=== PATIENT | female | born 1985 | race Caucasian/White ===

== ENCOUNTER 2016-10-31 16:18 | Observation (INO) | payer OTHER, SELFPAY ==
[~2016-10-31] VITALS: Ht 160 cm; Wt 74.8 kg
[~2016-10-31 16:18] MED LIST: /ESCI10TA OR; /OXCA30TA OR; ATIV0.5T OR; ATIV1TAB2 OR; BACT800T OR; CELE20TA OR; CIPR500T89 PO; IBUP200C PO; KLON0.5T OR; LEVA500T PO; MACROBID PO; MELA5TAB14 PO; No Historical Meds; PERC5TAB6 PO; PERC5TAB8 OR; VICO5TAB OR
[2016-10-31 17:07] LABS: CONTROL LINE UCG INT CTR LINE PRESENT
[2016-10-31] MEDS ORDERED: cefTRIAXone SOD 1 GM VIAL (J0696) As Ordered ONE (18:13)
[2016-10-31] MEDS ORDERED: KETOROLAC 30 MG/ML VIAL (J1885) As Ordered ONE (18:13)
[2016-10-31 18:47] LABS: BASO # 0.1 K/mm3 (0.0-0.2); BASO % 0.9 % (0.0-1.0); EOS # 0.2 K/mm3 (0.0-0.50); EOS % 1.3 % (0.0-3.0); LARGE UNSTAINED CELL # 0.2 K/mm3 (0.0-0.4); LARGE UNSTAINED CELL % 1.5 % (0.0-4.0); LYMPH # 1.6 K/mm3 (1.5-4.5); LYMPH % 12.3 % (24.0-44.0); MEAN CORPUSCULAR HEMOGLOBIN 29.2 pg (27.0-33.0); MEAN CORPUSCULAR HGB CONC 35.2 g/dl (32.0-36.5); MEAN CORPUSCULAR VOLUME 83.1 fl (80.0-96.0); MONO # 0.6 K/mm3 (0.0-0.8); MONO % 5.3 % (0.0-5.0); NEUTROPHILS % 78.7 % (36.0-66.0); PLATELET COUNT, AUTOMATED 410 k/mm3 (150-450); RED CELL DISTRIBUTION WIDTH 13.3 % (11.5-14.5); WHITE BLOOD COUNT 11.5 K/mm3 (4.0-10.0)
--- NOTE | 2016-10-31 19:02 | REP ---
CT study of the abdomen and pelvis without IV or oral contrast: History: Bilateral flank pain. Status post left ureteral stent. Question pyelonephritis. Comparison CT study is from April 10 2016. 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 Bowel gas pattern is unremarkable. The lung bases are clear. There is no evidence of pleural effusion or upper abdominal ascites. The liver and the spleen, the adrenals and the pancreas are unremarkable. No gallbladder abnormality is seen. There is marked bilateral hydronephrosis. On the left, there is hydronephrosis and hydroureter despite the presence of the double pigtail left ureteral stent. No ureteral stone is seen. The degree of hydronephrosis is essentially unchanged from the April 10, 2016 study on the left side. On the right, there is new hydronephrosis due to the presence of a 5 mm obstructing right mid ureteral calculus. On the left, there is some thickening of the renal pelvic wall, which may reflect pyelonephritis. There is no evidence of soft tissue gas, free air or ileus. A normal appendix is seen. No abdominal wall defect is seen. No uterine or adnexal abnormality is seen. Impression: Marked bilateral hydronephrosis. On the right, this is due to a right mid ureteral 5 mm calculus. On the left, the hydronephrosis is noted in spite of a well-positioned left double pigtail ureteral stent. There is mural thickening in the dilated renal pelvis consistent with pyelonephritis. Signed by Maurice Morris MD 10/31/2016 07:12 P
[2016-10-31 19:03] LABS: CALCIUM LEVEL 9.7 MG/DL (8.5-10.1); CREATININE FOR GFR 1.62 MG/DL (0.55-1.02); POTASSIUM SERUM 2.7 MEQ/L (3.5-5.1)
[2016-10-31] MEDS ORDERED: ONDANSETRON 4MG/2ML VIAL (J2405) As Ordered ONE ×2 (19:36→20:33)
[2016-10-31] MEDS ORDERED: IBUP60TA PO (19:39)
[2016-10-31] MEDS ORDERED: CONRAY-60 60% 50ML VIAL (Q9961) As Ordered ONE (19:49)
--- NOTE | 2016-10-31 20:00 | EDDOCDS ---
Nurse's Notes [facility] Name: Rosita Corado Age: 31 yrs Sex: Female : 1985 Arrival Date: 10/31/2016 Time: 16:18 Bed I3 / M3 Private MD: [facility] Diagnosis: Other hydronephrosis;Other mechanical complication of urinary stent;Chronic obstructive pyelonephritis;Fever presenting with conditions classified elsewhere;Acute kidney failure Presentation: 10/31 16:23 Presenting complaint: Patient states: "I have a stent in my left kidney that was jc4 supposed to come out a few months ago, but my insurance became effective. I'm having pain in my left side and my right side is killing me. I can't control my bladder". States intermittent symptoms for "a while, but it just got worse a couple of days ago". Acute neurological deficits are not present. Mechanism of Injury: No Mechanism of Injury. Adult Sepsis Screening: The patient does not have new or worsening altered mentation. Patient's respiratory rate is less than 22. Systolic blood pressure is greater than 100. Patient has a qSOFA score of 0- Negative Sepsis Screen. Suicide/Homicide risk assessment- the patient denies having any suicidal and/or homicidal ideations and does not present with any other emotional, behavioral or mental health complaints. Status: Patient is not a auto service mechanic or dependent. Transition of care: patient was not received from another setting of care. 16:23 Acuity: RAVI Level 3 [facility] 16:23 Method Of Arrival: Walkin/Carried/Asstd jc4 Triage Assessment: 16:25 General: Appears uncomfortable. Pain: Pain currently is 8 out of 10 on a pain scale. jc4 HIV screening NA for this visit Offered previously. Musculoskeletal: Circulation, motion, and sensation intact. 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 Motrin 600 mg Oral tab 1 tab 4 times per day as needed (Last dose: 10/31/2016 12:00) - PMHx: Anxiety; Kidney stones; - PSHx: renal stent; cone biopsy; - Social history: Smoking status: Patient states former smoker of tobacco. No barriers to communication noted, The patient speaks fluent Mongolian. - Family history: Not pertinent. - : The pt / caregiver states he / she is not on anticoagulants. Home medication list is obtained from the patient. - Exposure Risk Screening:: None identified. Screenin:21 Screening information is obtained from the patient. Fall risk: No risks identified. kpj Assistance ADL's: requires no assistance with activities of daily living. Abuse/DV Screen: The patient / caregiver reports he/she is: not in a situation that causes fear, pain or injury. Nutritional screening: No deficits noted. Advance Directives: Currently, there is no health care proxy. There is no active DNR order. There is no living will. There is no Power of Tire Inspector. Advance directive information has not previously been placed in an [facility] medical record. Further advance directive information is declined. home support is adequate. Assessment: 18:21 General: Appears uncomfortable, Behavior is appropriate for age, pleasant. Pain: [facility] Location: left flank and right flank Pain currently is 9 out of 10 on a pain scale. Quality of pain is described as aching, sharp. Neurological: Level of Consciousness is awake, alert, Oriented to person, place, time. Respiratory: Airway is patent Respiratory effort is even, unlabored, Respiratory pattern is regular, symmetrical. GI: Abdomen is non- distended Bowel sounds present X 4 quads. Abd is soft and non tender. : Reports pain in bilateral flank(s) Pain is 9 out of 10 on a pain scale. Derm: Skin is pink, warm & dry. 18:24 Adult Sepsis Screening: The patient does not have new or worsening altered mentation. [facility] Patient's respiratory rate is less than 22. Systolic blood pressure is greater than 100. Patient has a qSOFA score of 0- Negative Sepsis Screen. 19:45 Reassessment: Patient appears in no apparent distress at this time. Patient states rs3 symptoms have improved. bilateral flank pain 7/10. breathes easy. OR screen complete. family at bedside. Vital Signs: 16:20 BP 122 / 98; Pulse 125; Resp 18 S; Temp 100.5(O); Pulse Ox 96% on R/A; Weight 74.84 kg gr2 (R); Height 5 ft. 3 in. (160.02 cm) (R); Pain 8/10; 18:24 BP 137 / 86; Pulse 112; Resp 18; Temp 101.2(O); Pulse Ox 96% on R/A; Pain 8/10; kpj 19:39 BP 118 / 72; Pulse 96; Resp 18; Temp 99.2; Pulse Ox 98% ; Pain 8/10; ajs 16:20 Body Mass Index 29.23 (74.84 kg, 160.02 cm) gr2 18:24 Agustin NATARAJAN aware of vital signs. [facility] Vitals: 16:20 Log In Time: October 31, 2016 at 16:20. gr2 ED Course: 16:20 Patient visited by Wendie Bello. gr2 16:20 [facility] is Private Physician. gr2 16:20 Patient moved to Waiting gr2 16:21 Patient visited by Wendie Bello. gr2 16:21 Patient moved to Pre RCE gr2 16:25 Triage Initiated jc4 16:55 Patient moved to Triage 2 kr3 17:00 UCG- In Lab Sent. kr3 17:00 Urine Culture Sent. kr3 17:00 UA Sent. kr3 17:38 Agustin Serrano PA is PHCP. btw 17:38 Sarah Mendoza MD is Attending Physician. btw 17:43 Patient visited by Agustin Serrano PA. btw 18:04 Patient moved to I3 / M3 jc4 18:20 BMP Sent. kpj 18:20 CBC with Diff Sent. kpj 18:21 Resting quietly. kpj 18:21 The patient / caregiver is instructed regarding the plan of care and ED course. Patient kpj has correct armband on for positive identification. Placed in gown. Diet: Patient is NPO. 18:21 Inserted saline lock: 20 gauge in left antecubital area The patient tolerated the kpj procedure well. 18:24 Patient visited by Dayanara Bar. nb2 18:50 Patient name changed from Tia\\S\\\\S\\Mickie\\S\\ to Tia\\S\\ \\S\\Mickie. EDMS 18:51 [facility] [place] Payment Agreement was scanned into [employer] and attached to record. zo 19:19 Alexi Arriaga is Hospitalizing Provider. btw 19:36 -Blood Culture Sent. ajs 19:36 BLOOD CULTURES Sent. ajs 19:38 Admission Orders was scanned into [employer] and attached to record. ml3 19:39 Patient visited by Arelis Davis. ajs 19:45 CT ABD & PELVIS: No Contrast Returned. EDMS 19:48 No procedures done that require assistance. rs3 Administered Medications: 18:22 Drug: NS 0.9% 1000 ml [sodium chloride 0.9 % intravenous solution] Route: IV; Rate: mcp bolus; Site: left antecubital; 19:44 Follow up: IV Status: Completed infusion rs3 18:22 Drug: ketorolac 15 mg [ketorolac 30 mg/mL (1 mL) injection solution (0.5 mL)] Route: mcp IVP; Site: left antecubital; 18:22 Drug: cefTRIAXone 2 grams [ceftriaxone 1 gram solution for injection] Route: IVPB; mcp Infused Over: 30 mins; Site: left antecubital; 19:45 Follow up: IV Status: Completed infusion rs3 19:44 Drug: Ondansetron 4 mg [ondansetron HCl 2 mg/mL intravenous solution (2 mL)] Route: rs3 IVP; Site: left antecubital; Order Results: Lab Order: UA; SPEC'M 10/31/16 16:58 Test: APPEARANCE, URINE; Value: TURBID; Range: CLEAR; Abnormal: Above high normal; Status: F Test: COLOR, URINE; Value: YELLOW; Range: YELLOW; Status: F Test: PH,URINE; Value: 7.0; Range: 5.0-9.0; Units: UNITS; Status: F Test: SPECIFIC GRAVITY URINE AUTO; Value: 1.009; Range: 1.002-1.035; Status: F Test: PROTEIN, URINE AUTO; Value: 2+; Range: NEGATIVE; Abnormal: Above high normal; Units: mg/dL; Status: F Test: GLUCOSE, URINE (UA) AUTO; Value: NEGATIVE; Range: NEGATIVE; Units: mg/dL; Status: F Test: KETONE, URINE AUTO; Value: 2+; Range: NEGATIVE; Abnormal: Above high normal; Units: mg/dL; Status: F Test: UROBILINOGEN, URINE AUTO; Value: 0.2; Range: 0.0-2.0; Units: mg/dL; Status: F Test: BILIRUBIN, URINE AUTO; Value: NEGATIVE; Range: NEGATIVE; Status: F Test: NITRITE, URINE AUTO; Value: NEGATIVE; Range: NEGATIVE; Status: F Test: LEUKOCYTE ESTERASE, URINE AUTO; Value: 2+; Range: NEGATIVE; Abnormal: Above high normal; Status: F Test: BLOOD, URINE BLOOD; Value: 3+; Range: NEGATIVE; Abnormal: Above high normal; Status: F Test: SPERM, URINE AUTO; Range: NONE; Status: I Test: WBC, URINE AUTO; Value: TNTC; Range: 0-3; Abnormal: Above high normal; Units: /HPF; Status: F Test: RBC, URINE AUTO; Value: 156; Range: 0-3; Abnormal: Above high normal; Units: /HPF; Status: F Test: BACTERIA, URINE AUTO; Value: 2+; Range: NEGATIVE; Abnormal: Above high normal; Status: F Test: SQUAMOUS EPITHELIAL CELL UR AU; Value: 9; Range: 0-6; Units: /HPF; Status: F Test: MUCUS, URINE; Value: MODERATE; Range: NEGATIVE; Status: F Test: HYALINE CAST, URINE AUTO; Value: 0; Range: 0-1; Units: /LPF; Status: F Lab Order: UCG- In Lab; SPEC'M 10/31/16 16:58 Test: URINE PREG TEST; Value: NEGATIVE; Range: NEGATIVE; Status: F Lab Order: CBC with Diff; SPEC'M 10/31/16 18:18 Test: WHITE BLOOD COUNT; Value: 11.5; Range: 4.0-10.0; Abnormal: Above high normal; Units: K/mm3; Status: F Test: RED BLOOD COUNT; Value: 4.33; Range: 4.00-5.40; Units: M/mm3; Status: F Test: HEMOGLOBIN; Value: 12.6; Range: 12.0-16.0; Units: g/dl; Status: F Test: HEMATOCRIT; Value: 36.0; Range: 36.0-47.0; Units: %; Status: F Test: MEAN CORPUSCULAR VOLUME; Value: 83.1; Range: 80.0-96.0; Units: fl; Status: F Test: MEAN CORPUSCULAR HEMOGLOBIN; Value: 29.2; Range: 27.0-33.0; Units: pg; Status: F Test: MEAN CORPUSCULAR HGB CONC; Value: 35.2; Range: 32.0-36.5; Units: g/dl; Status: F Test: RED CELL DISTRIBUTION WIDTH; Value: 13.3; Range: 11.5-14.5; Units: %; Status: F Test: PLATELET COUNT, AUTOMATED; Value: 410; Range: 150-450; Units: k/mm3; Status: F Test: NEUTROPHILS %; Value: 78.7; Range: 36.0-66.0; Abnormal: Above high normal; Units: %; Status: F Test: LYMPH %; Value: 12.3; Range: 24.0-44.0; Abnormal: Below low normal; Units: %; Status: F Test: MONO %; Value: 5.3; Range: 0.0-5.0; Abnormal: Above high normal; Units: %; Status: F Test: EOS %; Value: 1.3; Range: 0.0-3.0; Units: %; Status: F Test: BASO %; Value: 0.9; Range: 0.0-1.0; Units: %; Status: F Test: LARGE UNSTAINED CELL %; Value: 1.5; Range: 0.0-4.0; Units: %; Status: F Test: NEUTROPHILS #; Value: 9.0; Range: 1.8-7.7; Abnormal: Above high normal; Units: K/mm3; Status: F Test: LYMPH #; Value: 1.6; Range: 1.5-4.5; Units: K/mm3; Status: F Test: MONO #; Value: 0.6; Range: 0.0-0.8; Units: K/mm3; Status: F Test: EOS #; Value: 0.2; Range: 0.0-0.50; Units: K/mm3; Status: F Test: BASO #; Value: 0.1; Range: 0.0-0.2; Units: K/mm3; Status: F Test: LARGE UNSTAINED CELL #; Value: 0.2; Range: 0.0-0.4; Units: K/mm3; Status: F Lab Order: [facility]; SPEC'M 10/31/16 18:18 Test: GLUCOSE, FASTING; Value: 85; Range: 70-105; Units: MG/DL; Status: F Test: BLOOD UREA NITROGEN; Value: 19; Range: 7-18; Abnormal: Above high normal; Units: MG/DL; Status: F Test: CREATININE FOR GFR; Value: 1.62; Range: 0.55-1.02; Abnormal: Above high normal; Units: MG/DL; Status: F Test: GLOMERULAR FILTRATION RATE; Value: 39.0; Range: >60; Abnormal: Below low normal; Status: F Test: SODIUM LEVEL; Value: 140; Range: 136-145; Units: MEQ/L; Status: F Test: POTASSIUM SERUM; Value: 2.7; Range: 3.5-5.1; Abnormal: Critical Low; Units: MEQ/L; Status: F Test: CHLORIDE LEVEL; Value: 97; Range: 98-107; Abnormal: Below low normal; Units: MEQ/L; Status: F Test: CARBON DIOXIDE LEVEL; Value: 27; Range: 21-32; Units: MEQ/L; Status: F Test: ANION GAP; Value: 16; Range: 8-16; Units: MEQ/L; Status: F Test: CALCIUM LEVEL; Value: 9.7; Range: 8.5-10.1; Units: MG/DL; Status: F Test Note: ; Units are mL/min/1.73 m2 Chronic Kidney Disease Staging per NKF: Stage I & II GFR >=60 Normal to Mildly Decreased Stage III GFR 30-59 Moderately Decreased Stage IV GFR 15-29 Severely Decreased Stage V GFR <15 Very Little GFR Left ESRD GFR <15 on YEAST TENDER Radiology Order: CT ABD & PELVIS: No Contrast Test: CT ABD & PELVIS: No Contrast REASON FOR EXAMINATION: stent x several months; ? pyelo; CT study of the abdomen and pelvis without IV or oral contrast:; ; History: Bilateral flank pain. Status post left ureteral stent. 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 Bowel gas pattern is unremarkable. The lung bases; are clear. There is no evidence of pleural effusion or upper abdominal ascites.; The liver and the spleen, the adrenals and the pancreas are unremarkable. No; gallbladder abnormality is seen.; ; There is marked bilateral hydronephrosis. On the left, there is hydronephrosis; and hydroureter despite the presence of the double pigtail left ureteral stent.; No ureteral stone is seen. The degree of hydronephrosis is essentially unchanged; from the April 10, 2016 study on the left side.; ; On the right, there is new hydronephrosis due to the presence of a 5 mm; obstructing right mid ureteral calculus.; ; On the left, there is some thickening of the renal pelvic wall, which may reflect; pyelonephritis. There is no evidence of soft tissue gas, free air or ileus. A; normal appendix is seen. No abdominal wall defect is seen. No uterine or; adnexal abnormality is seen.; ; Impression:; ; Marked bilateral hydronephrosis. On the right, this is due to a right mid; ureteral 5 mm calculus. On the left, the hydronephrosis is noted in spite of a; well-positioned left double pigtail ureteral stent. There is mural thickening in; the dilated renal pelvis consistent with pyelonephritis.; ; ; Signed by; Maurice Morris MD 10/31/2016 07:12 P; Outcome: 19:20 Decision to Hospitalize by Provider. btw 19:48 Discharge Assessment: patient administered narcotics - no. The following High Risk rs3 Discharge criteria are identified: None. Admitted to OR accompanied by nurse, accompanied by tech, family with patient, via stretcher, with chart. Condition: stable. CT Study completed. Admission hand-off: Report called to OR staff. Property :Personal belongings accompany Pt. 19:59 Patient left the ED. rs3 Signatures: Dispatcher [employer] EDMS Katia Angel RN RN kpj Peters, Mary RN RUSSEL [facility] Shanique Suh, Antenna Specialist Unit ml3 Ileana Hanna RN RN kr3 Steve An Rosemary, RN RN rs3 Agustin Serrano PA PA btw Gay Angeles RN RN jc4 Arelis Davis Gainslee gr2 Dayanara Bar2 Corrections: (The following items were deleted from the chart) 18:25 18:24 BP 137 / 86; Pulse 112bpm; Resp 18bpm; Pulse Ox 96% RA; Temp 101.2F Oral; Pain kpj 8/; nb2 MTDD
--- NOTE | 2016-10-31 20:00 | EDDOCDS ---
Physician Documentation [facility] Name: Rosita Corado Age: 31 yrs Sex: Female : 1985 Arrival Date: 10/31/2016 Time: 16:18 Bed I3 / M3 Private MD: [facility] Disposition: 10/31/16 19:20 Hospitalization ordered by Alexi Arriaga for Inpatient Admission. Preliminary diagnosis are Other hydronephrosis, Other mechanical complication of urinary stent, Chronic obstructive pyelonephritis, Fever presenting with conditions classified elsewhere, Acute kidney failure. - Bed requested for Admit. - Status is Inpatient Admission. rs3 - Condition is Stable. - Problem is new. - Symptoms are unchanged. Historical: - Allergies: Reglan; - Home Meds: 1. Motrin 600 mg Oral tab 1 tab 4 times per day as needed (Last dose: 10/31/2016 12:00) - PMHx: Anxiety; Kidney stones; - PSHx: renal stent; cone biopsy; - Social history: Smoking status: Patient states former smoker of tobacco. No barriers to communication noted, The patient speaks fluent Tristanian. - Family history: Not pertinent. - : The pt / caregiver states he / she is not on anticoagulants. Home medication list is obtained from the patient. - Exposure Risk Screening:: None identified. 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 3 in. (160.02 cm) (R); Pain 8/10; 18:24 BP 137 / 86; Pulse 112; Resp 18; Temp 101.2(O); Pulse Ox 96% on R/A; Pain 8/10; kpj 19:39 BP 118 / 72; Pulse 96; Resp 18; Temp 99.2; Pulse Ox 98% ; Pain 8/10; ajs 16:20 Body Mass Index 29.23 (74.84 kg, 160.02 cm) gr2 18:24 Agustin NATARAJAN aware of vital signs. [facility] MDM: 16:43 UA Ordered. EDMS 16:43 Urine Culture Ordered. EDMS 16:43 UCG- In Lab Ordered. EDMS 17:44 UA Reviewed. btw 17:44 UCG- In Lab Reviewed. btw 17:55 CBC with Diff Ordered. EDMS 17:55 BMP Ordered. EDMS 17:56 CT ABD & PELVIS: No Contrast Ordered. EDMS 17:56 IV Saline Lock ordered. btw 17:56 NS 0.9% 1000 ml IV at bolus once ordered. btw 17:56 ketorolac 15 mg IVP once ordered. btw 17:56 cefTRIAXone 2 grams IVPB once over 30 mins; dilute in 50mL of NS or D5W ordered. btw 18:41 Financial registration complete. zo 18:50 CBC with Diff Reviewed. btw 18:51 [facility] Payment Agreement was scanned into [employer] and attached to record. zo 19:08 BMP Reviewed. btw 19:08 BED REQUEST+ADM ordered. EDMS 19:18 -Blood Culture (Adults Only), peripheral from different site, or from device/port/PICC btw etc. if present ordered. 19:18 Ondansetron 4 mg IVP once ordered. btw 19:19 -Blood Culture Ordered. EDMS 19:20 NOTHING BY MOUTH+DIET ordered. EDMS 19:21 -Blood Culture (Adults Only), peripheral from different site, or from device/port/PICC ajs etc. if present complete. 19:22 BLOOD CULTURES Ordered. EDMS 19:33 Retrograde Pyelogram Ordered. EDMS 19:38 Admission Orders was scanned into [employer] and attached to record. ml3 Administered Medications: 18:22 Drug: NS 0.9% 1000 ml [sodium chloride 0.9 % intravenous solution] Route: IV; Rate: mcp bolus; Site: left antecubital; 19:44 Follow up: IV Status: Completed infusion rs3 18:22 Drug: ketorolac 15 mg [ketorolac 30 mg/mL (1 mL) injection solution (0.5 mL)] Route: mcp IVP; Site: left antecubital; 18:22 Drug: cefTRIAXone 2 grams [ceftriaxone 1 gram solution for injection] Route: IVPB; mcp Infused Over: 30 mins; Site: left antecubital; 19:45 Follow up: IV Status: Completed infusion rs3 19:44 Drug: Ondansetron 4 mg [ondansetron HCl 2 mg/mL intravenous solution (2 mL)] Route: rs3 IVP; Site: left antecubital; Signatures: Dispatcher [employer] EDKatia Lopez RN RN [facility] Shanique Suh, [employer] [facility] ml3 Steve An Rosemary, RN RN rs3 Agustin Serrano PA PA btw Castle, Jennifer, RN RN jc4 Arelis Davis Mary RN mcp The chart was reviewed and I authenticate all verbal orders and agree with the evaluation and treatment provided.Attachments: 18:51 [facility] Payment Agreement zo 19:38 Admission Orders ml3 MTDD
[2016-10-31] MEDS ORDERED: ACETAMINOPHEN TAB 650MG DOSE (2X325MG) PO PRN (20:15)
[2016-10-31] MEDS ORDERED: ONDANSETRON 4MG/2ML VIAL (J2405) IV PRN ×2 (20:15→21:30)
[2016-10-31] MEDS ORDERED: fentaNYL 250 MCG/5 ML INJECTION (J3010) As Ordered ONE (20:33)
[2016-10-31] MEDS ORDERED: dexameTHASONE 4 MG/ML 1ML VIAL (J1100) As Ordered ONE (20:33)
[2016-10-31] MEDS ORDERED: MIDAZOLAM INJ 2 MG/2 ML VIAL (J2250) As Ordered ONE (20:33)
[2016-10-31] MEDS ORDERED: PROPOFOL 200 MG/20 ML VIAL As Ordered ONE (20:33)
[2016-10-31] MEDS ORDERED: LIDOCAINE 2% INJ 100 MG/5 ML SDV (FOR ANES.) As Ordered ONE (20:33)
[2016-10-31] MEDS ORDERED: PERCOCET 5MG/325MG TAB PO PRN (21:30)
[2016-10-31] MEDS ORDERED: fentaNYL 100 MCG/2 ML INJECTION (J3010) IV PRN (21:30)
[2016-10-31] MEDS ORDERED: LR 1,000 ML IV SCH (21:30)
[2016-10-31] MEDS ORDERED: MEPERIDINE INJ 25 MG/ML VIAL (J2175) IV PRN (21:30)
[2016-10-31 22:05] VITALS: BP 124/88
[2016-10-31] MEDS: KCL 40MEQ IN D5/0.45NS 1000ML 1,000 ML IV SCH (22:15)
[2016-10-31] MEDS: PIPERACILLIN/TAZOBACTAM SOD 3.375 GM in D5W MINI-BAG PLUS 50 ML IV SCH (22:34)
[2016-10-31] MEDS: DOCUSATE SODIUM 100 MG CAP PO SCH (22:34)
[2016-10-31 22:35] VITALS: BP 132/93
[2016-10-31 23:05] VITALS: BP 129/89
[2016-10-31] MEDS: MORPHINE 2 MG/ML 1ML SYRINGE IV PRN (23:47)
[2016-11-01] VITALS (13 sets, daily range): BP systolic 102–141; BP diastolic 67–95
[2016-11-01] MEDS: PERCOCET 5MG/325MG TAB PO PRN ×4 (03:36→21:08)
[2016-11-01] MEDS: PIPERACILLIN/TAZOBACTAM SOD 3.375 GM in D5W MINI-BAG PLUS 50 ML IV SCH ×3 (03:41→15:07)
[2016-11-01] MEDS: KCL 40MEQ IN D5/0.45NS 1000ML 1,000 ML IV SCH ×2 (06:01→22:28)
[2016-11-01] MEDS: MORPHINE 2 MG/ML 1ML SYRINGE IV PRN ×3 (06:01→15:54)
[2016-11-01 07:29] LABS: MEAN CORPUSCULAR HEMOGLOBIN 29.1 pg (27.0-33.0); MEAN CORPUSCULAR VOLUME 85.6 fl (80.0-96.0); RED CELL DISTRIBUTION WIDTH 12.4 % (11.5-14.5); WHITE BLOOD COUNT 5.6 K/mm3 (4.0-10.0)
[2016-11-01 07:32] LABS: INR 0.98
[2016-11-01 07:47] LABS: CALCIUM LEVEL 8.9 MG/DL (8.5-10.1); CREATININE FOR GFR 1.53 MG/DL (0.55-1.02); GLOMERULAR FILTRATION RATE 41.6 (>60); POTASSIUM SERUM 3.3 MEQ/L (3.5-5.1)
--- NOTE | 2016-11-01 08:40 | REP ---
Retrograde pyelogram: Three views obtained intraprocedurally. History: Right ureteral stone. 30 seconds of fluoroscopy time is reported. Findings: A sequence of three fluoroscopically obtained intraprocedural spot radiographs document bilateral ureteral contrast injection, bilateral marked hydronephrosis, and bilateral double pigtail ureteral stent placement. Signed by Maurice Morris MD 11/01/2016 09:16 A
[2016-11-01] MEDS: DOCUSATE SODIUM 100 MG CAP PO SCH ×2 (08:44→21:06)
--- NOTE | 2016-11-01 08:50 | IPNPDOC ---
Date of Service The patient was seen on 11/01/16. Patient Summary This is a 31 y/o F admitted yesterday w/ an obstructing right ureteral stone, a retained and calcified left ureteral stent since 04/2016, and fevers, POD1 s/p cystoscopy w/ right ureteral stent placement, cystolitholapaxy and attempted removal of left ureteral stent. She feels better and is no longer febrile, currently on zosyn q6. She is still very tender in both flanks (L > R). Given the inability to change the stent at this time, I recommended a left percutaneous nephrostomy tube placement to drain the left kidney. She is agreeable. Plan/VTE VTE Prophylaxis Ordered?: Yes VTE Exclusion Mechanical Proph: N/A:VTE Prophy Ordered Plan/Urinary Catheter Reason for insertion/continuin: Other-document below (to maximize urinary drainage and for strict urine output given her declined renal function) Plan - percocet, morphine prn pain - continue IVF w/ K replacement - continue zosyn - f/u blood and urine cultures - plan for left perc nephrostomy tube placement today - NPO until after her procedure Review oF Systems CC/HPI Right Ureteral Stone, Retained Left Ureteral Stent Events since Last Encounter No acute events o/n. Her right flank pain has gone down to a 5/10 from 810 prior to stent placement yesterday. Her left flank pain is unchanged at 8-9/ 10. She feels a little better. She denies n/v. She denies f/c/ns. Physical Examination General Exam: : Alert: Cooperative ABDOMEN EXAM: : Tenderness (right and left abdominal tenderness) Skin Exam: : Nl turgor and temperature Neuro Exam: : Normal Speech Psych Exam: : Mental status NL: Mood NL Other physical findings b/l CVA tenderness (L > R); lares catheter draining clear urine Vital Signs/I&O Vital Signs Date Time Temp Pulse Resp B/P Pulse Ox O2 Delivery O2 Flow Rate FiO2 11/01/16 06:11 18 11/01/16 04:00 97.3 75 102/67 94 Room Air I&O- Last 24 Hours up to 6 AM 11/01/16 06:00 Intake Total 1785 ml Output Total 750 ml Balance 1035 ml Laboratory Data Labs 24H Laboratory Tests 2 10/31/16 16:58: Urine Amorphous Sediment , Urine Appearance TURBIDH, Urine Color YELLOW, Urine pH 7.0, Urine Specific [place] 1.009, Urine Protein 2+H, Urine Glucose (UA) NEGATIVE, Urine Ketones 2+H, Urine Urobilinogen 0.2, Urine Bilirubin NEGATIVE, Urine Leukocyte Esterase 2+H, Urine Bacteria (Auto) 2+H, Urine Blood 3+H, Urine Calcium Carbonate Cryst(Auto) , Urine Calcium Oxalate Cryst (Auto) , Urine Calcium Phosphate [place] (Auto) , Urine Cellular Casts , Urine Cystine Crystals , Urine Granular Casts (Auto) , Urine Hyaline Casts (Auto) 0, Urine Leucine Crystals , Urine Mucus (Auto) MODERATE, Urine Nitrite NEGATIVE, Urine Oval Fat Bodies (Auto) , Urine Test NEGATIVE, Urine RBC (Auto) 156H, Urine Renal Epithelial Cells , Urine Sperm (Auto) , Urine Squamous Epithelial Cells 9 , Urine Transitional Epithelial Cells , Urine Trichomonas (Auto) , Urine Triple Phosphate Cryst (Auto) , Urine Tyrosine Crystals , Urine Uric Acid Crystals ( Auto) , Urine WBC (Auto) TNTCH, Urine Waxy Casts (Auto) , Urine Yeast-Like Cells (Auto) 10/31/16 18:18: Anion Gap 16, White Blood Count 11.5H, Red Blood Count 4.33, Hemoglobin 12.6, Hematocrit 36.0, Mean Corpuscular Volume 83.1, Mean Corpuscular Hemoglobin 29.2 , Mean Corpuscular Hemoglobin Concent 35.2, Red Cell Distribution Width 13.3, Platelet Count 410, Neutrophils (%) (Auto) 78.7H, Lymphocytes (%) (Auto) 12.3L, Monocytes (%) (Auto) 5.3H, Eosinophils (%) (Auto) 1.3, Basophils (%) (Auto) 0.9 , Neutrophils # (Auto) 9.0H, Lymphocytes # (Auto) 1.6, Monocytes # (Auto) 0.6, Eosinophils # (Auto) 0.2, Basophils # (Auto) 0.1, Blood Urea Nitrogen 19H, Creatinine 1.62H, Sodium Level 140, Potassium Level 2.7*L, Chloride Level 97L, Carbon Dioxide Level 27, Calcium Level 9.7, Glomerular Filtration Rate 39.0L, Large Unclassified Cells # 0.2, Large Unclassified Cells % 1.5 11/01/16 07:05: Anion Gap 10, Blood Urea Nitrogen 21H, Creatinine 1.53H, Sodium Level 142, Potassium Level 3.3#L, Chloride Level 104, Carbon Dioxide Level 28, Calcium Level 8.9, Glomerular Filtration Rate 41.6L, Activated Partial Thromboplast Time 37.0, Prothromb Time International Ratio 0.98, Prothrombin Time 13.1 CBC/BMP Laboratory Tests 10/31/16 18:18 Calcium Level 9.7, Red Blood Count 4.33, Mean Corpuscular Volume 83.1, Mean Corpuscular Hemoglobin 29.2, Mean Corpuscular Hemoglobin Concent 35.2, Red Cell Distribution Width 13.3, Neutrophils (%) (Auto) 78.7 H, Lymphocytes (%) (Auto) 12.3 L, Monocytes (%) (Auto) 5.3 H, Eosinophils (%) (Auto) 1.3, Basophils (%) ( Auto) 0.9, Neutrophils # (Auto) 9.0 H, Lymphocytes # (Auto) 1.6, Monocytes # ( Auto) 0.6, Eosinophils # (Auto) 0.2, Basophils # (Auto) 0.1 11/01/16 07:05 Calcium Level 8.9, Red Blood Count 4.05, Mean Corpuscular Volume 85.6, Mean Corpuscular Hemoglobin 29.1, Mean Corpuscular Hemoglobin Concent 34.0, Red Cell Distribution Width 12.4 Microbiology Microbiology 10/31/16 Blood Culture, Received Pending 10/31/16 Blood Culture, Received Pending 10/31/16 Urine Culture, Received Pending ROSELYN GUTIÉRREZ MD Nov 01, 2016 08:50
[2016-11-01] MEDS ORDERED: ISOVUE-300 61% 50ML VIAL (Q9967) As Ordered ONE (11:59)
[2016-11-01] MEDS ORDERED: fentaNYL 100 MCG/2 ML INJECTION (J3010) As Ordered ONE ×2 (12:10→13:39)
[2016-11-01] MEDS ORDERED: MIDAZOLAM INJ 2 MG/2 ML VIAL (J2250) As Ordered ONE (12:10)
[2016-11-01] MEDS ORDERED: ONDANSETRON 4MG/2ML VIAL (J2405) As Ordered ONE (13:39)
[2016-11-01] MEDS: fentaNYL 100 MCG/2 ML INJECTION (J3010) IV PRN ×4 (13:43→14:08)
[2016-11-01] MEDS ORDERED: LR 1,000 ML IV SCH (14:30)
[2016-11-01] MEDS ORDERED: ONDANSETRON 4MG/2ML VIAL (J2405) IV PRN (14:30)
[2016-11-01 17:09] LABS: CALCIUM LEVEL 8.3 MG/DL (8.5-10.1); CREATININE FOR GFR 1.44 MG/DL (0.55-1.02); GLOMERULAR FILTRATION RATE 44.6 (>60); POTASSIUM SERUM 3.6 MEQ/L (3.5-5.1)
--- NOTE | 2016-11-01 18:28 | REP ---
Percutaneous left nephrostomy catheter placement under sonographic and fluoroscopic guidance: History: Obstructive uropathy bilaterally. Ureteral obstruction on the right from a stone. A obstructed previously placed left ureteral stent is noted associated with severe hydronephrosis on the left. Percutaneous nephrostomy requested on the left side. Procedure: The patient and her were interviewed and informed consent was obtained. The patient was placed in the prone oblique position on the angiography table. We are grateful for anesthesia services regarding deep conscious sedation. Preliminarily, left renal sonography is performed and the skin was marked at the proposed skin entry site. After patient safety time-out was articulated and agreed to, the area over the left posterior flank was prepped and draped in the usual fashion. Utilizing 1% lidocaine for local anesthetic and real-time sonographic guidance, a 21-gauge Chiba needle was passed into the right renal collecting system under direct real time ultrasound visualization without technical difficulty. Clear return of urine was achieved. Guidewire was passed through the Chiba needle. A 6-Guinean dilator was passed over the guidewire and an eight-Guinean multi side-hole string fixed pigtail catheter was passed into the dilated left renal pelvis under fluoroscopic visualization. Opaque brownish-red mucoid material and some urine were retrieved from the renal pelvis. Contrast was injected into the renal pelvis showing good catheter position and no extravasation. There is a large filling defect surrounding the coiled portion previously placed ureteral stent. The patient tolerated the procedure well. The catheter was connected to gravity drainage bag. A Prolene suture was utilized to anchor the catheter at the skin entry site. The catheter entry site was covered with an OpSite dressing. Impression: Percutaneous nephrostomy tube on the left side placed with deep conscious sedation provided by the anesthesia department. The fluoroscopy time utilized was 0.9 minutes. Signed by Maurice Morris MD 11/02/2016 11:24 A
[2016-11-01] MEDS: CIPROFLOXACIN 500 MG TAB PO SCH (18:35)
[2016-11-01] MEDS ORDERED: MORPHINE 2 MG/ML 1ML SYRINGE IV PRN (19:00)
[2016-11-02] VITALS: BP 113/73
[2016-11-02 04:00] VITALS: BP 93/53
[2016-11-02] MEDS: CIPROFLOXACIN 500 MG TAB PO SCH ×2 (06:00→18:13)
[2016-11-02] MEDS: PERCOCET 5MG/325MG TAB PO PRN ×4 (06:01→21:01)
[2016-11-02 07:01] LABS: MEAN CORPUSCULAR HGB CONC 33.9 g/dl (32.0-36.5); MEAN CORPUSCULAR VOLUME 85.4 fl (80.0-96.0); RED CELL DISTRIBUTION WIDTH 13.4 % (11.5-14.5); WHITE BLOOD COUNT 12.6 K/mm3 (4.0-10.0)
[2016-11-02 07:22] LABS: CREATININE FOR GFR 1.46 MG/DL (0.55-1.02); GLOMERULAR FILTRATION RATE 43.9 (>60)
[2016-11-02 08:00] VITALS: BP 113/67
[2016-11-02] MEDS: DOCUSATE SODIUM 100 MG CAP PO SCH ×2 (08:19→21:00)
[2016-11-02] MEDS: KCL 10MEQ IN 100ML SWI (KRUN) 10 MEQ in APPROPRIATE DILUENT 1 EA IV SCH ×8 (09:57→16:13)
--- NOTE | 2016-11-02 11:06 | IPNPDOC ---
Date of Service The patient was seen on 11/02/16. Patient Summary This is a 31 y/o F admitted 10/31/16 w/ an obstructing right ureteral stone, a retained and calcified left ureteral stent since 04/2016, and fevers, now POD2 s/ p cystoscopy w/ right ureteral stent placement, cystolitholapaxy and attempted removal of left ureteral stent, and POD1 s/p left perc neph tube placement. Zosyn was stopped yesterday and she was switched to PO cipro. She has remained afebrile on this. Her WBC jumped to 12.6 from 5.6 yesterday, but this is likely related to the left neph tube placement. Her Cr is hanging around 1.45, but her UOP is slowly increasing. K remains low and this is being replaced. Her abdominal and flank pain is getting better, but she is still occasionally requiring IV morphine for breakthrough pain. Plan/VTE VTE Prophylaxis Ordered?: Yes VTE Exclusion Mechanical Proph: N/A:VTE Prophy Ordered Plan - replete K in IVF - continue maintenance fluid at 50cc/hr - encourage PO hydration - percocet for pain w/ morphine for breakthrough pain - continue cipro given concern for UTI - strict I/Os - ambulate - regular diet Review oF Systems CC/HPI Bilateral Hydronephrosis from an Obstructing Right Ureteral Stone and a Calcified Retained Left Ureteral Stent Events since Last Encounter No acute events o/n. The patient had a left nephrostomy tube placed yesterday afternoon and this went w/o any problems. Per report, thick yellow fluid drained out when the neph tube was first placed. This was sent for culture. The patient notes her b/l flank and abdominal pain is a little improved this morning. Her catheter was removed yesterday and she is voiding, but notes a lot of pain when she voids. She denies n/v. No f/c/ns. Physical Examination General Exam: : Alert: Cooperative ABDOMEN EXAM: : Tenderness (right and left abdominal tenderness) Skin Exam: : Nl turgor and temperature Neuro Exam: : Normal Speech Psych Exam: : Mental status NL: Mood NL Other physical findings b/l CVA tenderness; left nephrostomy tube draining clear yellow urine w/ some sediment in it Vital Signs/I&O Vital Signs Date Time Temp Pulse Resp B/P Pulse Ox O2 Delivery O2 Flow Rate FiO2 11/02/16 10:06 16 11/02/16 08:00 98.9 83 113/67 96 Room Air 11/02/16 04:00 1.0 I&O- Last 24 Hours up to 6 AM 11/02/16 06:00 Intake Total 2370 ml Output Total 1025 ml Balance 1345 ml Laboratory Data Labs 24H Laboratory Tests 2 11/01/16 13:10: Urine Amorphous Sediment , Urine Appearance TURBIDH, Urine Color REDH, Urine pH 8.0, Urine Specific [place] 1.028, Urine Protein 2+H, Urine Glucose (UA) 1+H, Urine Ketones TRACEH, Urine Urobilinogen 0.2, Urine Bilirubin NEGATIVE, Urine Leukocyte Esterase 2+H, Urine Bacteria (Auto) 1+H, Urine Blood 3+H, Urine Calcium Carbonate Cryst(Auto) , Urine Calcium Oxalate Cryst (Auto) , Urine Calcium Phosphate [place] (Auto) , Urine Cellular Casts , Urine Cystine Crystals , Urine Granular Casts (Auto) , Urine Hyaline Casts (Auto) 0, Urine Leucine Crystals , Urine Mucus (Auto) SMALL, Urine Nitrite NEGATIVE, Urine Oval Fat Bodies (Auto) , Urine RBC (Auto) TNTCH, Urine Renal Epithelial Cells , Urine Sperm (Auto) , Urine Squamous Epithelial Cells 0, Urine Transitional Epithelial Cells , Urine Trichomonas (Auto) , Urine Triple Phosphate Cryst (Auto) , Urine Tyrosine Crystals , Urine Uric Acid Crystals (Auto) , Urine WBC (Auto) TNTCH, Urine Waxy Casts (Auto) , Urine Yeast-Like Cells (Auto) 11/01/16 16:35: Anion Gap 9, Blood Urea Nitrogen 18, Creatinine 1.44H, Sodium Level 144, Potassium Level 3.6, Chloride Level 106, Carbon Dioxide Level 29, Calcium Level 8.3L, Glomerular Filtration Rate 44.6L 11/02/16 06:26: Anion Gap 10, Blood Urea Nitrogen 16, Creatinine 1.46H, Sodium Level 144, Potassium Level 3.0L, Chloride Level 106, Carbon Dioxide Level 28, Calcium Level 8.0L, Glomerular Filtration Rate 43.9L CBC/BMP Laboratory Tests 11/01/16 16:35 Calcium Level 8.3 L 11/02/16 06:26 Calcium Level 8.0 L, Red Blood Count 3.63 L, Mean Corpuscular Volume 85.4, Mean Corpuscular Hemoglobin 29.0, Mean Corpuscular Hemoglobin Concent 33.9, Red Cell Distribution Width 13.4 Microbiology Microbiology 10/31/16 Blood Culture - Preliminary, Resulted No growth after 24 hours . All specim... 10/31/16 Blood Culture - Preliminary, Resulted No growth after 24 hours . All specim... 11/01/16 Urine Culture, Received Pending 10/31/16 Urine Culture - Final, Complete ROSELYN GUTIÉRREZ MD Nov 02, 2016 11:06
--- NOTE | 2016-11-02 11:12 | RO ---
DATE OF PROCEDURE: 10/31/2016 PREPROCEDURE DIAGNOSIS: Obstructing right ureteral stone, retained left ureteral stent. POSTPROCEDURE DIAGNOSIS: Obstructing right ureteral stone, retained left ureteral stent. PROCEDURE: Cystoscopy, right retrograde pyelogram with intraoperative interpretation of images, right JJ ureteral stent placement, cystolitholapaxy. SURGEON: Dr. Alexi Arriaga SOLAR ELECTRIC/PHOTOVOLTAIC INSTALLER: None. ANESTHESIA: General. OPERATIVE INDICATIONS: This is a 31-year-old female who presented to the emergency room today with fevers, bilateral flank pain, nausea, and feeling very unwell, as well as dysuria. She spiked fevers in the emergency room, and she had an elevated white blood cell count. A CT scan of the abdomen and pelvis was obtained, and it was notable moderate to severe bilateral hydronephrosis due to a calcified left ureteral stent and an obstructing 5 mm mid right ureteral stone. Given the concern that she has an active urinary tract infection in addition to bilateral renal obstruction, the decision was made to bring her to the operating room emergently for a right ureteral stent placement and attempt at left ureteral stent exchange. Of note, this patient was brought to the operating room approximately 6 months ago for a left ureteral stent placement as she had a 7 mm obstructing proximal left ureteral stone at that time as well as a urinary tract infection. She never followed up with treatment for that stone or removal of that stent. DESCRIPTION OF PROCEDURE: The patient was brought to the operating room and general anesthesia was induced. Prophylactic antibiotics had already been infused in the emergency room. She was then placed in the dorsal lithotomy position and prepped and draped in the usual sterile fashion. A rigid cystoscope was then inserted into the urethral meatus and advanced into the bladder. Once within the bladder, the previously placed left ureteral stent was seen and the distal end of the stent appeared to be completely calcified. It appeared like it was a large stone inside the bladder. At this point, an open- end ureteral catheter was advanced up the right collecting system. I was not able to advance it past the stone. I then advanced the wire up the right collecting system past the stone. Once the wire was advanced above the level of the stone, I was then able to advance the ureteral catheter up past the stone. A retrograde pyelogram was then performed, and it was notable for severe right hydronephrosis. At this point, the wire was then advanced back up the open -end ureteral catheter and then the open-end ureteral catheter was then removed leaving the wire in place. I then utilized the wire to advance a 6-Swedish x 22- 32 cm JJ ureteral stent up into the right collecting system. The wire was then removed and there were adequate curls of the stent in the right renal pelvis and in the bladder. At this point, I turned my attention to the left collecting system. I then utilized a stone blind lacer to try to fragment the calcified distal left ureteral stent. I was able to break several stone fragments off the stent. After breaking several fragments off the stent, I tried to remove the stent, and it would not move at all as the proximal end of the stent was also completely calcified and this could be seen easily on fluoroscopy. After trying to remove the stent several times, and realizing that the stent was not going to move, I decided to end the procedure. The cystoscope was then removed and a 20-Swedish López catheter was inserted into the bladder and the balloon was filled with 10 mL of sterile water. The catheter was then connected to gravity drainage and this marked the conclusion of the procedure. The patient was then taken out of the dorsal lithotomy position, awakened from anesthesia and transported to the recovery room in stable condition. ESTIMATED BLOOD LOSS: 0 mL. COMPLICATIONS: None. SPECIMENS: None. PLAN: The patient will be admitted to the hospital and kept on broad-spectrum antibiotics. We will followup her urine and blood culture results and plan to get her set up for a left percutaneous nephrostomy tube placement to decompress her left kidney. In order to remove her left ureteral stent she will need to be set up for an extracorporeal shock wave lithotripsy to fragment the calcifications along the stent. SUSSY
[2016-11-02 12:00] VITALS: BP 125/85
[2016-11-02 16:00] VITALS: BP 98/60
[2016-11-02 20:00] VITALS: BP 135/96
--- NOTE | 2016-11-02 21:00 | EDDOCDS ---
Nurse's Notes [facility] Name: Rosita Corado Age: 31 yrs Sex: Female : 1985 Arrival Date: 10/31/2016 Time: 16:18 Bed I3 / M3 Private MD: [facility] Diagnosis: Other hydronephrosis;Other mechanical complication of urinary stent;Chronic obstructive pyelonephritis;Fever presenting with conditions classified elsewhere;Acute kidney failure Presentation: 10/31 16:23 Presenting complaint: Patient states: "I have a stent in my left kidney that was jc4 supposed to come out a few months ago, but my insurance became effective. I'm having pain in my left side and my right side is killing me. I can't control my bladder". States intermittent symptoms for "a while, but it just got worse a couple of days ago". Acute neurological deficits are not present. Mechanism of Injury: No Mechanism of Injury. Adult Sepsis Screening: The patient does not have new or worsening altered mentation. Patient's respiratory rate is less than 22. Systolic blood pressure is greater than 100. Patient has a qSOFA score of 0- Negative Sepsis Screen. Suicide/Homicide risk assessment- the patient denies having any suicidal and/or homicidal ideations and does not present with any other emotional, behavioral or mental health complaints. Status: Patient is not a senior administrative services officer or dependent. Transition of care: patient was not received from another setting of care. 16:23 Acuity: RAVI Level [address] [facility] 16:23 Method Of Arrival: Walkin/Carried/Asstd jc4 Triage Assessment: 16:25 General: Appears uncomfortable. Pain: Pain currently is 8 out of 10 on a pain scale. jc4 HIV screening NA for this visit Offered previously. Musculoskeletal: Circulation, motion, and sensation intact. 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 Motrin 600 mg Oral tab 1 tab 4 times per day as needed (Last dose: 10/31/2016 12:00) - PMHx: Anxiety; Kidney stones; - PSHx: renal stent; cone biopsy; - Social history: Smoking status: Patient states former smoker of tobacco. No barriers to communication noted, The patient speaks fluent Italian. - Family history: Not pertinent. - : The pt / caregiver states he / she is not on anticoagulants. Home medication list is obtained from the patient. - Exposure Risk Screening:: None identified. Screenin:21 Screening information is obtained from the patient. Fall risk: No risks identified. kpj Assistance ADL's: requires no assistance with activities of daily living. Abuse/DV Screen: The patient / caregiver reports he/she is: not in a situation that causes fear, pain or injury. Nutritional screening: No deficits noted. Advance Directives: Currently, there is no health care proxy. There is no active DNR order. There is no living will. There is no Power of Curing Press Maintainer. Advance directive information has not previously been placed in an [facility] medical record. Further advance directive information is declined. home support is adequate. Assessment: 18:21 General: Appears uncomfortable, Behavior is appropriate for age, pleasant. Pain: [facility] Location: left flank and right flank Pain currently is 9 out of 10 on a pain scale. Quality of pain is described as aching, sharp. Neurological: Level of Consciousness is awake, alert, Oriented to person, place, time. Respiratory: Airway is patent Respiratory effort is even, unlabored, Respiratory pattern is regular, symmetrical. GI: Abdomen is non- distended Bowel sounds present X 4 quads. Abd is soft and non tender. : Reports pain in bilateral flank(s) Pain is 9 out of 10 on a pain scale. Derm: Skin is pink, warm & dry. 18:24 Adult Sepsis Screening: The patient does not have new or worsening altered mentation. [facility] Patient's respiratory rate is less than 22. Systolic blood pressure is greater than 100. Patient has a qSOFA score of 0- Negative Sepsis Screen. 19:45 Reassessment: Patient appears in no apparent distress at this time. Patient states rs3 symptoms have improved. bilateral flank pain 7/10. breathes easy. OR screen complete. family at bedside. Vital Signs: 16:20 BP 122 / 98; Pulse 125; Resp 18 S; Temp 100.5(O); Pulse Ox 96% on R/A; Weight 74.84 kg gr2 (R); Height 5 ft. 3 in. (160.02 cm) (R); Pain 8/10; 18:24 BP 137 / 86; Pulse 112; Resp 18; Temp 101.2(O); Pulse Ox 96% on R/A; Pain 8/10; kpj 19:39 BP 118 / 72; Pulse 96; Resp 18; Temp 99.2; Pulse Ox 98% ; Pain 8/10; ajs 16:20 Body Mass Index 29.23 (74.84 kg, 160.02 cm) gr2 18:24 Agustin NATARAJAN aware of vital signs. [facility] Vitals: 16:20 Log In Time: October 31, 2016 at 16:20. gr2 ED Course: 16:20 Patient visited by Wendie Bello. gr2 16:20 [facility] is Private Physician. gr2 16:20 Patient moved to Waiting gr2 16:21 Patient visited by Wendie Bello. gr2 16:21 Patient moved to Pre RCE gr2 16:25 Triage Initiated jc4 16:55 Patient moved to Triage 2 kr3 17:00 UCG- In Lab Sent. kr3 17:00 Urine Culture Sent. kr3 17:00 UA Sent. kr3 17:38 Agustin Serrano PA is PHCP. btw 17:38 Sarah Mendoza MD is Attending Physician. btw 17:43 Patient visited by Agustin Serrano PA. btw 18:04 Patient moved to I3 / M3 jc4 18:20 BMP Sent. kpj 18:20 CBC with Diff Sent. kpj 18:21 Resting quietly. kpj 18:21 The patient / caregiver is instructed regarding the plan of care and ED course. Patient kpj has correct armband on for positive identification. Placed in gown. Diet: Patient is NPO. 18:21 Inserted saline lock: 20 gauge in left antecubital area The patient tolerated the kpj procedure well. 18:24 Patient visited by Dayanara aBr. nb2 18:50 Patient name changed from Tia\\S\\\\S\\Mickie\\S\\ to Tia\\S\\ \\S\\Mickie. EDMS 18:51 [facility] Payment Agreement was scanned into [employer] and attached to record. zo 19:19 Alexi Arriaga is Hospitalizing Provider. btw 19:36 -Blood Culture Sent. ajs 19:36 BLOOD CULTURES Sent. ajs 19:38 Admission Orders was scanned into [employer] and attached to record. ml3 19:39 Patient visited by Arelis Davis. ajs 19:45 CT ABD & PELVIS: No Contrast Returned. EDMS 19:48 No procedures done that require assistance. rs3 11/01 06:49 T-Sheet-- Draft Copy was scanned into [employer] and attached to record. lja Administered Medications: 10/31 18:22 Drug: NS 0.9% 1000 ml [sodium chloride 0.9 % intravenous solution] Route: IV; Rate: mcp bolus; Site: left antecubital; 19:44 Follow up: IV Status: Completed infusion rs3 18:22 Drug: ketorolac 15 mg [ketorolac 30 mg/mL (1 mL) injection solution (0.5 mL)] Route: mcp IVP; Site: left antecubital; 18:22 Drug: cefTRIAXone 2 grams [ceftriaxone 1 gram solution for injection] Route: IVPB; mcp Infused Over: 30 mins; Site: left antecubital; 19:45 Follow up: IV Status: Completed infusion rs3 19:44 Drug: Ondansetron 4 mg [ondansetron HCl 2 mg/mL intravenous solution (2 mL)] Route: rs3 IVP; Site: left antecubital; Order Results: Lab Order: UA; SPEC'M 10/31/16 16:58 Test: APPEARANCE, URINE; Value: TURBID; Range: CLEAR; Abnormal: Above high normal; Status: F Test: COLOR, URINE; Value: YELLOW; Range: YELLOW; Status: F Test: PH,URINE; Value: 7.0; Range: 5.0-9.0; Units: UNITS; Status: F Test: SPECIFIC GRAVITY URINE AUTO; Value: 1.009; Range: 1.002-1.035; Status: F Test: PROTEIN, URINE AUTO; Value: 2+; Range: NEGATIVE; Abnormal: Above high normal; Units: mg/dL; Status: F Test: GLUCOSE, URINE (UA) AUTO; Value: NEGATIVE; Range: NEGATIVE; Units: mg/dL; Status: F Test: KETONE, URINE AUTO; Value: 2+; Range: NEGATIVE; Abnormal: Above high normal; Units: mg/dL; Status: F Test: UROBILINOGEN, URINE AUTO; Value: 0.2; Range: 0.0-2.0; Units: mg/dL; Status: F Test: BILIRUBIN, URINE AUTO; Value: NEGATIVE; Range: NEGATIVE; Status: F Test: NITRITE, URINE AUTO; Value: NEGATIVE; Range: NEGATIVE; Status: F Test: LEUKOCYTE ESTERASE, URINE AUTO; Value: 2+; Range: NEGATIVE; Abnormal: Above high normal; Status: F Test: BLOOD, URINE BLOOD; Value: 3+; Range: NEGATIVE; Abnormal: Above high normal; Status: F Test: SPERM, URINE AUTO; Range: NONE; Status: I Test: WBC, URINE AUTO; Value: TNTC; Range: 0-3; Abnormal: Above high normal; Units: /HPF; Status: F Test: RBC, URINE AUTO; Value: 156; Range: 0-3; Abnormal: Above high normal; Units: /HPF; Status: F Test: BACTERIA, URINE AUTO; Value: 2+; Range: NEGATIVE; Abnormal: Above high normal; Status: F Test: SQUAMOUS EPITHELIAL CELL UR AU; Value: 9; Range: 0-6; Units: /HPF; Status: F Test: MUCUS, URINE; Value: MODERATE; Range: NEGATIVE; Status: F Test: HYALINE CAST, URINE AUTO; Value: 0; Range: 0-1; Units: /LPF; Status: F Lab Order: UCG- In Lab; SPEC'M 10/31/16 16:58 Test: URINE PREG TEST; Value: NEGATIVE; Range: NEGATIVE; Status: F Lab Order: CBC with Diff; SPEC'M 10/31/16 18:18 Test: WHITE BLOOD COUNT; Value: 11.5; Range: 4.0-10.0; Abnormal: Above high normal; Units: K/mm3; Status: F Test: RED BLOOD COUNT; Value: 4.33; Range: 4.00-5.40; Units: M/mm3; Status: F Test: HEMOGLOBIN; Value: 12.6; Range: 12.0-16.0; Units: g/dl; Status: F Test: HEMATOCRIT; Value: 36.0; Range: 36.0-47.0; Units: %; Status: F Test: MEAN CORPUSCULAR VOLUME; Value: 83.1; Range: 80.0-96.0; Units: fl; Status: F Test: MEAN CORPUSCULAR HEMOGLOBIN; Value: 29.2; Range: 27.0-33.0; Units: pg; Status: F Test: MEAN CORPUSCULAR HGB CONC; Value: 35.2; Range: 32.0-36.5; Units: g/dl; Status: F Test: RED CELL DISTRIBUTION WIDTH; Value: 13.3; Range: 11.5-14.5; Units: %; Status: F Test: PLATELET COUNT, AUTOMATED; Value: 410; Range: 150-450; Units: k/mm3; Status: F Test: NEUTROPHILS %; Value: 78.7; Range: 36.0-66.0; Abnormal: Above high normal; Units: %; Status: F Test: LYMPH %; Value: 12.3; Range: 24.0-44.0; Abnormal: Below low normal; Units: %; Status: F Test: MONO %; Value: 5.3; Range: 0.0-5.0; Abnormal: Above high normal; Units: %; Status: F Test: EOS %; Value: 1.3; Range: 0.0-3.0; Units: %; Status: F Test: BASO %; Value: 0.9; Range: 0.0-1.0; Units: %; Status: F Test: LARGE UNSTAINED CELL %; Value: 1.5; Range: 0.0-4.0; Units: %; Status: F Test: NEUTROPHILS #; Value: 9.0; Range: 1.8-7.7; Abnormal: Above high normal; Units: K/mm3; Status: F Test: LYMPH #; Value: 1.6; Range: 1.5-4.5; Units: K/mm3; Status: F Test: MONO #; Value: 0.6; Range: 0.0-0.8; Units: K/mm3; Status: F Test: EOS #; Value: 0.2; Range: 0.0-0.50; Units: K/mm3; Status: F Test: BASO #; Value: 0.1; Range: 0.0-0.2; Units: K/mm3; Status: F Test: LARGE UNSTAINED CELL #; Value: 0.2; Range: 0.0-0.4; Units: K/mm3; Status: F Lab Order: [facility]; SPEC'M 10/31/16 18:18 Test: GLUCOSE, FASTING; Value: 85; Range: 70-105; Units: MG/DL; Status: F Test: BLOOD UREA NITROGEN; Value: 19; Range: 7-18; Abnormal: Above high normal; Units: MG/DL; Status: F Test: CREATININE FOR GFR; Value: 1.62; Range: 0.55-1.02; Abnormal: Above high normal; Units: MG/DL; Status: F Test: GLOMERULAR FILTRATION RATE; Value: 39.0; Range: >60; Abnormal: Below low normal; Status: F Test: SODIUM LEVEL; Value: 140; Range: 136-145; Units: MEQ/L; Status: F Test: POTASSIUM SERUM; Value: 2.7; Range: 3.5-5.1; Abnormal: Critical Low; Units: MEQ/L; Status: F Test: CHLORIDE LEVEL; Value: 97; Range: 98-107; Abnormal: Below low normal; Units: MEQ/L; Status: F Test: CARBON DIOXIDE LEVEL; Value: 27; Range: 21-32; Units: MEQ/L; Status: F Test: ANION GAP; Value: 16; Range: 8-16; Units: MEQ/L; Status: F Test: CALCIUM LEVEL; Value: 9.7; Range: 8.5-10.1; Units: MG/DL; Status: F Test Note: ; Units are mL/min/1.73 m2 Chronic Kidney Disease Staging per NKF: Stage I & II GFR >=60 Normal to Mildly Decreased Stage III GFR 30-59 Moderately Decreased Stage IV GFR 15-29 Severely Decreased Stage V GFR <15 Very Little GFR Left ESRD GFR <15 on UPHOLSTERY TECH Radiology Order: CT ABD & PELVIS: No Contrast Test: CT ABD & PELVIS: No Contrast REASON FOR EXAMINATION: stent x several months; ? pyelo; CT study of the abdomen and pelvis without IV or oral contrast:; ; History: Bilateral flank pain. Status post left ureteral stent. Question; pyelonephritis.; ; Comparison CT study is from April 10 2016.; ; Findings: Preliminary bag printer radiograph demonstrates a double pigtail ureteral; stent in place on the left. Bowel gas pattern is unremarkable. The lung bases; are clear. There is no evidence of pleural effusion or upper abdominal ascites.; The liver and the spleen, the adrenals and the pancreas are unremarkable. No; gallbladder abnormality is seen.; ; There is marked bilateral hydronephrosis. On the left, there is hydronephrosis; and hydroureter despite the presence of the double pigtail left ureteral stent.; No ureteral stone is seen. The degree of hydronephrosis is essentially unchanged; from the April 10, 2016 study on the left side.; ; On the right, there is new hydronephrosis due to the presence of a 5 mm; obstructing right mid ureteral calculus.; ; On the left, there is some thickening of the renal pelvic wall, which may reflect; pyelonephritis. There is no evidence of soft tissue gas, free air or ileus. A; normal appendix is seen. No abdominal wall defect is seen. No uterine or; adnexal abnormality is seen.; ; Impression:; ; Marked bilateral hydronephrosis. On the right, this is due to a right mid; ureteral 5 mm calculus. On the left, the hydronephrosis is noted in spite of a; well-positioned left double pigtail ureteral stent. There is mural thickening in; the dilated renal pelvis consistent with pyelonephritis.; ; ; Signed by; Maurice Morris MD 10/31/2016 07:12 P; Outcome: 19:20 Decision to Hospitalize by Provider. btw 19:48 Discharge Assessment: patient administered narcotics - no. The following High Risk rs3 Discharge criteria are identified: None. Admitted to OR accompanied by nurse, accompanied by tech, family with patient, via stretcher, with chart. Condition: stable. CT Study completed. Admission hand-off: Report called to OR staff. Property :Personal belongings accompany Pt. 19:59 Patient left the ED. rs3 Signatures: Dispatcher [employer] EDMS Katia Angel RN RN kpj Peters, Mary, RN RN mcp Lopresti, Mary-Elizabeth, Geographical Historian Unit ml3 Ileana Hanna RN RN juan3 Steve An Rosemary, RN RN rs3 Agustin Serrano PA PA btw Gay Angeles RN RN jc4 Arelis Davis Gainslee gr2 Arel, Dayanara Maya2 Corrections: (The following items were deleted from the chart) 18:25 18:24 BP 137 / 86; Pulse 112bpm; Resp 18bpm; Pulse Ox 96% RA; Temp 101.2F Oral; Pain kpj 8; nb2 Chart Complete MTDD
--- NOTE | 2016-11-02 21:00 | EDDOCDS ---
Physician Documentation [facility] Name: Rosita Corado Age: 31 yrs Sex: Female : 1985 Arrival Date: 10/31/2016 Time: 16:18 Bed I3 / M3 Private MD: [facility] Disposition: 10/31/16 19:20 Hospitalization ordered by Alexi Arriaga for Inpatient Admission. Preliminary diagnosis are Other hydronephrosis, Other mechanical complication of urinary stent, Chronic obstructive pyelonephritis, Fever presenting with conditions classified elsewhere, Acute kidney failure. - Bed requested for Admit. - Status is Inpatient Admission. rs3 - Condition is Stable. - Problem is new. - Symptoms are unchanged. Historical: - Allergies: Reglan; - Home Meds: 1. Motrin 600 mg Oral tab 1 tab 4 times per day as needed (Last dose: 10/31/2016 12:00) - PMHx: Anxiety; Kidney stones; - PSHx: renal stent; cone biopsy; - Social history: Smoking status: Patient states former smoker of tobacco. No barriers to communication noted, The patient speaks fluent Welsh. - Family history: Not pertinent. - : The pt / caregiver states he / she is not on anticoagulants. Home medication list is obtained from the patient. - Exposure Risk Screening:: None identified. 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 3 in. (160.02 cm) (R); Pain 8/10; 18:24 BP 137 / 86; Pulse 112; Resp 18; Temp 101.2(O); Pulse Ox 96% on R/A; Pain 8/10; kpj 19:39 BP 118 / 72; Pulse 96; Resp 18; Temp 99.2; Pulse Ox 98% ; Pain 8/10; ajs 16:20 Body Mass Index 29.23 (74.84 kg, 160.02 cm) gr2 18:24 Agustin NATARAJAN aware of vital signs. [facility] MDM: 16:43 UA Ordered. EDMS 16:43 Urine Culture Ordered. EDMS 16:43 UCG- In Lab Ordered. EDMS 17:44 UA Reviewed. btw 17:44 UCG- In Lab Reviewed. btw 17:55 CBC with Diff Ordered. EDMS 17:55 BMP Ordered. EDMS 17:56 CT ABD & PELVIS: No Contrast Ordered. EDMS 17:56 IV Saline Lock ordered. btw 17:56 NS 0.9% 1000 ml IV at bolus once ordered. btw 17:56 ketorolac 15 mg IVP once ordered. btw 17:56 cefTRIAXone 2 grams IVPB once over 30 mins; dilute in 50mL of NS or D5W ordered. btw 18:41 Financial registration complete. zo 18:50 CBC with Diff Reviewed. btw 18:51 [facility] Payment Agreement was scanned into [employer] and attached to record. zo 19:08 BMP Reviewed. btw 19:08 BED REQUEST+ADM ordered. EDMS 19:18 -Blood Culture (Adults Only), peripheral from different site, or from device/port/PICC btw etc. if present ordered. 19:18 Ondansetron 4 mg IVP once ordered. btw 19:19 -Blood Culture Ordered. EDMS 19:20 NOTHING BY MOUTH+DIET ordered. EDMS 19:21 -Blood Culture (Adults Only), peripheral from different site, or from device/port/PICC ajs etc. if present complete. 19:22 BLOOD CULTURES Ordered. EDMS 19:33 Retrograde Pyelogram Ordered. EDMS 19:38 Admission Orders was scanned into [employer] and attached to record. ml3 11/01 06:49 T-Sheet-- Draft Copy was scanned into [employer] and attached to record. lja Administered Medications: 10/31 18:22 Drug: NS 0.9% 1000 ml [sodium chloride 0.9 % intravenous solution] Route: IV; Rate: mcp bolus; Site: left antecubital; 19:44 Follow up: IV Status: Completed infusion rs3 18:22 Drug: ketorolac 15 mg [ketorolac 30 mg/mL (1 mL) injection solution (0.5 mL)] Route: mcp IVP; Site: left antecubital; 18:22 Drug: cefTRIAXone 2 grams [ceftriaxone 1 gram solution for injection] Route: IVPB; mcp Infused Over: 30 mins; Site: left antecubital; 19:45 Follow up: IV Status: Completed infusion rs3 19:44 Drug: Ondansetron 4 mg [ondansetron HCl 2 mg/mL intravenous solution (2 mL)] Route: rs3 IVP; Site: left antecubital; Signatures: Dispatcher [employer] EDKatia Lopez RN RN Shanique Kraus, Wind Farm Operations Manager Unit ml3 Steve An Rosemary, RN RN rs3 Agustin Serrano PA PA btw Castle, Jennifer, RN RN jc4 Arelis Davis, Silva Valdez RN, mcp The chart was reviewed and I authenticate all verbal orders and agree with the evaluation and treatment provided.Attachments: 18:51 [facility] Payment Agreement zo 19:38 Admission Orders ml3 11/01 06:49 T-Sheet-- Draft Copy andres Chart Complete MTDD
--- NOTE | 2016-11-02 21:00 | EDDOCDS ---
Physician Documentation [facility] Name: Rosita Corado Age: 31 yrs Sex: Female : 1985 Arrival Date: 10/31/2016 Time: 16:18 Bed I3 / M3 Private MD: [facility] Disposition: 10/31/16 19:20 Hospitalization ordered by Alexi Arriaga for Inpatient Admission. Preliminary diagnosis are Other hydronephrosis, Other mechanical complication of urinary stent, Chronic obstructive pyelonephritis, Fever presenting with conditions classified elsewhere, Acute kidney failure. - Bed requested for Admit. - Status is Inpatient Admission. rs3 - Condition is Stable. - Problem is new. - Symptoms are unchanged. Historical: - Allergies: Reglan; - Home Meds: 1. Motrin 600 mg Oral tab 1 tab 4 times per day as needed (Last dose: 10/31/2016 12:00) - PMHx: Anxiety; Kidney stones; - PSHx: renal stent; cone biopsy; - Social history: Smoking status: Patient states former smoker of tobacco. No barriers to communication noted, The patient speaks fluent Wolof. - Family history: Not pertinent. - : The pt / caregiver states he / she is not on anticoagulants. Home medication list is obtained from the patient. - Exposure Risk Screening:: None identified. 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 3 in. (160.02 cm) (R); Pain 8/10; 18:24 BP 137 / 86; Pulse 112; Resp 18; Temp 101.2(O); Pulse Ox 96% on R/A; Pain 8/10; kpj 19:39 BP 118 / 72; Pulse 96; Resp 18; Temp 99.2; Pulse Ox 98% ; Pain 8/10; ajs 16:20 Body Mass Index 29.23 (74.84 kg, 160.02 cm) gr2 18:24 Agustin NATARAJAN aware of vital signs. [facility] MDM: 16:43 UA Ordered. EDMS 16:43 Urine Culture Ordered. EDMS 16:43 UCG- In Lab Ordered. EDMS 17:44 UA Reviewed. btw 17:44 UCG- In Lab Reviewed. btw 17:55 CBC with Diff Ordered. EDMS 17:55 BMP Ordered. EDMS 17:56 CT ABD & PELVIS: No Contrast Ordered. EDMS 17:56 IV Saline Lock ordered. btw 17:56 NS 0.9% 1000 ml IV at bolus once ordered. btw 17:56 ketorolac 15 mg IVP once ordered. btw 17:56 cefTRIAXone 2 grams IVPB once over 30 mins; dilute in 50mL of NS or D5W ordered. btw 18:41 Financial registration complete. zo 18:50 CBC with Diff Reviewed. btw 18:51 [facility] Payment Agreement was scanned into [employer] ([employer]) and attached to record. zo 19:08 BMP Reviewed. btw 19:08 BED REQUEST+ADM ordered. EDMS 19:18 -Blood Culture (Adults Only), peripheral from different site, or from device/port/PICC btw etc. if present ordered. 19:18 Ondansetron 4 mg IVP once ordered. btw 19:19 -Blood Culture Ordered. EDMS 19:20 NOTHING BY MOUTH+DIET ordered. EDMS 19:21 -Blood Culture (Adults Only), peripheral from different site, or from device/port/PICC ajs etc. if present complete. 19:22 BLOOD CULTURES Ordered. EDMS 19:33 Retrograde Pyelogram Ordered. EDMS 19:38 Admission Orders was scanned into [employer] ([employer]) and attached to record. ml3 11/01 06:49 T-Sheet-- Draft Copy was scanned into [employer] ([employer]) and attached to record. lja Administered Medications: 10/31 18:22 Drug: NS 0.9% 1000 ml [sodium chloride 0.9 % intravenous solution] Route: IV; Rate: mcp bolus; Site: left antecubital; 19:44 Follow up: IV Status: Completed infusion rs3 18:22 Drug: ketorolac 15 mg [ketorolac 30 mg/mL (1 mL) injection solution (0.5 mL)] Route: mcp IVP; Site: left antecubital; 18:22 Drug: cefTRIAXone 2 grams [ceftriaxone 1 gram solution for injection] Route: IVPB; mcp Infused Over: 30 mins; Site: left antecubital; 19:45 Follow up: IV Status: Completed infusion rs3 19:44 Drug: Ondansetron 4 mg [ondansetron HCl 2 mg/mL intravenous solution (2 mL)] Route: rs3 IVP; Site: left antecubital; Signatures: Dispatcher [employer] EDKatia Lopez RN RN Shanique Kraus, Branch Office Administrator Unit ml3 Steve An Rosemary, RN RN rs3 Agustin Serrano PA PA btw Castle, Jennifer, RN RN jc4 Arelis Davis, Silva Valdez RN, mcp The chart was reviewed and I authenticate all verbal orders and agree with the evaluation and treatment provided.Attachments: 18:51 [facility] Payment Agreement zo 19:38 Admission Orders ml3 11/01 06:49 T-Sheet-- Draft Copy andres Chart Complete MTDD
[2016-11-02] MEDS: KCL 40MEQ IN D5/0.45NS 1000ML 1,000 ML IV SCH (22:00)
[2016-11-03] VITALS: BP 118/76
[2016-11-03] MEDS: PERCOCET 5MG/325MG TAB PO PRN ×2 (01:13→08:11)
[2016-11-03] MEDS: CIPROFLOXACIN 500 MG TAB PO SCH (06:42)
[2016-11-03 07:08] LABS: MEAN CORPUSCULAR HEMOGLOBIN 29.2 pg (27.0-33.0); MEAN CORPUSCULAR HGB CONC 33.8 g/dl (32.0-36.5); MEAN CORPUSCULAR VOLUME 86.2 fl (80.0-96.0); RED CELL DISTRIBUTION WIDTH 12.5 % (11.5-14.5); WHITE BLOOD COUNT 8.2 K/mm3 (4.0-10.0)
[2016-11-03 07:32] LABS: ANION GAP 7 MEQ/L (8-16); BLOOD UREA NITROGEN 9 MG/DL (7-18); CALCIUM LEVEL 7.9 MG/DL (8.5-10.1); CARBON DIOXIDE LEVEL 32 MEQ/L (21-32); CHLORIDE LEVEL 104 MEQ/L (98-107); CREATININE FOR GFR 1.07 MG/DL (0.55-1.02); GLOMERULAR FILTRATION RATE > 60.0 (>60); GLUCOSE, FASTING 98 MG/DL (70-105); POTASSIUM SERUM 3.5 MEQ/L (3.5-5.1); SODIUM LEVEL 143 MEQ/L (136-145)
[2016-11-03 08:00] VITALS: BP 124/80
[2016-11-03] MEDS: DOCUSATE SODIUM 100 MG CAP PO SCH (09:10)
--- NOTE | 2016-11-03 10:48 | IPNPDOC ---
Date of Service The patient was seen on 11/03/16. Patient Summary This is a 31 y/o F admitted 10/31/16 w/ an obstructing right ureteral stone, a retained and calcified left ureteral stent since 04/2016, and fevers, now POD3 s/ p cystoscopy w/ right ureteral stent placement, cystolitholapaxy and attempted removal of left ureteral stent, and POD2 s/p left perc neph tube placement. Cr has normalized today. UOP much improved over the past 24 hrs. WBC has normalized and the patient remains afebrile. All cultures have come back negative (keeping in mind all but the first urine culture were obtained after initiation of IV antibiotics). Plan/VTE VTE Prophylaxis Ordered?: Yes VTE Exclusion Mechanical Proph: N/A:VTE Prophy Ordered Plan - continue percocet for pain - strict I/Os - regular diet - plan discharge home today - will have her f/u in my office on Friday Review oF Systems CC/HPI Bilateral Hydronephrosis from an Obstructing Right Ureteral Stone and a Calcified Retained Left Ureteral Stent Events since Last Encounter No acute events o/n. Pain better controlled today w/ percocet. Patient notes that she has been voiding more. No n/v. No f/c/ns. Physical Examination General Exam: : Alert: Cooperative ABDOMEN EXAM: : Tenderness (right and left abdominal tenderness - improved compared to yesterday) Skin Exam: : Nl turgor and temperature Neuro Exam: : Normal Speech Psych Exam: : Mental status NL: Mood NL Other physical findings left perc neph tube draining clear urine; b/l CVA tenderness less today Vital Signs/I&O Vital Signs Date Time Temp Pulse Resp B/P Pulse Ox O2 Delivery O2 Flow Rate FiO2 11/03/16 08:11 18 11/03/16 08:00 96.6 84 124/80 96 Room Air 11/02/16 04:00 1.0 I&O- Last 24 Hours up to 6 AM 11/03/16 06:00 Intake Total 2920 ml Output Total 1700 ml Balance 1220 ml Laboratory Data Labs 24H Laboratory Tests 2 11/02/16 11:38: 11/03/16 06:41: Anion Gap 7L, Blood Urea Nitrogen 9, Creatinine 1.07H, Sodium Level 143, Potassium Level 3.5, Chloride Level 104, Carbon Dioxide Level 32, Calcium Level 7.9L, Glomerular Filtration Rate > 60.0 CBC/BMP Laboratory Tests 11/03/16 06:41 Calcium Level 7.9 L, Red Blood Count 3.77 L, Mean Corpuscular Volume 86.2, Mean Corpuscular Hemoglobin 29.2, Mean Corpuscular Hemoglobin Concent 33.8, Red Cell Distribution Width 12.5 Microbiology Microbiology 10/31/16 Blood Culture - Preliminary, Resulted No Growth after 48 hours. All Specime... 10/31/16 Blood Culture - Preliminary, Resulted No Growth after 48 hours. All Specime... 11/01/16 Urine Culture - Final, Complete 10/31/16 Urine Culture - Final, Complete ROSELYN GUTIÉRREZ MD Nov 03, 2016 10:48
[2016-11-03] MEDS ORDERED: CIPR500T89 PO (11:18)
[2016-11-03] MEDS ORDERED: PERCOCET PO (11:18)
[2016-11-03 12:00] VITALS: BP 113/77
--- NOTE | 2016-11-05 07:19 | DSES ---
DATE OF ADMISSION: 10/31/2016 DATE OF DISCHARGE: 11/03/2016 ADMISSION DIAGNOSIS: Bilateral hydronephrosis. DISCHARGE DIAGNOSIS: Bilateral hydronephrosis. ADMITTING PHYSICIAN: Dr. Alexi Arriaga. DISCHARGE PHYSICIAN: Dr. Alexi Arriaga. PROCEDURES PERFORMED: She underwent a cystoscopy with right ureteral stent placement and cystolitholapaxy on 10/31/2016. She also underwent a left percutaneous nephrostomy tube placement on 11/01/2016. HISTORY OF PRESENT ILLNESS: This is a 31-year-old female who presented to the emergency room on 10/31/2016 with severe bilateral flank and abdominal pain and fevers. A CAT scan of the abdomen and pelvis was performed and was notable for moderate to severe bilateral hydronephrosis due to an obstructing right ureteral stone and a calcified and retained left ureteral stent. The stent was originally placed in April 2016 for an obstructing stone on the left side and the patient never followed up for continued treatment, and therefore the stent became calcified. The patient was admitted to the hospital the evening of October 31, 2016 for treatment. HOSPITALIZATION COURSE: The patient was taken to the operating room the evening of October 31, 2016 for cystoscopy and right ureteral stent placement and cystolitholapaxy with attempted exchanging the left ureteral stent. She was admitted to the hospital postoperatively. We were unable to change the stent on the left side as it was completely calcified including in the proximal aspect. On November 01, 2016, patient noted that her right flank pain had improved some and she is no longer spiking any fevers. She was placed on broad spectrum antibiotics. She continued to have very severe left flank and abdominal pain which was not very well controlled with pain medication. She was therefore set up to have a left percutaneous nephrostomy tube placed on November 01, 2016, and this was done without any difficulty. Over the following days after the nephrostomy tube was placed and the stent was placed, the patient's pain in bilateral flank gradually improved. Her renal function which started out at a serum creatinine of 1.6 when she was admitted improved to 1.1 on November 03, 2016. Her white blood cell count which was also elevated on admission had normalized and she remained afebrile by November 03. She was tolerating a regular diet and at that point all of her blood and urine cultures came back negative. She was kept on oral Ciprofloxacin, and she did well on this. Since it appeared her infection had improved and her renal function had improved going along with her improvement in pain, she was deemed ready for discharge on November 03, 2016. She was therefore discharged home with plan to followup in the clinic in a few days to get her set up for a bilateral extracorporeal shock wave lithotripsy later this week. The goal will be at that time to try to remove that left ureteral stent and treat her right ureteral stone with extracorporeal shockwave lithotripsy in the next few weeks. SUSSY
== END 2016-11-03 12:40 | disposition home or self-care (01) ==
LOC: M ED 16:18 → M SDC 19:35 → M PED 20:13 → M SDC 22:00 → M PED 11-01 09:06
PROVIDERS: ADMIT Urology; ATTEND Urology
DX: N20.1 Calculus of ureter (principal); N13.30 Unspecified hydronephrosis
CPT/HCPCS: 36415; 50395; 52317; 52332; 74176; 74420; 80048; 81001; 82360; 84703; 85025; 85027; 85610; 85730; 87040; 87086; 88300; 96365; 96375; 96376; 99285; C1729; C1769; C1894; J0696; J1100; J1885; J2250; J2405; J2543; J3010; Q9961; Q9967

== ENCOUNTER → 2016-11-06 | Outpatient (CLI) | payer OTHER ==
[~2016-11-06] MED LIST changes: +IBUP60TA PO; +PERCOCET PO
[2016-11-06 19:01] LABS: MEAN CORPUSCULAR HGB CONC 33.3 g/dl (32.0-36.5); MEAN CORPUSCULAR VOLUME 87.1 fl (80.0-96.0); RED CELL DISTRIBUTION WIDTH 12.5 % (11.5-14.5); WHITE BLOOD COUNT 10.3 K/mm3 (4.0-10.0)
[2016-11-06 19:12] LABS: CALCIUM LEVEL 9.6 MG/DL (8.5-10.1); CREATININE FOR GFR 1.18 MG/DL (0.55-1.02); GLOMERULAR FILTRATION RATE 56.2 (>60); POTASSIUM SERUM 3.8 MEQ/L (3.5-5.1)
== END ==
LOC: M SMT 10:59
PROVIDERS: ATTEND Nurse Practitioner Family
DX: Z01.818 Encounter for other preprocedural examination (principal); Z87.442 Personal history of urinary calculi

== ENCOUNTER 2016-11-07 23:27 | Emergency (ER) | payer OTHER ==
[~2016-11-07 23:27] MED LIST changes: -CONRAY-60 60% 50ML VIAL (Q9961) As Ordered ONE; -CONRAY-60 60% 50ML VIAL (Q9961) XX ONE; -GLYCOPYRROLATE INJ 0.2 MG/ML 2 ML VIAL As Ordered ONE; -KETAMINE HCL 200 MG/20 ML VIAL As Ordered ONE; -LIDOCAINE 2% INJ 100 MG/5 ML SDV (FOR ANES.) As Ordered ONE; -LR 1,000 ML IV SCH; -METOCLOPRAMIDE INJ 10MG/2ML VIAL (J2765) IV PRN; -MIDAZOLAM INJ 2 MG/2 ML VIAL (J2250) As Ordered ONE; -ONDANSETRON 4MG/2ML VIAL (J2405) As Ordered ONE; -ONDANSETRON 4MG/2ML VIAL (J2405) IV PRN; -PERCOCET 5MG/325MG TAB PO PRN; -PROPOFOL 200 MG/20 ML VIAL As Ordered ONE; -ceFAZolin 2 GM/D5W 50 ML IV BAG (J0690) As Ordered ONE; -fentaNYL 100 MCG/2 ML INJECTION (J3010) As Ordered ONE
[2016-11-08] MEDS ORDERED: ONDANSETRON 4 MG ORAL DISINTEGRATING TAB (S0181) As Ordered ONE (00:32)
[2016-11-08] MEDS ORDERED: HYDROmorphone HCL 1 MG/ML SYRINGE (J1170) As Ordered ONE (00:32)
--- NOTE | 2016-11-08 00:50 | REP ---
Clinical: Shortness of breath. Technique: PA and lateral. Findings: The cardiac silhouette is upper limits of normal. The lung bourgeois demonstrate coarsened markings without focal atelectasis, consolidation, pleural effusion or pneumothorax. Skeletal structures are intact. Impression: Coarsened markings may reflect bronchitis. No focal consolidation. Cardiac silhouette is upper limits of normal. Signed by Jesus García MD 11/08/2016 12:41 A
--- NOTE | 2016-11-08 01:06 | EDDOCDS ---
Physician Documentation [facility] Name: Rosita Corado Age: 31 yrs Sex: Female : 1985 Arrival Date: 11/07/2016 Time: 23:27 Bed 18 Private MD: [facility] Disposition: 11/08/16 00:31 Discharged to Home/Self Care. Impression: Encounter for other postprocedural aftercare. - Condition is Stable. - Medication Reconciliation, Local Pharmacy Hours form. - Follow up: Alexi Arriaga; When: As previously arranged. - Problem is new. - Symptoms have improved. Historical: - Allergies: Reglan; - Home Meds: 1. Cipro 500 mg Oral tab 1 tab every 12 hours 2. Percocet 5-325 mg Oral tab 1 tab every 4-6 hours (Last dose: 11/07/2016 22:00) - PMHx: Anxiety; Kidney stones; - PSHx: renal stent; cone biopsy; - Social history: Smoking status: Patient states was never smoker of tobacco. No barriers to communication noted, The patient speaks fluent Greenlandic, Speaks appropriately for age. - Family history: Not pertinent. - : The pt / caregiver states he / she is not on anticoagulants. Home medication list is obtained from the patient. - Exposure Risk Screening:: None identified. 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 3 in. (160.02 cm) (R); Pain 8/10; 11/08 00:56 BP 118 / 62; Pulse 90; Resp 18; Temp 97.6(O); Pulse Ox 99% on R/A; Pain 0/10; kas2 11/07 23:30 Body Mass Index 31.00 (79.38 kg, 160.02 cm) gr2 MDM: 11/07 23:49 Chest, 2 View (pa\E\lat) Ordered. EDMS 11/08 00:16 Financial registration complete. slh 00:29 Ondansetron ODT Oral Disintegrating Tablet 8 mg PO once ordered. cs11 00:29 Dilaudid - HYDROmorphone 0.5 mg IM once ordered. cs11 00:39 [facility] Payment Agreement was scanned into [employer] and attached to record. [facility] Administered Medications: 00:44 Drug: Ondansetron ODT 8 mg [ondansetron 4 mg disintegrating tablet (2 tabs)] Route: PO; kas2 00:44 Drug: Dilaudid - HYDROmorphone 0.5 mg [hydromorphone 1 mg/mL injection syringe (0.5 kas2 mL)] Route: IM; Site: left deltoid; Signatures: Dispatcher [employer] EDMS Armani Jeffers DO DO cs11 Reid Burroughs RN RN jmb Hook, Sandra [facility] Marie Peck RN RN [facility] The chart was reviewed and I authenticate all verbal orders and agree with the evaluation and treatment provided.Attachments: 00:39 [facility] Payment Agreement [facility] MTDD
--- NOTE | 2016-11-08 01:07 | EDDOCDS ---
Nurse's Notes [facility] Name: Rosita Corado Age: 31 yrs Sex: Female : 1985 Arrival Date: 11/07/2016 Time: 23:27 Bed 18 Private MD: [facility] Diagnosis: Encounter for other postprocedural aftercare Presentation: 11/07 23:34 Presenting complaint: states: Patient has had shortness of breath, had surgery b this afternoon. Removal of nephrostomy tube and placed stent. Adult Sepsis Screening: The patient does not have new or worsening altered mentation. Patient's respiratory rate is less than 22. Systolic blood pressure is greater than 100. Patient has a qSOFA score of 0- Negative Sepsis Screen. Suicide/Homicide risk assessment- the patient denies having any suicidal and/or homicidal ideations and does not present with any other emotional, behavioral or mental health complaints. 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 Transition of care: patient was not received from another setting of care. 23:34 Acuity: RAVI Level 3 b 23:34 Method Of Arrival: Wheelchair [facility] Triage Assessment: 23:36 General: Appears in no apparent distress, Behavior is appropriate for age, cooperative. b Pain: Location: left low back and left mid back Pain currently is 10 out of 10 on a pain scale. HIV screening NA for this visit Offered previously. Neurological: Level of Consciousness is awake, alert, obeys commands, Oriented to person, place, time, Speech is normal, Facial symmetry appears normal, Facial symmetry: tongue is midline. Respiratory: Airway is patent Respiratory effort is even, unlabored, Respiratory pattern is regular, symmetrical. Derm: Skin is pink, warm & dry. Musculoskeletal: Range of motion intact in all extremities. 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 Cipro 500 mg Oral tab 1 tab every 12 hours 2. Percocet 5-325 mg Oral tab 1 tab every 4-6 hours (Last dose: 11/07/2016 22:00) - PMHx: Anxiety; Kidney stones; - PSHx: renal stent; cone biopsy; - Social history: Smoking status: Patient states was never smoker of tobacco. No barriers to communication noted, The patient speaks fluent Thai, Speaks appropriately for age. - Family history: Not pertinent. - : The pt / caregiver states he / she is not on anticoagulants. Home medication list is obtained from the patient. - Exposure Risk Screening:: None identified. Screenin/06 00:00 Screening information is obtained from the patient. Fall risk: No risks identified. kas2 Assistance ADL's: requires no assistance with activities of daily living. Abuse/DV Screen: The patient / caregiver reports he/she is: not in a situation that causes fear, pain or injury. Nutritional screening: No deficits noted. Advance Directives: Currently, there is no health care proxy. There is no active DNR order. There is no living will. There is no Power of Transition Teacher. home support is adequate. Assessment: 11/07 23:58 General: Appears in no apparent distress, uncomfortable, well nourished, well groomed, kas2 Behavior is appropriate for age, cooperative. Pain: Location: back and left mid back and left low back Pain currently is 5 out of 10 on a pain scale. Neurological: Level of Consciousness is awake, alert, Oriented to person, place, time. Cardiovascular: Capillary refill < 3 seconds Heart tones present Rhythm is sinus tachycardia No ectopy. Respiratory: Airway is patent Respiratory effort is even, unlabored, Respiratory pattern is regular, symmetrical, Breath sounds are clear bilaterally. Derm: Skin is intact, is healthy with good turgor, Skin is dry, Skin is pink, warm & dry. Skin temperature is warm. Vital Signs: 23:30 BP 110 / 67; Pulse 113; Resp 18; Temp 98.1(O); Pulse Ox 98% on R/A; Weight 79.38 kg gr2 (R); Height 5 ft. 3 in. (160.02 cm) (R); Pain 8/10; 11/08 00:56 BP 118 / 62; Pulse 90; Resp 18; Temp 97.6(O); Pulse Ox 99% on R/A; Pain 0/10; kas2 11/07 23:30 Body Mass Index 31.00 (79.38 kg, 160.02 cm) gr2 Vitals: 11/07 23:30 Log In Time: November 07, 2016 at 23:30. gr2 ED Course: 23:29 Patient visited by Wendie Bello. gr2 23:29 Patient moved to Waiting gr2 23:30 [facility] is Private Physician. gr2 23:31 Patient visited by Wendie Bello. gr2 23:31 Patient moved to Pre RCE gr2 23:35 Triage Initiated jmb 23:39 Marie Peck RN is Primary Nurse. jmb 23:39 Patient moved to 18 jmb 23:47 Armani Jeffers DO is Attending Physician. cs11 23:47 Patient visited by Armani Jeffers DO. 11 11/08 00:00 Patient visited by Marie Peck RN. kas2 00:31 Alexi Arriaga is Referral Physician. cs11 00:39 [facility] Payment Agreement was scanned into [employer] and attached to record. [facility] 00:42 Patient name changed from Tia\S\\S\Mickie\S\ to Tia\S\Pastora\S\Mickie. EDMS 00:45 Patient visited by Marie Peck RN. kas2 00:59 The patient / caregiver is instructed regarding the plan of care and ED course. kas2 00:59 No IV's were initiated during this patient's visit. No procedures done that require kas2 assistance. 01:06 Patient visited by Marie Peck RN. kas2 Administered Medications: 00:44 Drug: Ondansetron ODT 8 mg [ondansetron 4 mg disintegrating tablet (2 tabs)] Route: PO; kas2 00:44 Drug: Dilaudid - HYDROmorphone 0.5 mg [hydromorphone 1 mg/mL injection syringe (0.5 kas2 mL)] Route: IM; Site: left deltoid; Order Results: There are currently no results for this order. Outcome: 00:31 Discharge ordered by Provider. cs11 01:04 Discharge Assessment:. kas2 01:05 Discharge Assessment: patient administered narcotics - yes. Pt provided with safe kas2 discharge. The following High Risk Discharge criteria are identified: None. Discharged to home ambulatory, with family. Condition: good Condition: stable Condition: improved. No special radiology studies were completed. Property :Personal belongings accompany Pt. 01:06 Patient left the ED. kas2 Signatures: [facility] Armani Jeffers DO DO cs11 Wendie Bello gr2 Reid Burroughs RN RN Bridgette Hancock Kim,RN RN kas2 MELISAD
--- NOTE | 2016-11-10 02:07 | EDDOCDS ---
Nurse's Notes [facility] Name: Rosita Corado Age: 31 yrs Sex: Female : 1985 Arrival Date: 11/07/2016 Time: 23:27 Bed 18 Private MD: [facility] Diagnosis: Encounter for other postprocedural aftercare Presentation: 11/07 23:34 Presenting complaint: states: Patient has had shortness of breath, had surgery b this afternoon. Removal of nephrostomy tube and placed stent. Adult Sepsis Screening: The patient does not have new or worsening altered mentation. Patient's respiratory rate is less than 22. Systolic blood pressure is greater than 100. Patient has a qSOFA score of 0- Negative Sepsis Screen. Suicide/Homicide risk assessment- the patient denies having any suicidal and/or homicidal ideations and does not present with any other emotional, behavioral or mental health complaints. Status: Patient is not a senior director creative services or dependent. Transition of care: patient was not received from another setting of care. 23:34 Acuity: RAVI Level 3 b 23:34 Method Of Arrival: Wheelchair [facility] Triage Assessment: 23:36 General: Appears in no apparent distress, Behavior is appropriate for age, cooperative. b Pain: Location: left low back and left mid back Pain currently is 10 out of 10 on a pain scale. HIV screening NA for this visit Offered previously. Neurological: Level of Consciousness is awake, alert, obeys commands, Oriented to person, place, time, Speech is normal, Facial symmetry appears normal, Facial symmetry: tongue is midline. Respiratory: Airway is patent Respiratory effort is even, unlabored, Respiratory pattern is regular, symmetrical. Derm: Skin is pink, warm & dry. Musculoskeletal: Range of motion intact in all extremities. 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 Cipro 500 mg Oral tab 1 tab every 12 hours 2. Percocet 5-325 mg Oral tab 1 tab every 4-6 hours (Last dose: 11/07/2016 22:00) - PMHx: Anxiety; Kidney stones; - PSHx: renal stent; cone biopsy; - Social history: Smoking status: Patient states was never smoker of tobacco. No barriers to communication noted, The patient speaks fluent Syriac, Speaks appropriately for age. - Family history: Not pertinent. - : The pt / caregiver states he / she is not on anticoagulants. Home medication list is obtained from the patient. - Exposure Risk Screening:: None identified. Screenin/06 00:00 Screening information is obtained from the patient. Fall risk: No risks identified. kas2 Assistance ADL's: requires no assistance with activities of daily living. Abuse/DV Screen: The patient / caregiver reports he/she is: not in a situation that causes fear, pain or injury. Nutritional screening: No deficits noted. Advance Directives: Currently, there is no health care proxy. There is no active DNR order. There is no living will. There is no Power of [employer]. home support is adequate. Assessment: 11/07 23:58 General: Appears in no apparent distress, uncomfortable, well nourished, well groomed, kas2 Behavior is appropriate for age, cooperative. Pain: Location: back and left mid back and left low back Pain currently is 5 out of 10 on a pain scale. Neurological: Level of Consciousness is awake, alert, Oriented to person, place, time. Cardiovascular: Capillary refill < 3 seconds Heart tones present Rhythm is sinus tachycardia No ectopy. Respiratory: Airway is patent Respiratory effort is even, unlabored, Respiratory pattern is regular, symmetrical, Breath sounds are clear bilaterally. Derm: Skin is intact, is healthy with good turgor, Skin is dry, Skin is pink, warm & dry. Skin temperature is warm. Vital Signs: 23:30 BP 110 / 67; Pulse 113; Resp 18; Temp 98.1(O); Pulse Ox 98% on R/A; Weight 79.38 kg gr2 (R); Height 5 ft. 3 in. (160.02 cm) (R); Pain 8/10; 11/08 00:56 BP 118 / 62; Pulse 90; Resp 18; Temp 97.6(O); Pulse Ox 99% on R/A; Pain 0/10; kas2 11/07 23:30 Body Mass Index 31.00 (79.38 kg, 160.02 cm) gr2 Vitals: 11/07 23:30 Log In Time: November 07, 2016 at 23:30. gr2 ED Course: 23:29 Patient visited by Wendie Bello. gr2 23:29 Patient moved to Waiting gr2 23:30 [facility] is Private Physician. gr2 23:31 Patient visited by Wendie Bello. gr2 23:31 Patient moved to Pre RCE gr2 23:35 Triage Initiated jmb 23:39 Marie Peck RN is Primary Nurse. jmb 23:39 Patient moved to 18 jmb 23:47 Armani Jeffers DO is Attending Physician. cs11 23:47 Patient visited by Armani Jeffers DO. cs11 01 00:00 Patient visited by Marie Peck RN. kas2 00:31 Alexi Arriaga is Referral Physician. cs11 00:39 [facility] Payment Agreement was scanned into [employer] and attached to record. [facility] 00:42 Patient name changed from Tia\S\\S\Mickie\S\ to Tia\S\Pastora\S\Mickie. EDMS 00:45 Patient visited by Marie Peck RN. kas2 00:59 The patient / caregiver is instructed regarding the plan of care and ED course. kas2 00:59 No IV's were initiated during this patient's visit. No procedures done that require [facility] assistance. 01:06 Patient visited by Marie Peck RN. kas2 01:07 Chest, 2 View (pa\E\lat) Returned. EDMS 07:49 T-Sheet-- Draft Copy was scanned into [employer] and attached to record. gb Administered Medications: 00:44 Drug: Ondansetron ODT 8 mg [ondansetron 4 mg disintegrating tablet (2 tabs)] Route: PO; kas2 00:44 Drug: Dilaudid - HYDROmorphone 0.5 mg [hydromorphone 1 mg/mL injection syringe (0.5 kas2 mL)] Route: IM; Site: left deltoid; Order Results: Radiology Order: Chest, 2 View (pa\E\lat) Test: Chest, 2 View (pa\E\lat) REASON FOR EXAMINATION: Shortness of Breath; Clinical: Shortness of breath.; ; Technique: PA and lateral.; ; Findings:; The cardiac silhouette is upper limits of normal. The lung bourgeois demonstrate; coarsened markings without focal atelectasis, consolidation, pleural effusion or; pneumothorax. Skeletal structures are intact.; ; Impression:; Coarsened markings may reflect bronchitis. No focal consolidation.; Cardiac silhouette is upper limits of normal.; ; ; Signed by; Jesus García MD 11/08/2016 12:41 A; Outcome: 00:31 Discharge ordered by Provider. cs11 01:04 Discharge Assessment:. kas2 01:05 Discharge Assessment: patient administered narcotics - yes. Pt provided with safe kas2 discharge. The following High Risk Discharge criteria are identified: None. Discharged to home ambulatory, with family. Condition: good Condition: stable Condition: improved. No special radiology studies were completed. Property :Personal belongings accompany Pt. 01:06 Patient left the ED. kas2 Signatures: Dispatcher [employer] EDMS Vibha Adams, Reg Reg Armani Garcia DO DO cs11 Wendie Bello gr2 Reid Burroughs,RN RN Bridgette Hancock KimRN RN [facility] Chart Complete [facility]ENTERShe[facility]
--- NOTE | 2016-11-10 02:07 | EDDOCDS ---
Physician Documentation [facility] Name: Rosita Corado Age: 31 yrs Sex: Female : 1985 Arrival Date: 11/07/2016 Time: 23:27 Bed 18 Private MD: [facility] Disposition: 11/08/16 00:31 Discharged to Home/Self Care. Impression: Encounter for other postprocedural aftercare. - Condition is Stable. - Medication Reconciliation, Local Pharmacy Hours form. - Follow up: Alexi Arriaga; When: As previously arranged. - Problem is new. - Symptoms have improved. Historical: - Allergies: Reglan; - Home Meds: 1. Cipro 500 mg Oral tab 1 tab every 12 hours 2. Percocet 5-325 mg Oral tab 1 tab every 4-6 hours (Last dose: 11/07/2016 22:00) - PMHx: Anxiety; Kidney stones; - PSHx: renal stent; cone biopsy; - Social history: Smoking status: Patient states was never smoker of tobacco. No barriers to communication noted, The patient speaks fluent Latvian, Speaks appropriately for age. - Family history: Not pertinent. - : The pt / caregiver states he / she is not on anticoagulants. Home medication list is obtained from the patient. - Exposure Risk Screening:: None identified. DISH UP PERSON: 11/07 23:36 LMP 08/22/2016 [place] Vital Signs: 23:30 BP 110 / 67; Pulse 113; Resp 18; Temp 98.1(O); Pulse Ox 98% on R/A; Weight 79.38 kg / gr2 175 lbs (R); Height 5 ft. 3 in. (160.02 cm) (R); Pain 8/10; 11/08 00:56 BP 118 / 62; Pulse 90; Resp 18; Temp 97.6(O); Pulse Ox 99% on R/A; Pain 0/10; kas2 11/07 23:30 Body Mass Index 31.00 (79.38 kg, 160.02 cm) gr2 MDM: 11/07 23:49 Chest, 2 View (pa\E\lat) Ordered. EDMS 11/08 00:16 Financial registration complete. slh 00:29 Ondansetron ODT Oral Disintegrating Tablet 8 mg PO once ordered. cs11 00:29 Dilaudid - HYDROmorphone 0.5 mg IM once ordered. cs11 00:39 [facility] Payment Agreement was scanned into [employer] and attached to record. [facility] 07:49 T-Sheet-- Draft Copy was scanned into [employer] and attached to record. gb Administered Medications: 00:44 Drug: Ondansetron ODT 8 mg [ondansetron 4 mg disintegrating tablet (2 tabs)] Route: PO; kas2 00:44 Drug: Dilaudid - HYDROmorphone 0.5 mg [hydromorphone 1 mg/mL injection syringe (0.5 kas2 mL)] Route: IM; Site: left deltoid; Signatures: Dispatcher [employer] EDMS Vibha Adams, Reg Reg Armani Garcia, DO cs11 Reid Burroughs,RN RN Bridgette Hancock KimRN RN kas2 The chart was reviewed and I authenticate all verbal orders and agree with the evaluation and treatment provided.Attachments: 00:39 [facility] Payment Agreement [facility] 07:49 T-Sheet-- Draft Copy gb Chart Complete MTDD
--- NOTE | 2016-11-10 02:07 | EDDOCDS ---
Physician Documentation [facility] Name: Rosita Corado Age: 31 yrs Sex: Female : 1985 Arrival Date: 11/07/2016 Time: 23:27 Bed 18 Private MD: [facility] Disposition: 11/08/16 00:31 Discharged to Home/Self Care. Impression: Encounter for other postprocedural aftercare. - Condition is Stable. - Medication Reconciliation, Local Pharmacy Hours form. - Follow up: Alexi Arriaga; When: As previously arranged. - Problem is new. - Symptoms have improved. Historical: - Allergies: Reglan; - Home Meds: 1. Cipro 500 mg Oral tab 1 tab every 12 hours 2. Percocet 5-325 mg Oral tab 1 tab every 4-6 hours (Last dose: 11/07/2016 22:00) - PMHx: Anxiety; Kidney stones; - PSHx: renal stent; cone biopsy; - Social history: Smoking status: Patient states was never smoker of tobacco. No barriers to communication noted, The patient speaks fluent Tajik, Speaks appropriately for age. - Family history: Not pertinent. - : The pt / caregiver states he / she is not on anticoagulants. Home medication list is obtained from the patient. - Exposure Risk Screening:: None identified. ANESTHESIA ATTENDING: 11/07 23:36 LMP 08/22/2016 [place] Vital Signs: 23:30 BP 110 / 67; Pulse 113; Resp 18; Temp 98.1(O); Pulse Ox 98% on R/A; Weight 79.38 kg / gr2 175 lbs (R); Height 5 ft. 3 in. (160.02 cm) (R); Pain 8/10; 11/08 00:56 BP 118 / 62; Pulse 90; Resp 18; Temp 97.6(O); Pulse Ox 99% on R/A; Pain 0/10; kas2 11/07 23:30 Body Mass Index 31.00 (79.38 kg, 160.02 cm) gr2 MDM: 11/07 23:49 Chest, 2 View (pa\E\lat) Ordered. EDMS 11/08 00:16 Financial registration complete. slh 00:29 Ondansetron ODT Oral Disintegrating Tablet 8 mg PO once ordered. cs11 00:29 Dilaudid - HYDROmorphone 0.5 mg IM once ordered. cs11 00:39 [facility] Payment Agreement was scanned into [employer] and attached to record. [facility] 07:49 T-Sheet-- Draft Copy was scanned into [employer] and attached to record. gb Administered Medications: 00:44 Drug: Ondansetron ODT 8 mg [ondansetron 4 mg disintegrating tablet (2 tabs)] Route: PO; kas2 00:44 Drug: Dilaudid - HYDROmorphone 0.5 mg [hydromorphone 1 mg/mL injection syringe (0.5 kas2 mL)] Route: IM; Site: left deltoid; Signatures: Dispatcher [employer] EDMS Vibha Adams, Reg Reg Armani Garcia, DO cs11 Reid Burroughs,RN RN Bridgette Hancock KimRN RN kas2 The chart was reviewed and I authenticate all verbal orders and agree with the evaluation and treatment provided.Attachments: 00:39 [facility] Payment Agreement [facility] 07:49 T-Sheet-- Draft Copy gb Chart Complete MTDD
== END 2016-11-08 01:06 | disposition home or self-care (01) ==
LOC: M ED 23:27
DX: Z48.03 Encounter for change or removal of drains (principal); F41.9 Anxiety disorder, unspecified; Z87.442 Personal history of urinary calculi; Z96.0 Presence of urogenital implants; Z79.899 Other long term (current) drug therapy; Z88.8 Allergy status to other drugs, medicaments and biological substances
CPT/HCPCS: 71020; 96372; 99284; J1170

== ENCOUNTER → 2016-11-07 | Day surgery (SDC) | payer OTHER ==
[~2016-11-07] MED LIST changes: +CONRAY-60 60% 50ML VIAL (Q9961) As Ordered ONE; +CONRAY-60 60% 50ML VIAL (Q9961) XX ONE; +GLYCOPYRROLATE INJ 0.2 MG/ML 2 ML VIAL As Ordered ONE; +KETAMINE HCL 200 MG/20 ML VIAL As Ordered ONE; +LIDOCAINE 2% INJ 100 MG/5 ML SDV (FOR ANES.) As Ordered ONE; +LR 1,000 ML IV SCH; +METOCLOPRAMIDE INJ 10MG/2ML VIAL (J2765) IV PRN; +MIDAZOLAM INJ 2 MG/2 ML VIAL (J2250) As Ordered ONE; +ONDANSETRON 4MG/2ML VIAL (J2405) As Ordered ONE; +ONDANSETRON 4MG/2ML VIAL (J2405) IV PRN; +PERCOCET 5MG/325MG TAB PO PRN; +PROPOFOL 200 MG/20 ML VIAL As Ordered ONE; +ceFAZolin 2 GM/D5W 50 ML IV BAG (J0690) As Ordered ONE; +fentaNYL 100 MCG/2 ML INJECTION (J3010) As Ordered ONE
[2016-11-07] MEDS: fentaNYL 100 MCG/2 ML INJECTION (J3010) IV PRN ×5 (13:25→13:56)
[2016-11-07 15:05] VITALS: BP 137/76
--- NOTE | 2016-11-08 07:33 | RO ---
DATE OF PROCEDURE: 11/07/2016 PREPROCEDURE DIAGNOSES: Retained left ureteral stent, left kidney stones, bladder stone, right ureteral stone. POSTPROCEDURE DIAGNOSES: Retained left ureteral stent, left kidney stones, bladder stone, right ureteral stone. PROCEDURE: Bilateral extracorporeal shock wave lithotripsy, cystoscopy with laser cystolitholapaxy, left ureteral stent exchange. SURGEON: Dr. Alexi Arriaga. FIREWALL ADMINISTRATOR: None. ANESTHESIA: MAC. OPERATIVE INDICATIONS: This is a 31-year-old female who originally presented to the hospital in April 2016 with an obstructing left ureteral stone and possible urinary tract infection. A left ureteral stent was placed at that time and she was discharged with a plan for her to followup. She never followed up until she was seen in the emergency room last week when she came in and was found to have a calcified retained left ureteral stent with severe left hydronephrosis as well as an approximately 7 mm obstructing mid right ureteral stone. The patient was taken to the operating room that night and had a right ureteral stent placement with cystolitholapaxy and attempted left ureteral stent removal. We were unable to remove the left ureteral stent at that time and therefore, a left percutaneous nephrostomy tube was placed. She was brought to the operating room today for extracorporeal shock wave lithotripsy on the calcifications along the left ureteral stent as well as cystolitholapaxy of the bladder stone attached to the stent as well as extracorporeal shock wave lithotripsy on the right ureteral stone. DESCRIPTION OF PROCEDURE: The patient was brought to the operating room and MAC anesthesia was administered. Prophylactic antibiotics were infused. She was placed in the supine position on the lithotripsy table in preparation for left sided extracorporeal shock wave lithotripsy first. Fluoroscopy was utilized to monitor stone position and fragmentation throughout the procedure. We then delivered approximately 3000 shocks along the proximal aspect of the left ureteral stent to fragment the stone attached to the stent into smaller pieces. While doing this, a 1000 micron laser fiber was utilized to fragment the bladder stone attached to the distal aspect of the stent into smaller pieces. This was done simultaneously. After fragmenting the stone attached to the distal aspect of the stent into smaller pieces, an Adeline escalator attendant was utilized to evaluate all of the stone fragments from the bladder. Once done with the shock wave lithotripsy on the proximal aspect of the stent, the stent was then able to be completely removed from the left ureter intact. At this point, a wire was advanced up the left collecting system and over the wire, an open ended ureteral catheter was advanced up into the left collecting system. The wire was then removed and a retrograde pyelogram was performed and was notable for severe left hydronephrosis. The wire was then advanced back up the open ended ureteral catheter and into the left collecting system. The ureteral catheter was then removed leaving the wire in place. The wire was then utilized to advance a #6-Tajik x 22-32 cm JJ ureteral stent up into the left collecting system. The wire was then removed and there were adequate curls of the stent in the left renal pelvis and in the bladder. The bladder was emptied of all fluid and at this point, the left nephrostomy tube was also removed. Another fluoroscopy shot was taken and confirmed that the stent was still in place. Dressings were then applied over the left nephrostomy tube site. The patient was then repositioned for right sided extracorporeal shock wave lithotripsy for the mid ureteral stone. Fluoroscopy was then utilized to monitor stone position and fragmentation and at this point, 3000 shocks were delivered to the stone ungated. The stone did appear to fragment well. There were no arrhythmias throughout the procedure. After a total of 3000 shocks were delivered and the stone appeared to have fragmented well, the procedure was concluded. Of note, the patient's right ureteral stent was left in place during the procedure. This marked the conclusion of the procedure and the patient was then awakened from anesthesia and transported to the recovery room in stable condition. ESTIMATED BLOOD LOSS: 5 mL. COMPLICATIONS: None. SPECIMENS: Kidney stone fragments. PLAN: The patient will followup in the clinic in approximately 3-4 weeks with imaging prior and will have both ureteral stents removed at that time, assuming all of her stone fragments are gone. SUSSY
== END | disposition home or self-care (01) ==
LOC: M SDC 09:13 → EDSTATUS 12:55
PROVIDERS: ATTEND Urology
DX: N20.2 Calculus of kidney with calculus of ureter (principal); N21.0 Calculus in bladder; G89.29 Other chronic pain; M54.2 Cervicalgia; M25.561 Pain in right knee; M25.562 Pain in left knee; F41.9 Anxiety disorder, unspecified; Z87.891 Personal history of nicotine dependence; Z87.59 Personal history of other complications of pregnancy, childbirth and the puerperium
CPT/HCPCS: 50590; 52356; 82360; 88300; J0690; J2250; J2405; J3010; Q9961

== ENCOUNTER → 2016-12-03 | Outpatient (CLI) | payer OTHER ==
--- NOTE | 2016-12-04 02:59 | REP ---
Clinical: Nephrolithiasis. Technique: Single supine view of the abdomen and pelvis. Correlation: CT dated 10/31/2016. Findings: Bilateral ureteral stents in seemingly satisfactory position. No obvious urinary tract calcifications are identified by radiographic evaluation. The bowel gas pattern is nonspecific. No organomegaly. Skeletal structures are intact. Impression: Bilateral ureteral stents in seemingly satisfactory position. Signed by Jesus García MD 12/04/2016 02:50 A
== END ==
LOC: M SMT 14:57
PROVIDERS: ATTEND Nurse Practitioner Family
DX: Z87.442 Personal history of urinary calculi (principal)

== ENCOUNTER 2017-01-17 15:03 | Emergency (ER) | payer OTHER ==
[~2017-01-17] VITALS: Ht 160 cm; Wt 74.8 kg
[2017-01-17 15:04] VITALS: BP 138/87
[2017-01-17] MEDS ORDERED: AMBI5TAB PO (15:13)
[2017-01-17] MEDS ORDERED: KETO10TAB PO (15:13)
[2017-01-17] MEDS ORDERED: FLUO20CA8 PO (15:13)
[2017-01-17] MEDS ORDERED: HYDR-4274 PO (15:13)
[2017-01-17] MEDS ORDERED: PERCOCET 5MG/325MG TAB PO ONE (16:30)
[2017-01-17] MEDS ORDERED: LR 1,000 ML IV ONE (16:30)
[2017-01-17] MEDS ORDERED: ONDANSETRON 4MG/2ML VIAL (J2405) IV ONE (16:30)
[2017-01-17 16:44] LABS: BASO % 0.3 % (0.0-1.0); EOS # 0.4 K/mm3 (0.0-0.50); EOS % 4.1 % (0.0-3.0); LARGE UNSTAINED CELL # 0.1 K/mm3 (0.0-0.4); LARGE UNSTAINED CELL % 1.2 % (0.0-4.0); LYMPH # 0.9 K/mm3 (1.5-4.5); LYMPH % 8.7 % (24.0-44.0); MEAN CORPUSCULAR HEMOGLOBIN 29.2 pg (27.0-33.0); MONO # 0.3 K/mm3 (0.0-0.8); MONO % 2.9 % (0.0-5.0); NEUTROPHILS # 7.8 K/mm3 (1.8-7.7); NEUTROPHILS % 82.8 % (36.0-66.0); PLATELET COUNT, AUTOMATED 360 k/mm3 (150-450); RED CELL DISTRIBUTION WIDTH 13.1 % (11.5-14.5); WHITE BLOOD COUNT 9.4 K/mm3 (4.0-10.0)
[2017-01-17 16:58] LABS: CONTROL LINE HCG INT CTR LINE PRESENT
[2017-01-17 17:06] LABS: ALBUMIN 3.6 GM/DL (3.2-5.2); ALKALINE PHOSPHATASE 80 U/L (45-117); ALT/SGPT 15 U/L (12-78); ANION GAP 9 MEQ/L (8-16); AST/SGOT 9 U/L (15-37); BILIRUBIN,TOTAL 0.5 MG/DL (0.2-1.0); BLOOD UREA NITROGEN 20 MG/DL (7-18); CALCIUM LEVEL 8.3 MG/DL (8.5-10.1); CARBON DIOXIDE LEVEL 29 MEQ/L (21-32); CHLORIDE LEVEL 106 MEQ/L (98-107); CREATININE FOR GFR 1.17 MG/DL (0.55-1.02); GLOMERULAR FILTRATION RATE 56.7 (>60); GLUCOSE, FASTING 124 MG/DL (70-105); POTASSIUM SERUM 3.5 MEQ/L (3.5-5.1); SODIUM LEVEL 144 MEQ/L (136-145); TOTAL PROTEIN 7.2 GM/DL (6.4-8.2)
--- NOTE | 2017-01-17 18:04 | REP ---
BILATERAL RENAL ULTRASOUND: 01/17/2017. Clinical history: Right flank pain. History of bilateral ureteral stents, removed in December. Renal stone disease. Comparison: KUB 12/03/2016, CT abdomen and pelvis 10/31/2013, renal ultrasound 01/07/2012. Findings: Right kidney is 11.4 x 5.5 x 5.1 cm and shows normal cortical thickness and echogenicity. The left kidney is 14 x 7.1 x 6.2 cm and also has normal cortical thickness and echogenicity. There is no hydronephrosis or hydroureter on the right. I see no echogenic focus to suggest a definite stone nor evidence for cyst or mass. However, the left kidney shows severe hydronephrosis and proximal hydroureter. We were unable to follow that left ureter because of gas shadowing. Bladder was not distended and could not be readily evaluated. Arcuate artery Doppler in the lower pole of the left kidney shows resistive index of 0.56. Impression: 1. No hydronephrosis or hydroureter visible on the right with no definite stone, cyst or solid mass. 2. Severe hydronephrosis on the left with proximal hydroureter and the end of the ureter not visible. 3. The bladder was not evaluated because it is poorly distended. No gross abnormality in limited views obtained. Signed by Mikey Carpenter MD 01/20/2017 12:53 P
[2017-01-17 18:36] LABS: HCG, SERUM QUANTITATIVE 22 MIU/ML
[2017-01-17] MEDS ORDERED: AMOX500C PO (19:57)
[2017-01-17] MEDS ORDERED: AMOXICILLIN 500 MG CAP PO ONE (20:15)
--- NOTE | 2017-01-17 20:20 | REP ---
Obstetric sonography: History: Right flank pain, left-sided hydronephrosis. Positive urine test, beta HCG 22. Findings: Transabdominal and transvaginal scanning are performed. Uterus is empty and normal in size with dimensions of 8.2 x 4.9 x 5.5 cm. No intrauterine gestation is seen. Endometrium is proximally 7 mm in thickness. No free fluid is noted. Normal ovaries are seen bilaterally. Right ovarian dimensions are 3.2 x 2.5 x 2.2 cm. The left ovary measures 2.3 x 2.1 x 3.0 cm. Doppler flow is normal in both ovaries. Resistive indices are 4.8 on both sides. Impression: Morphologically normal pelvic sonography. No intrauterine gestation seen. No free fluid or adnexal mass lesion noted. Nonspecific sonographic findings. Signed by Maurice Morris MD 01/18/2017 07:45 A
== END 2017-01-17 20:24 | disposition home or self-care (01) ==
LOC: M ED 16:51
DX: O23.41 Unspecified infection of urinary tract in pregnancy, first trimester (principal); Z3A.01 Less than 8 weeks gestation of pregnancy
CPT/HCPCS: 76775; 76801; 76817; 80053; 81001; 83690; 84702; 84703; 85025; 87086; 93976; 96361; 96374; 99283; J2405

== ENCOUNTER 2017-01-20 17:12 | Emergency (ER) | payer OTHER ==
[~2017-01-20] VITALS: Ht 160 cm; Wt 74.8 kg
[~2017-01-20 17:12] MED LIST changes: +AMBI5TAB PO; +AMOX500C PO; +FLUO20CA8 PO; +HYDR-4274 PO; +KETO10TAB PO
[2017-01-20] MEDS ORDERED: PREN200C2 PO (17:22)
[2017-01-20 18:33] LABS: YEAST LIKE CELL URINE AUTO SMALL
[2017-01-20] MEDS: ONDANSETRON 4MG/2ML VIAL (J2405) IV ONE (19:57)
[2017-01-20] MEDS: MORPHINE 2 MG/ML 1ML SYRINGE IV PRN (19:57)
[2017-01-20] MEDS: NS 1,000 ML IV ONE (19:57)
[2017-01-20 20:17] LABS: BASO % 0.7 % (0.0-1.0); EOS # 0.3 K/mm3 (0.0-0.50); EOS % 4.2 % (0.0-3.0); LARGE UNSTAINED CELL # 0.2 K/mm3 (0.0-0.4); LYMPH # 2.3 K/mm3 (1.5-4.5); LYMPH % 30.8 % (24.0-44.0); MEAN CORPUSCULAR HEMOGLOBIN 28.5 pg (27.0-33.0); MEAN CORPUSCULAR HGB CONC 33.7 g/dl (32.0-36.5); MEAN CORPUSCULAR VOLUME 84.7 fl (80.0-96.0); MONO # 0.3 K/mm3 (0.0-0.8); MONO % 4.5 % (0.0-5.0); NEUTROPHILS # 4.2 K/mm3 (1.8-7.7); NEUTROPHILS % 56.8 % (36.0-66.0); PLATELET COUNT, AUTOMATED 403 k/mm3 (150-450); RED CELL DISTRIBUTION WIDTH 12.9 % (11.5-14.5); WHITE BLOOD COUNT 7.3 K/mm3 (4.0-10.0)
[2017-01-20 20:29] LABS: ANION GAP 5 MEQ/L (8-16); BLOOD UREA NITROGEN 15 MG/DL (7-18); CALCIUM LEVEL 9.3 MG/DL (8.5-10.1); CARBON DIOXIDE LEVEL 30 MEQ/L (21-32); CHLORIDE LEVEL 106 MEQ/L (98-107); CREATININE FOR GFR 0.98 MG/DL (0.55-1.02); GLOMERULAR FILTRATION RATE > 60.0 (>60); GLUCOSE, FASTING 101 MG/DL (70-105); SODIUM LEVEL 141 MEQ/L (136-145)
[2017-01-20 20:40] LABS: POTASSIUM SERUM 2.8 MEQ/L (3.5-5.1)
[2017-01-20] MEDS: POTASSIUM CHLORIDE 10 MEQ SR TABLET PO ONE (21:42)
[2017-01-20] MEDS ORDERED: UNIS25TA2 PO (21:49)
[2017-01-20] MEDS ORDERED: VITA50TA43 PO (21:49)
[2017-01-20] MEDS ORDERED: PERC5TAB6 PO (21:49)
[2017-01-20] MEDS ORDERED: KLOR25PO2 PO (21:54)
[2017-01-20 22:03] VITALS: BP 136/91
[2017-01-29] MEDS ORDERED: FLOM5CAP PO (15:25)
[2017-01-29] MEDS ORDERED: ZOLO25TA PO (15:25)
== END 2017-01-20 22:16 | disposition home or self-care (01) ==
LOC: M ED 18:50
DX: O99.89 Other specified diseases and conditions complicating pregnancy, childbirth and the puerperium (principal); N23 Unspecified renal colic; Z3A.01 Less than 8 weeks gestation of pregnancy; O99.341 Other mental disorders complicating pregnancy, first trimester; F41.9 Anxiety disorder, unspecified
CPT/HCPCS: 36415; 80048; 81001; 83605; 84702; 85025; 87086; 96365; 96366; 96375; 99283; J2405

== ENCOUNTER → 2017-01-22 | Outpatient (CLI) | payer OTHER ==
[~2017-01-22] MED LIST changes: +KLOR25PO2 PO; +PREN200C2 PO; +UNIS25TA2 PO; +VITA50TA43 PO
[2017-01-22 10:30] LABS: MEAN CORPUSCULAR HEMOGLOBIN 29.2 pg (27.0-33.0); MEAN CORPUSCULAR HGB CONC 34.5 g/dl (32.0-36.5); MEAN CORPUSCULAR VOLUME 84.8 fl (80.0-96.0); RED CELL DISTRIBUTION WIDTH 12.9 % (11.5-14.5); WHITE BLOOD COUNT 6.2 K/mm3 (4.0-10.0)
[2017-01-22 10:42] LABS: ANION GAP 7 MEQ/L (8-16); BLOOD UREA NITROGEN 10 MG/DL (7-18); CARBON DIOXIDE LEVEL 30 MEQ/L (21-32); CHLORIDE LEVEL 104 MEQ/L (98-107); GLOMERULAR FILTRATION RATE > 60.0 (>60); GLUCOSE, FASTING 95 MG/DL (70-105); POTASSIUM SERUM 3.2 MEQ/L (3.5-5.1); SODIUM LEVEL 141 MEQ/L (136-145)
[2017-01-22 10:50] LABS: INR 0.99
== END ==
LOC: M LAB 09:53
PROVIDERS: ATTEND Nurse Practitioner Family
DX: Z87.442 Personal history of urinary calculi (principal)

== ENCOUNTER → 2017-01-22 | Outpatient (CLI) | payer OTHER | LOC: M LAB 09:49 | PROVIDERS: ATTEND Physician Assistant Surgical | DX: Z33.1 Pregnant state, incidental (principal) ==

== ENCOUNTER → 2017-01-24 | Outpatient (CLI) | payer OTHER | LOC: M LAB 09:44 | PROVIDERS: ATTEND Obstetrics & Gynecology | DX: O20.0 Threatened abortion (principal); Z3A.00 Weeks of gestation of pregnancy not specified ==

== ENCOUNTER → 2017-01-27 | Outpatient (CLI) | payer OTHER ==
[~2017-01-27] MED LIST changes: +FLOM5CAP PO; +ZOLO25TA PO
--- NOTE | 2017-01-27 12:46 | REP ---
Clinical: Left-sided hydronephrosis and flank pain. Findings: Grade 4 hydronephrosis and proximal hydroureter secondary to a 7 mm calculus obstructing the proximal left ureter (images 75 - 77) along with 2 mm nonobstructing left lower pole renal calculus. Remainder of the left ureter as well as the right kidney/ureter and bladder are normal. Liver, spleen, pancreas, gallbladder, and bilateral adrenal glands are normal. The enteric system is without obstruction or acute inflammatory process and a normal terminal ileum/appendix are identified in the right lower quadrant. Pelvis demonstrates normal bladder and age-appropriate uterus/adnexa. No pelvic fluid or ascites. No free air. No adenopathy. No aortic aneurysm. Musculoskeletal structures are intact. Lung bases clear. Impression: Moderate to marked proximal hydroureteronephrosis secondary to a 7 mm obstructing calculus in the proximal left ureter. 2 mm nonobstructing left renal calculus also identified. Signed by Jesus García MD 01/27/2017 12:38 P
== END ==
LOC: M RAD 12:18
PROVIDERS: ATTEND Urology
DX: N13.30 Unspecified hydronephrosis (principal); N20.0 Calculus of kidney

== ENCOUNTER → 2017-01-31 | Day surgery (SDC) | payer OTHER ==
[~2017-01-31] VITALS: Ht 160 cm; Wt 77.1 kg
[~2017-01-31] MED LIST changes: +CONRAY-60 60% 50ML VIAL (Q9961) As Ordered ONE; +LIDOCAINE 2% INJ 100 MG/5 ML SDV (FOR ANES.) As Ordered ONE; +LR 1,000 ML IV SCH; +METOCLOPRAMIDE INJ 10MG/2ML VIAL (J2765) As Ordered ONE; +METOCLOPRAMIDE INJ 10MG/2ML VIAL (J2765) IV PRN; +MIDAZOLAM INJ 2 MG/2 ML VIAL (J2250) As Ordered ONE; +MORPHINE 10 MG/ML 1ML VIAL As Ordered ONE; +ONDANSETRON 4MG/2ML VIAL (J2405) As Ordered ONE; +ONDANSETRON 4MG/2ML VIAL (J2405) IV PRN; +PERCOCET 5MG/325MG TAB As Ordered ONE; +PERCOCET 5MG/325MG TAB PO PRN; +PROPOFOL 200 MG/20 ML VIAL As Ordered ONE; +ePHEDrine SULFATE 25 MG/5 ML(5MG/ML) SYRINGE As Ordered ONE; +fentaNYL 100 MCG/2 ML INJECTION (J3010) As Ordered ONE
[2017-01-31] MEDS: fentaNYL 100 MCG/2 ML INJECTION (J3010) IV PRN ×4 (13:03→13:21)
--- NOTE | 2017-01-31 13:04 | REP ---
Clinical: Obstructive uropathy. Technique: Retrograde pyelogram. Findings: Intraoperative fluoroscopic images demonstrates grade 4 left hydronephrosis with ureteral stent in satisfactory position. Total fluoroscopic time 12 seconds Impression: Status post left ureteral stent placement. Signed by Jseus García MD 01/31/2017 12:56 P
[2017-01-31] MEDS: PERCOCET 5MG/325MG TAB PO PRN ×2 (13:11→14:19)
[2017-01-31] MEDS: MORPHINE 2 MG/ML 1ML SYRINGE IV PRN ×3 (13:36→13:50)
[2017-01-31 14:35] VITALS: BP 119/85
--- NOTE | 2017-01-31 22:50 | RO ---
DATE OF PROCEDURE: 01/31/2017 PREPROCEDURE DIAGNOSIS: Left ureteral stone. POSTPROCEDURE DIAGNOSIS: Left ureteral stone, left ureteral stricture. PROCEDURE: Cystoscopy, left ureteroscopy with laser lithotripsy and basket extraction of stone, left laser endopyelotomy, left retrograde pyelogram with intraoperative interpretation of images, left ureteral stent placement. SURGEON: Dr. Alexi Arriaga WINTERIZER: None. ANESTHESIA: General. OPERATIVE INDICATIONS: This is a 31-year-old female who was recently found to have severe left hydronephrosis due to an obstructing 6 mm proximal left ureteral stone. It was recommended she be brought to the operating room for treatment of her stone. DESCRIPTION OF PROCEDURE: The patient was brought to the operating room and general anesthesia was induced. Prophylactic antibiotics were infused. She was then placed in the dorsal lithotomy position and prepped and draped in the usual sterile fashion. A rigid cystoscope was then inserted into the urethral meatus and advanced to the bladder. Once within the bladder, the wire was advanced up the left collecting system. We then advanced the ureteral access sheath over the wire into the left collecting system. The wire was then secured to the drape to serve as a safety wire. We went up the access sheath with a flexible ureteroscope. Within the proximal left ureter, the patient notably had what appeared to be a blind ending ureter with a lot of scar tissue. Within the scar tissue, I could see the stone. At this point, the scar tissue and stone were lasered using a 200 micron laser fiber. I kept doing this until the stone was fragmented into several smaller pieces and the largest of these pieces were removed. I also performed an endopyelotomy by lasering the scar tissue until the stricture was open. I then went into the kidney with the flexible ureteroscope and examined the kidney thoroughly, and it was notable for severe hydronephrosis. Only very tiny stone fragments were seen within the kidney, and since they were small enough to pass, I did not try to remove them. At this point, a retrograde pyelogram was performed. It was notable for severe left hydronephrosis. I then removed the ureteroscope along with the ureteral access sheath and no additional stones were seen behind the access sheath. At this point, I utilized the previously placed wire to advance a 6-Croatian x 22-32 cm JJ ureteral stent up into the left collecting system. The wire was then removed, and there were adequate curls of the stent in the left renal pelvis and in the bladder. The bladder was then emptied of all fluids, and this marked the conclusion of the procedure. The patient was then taken out of the dorsal lithotomy position, awakened from anesthesia and transported to the recovery room in stable condition. ESTIMATED BLOOD LOSS: 0 mL. COMPLICATIONS: None. SPECIMENS: Kidney stone fragment. PLAN: The patient will be brought back to be seen in the clinic in approximately 1 month for stent removal. My plan is to leave the stent in for a month to try to give time for that scarred area of the ureter to heal properly. After the stent is removed, I will get a renal ultrasound in 1-2 months to assess for hydronephrosis, and if that is present, it will mean that the ureteral stricture has recurred. SUSSY
[2017-02-07 14:36] LABS: Size 4x3x1 mm (.)
== END | disposition home or self-care (01) ==
LOC: M SDC 09:07
PROVIDERS: ATTEND Urology
DX: N20.2 Calculus of kidney with calculus of ureter (principal); N13.1 Hydronephrosis with ureteral stricture, not elsewhere classified; F41.9 Anxiety disorder, unspecified; Z79.899 Other long term (current) drug therapy
CPT/HCPCS: 52341; 52352; 52356; 74420; 82360; 88300; C1726; C2617; J0690; J2250; J2405; J2765; J3010; Q9961

== ENCOUNTER 2017-05-16 10:37 | Day surgery (SDC) | payer OTHER ==
[~2017-05-16] VITALS: Ht 160 cm; Wt 68.0 kg
[~2017-05-16 10:37] MED LIST changes: +CIPR-249 PO; -CIPR500T89 PO; -CONRAY-60 60% 50ML VIAL (Q9961) As Ordered ONE; -HYDR-4274 PO; +HYDR50TA70 PO; +IBUP1TAB6 PO; -IBUP200C PO; +IBUP200C10 PO; -IBUP60TA PO; +LEVA1TAB2 PO; -LEVA500T PO; -LIDOCAINE 2% INJ 100 MG/5 ML SDV (FOR ANES.) As Ordered ONE; -LR 1,000 ML IV SCH; -MELA5TAB14 PO; +MELA5TAB17 PO; -METOCLOPRAMIDE INJ 10MG/2ML VIAL (J2765) As Ordered ONE; -METOCLOPRAMIDE INJ 10MG/2ML VIAL (J2765) IV PRN; -MIDAZOLAM INJ 2 MG/2 ML VIAL (J2250) As Ordered ONE; -MORPHINE 10 MG/ML 1ML VIAL As Ordered ONE; -ONDANSETRON 4MG/2ML VIAL (J2405) As Ordered ONE; -ONDANSETRON 4MG/2ML VIAL (J2405) IV PRN; +PERC5TAB12 PO; -PERC5TAB6 PO; -PERCOCET 5MG/325MG TAB As Ordered ONE; -PERCOCET 5MG/325MG TAB PO PRN; +PREN200C PO; -PREN200C2 PO; -PROPOFOL 200 MG/20 ML VIAL As Ordered ONE; -ePHEDrine SULFATE 25 MG/5 ML(5MG/ML) SYRINGE As Ordered ONE; -fentaNYL 100 MCG/2 ML INJECTION (J3010) As Ordered ONE
[2017-05-16] MEDS ORDERED: GABA-283 PO (10:46)
[2017-05-16] MEDS ORDERED: NS 1,000 ML IV ONE (11:00)
[2017-05-16] MEDS ORDERED: ONDANSETRON 4MG/2ML VIAL (J2405) IV ONE (11:00)
[2017-05-16] MEDS ORDERED: KETOROLAC 30 MG/ML VIAL (J1885) IV ONE (11:00)
[2017-05-16 11:24] LABS: BASO # 0.1 K/mm3 (0.0-0.2); BASO % 0.6 % (0.0-1.0); EOS # 0.4 K/mm3 (0.0-0.50); LARGE UNSTAINED CELL # 0.1 K/mm3 (0.0-0.4); LARGE UNSTAINED CELL % 0.7 % (0.0-4.0); LYMPH # 0.9 K/mm3 (1.5-4.5); LYMPH % 5.7 % (24.0-44.0); MEAN CORPUSCULAR HEMOGLOBIN 29.4 pg (27.0-33.0); MEAN CORPUSCULAR HGB CONC 34.1 g/dl (32.0-36.5); MEAN CORPUSCULAR VOLUME 86.2 fl (80.0-96.0); MONO # 0.5 K/mm3 (0.0-0.8); MONO % 3.6 % (0.0-5.0); NEUTROPHILS # 11.6 K/mm3 (1.8-7.7); NEUTROPHILS % 86.4 % (36.0-66.0); PLATELET COUNT, AUTOMATED 384 k/mm3 (150-450); RED CELL DISTRIBUTION WIDTH 13.1 % (11.5-14.5); WHITE BLOOD COUNT 13.4 K/mm3 (4.0-10.0)
[2017-05-16 11:42] LABS: CALCIUM OXALATE CRYSTALS SMALL
[2017-05-16 11:44] LABS: ALBUMIN 3.8 GM/DL (3.2-5.2); ALBUMIN/GLOBULIN RATIO 0.86 (1.00-1.93); BILIRUBIN,DIRECT 0.1 MG/DL (0.0-0.2); BILIRUBIN,TOTAL 0.6 MG/DL (0.2-1.0); CREATININE FOR GFR 1.45 MG/DL (0.55-1.02); POTASSIUM SERUM 3.1 MEQ/L (3.5-5.1); TOTAL PROTEIN 8.2 GM/DL (6.4-8.2)
[2017-05-16] MEDS ORDERED: MORPHINE 4 MG/ML 1ML SYRINGE IV ONE (12:30)
--- NOTE | 2017-05-16 12:49 | REP ---
CT study abdomen and pelvis without oral or IV contrast: Renal stone protocol. History: Renal colic. Left flank pain. Comparison CT study January 27, 2017 showed a 7 mm obstructing calculus in the proximal left ureter and two intrarenal left renal calculi. The patient underwent double pigtail left ureteral stent placement on January 31, 2017. Today's sonographic findings: Preliminary digital picture frames inspector radiograph shows an unremarkable bowel gas pattern. The lung bases are clear. On today's exam there is severe left-sided hydronephrosis with dilation of the intrarenal collecting system and renal pelvis. The left proximal ureter is dilated to the mid ureter level where there is a 6 mm mid ureteral calculus. The ureter is not dilated distal to this. No other ureteral calculus is observed. Sagittal reformatted images show a tiny secondary ureteral calculus just caudal to the first in the left mid ureter. There is moderate periureteral and perinephric acute edema visible today and the left kidney is swollen. No hydronephrosis is noted on the right. No other urinary tract calculus is seen. Urinary bladder, uterus and ovaries are unremarkable. No small or large bowel abnormality is seen. Exam is otherwise unremarkable. Impression: Severe left-sided hydronephrosis due to acute obstruction, 6 mm left mid ureteral calculus at the level of the L3-4 disc. A second smaller calculus is seen adjacent to this. Signed by Maurice Morris MD 05/16/2017 02:45 P
[2017-05-16] MEDS ORDERED: LORazepam 2 MG/ML VIAL (J2060) IV STA (13:23)
[2017-05-16] MEDS ORDERED: MORPHINE 2 MG/ML 1ML SYRINGE IV ONE (15:45)
[2017-05-16] MEDS ORDERED: MORPHINE 2 MG/ML 1ML SYRINGE As Ordered ONE (18:38)
[2017-05-16] MEDS ORDERED: HYDROmorphone HCL 1 MG/ML SYRINGE (J1170) IV PRN (19:00)
[2017-05-16] MEDS ORDERED: MORPHINE 2 MG/ML 1ML SYRINGE IV PRN ×2 (19:00→23:15)
[2017-05-16] MEDS ORDERED: LR 1,000 ML IV SCH ×2 (19:00→22:45)
[2017-05-16] MEDS ORDERED: CIPROFLOXACIN 400 MG in APPROPRIATE DILUENT 1 EA IV ONE (19:00)
[2017-05-16] MEDS ORDERED: ONDANSETRON 4MG/2ML VIAL (J2405) IV PRN ×2 (19:00→22:45)
[2017-05-16 19:05] VITALS: BP 115/69
--- NOTE | 2017-05-16 19:31 | HPEPDOC ---
General Date of Admission 05/16/[address] Alexi Arriaga, urologist Attending Physician: JALEN CHAUDHARI MD Chief Complaint Left flank pain Source: Patient Exam Limitations: No limitations Timing/Duration: Intermittent Severity: Severe History of Present Illness The patient is a 32-year-old female admitted with a reason for visit of Kidney Stone With Hydronephrosis. This patient has a known history of recurrent left urolithiasis. She has had numerous stone procedures in the past primarily on her left side. In addition she has been noted to have what appears to be a left ureteral stricture at approximately the level of the ureteropelvic junction. Dr. Alexi Arriaga has treated her stones in the past. Today she presented to the emergency department at [facility] with new onset left flank pain. A CAT scan was done which demonstrated at least 2 stones in the proximal left ureter just above the strictured segment. The patient's vital signs were stable and she was afebrile. She did have a mild leukocytosis and her creatinine was approximately 1.4. Urinalysis was negative for nitrites but did demonstrate leukocyte esterase, red cells, and white blood cells. In the emergency department she was treated with IV pain medications, however she continued to have significant pain. Home Medications Scheduled Gabapentin (Gabapentin) 400 Mg Cap, 100 MG PO TID, (Reported) Sertraline Hcl (Zoloft) 25 Mg Tab, 25 MG PO DAILY, (Reported) Allergies Coded Allergies: Quetiapine (Unverified Adverse Reaction, Intermediate, bad anxiety attack , 01/29/17) Metoclopramide (Verified Adverse Reaction, Mild, ANXIETY, 01/29/17) Past Medical History Medical History Polycystic ovarian syndrome Recurrent urolithiasis Left proximal ureteral stricture Bipolar disorder Cervical dysplasia Surgical History Numerous left-sided ureteral stone procedures LEEP Social History * Smoker: quit greater than 1 year Alcohol: rarely Drugs: denies Review of Symptoms Constitutional: Denies: Chills, Fever Eyes: Denies: Pain, Vision change ENT: Denies: Head Aches, Ear Pain, Dysphagia Skin: Denies: Rash, Lesions, Breakdown Pulmonary: Denies: Dyspnea, Cough Cardiovascular: Denies: Chest Pain, Palpitations, Orthopnea, Paroxysmal Noc. Dyspnea, Lt Headedness Gastrointestinal: Denies: Nausea, Vomiting, Abdominal Pain, Diarrhea Genitourinary: Reports: Hematuria, Denies: Incontinence Hematologic: Denies: Bruising, Bleeding Excessively Musculoskeletal: Denies: Neck Pain, Back Pain, Joint Pain, Muscle Pain, Spasms Neurological: Denies: Weakness, Numbness, Change in speech, Confusion Psych: Reports: Mood Normal, Denies: Depression, Memory Issues Physical Examination General Exam: Positive: Alert, No Acute Distress Eye Exam: Positive: PERRLA, Conjunctiva & lids normal, EOMI, Negative: Sclera icteric ENT Exam: Positive: Atraumatic, Mucous membr. moist/pink, Pharynx Normal Neck Exam: Positive: Supple, Negative: JVD, thyromegaly Chest Exam: Positive: Clear to auscultation, Normal air movement Heart Exam: Positive: Rate Normal, Regular Rhythm, Normal S1, Normal S2, Negative: Murmurs, Rubs Telemetry: Positive: No significant arrhythmia Abdomen Exam: Positive: Normal bowel sounds, Soft, Tenderness (Left CVAT), Negative: Hepatospenomegaly Extremity Exam: Positive: Normal pulses, Negative: Clubbing, Cyanosis, Edema Skin Exam: Positive: Nl turgor and temperature, Negative: Breakdown, Lesion Neuro Exam: Positive: Normal Gait, Normal Speech, Cranial Nerves 3-12 NL, Reflexes 2+ Psych Exam: Positive: Mental status NL, Mood NL, Oriented x 3 Vital Signs Vital Signs Date Time Temp Pulse Resp B/P (MAP) Pulse Ox O2 Delivery O2 Flow Rate FiO2 05/16/17 18:10 99.5 108 16 125/80 (95) 05/16/17 16:55 98 Room Air Laboratory Data Labs 24H Laboratory Tests 2 05/16/17 11:09: White Blood Count 13.4H, Red Blood Count 4.82, Hemoglobin 14.1, Hematocrit 41.5 , Mean Corpuscular Volume 86.2, Mean Corpuscular Hemoglobin 29.4, Mean Corpuscular Hemoglobin Concent 34.1, Red Cell Distribution Width 13.1, Platelet Count 384, Neutrophils (%) (Auto) 86.4H, Lymphocytes (%) (Auto) 5.7L, Monocytes (%) (Auto) 3.6, Eosinophils (%) (Auto) 3.0, Basophils (%) (Auto) 0.6, Neutrophils # (Auto) 11.6H, Lymphocytes # (Auto) 0.9L, Monocytes # (Auto) 0.5, Eosinophils # (Auto) 0.4, Basophils # (Auto) 0.1, Large Unclassified Cells % 0.7 , Large Unclassified Cells # 0.1, Urine Appearance CLOUDYH, Urine Color YELLOW, Urine pH 5.0, Urine Specific [place] 1.018, Urine Protein 2+H, Urine Glucose (UA ) NEGATIVE, Urine Ketones NEGATIVE, Urine Urobilinogen 0.2, Urine Bilirubin NEGATIVE, Urine Leukocyte Esterase 3+H, Urine Blood 1+H, Urine Nitrite NEGATIVE , Urine WBC (Auto) TNTCH, Urine RBC (Auto) 26H, Urine Hyaline Casts (Auto) 0, Urine Bacteria (Auto) NEGATIVE, Urine Squamous Epithelial Cells 40, Urine Calcium Oxalate Cryst (Auto) SMALL, Urine Amorphous Sediment MODERATEH, Urine Mucus (Auto) SMALL, Urine Sperm (Auto) , Anion Gap 5L, Glomerular Filtration Rate 44.0L, Calcium Level 9.0, Aspartate Amino Transf (AST/SGOT) 11L, Alanine Aminotransferase (ALT/SGPT) 16, Alkaline Phosphatase 92, Total Bilirubin 0.6, Direct Bilirubin 0.1, Total Protein 8.2, Albumin 3.8, Albumin/Globulin Ratio 0.86L, Amylase Level 47, Lipase 101 CBC/BMP Laboratory Tests 05/16/17 11:09 Red Blood Count 4.82, Mean Corpuscular Volume 86.2, Mean Corpuscular Hemoglobin 29.4, Mean Corpuscular Hemoglobin Concent 34.1, Red Cell Distribution Width 13.1 , Neutrophils (%) (Auto) 86.4 H, Lymphocytes (%) (Auto) 5.7 L, Monocytes (%) ( Auto) 3.6, Eosinophils (%) (Auto) 3.0, Basophils (%) (Auto) 0.6, Neutrophils # ( Auto) 11.6 H, Lymphocytes # (Auto) 0.9 L, Monocytes # (Auto) 0.5, Eosinophils # (Auto) 0.4, Basophils # (Auto) 0.1 Assessment/Plan Assessment: Left ureteral stone, left ureteral stricture, renal colic refractory to IV pain medications Plan / VTE VTE Prophylaxis Ordered?: Yes Plan Plan #1. Admit for same day procedure. #2 To operating room for cystoscopy, left retrograde pyelogram, and left ureteral stent placement. #3 patient should be nothing by mouth between now and the procedure. In addition to give her continuous IV fluids, and we will give her IV pain medications as needed while we wait to go to the operating room Disposition the patient will likely be discharged home after the procedure. JALEN CHAUDHARI MD May 16, 2017 19:19
[2017-05-16] MEDS ORDERED: fentaNYL 100 MCG/2 ML INJECTION (J3010) As Ordered ONE (21:18)
[2017-05-16] MEDS ORDERED: LIDOCAINE 2% INJ 100 MG/5 ML SDV (FOR ANES.) As Ordered ONE (21:18)
[2017-05-16] MEDS ORDERED: PROPOFOL 200 MG/20 ML VIAL As Ordered ONE (21:18)
[2017-05-16] MEDS ORDERED: MIDAZOLAM INJ 2 MG/2 ML VIAL (J2250) As Ordered ONE (21:18)
[2017-05-16] MEDS ORDERED: CONRAY-60 60% 50ML VIAL (Q9961) As Ordered ONE (21:45)
[2017-05-16] MEDS ORDERED: PHENYLephrine HCL 500 MCG/5 ML (100MCG/ML) SYRINGE (J2370) As Ordered ONE (22:01)
[2017-05-16] MEDS ORDERED: ePHEDrine SULFATE 25 MG/5 ML(5MG/ML) SYRINGE As Ordered ONE (22:04)
[2017-05-16] MEDS ORDERED: ONDANSETRON 4MG/2ML VIAL (J2405) As Ordered ONE (22:11)
[2017-05-16] MEDS ORDERED: NORCO, ANEXSIA 5/325MG TABLET (HYDROcodone/ACETAMINOPHEN) As Ordered ONE (22:43)
[2017-05-16] MEDS ORDERED: NORCO, ANEXSIA 5/325MG TABLET (HYDROcodone/ACETAMINOPHEN) PO PRN (22:45)
[2017-05-16] MEDS ORDERED: fentaNYL 100 MCG/2 ML INJECTION (J3010) IV PRN (22:45)
--- NOTE | 2017-05-16 22:57 | ROOPDOC ---
[facility] Report Of Operation Report of Operation DATE OF PROCEDURE: 05/16/17 PREPROCEDURE DIAGNOSES: Left ureteral stricture with multiple proximal ureteral stones. POSTPROCEDURE DIAGNOSES: Same. PROCEDURE: Cystoscopy, left retrograde pyelogram, and placement of left ureteral stent. SURGEON: Jalen Sebastian MD SALES WAREHOUSE DRIVER: None ANESTHESIA: Gen. endotracheal anesthesia. ESTIMATED BLOOD LOSS: Approximately 0 mL. COMPLICATIONS: None. REMARKS: None. PROCEDURE NOTE: This patient is a 32-year-old female with a past medical history significant for a known stricture at her left ureteropelvic junction. She has had multiple stones in her left kidney and ureter necessitating multiple procedures in the past. She presented to the emergency department and was found to have several stones in the proximal left ureter just above the stricture. She was having significant pain which was not responding to IV pain medications. She was counseled on the various treatment options going forward including the risks benefits and alternatives of each option. Based on this discussion and in concert with her own goals she decided to undergo the procedures described herein. DESCRIPTION OF PROCEDURE: Once fully written informed consent was confirmed the patient was evaluated by the anesthesia service identified and brought back to the operating room. Inside the operating room and general endotracheal anesthesia was initiated. The patient was then placed into the dorsal lithotomy position. She was prepped and draped in usual sterile manner. We began the procedure by placing a 22 Marshallese rigid cystoscope through the urethra into the bladder. Urine was collected through the cystoscope sheath and sent for culture. Cystoscopy was performed and demonstrated no abnormalities within the bladder. Bilateral ureteral orifices were visualized in orthotopic position. Powerhouse Mechanic Helper images were taken. A 5 Marshallese [place] catheter was inserted through the cystoscope and into the left ureteral orifice. Contrast was injected through the catheter and up into the left ureter during which time fluoroscopic images were taken. The resulting images demonstrated a normal-appearing course and caliber of the entire left ureter up into the level of the ureteropelvic junction. At the level of the ureteropelvic junction there was noted to be significant narrowing with severe proximal pelvicaliectasis. A sensor wire was then advanced the Pollack catheter and up into the left kidney. The Pollack catheter was backed off leaving the wire in place a 6 Marshallese double-J ureteral stent was then advanced over the wire and up into the left kidney under fluoroscopic guidance. Once that. The ureteral stent was in good position the wire was removed. The distal curl of the ureteral stent was cystoscopically visualized to be in good position in the bladder. The proximal curl of the stent was fluoroscopically visualized to be in good position in the left kidney the bladder was drained through the cystoscope sheath. The patient was placed back into the supine position, and anesthesia was discontinued. The patient was transferred to the postoperative recovery area in stable condition. PLAN: The patient will be monitored in the hospital overnight. She will likely be discharged home in the morning. She has been instructed to follow up with Dr. Arriaga in the next 1-2 weeks for ongoing management of her stricture and removal of the ureteral stones. JALEN SEBASTIAN MD May 16, 2017 22:57
[2017-05-16 23:10] VITALS: BP 119/71
[2017-05-16] MEDS ORDERED: ONDANSETRON 4 MG TAB (S0181) PO PRN (23:15)
[2017-05-16] MEDS: LR 1,000 ML IV SCH (23:15)
[2017-05-16] MEDS ORDERED: ACETAMINOPHEN 500 MG TAB PO PRN (23:15)
[2017-05-16 23:40] VITALS: BP 116/63
[2017-05-17] VITALS (8 sets, daily range): BP systolic 95–114; BP diastolic 51–69
[2017-05-17] MEDS: oxyCODONE 5MG TAB PO PRN ×2 (04:38→08:37)
[2017-05-17] MEDS ORDERED: CIPROFLOXACIN 400 MG in APPROPRIATE DILUENT 1 EA IV SCH (07:00)
--- NOTE | 2017-05-17 08:32 | REP ---
RETROGRADE PYELOGRAM: HISTORY: Left ureteral stone. Five portable radiographs were obtained with a C-ARM. Contrast material is present in the left renal collecting system and ureter. The patient is status-post left ureteral stent placement. Fluoroscopic time 6 seconds. IMPRESSION: Retrograde pyelogram as described above. Signed by Neri Martinez MD 05/17/2017 08:40 A
[2017-05-17] MEDS ORDERED: TAMSULOSIN 0.4 MG CAP PO SCH (09:00)
[2017-05-17] MEDS: LR 1,000 ML IV SCH ×2 (09:48→10:03)
[2017-05-17] MEDS ORDERED: PROMETHAZINE INJ 25 MG/ML VIAL (J2550) IV PRN (10:30)
[2017-05-17] MEDS ORDERED: FLOM5CAP PO (13:50)
[2017-05-17] MEDS ORDERED: OXYC1SOL3 PO (13:50)
[2017-06-20] MEDS ORDERED: ZOLP5TAB PO (09:36)
[2017-06-20] MEDS ORDERED: SERT-138 PO (09:36)
[2017-09-05] MEDS ORDERED: GABA-283 PO ×2 (14:57)
[2017-09-09] MEDS ORDERED: PHEN1SUP6 PR (11:40)
[2017-09-09] MEDS ORDERED: CIPR-249 PO (11:40)
== END 2017-05-17 14:33 | disposition home or self-care (01) ==
LOC: M ED 10:37 → M OROP 18:00 → M ED 18:12 → M PED 19:06 → M OROP 05-17 14:33
PROVIDERS: ATTEND Urology Pediatric Urology
DX: N13.2 Hydronephrosis with renal and ureteral calculous obstruction (principal); F31.9 Bipolar disorder, unspecified; E28.2 Polycystic ovarian syndrome; Z87.891 Personal history of nicotine dependence; Z79.899 Other long term (current) drug therapy
CPT/HCPCS: 52332; 74420; 80048; 80076; 81001; 81025; 82150; 83690; 85025; 96361; 96374; 96375; 96376; 99284; C1726; C2617

== ENCOUNTER → 2017-06-04 | Outpatient (CLI) | payer OTHER ==
[~2017-06-04] MED LIST changes: +CIPR500T19 PO; +COLA100C5 PO; +DITR5TAB PO; +GABA-282 PO; +GABA-283 PO; +IBUP-1114 PO; +ONDA4TAB6 PO; +OXYB5TAB10 PO; +OXYC1SOL3 PO; +OXYC1TAB23 PO; +PHEN1SUP6 PR; +SERT-138 PO; +TYLE325T5 PO; +ZOLP5TAB PO
--- NOTE | 2017-06-04 17:10 | REP ---
REASON: History of ureteral stricture. COMPARISON: 01/17/2017 The right kidney measures 11.1 x 5.5 x 4.5 cm and left measures 12.6 x 3.8 x 4.1 cm. No cystic or solid masses are seen in either kidney. There is no right hydronephrosis. There is mild left hydronephrosis. Imaging of the urinary bladder shows a specular reflection consistent with a ureteral stent. IMPRESSION: There is mild left sided hydronephrosis. Signed by Jimy Roberts DO 06/05/2017 10:41 A
== END ==
LOC: M RAD 16:01
PROVIDERS: ATTEND Urology
DX: N13.1 Hydronephrosis with ureteral stricture, not elsewhere classified (principal)

== ENCOUNTER → 2017-06-27 | Outpatient (CLI) | payer OTHER ==
--- NOTE | 2017-06-27 09:37 | ECGEPIP ---
Stationary ECG Study [facility] Test Date: 2017-06-27 Pat Name: ONESIMO ARAUJO Department: Room: - Gender: F Bodywork Therapist: : [id number] Requested By: ROSELYN Dunn Order Number: [id number] Reading MD: Michelle Cleaning Measurements Intervals Lucinda Rate: 57 P: 34 MT: 190 QRS: 24 QRSD: 94 T: 8 QT: 418 QTc: 408 Interpretive Statements SINUS BRADYCARDIA POSSIBLE ANTERIOR MYOCARDIAL INFARCTION, PROBABLY OLD PRWP NO PRIOR Electronically Signed On 06-27-2017 9:37:16 EDT by Michelle Cleaning
[2017-06-27 09:38] LABS: MEAN CORPUSCULAR HEMOGLOBIN 28.7 pg (27.0-33.0); MEAN CORPUSCULAR HGB CONC 33.3 g/dl (32.0-36.5); MEAN CORPUSCULAR VOLUME 86.4 fl (80.0-96.0); RED CELL DISTRIBUTION WIDTH 12.9 % (11.5-14.5); WHITE BLOOD COUNT 6.7 K/mm3 (4.0-10.0)
[2017-06-27 09:48] LABS: INR 0.83
[2017-06-27 09:52] LABS: CALCIUM LEVEL 8.9 MG/DL (8.5-10.1); CREATININE FOR GFR 1.25 MG/DL (0.55-1.02); GLOMERULAR FILTRATION RATE 52.2 (>60); POTASSIUM SERUM 3.6 MEQ/L (3.5-5.1)
--- NOTE | 2017-06-27 10:55 | REP ---
CHEST X-RAY: Two views. HISTORY: Ureteral stricture due to crossing vessel. COMPARISON STUDY: November 08, 2016. FINDINGS: The lungs are symmetrically aerated and free of infiltrate. There is some pleuroparenchymal fibrosis tenting the lateral aspect of the left hemidiaphragm. No free pleural effusion is seen. Heart is not enlarged. Pulmonary vasculature is not increased. There is a left ureteral stent noted at the level of the left kidney. No bony abnormality. IMPRESSION: Pleuroparenchymal scarring at the lateral edge of the left hemidiaphragm, otherwise no active disease. Signed by Maurice Morris MD 06/27/2017 11:50 A
== END ==
LOC: M LAB 08:25
PROVIDERS: ATTEND Urology
DX: Z01.818 Encounter for other preprocedural examination (principal); N13.5 Crossing vessel and stricture of ureter without hydronephrosis; N39.0 Urinary tract infection, site not specified

== ENCOUNTER → 2017-06-30 | Outpatient (REF) | payer OTHER | LOC: M SMT 14:11 | PROVIDERS: ATTEND Student in an Organized Health Care Education/Training Program | DX: N39.0 Urinary tract infection, site not specified (principal) ==

== ENCOUNTER 2017-07-04 11:17 | Inpatient (IN) | payer OTHER ==
[~2017-07-04] VITALS: Ht 160 cm; Wt 68.0 kg
[~2017-07-04 11:17] MED LIST changes: -CIPR500T19 PO; -COLA100C5 PO; -DITR5TAB PO; -GABA-282 PO; -IBUP-1114 PO; -ONDA4TAB6 PO; -OXYB5TAB10 PO; -OXYC1TAB23 PO; -PHEN1SUP6 PR; -TYLE325T5 PO
[2017-07-04 11:58] LABS: CONTROL LINE UCG INT CTR LINE PRESENT
[2017-07-04] MEDS ORDERED: LR 1,000 ML IV ONE (12:00)
[2017-07-04] MEDS ORDERED: CONRAY-60 60% 50ML VIAL (Q9961) As Ordered ONE (12:04)
[2017-07-04] MEDS ORDERED: LIDOCAINE 1% SDV INJ 30 ML VIAL As Ordered ONE (12:04)
[2017-07-04] MEDS ORDERED: METHYLENE BLUE 0.5% (5MG/ML) 10 ML AMP (PROVAYBLUE)(Q9968 PER 1MG) As Ordered ONE (12:04)
[2017-07-04] MEDS ORDERED: BUPIVACAINE HCL 0.25% 30 ML VIAL As Ordered ONE (12:05)
[2017-07-04] MEDS ORDERED: NS 1,000 ML IV SCH (12:53)
[2017-07-04] MEDS ORDERED: zolPIDEM TARTRATE 5 MG TAB PO PRN (13:00)
[2017-07-04] MEDS ORDERED: ACETAMINOPHEN TAB 650MG DOSE (2X325MG) PO PRN (13:00)
[2017-07-04] MEDS ORDERED: MORPHINE 2 MG/ML 1ML SYRINGE IV PRN (13:00)
[2017-07-04] MEDS ORDERED: LIDOCAINE 2% INJ 100 MG/5 ML SDV (FOR ANES.) As Ordered ONE (13:27)
[2017-07-04] MEDS ORDERED: PROPOFOL 200 MG/20 ML VIAL As Ordered ONE (13:27)
[2017-07-04] MEDS ORDERED: NEOSTIGMINE 1MG/ML 5 ML SYRINGE (J2710) As Ordered ONE (13:27)
[2017-07-04] MEDS ORDERED: ROCURONIUM BROMIDE 50 MG/5 ML VIAL/SYRINGE As Ordered ONE (13:27)
[2017-07-04] MEDS ORDERED: ONDANSETRON 4MG/2ML VIAL (J2405) As Ordered ONE (13:27)
[2017-07-04] MEDS ORDERED: HYDROmorphone HCL 2 MG/ML 1ML VIAL (J1170) As Ordered ONE (13:27)
[2017-07-04] MEDS ORDERED: GLYCOPYRROLATE INJ 0.2 MG/ML 2 ML VIAL As Ordered ONE (13:27)
[2017-07-04] MEDS ORDERED: MIDAZOLAM INJ 2 MG/2 ML VIAL (J2250) As Ordered ONE (13:27)
[2017-07-04] MEDS ORDERED: dexameTHASONE 4 MG/ML 1ML VIAL (J1100) As Ordered ONE (13:27)
[2017-07-04] MEDS ORDERED: fentaNYL 250 MCG/5 ML INJECTION (J3010) As Ordered ONE (13:27)
[2017-07-04] MEDS ORDERED: ePHEDrine SULFATE 25 MG/5 ML(5MG/ML) SYRINGE As Ordered ONE (13:55)
[2017-07-04] MEDS: GABAPENTIN 300 MG CAP PO SCH ×2 (16:00→20:03)
[2017-07-04] MEDS ORDERED: DESFLURANE 240 ML INHALANT As Ordered ONE (16:15)
[2017-07-04] MEDS ORDERED: fentaNYL 100 MCG/2 ML INJECTION (J3010) As Ordered ONE (17:18)
[2017-07-04] MEDS ORDERED: HYDROmorphone HCL 1 MG/ML SYRINGE (J1170) As Ordered ONE (17:46)
[2017-07-04] MEDS: HYDROmorphone HCL 1 MG/ML SYRINGE (J1170) IV PRN ×5 (17:48→18:14)
[2017-07-04] MEDS ORDERED: ONDANSETRON 4MG/2ML VIAL (J2405) IV PRN (18:00)
[2017-07-04] MEDS ORDERED: PERCOCET 5MG/325MG TAB PO PRN (18:00)
[2017-07-04] MEDS ORDERED: LR 1,000 ML IV SCH (18:00)
[2017-07-04] MEDS ORDERED: fentaNYL 100 MCG/2 ML INJECTION (J3010) IV PRN (18:00)
[2017-07-04] MEDS ORDERED: MEPERIDINE INJ 25 MG/ML VIAL (J2175) IV PRN (18:00)
--- NOTE | 2017-07-04 18:10 | ROOPDOC ---
[facility] Report Of Operation Report of Operation DATE OF PROCEDURE: 07/04/17 PREPROCEDURE DIAGNOSES: Left ureteral stricture. POSTPROCEDURE DIAGNOSES: Left ureteral stricture. OPERATIVE PROCEDURE: Left robotic assisted laparoscopic dismembered pyeloplasty , left ureterolysis, cystoscopy, left ureteral stent exchange. SURGEON: Roselyn Gutiérrez MD CONTACT CENTER SPECIALIST: Emily Corley. ANESTHESIA: General. OPERATIVE INDICATIONS: This is a 32-year-old female who was found to have a left ureteral stricture. I have attempted endoscopic treatment but the stricture recurred. It was therefore recommended that she be brought to the operating room today for the above procedure. Of note, she had a left ureteral stent placed about 2 months ago. DESCRIPTION OF PROCEDURE: The patient was brought to the operating room and general anesthesia was induced. Prophylactic antibiotics were infused. The patient was then placed in the dorsal lithotomy position and prepped and draped in the usual sterile fashion. A rigid cystoscope was then advanced into her urethra and into the bladder. The previously placed left ureteral stent was then grasped and withdrawn until the distal end was protruding from the urethral meatus. A guidewire was then advanced up the left collecting system and the stent was removed. An open ended ureteral catheter was advanced over the wire and up the left collecting system. The wire was removed and a retrograde pyelogram was notable for a very dilated left renal pelvis. The wire was then advanced back up the ureteral catheter and then the ureteral catheter was removed, leaving the wire in place. A 7Fr x 22-32cm JJ ureteral stent was then advanced over the wire into the left collecting system. The wire was removed and there were adequate curls of the stent in the left renal pelvis and in the bladder. A López catheter was then placed into the bladder and connected to gravity drainage. The patient was then placed in right lateral decubitus position in preparation for the above listed procedure. An axillary roll was placed and all pressure points were appropriately padded. The patient was then prepped and draped in the usual sterile fashion. Initial incision was for a 12 mm port along the lateral rectus margin in line with the eleventh rib. A Veress needle was utilized to obtain pneumoperitoneum. Then a 12 mm port was placed through this incision. A camera was placed and there were no apparent injuries from Veress needle placement or initial trocar placement. At this point, we placed the remaining ports in the usual fashion with an 8 mm robotic port off the costal margin and another 8 mm robotic port one-third of the way between the anterior superior iliac spine and the umbilicus. A 12 mm therapeutic recreation assistant port was placed just distal to the camera port and a 5 mm therapeutic recreation assistant port was placed in- between the left hand robotic port and the camera port. The robot was then docked and we began the procedure. The left colon was then mobilized off of Gerotas. The ureter was located on the psoas and dissected carefully cephalad. Of note, there was a lot of edema surrounding the ureter as we got closer to the renal pelvis. The ureteropelvic junction (UPJ) was located and of note there was a lot of edema surrounding the renal pelvis. After the ureter and pelvis were carefully dissected, the ureter was transected at the level of the UPJ. The pelvis and the ureter were then spatulated. The lumen of the ureter at this level was very stenotic. At this point, a dismembered pyeloplasty was performed. This was done in a running fashion with #4-0 Vicryl sutures. We then completed the anastomosis and it appeared to water tight. There was no apparent tension. At this point, we checked for hemostasis and hemostasis appeared excellent. I then placed a Sven-Pichardo drain and the end of it was placed just in front of the renal pelvis. At this point, we undocked the robot. We then used a Eric-Sandra fascial closure device to place 0 Vicryl free ties through the fascia of the 12 mm camera port and the 12 mm therapeutic recreation assistant port sites. The liver retractor was removed. We then removed all ports under direct vision and there was no apparent bleeding. The previously placed free ties were then tied down. All wounds were then irrigated and the skin of these incisions was closed with subcuticular #4-0 Vicryl suture. The Sven-Pichardo drain was then secured to the skin with #3-0 Ethilon suture. Dermabond was applied to all of the incisions and this marked the conclusion of the procedure. The patient was taken out of the lateral decubitus position, awakened from anesthesia, and transported to the recovery room in stable condition. ESTIMATED BLOOD LOSS: 50 mL. COMPLICATIONS: None. SPECIMENS: None. PLAN: The patient will be admitted to the hospital postoperatively and will likely be discharged home within the next day or two. Her stent will be kept in place for approximately three to four weeks and then removed in the office. ROSELYN GUTIÉRREZ MD Jul 04, 2017 18:10
[2017-07-04 18:28] LABS: MEAN CORPUSCULAR HEMOGLOBIN 28.6 pg (27.0-33.0); MEAN CORPUSCULAR HGB CONC 33.1 g/dl (32.0-36.5); MEAN CORPUSCULAR VOLUME 86.4 fl (80.0-96.0); WHITE BLOOD COUNT 11.6 K/mm3 (4.0-10.0)
[2017-07-04 18:49] LABS: ANION GAP 7 MEQ/L (8-16); BLOOD UREA NITROGEN 15 MG/DL (7-18); CALCIUM LEVEL 8.7 MG/DL (8.5-10.1); CARBON DIOXIDE LEVEL 27 MEQ/L (21-32); CHLORIDE LEVEL 106 MEQ/L (98-107); CREATININE FOR GFR 1.03 MG/DL (0.55-1.02); GLOMERULAR FILTRATION RATE > 60.0 (>60); GLUCOSE, FASTING 149 MG/DL (70-105); POTASSIUM SERUM 3.9 MEQ/L (3.5-5.1); SODIUM LEVEL 140 MEQ/L (136-145)
--- NOTE | 2017-07-04 19:19 | REP ---
Retrograde pyelogram: Three views: History: Stent exchange. 9 seconds of fluoroscopy time is reported. Findings: A sequence of three last image hold fluoroscopic spot radiographs of the abdomen document contrast opacified dilated collecting system and double pigtail ureteral stent placement. No laterality markers are noted. Signed by Maurice Morris MD 07/08/2017 08:18 A
[2017-07-04 20:00] VITALS: BP 135/87
[2017-07-04] MEDS: SERTRALINE 100 MG TAB PO SCH (20:03)
[2017-07-04] MEDS: DOCUSATE SODIUM 100 MG CAP PO SCH (20:03)
[2017-07-04] MEDS: ceFAZolin SOD 1 GM in D5W MINI-BAG PLUS 50 ML IV SCH (20:04)
[2017-07-04] MEDS: NS 1,000 ML IV SCH (20:05)
[2017-07-04 20:30] VITALS: BP 130/90
[2017-07-04 21:30] VITALS: BP 130/84
[2017-07-04 22:30] VITALS: BP 128/89
[2017-07-04] MEDS: PERCOCET 5MG/325MG TAB PO PRN (23:12)
[2017-07-04 23:30] VITALS: BP 124/85
[2017-07-05] MEDS: ONDANSETRON 4MG/2ML VIAL (J2405) IV PRN ×2 (00:26→06:38)
[2017-07-05] MEDS ORDERED: PROMETHAZINE INJ 25 MG/ML VIAL (J2550) IV PRN (01:30)
[2017-07-05] MEDS: KETOROLAC 30 MG/ML VIAL (J1885) IV SCH ×4 (01:54→20:36)
[2017-07-05] MEDS: oxyBUTYnin 5 MG TAB PO PRN ×2 (01:54→08:43)
[2017-07-05 02:00] VITALS: BP 127/87
[2017-07-05] MEDS: NS 1,000 ML IV SCH ×3 (02:17→20:37)
[2017-07-05] MEDS: ceFAZolin SOD 1 GM in D5W MINI-BAG PLUS 50 ML IV SCH (05:53)
[2017-07-05 06:00] VITALS: BP 127/57
[2017-07-05] MEDS: PERCOCET 5MG/325MG TAB PO PRN ×3 (06:39→17:52)
[2017-07-05 07:13] LABS: MEAN CORPUSCULAR HEMOGLOBIN 29.2 pg (27.0-33.0); MEAN CORPUSCULAR HGB CONC 33.9 g/dl (32.0-36.5); MEAN CORPUSCULAR VOLUME 86.3 fl (80.0-96.0); RED CELL DISTRIBUTION WIDTH 13.1 % (11.5-14.5); WHITE BLOOD COUNT 11.4 K/mm3 (4.0-10.0)
[2017-07-05 07:33] LABS: ANION GAP 7 MEQ/L (8-16); BLOOD UREA NITROGEN 13 MG/DL (7-18); CALCIUM LEVEL 8.7 MG/DL (8.5-10.1); CARBON DIOXIDE LEVEL 30 MEQ/L (21-32); CHLORIDE LEVEL 106 MEQ/L (98-107); CREATININE FOR GFR 1.01 MG/DL (0.55-1.02); GLOMERULAR FILTRATION RATE > 60.0 (>60); GLUCOSE, FASTING 99 MG/DL (70-105); POTASSIUM SERUM 4.1 MEQ/L (3.5-5.1); SODIUM LEVEL 143 MEQ/L (136-145)
[2017-07-05] MEDS: GABAPENTIN 300 MG CAP PO SCH ×3 (08:44→20:35)
[2017-07-05] MEDS: DOCUSATE SODIUM 100 MG CAP PO SCH ×2 (08:44→20:35)
[2017-07-05] MEDS: SERTRALINE 100 MG TAB PO SCH (08:44)
[2017-07-05 10:00] VITALS: BP 126/63
--- NOTE | 2017-07-05 11:00 | IPNPDOC ---
Assessment/Plan Date Seen The patient was seen on 07/05/17. Patient Summary This is a 32 y/o F POD1 s/p left robotic dismembered pyeloplasty for a left UPJ stricture. Labs are w/i normal limits. Pain is adequately controlled. UOP is good. Plan/VTE VTE Prophylaxis Ordered?: Yes VTE Exclusion Mechanical Proph: N/A:VTE Prophy Ordered Plan/Urinary Catheter Urinary Catheter: D/C López Plan - d/c López - percocet, toradol for pain - oxybutynin prn bladder spasms - decrease IVF - strict I/Os - ambulate - zofran, phenergan prn nausea - complete periop ancef - possible discharge home later today if tolerating PO (will d/c DELIA drain prior to discharge home) Subjective Review oF Systems Chief Complaint The patient is a 32-year-old female admitted with a reason for visit of Urethral Stricture. Events since Last Encounter Patient had a moderate amount of nausea and emesis last night. This is improved this morning, but still has some mild nausea. Patient has adequate pain control w/ percocet and toradol. No f/c/ns. Objective Physical Examination General Exam: Alert, Cooperative, No Acute Distress ABDOMEN EXAM: Soft, Tenderness (appropriately tender), Other (incisions clean/ dry/intact; DELIA drain w/ serosanguinous output) Skin Exam: Nl turgor and temperature Neuro Exam: Normal Speech Psych Exam: Mental status NL, Mood NL Other physical findings catheter draining clear urine Vital Signs/I&O Vital Signs Date Time Temp Pulse Resp B/P (MAP) Pulse Ox O2 Delivery O2 Flow Rate FiO2 07/05/17 10:54 16 07/05/17 09:00 0.0 07/05/17 07:09 Room Air 07/05/17 06:00 98.4 96 127/57 (80) 98 I&O- Last 24 Hours up to 6 AM 07/05/17 06:00 Intake Total 4095 ml Output Total 2125 ml Balance 1970 ml Laboratory Data Labs 24H Laboratory Tests 2 07/04/17 11:26: Urine Test NEGATIVE 07/04/17 18:07: Anion Gap 7L, Glomerular Filtration Rate > 60.0, Blood Urea Nitrogen 15, Creatinine 1.03H, Sodium Level 140, Potassium Level 3.9, Chloride Level 106, Carbon Dioxide Level 27, Calcium Level 8.7 07/05/17 06:59: Anion Gap 7L, Glomerular Filtration Rate > 60.0, Blood Urea Nitrogen 13, Creatinine 1.01, Sodium Level 143, Potassium Level 4.1, Chloride Level 106, Carbon Dioxide Level 30, Calcium Level 8.7 CBC/BMP Laboratory Tests 07/04/17 18:07 Red Blood Count 4.53, Mean Corpuscular Volume 86.4, Mean Corpuscular Hemoglobin 28.6, Mean Corpuscular Hemoglobin Concent 33.1, Red Cell Distribution Width 13.0 , Calcium Level 8.7 07/05/17 06:59 Red Blood Count 4.00, Mean Corpuscular Volume 86.3, Mean Corpuscular Hemoglobin 29.2, Mean Corpuscular Hemoglobin Concent 33.9, Red Cell Distribution Width 13.1 , Calcium Level 8.7 ROSELYN GUTIÉRREZ MD Jul 05, 2017 11:00
[2017-07-05 14:00] VITALS: BP 108/60
[2017-07-05 22:00] VITALS: BP 118/75
[2017-07-06] MEDS: PERCOCET 5MG/325MG TAB PO PRN ×2 (00:17→08:08)
[2017-07-06] MEDS: KETOROLAC 30 MG/ML VIAL (J1885) IV SCH ×2 (02:00→08:00)
[2017-07-06 06:00] VITALS: BP 128/90
[2017-07-06 07:08] LABS: MEAN CORPUSCULAR HGB CONC 32.8 g/dl (32.0-36.5); MEAN CORPUSCULAR VOLUME 88.3 fl (80.0-96.0); RED CELL DISTRIBUTION WIDTH 13.3 % (11.5-14.5); WHITE BLOOD COUNT 8.5 K/mm3 (4.0-10.0)
[2017-07-06 07:14] LABS: ANION GAP 7 MEQ/L (8-16); BLOOD UREA NITROGEN 17 MG/DL (7-18); CALCIUM LEVEL 7.8 MG/DL (8.5-10.1); CARBON DIOXIDE LEVEL 28 MEQ/L (21-32); CHLORIDE LEVEL 108 MEQ/L (98-107); CREATININE FOR GFR 0.88 MG/DL (0.55-1.02); GLOMERULAR FILTRATION RATE > 60.0 (>60); GLUCOSE, FASTING 92 MG/DL (70-105); POTASSIUM SERUM 3.8 MEQ/L (3.5-5.1); SODIUM LEVEL 143 MEQ/L (136-145)
[2017-07-06] MEDS: GABAPENTIN 300 MG CAP PO SCH (08:06)
[2017-07-06] MEDS: SERTRALINE 100 MG TAB PO SCH (08:07)
[2017-07-06] MEDS: DOCUSATE SODIUM 100 MG CAP PO SCH (08:07)
--- NOTE | 2017-07-06 10:15 | IPNPDOC ---
Assessment/Plan Date Seen The patient was seen on 07/06/17. Patient Summary This is a 32 y/o F POD2 s/p left robotic dismembered pyeloplasty for a left UPJ stricture. Labs are w/i normal limits. Pain is better controlled. UOP has been excellent. DELIA output has been minimal. Plan/VTE VTE Prophylaxis Ordered?: Yes VTE Exclusion Mechanical Proph: N/A:VTE Prophy Ordered Plan - d/c IVF - d/c DELIA drain - percocet, toradol for pain - zofran, phenergan for nausea - SCDs - ambulate - regular diet - discharge home after DELIA drain is removed Subjective Review oF Systems Chief Complaint The patient is a 32-year-old female admitted with a reason for visit of Urethral Stricture. Events since Last Encounter No acute events o/n. Nausea much improved. Patient now tolerating a regular diet. She is passing flatus, but no bm yet. Pain better controlled. No f/c/ ns. Objective Physical Examination General Exam: Alert, Cooperative, No Acute Distress ABDOMEN EXAM: Soft, Tenderness (appropriately tender), Other (incisions clean/ dry/intact; DELIA drain w/ serosanguinous output) Skin Exam: Nl turgor and temperature Neuro Exam: Normal Speech Psych Exam: Mental status NL, Mood NL Vital Signs/I&O Vital Signs Date Time Temp Pulse Resp B/P (MAP) Pulse Ox O2 Delivery O2 Flow Rate FiO2 07/06/17 08:44 16 07/06/17 06:00 98.4 76 128/90 (103) 99 Room Air 07/05/17 09:00 0.0 I&O- Last 24 Hours up to 6 AM 07/06/17 06:00 Intake Total 1460 ml Output Total 1075 ml Balance 385 ml Laboratory Data Labs 24H Laboratory Tests 2 07/06/17 06:19: Anion Gap 7L, Glomerular Filtration Rate > 60.0, Blood Urea Nitrogen 17, Creatinine 0.88, Sodium Level 143, Potassium Level 3.8, Chloride Level 108H, Carbon Dioxide Level 28, Calcium Level 7.8L CBC/BMP Laboratory Tests 07/06/17 06:19 Red Blood Count 3.80 L, Mean Corpuscular Volume 88.3, Mean Corpuscular Hemoglobin 29.0, Mean Corpuscular Hemoglobin Concent 32.8, Red Cell Distribution Width 13.3, Calcium Level 7.8 L ROSELYN GUTIÉRREZ MD Jul 06, 2017 10:15
[2017-07-06] MEDS ORDERED: OXYC1TAB23 PO (11:00)
[2017-07-06] MEDS ORDERED: TYLE325T5 PO (11:00)
[2017-07-06] MEDS ORDERED: DITR5TAB PO (11:00)
[2017-07-06] MEDS ORDERED: COLA100C5 PO (11:00)
--- NOTE | 2017-07-06 19:40 | DSES ---
DATE OF ADMISSION: 07/04/2017 DATE OF DISCHARGE: 07/06/2017 ADMISSION DIAGNOSIS: Left ureteral stricture. DISCHARGE DIAGNOSIS: Left ureteral stricture. ADMITTING PHYSICIAN: Alexi Arriaga MD DISCHARGING PHYSICIAN: Alexi Arriaga MD PROCEDURE PERFORMED: Left robotic-assisted laparoscopic dismembered pyeloplasty, cystoscopy, left ureteral stent exchange. HISTORY OF PRESENT ILLNESS: This is a 32-year-old female with a moderate severe proximal left ureteral stricture at the level of the ureteropelvic junction. This was attempted to be treated previously with endoscopic treatment and she failed. Therefore, it was recommended that she undergo the above mentioned procedure. She was admitted to the hospital after undergoing the above mentioned procedure. HOSPITAL COURSE: The patient was admitted to the hospital after undergoing the above listed procedure. The evening of her procedure, she had large amounts of nausea and some vomiting. By postoperative day one, she was still having some nausea and was not tolerating oral intake very well. Her pain was also not well controlled on postoperative day one. Her catheter was removed on postoperative day one and she voided without any difficulty. On postoperative day two, her pain was much better controlled and her nausea was improved and she was tolerating a regular diet. Her laboratories were within normal limits throughout her stay. Her Sven-Pichardo drain did not put out too much fluid and therefore it was removed on postoperative day two. Since she was doing better, she was deemed ready for discharge on postoperative day two with the plan for her to followup in the clinic in a week or two for a postoperative visit.
[2017-09-05] MEDS ORDERED: GABA-283 PO ×2 (14:57)
[2017-09-09] MEDS ORDERED: PHEN1SUP6 PR (11:40)
[2017-09-09] MEDS ORDERED: CIPR-249 PO (11:40)
== END 2017-07-06 11:25 | disposition home or self-care (01) | DRG 443 ==
LOC: M OR 11:17 → M MS5PR 18:52
PROVIDERS: ADMIT Urology; ATTEND Urology
PROC: 0T778DZ Dilation of Left Ureter with Intraluminal Device, Via Natural or Artificial Opening Endoscopic (ICD-10-PCS; 2017-07-04)
PROC: 0TS74ZZ Reposition Left Ureter, Percutaneous Endoscopic Approach (ICD-10-PCS; principal; 2017-07-04 13:00)
PROC: 8E0W4CZ Robotic Assisted Procedure of Trunk Region, Percutaneous Endoscopic Approach (ICD-10-PCS; 2017-07-04 13:00)
DX: N13.5 Crossing vessel and stricture of ureter without hydronephrosis (principal)

== ENCOUNTER → 2017-07-25 | Outpatient (CLI) | payer OTHER ==
[~2017-07-25] MED LIST changes: +CIPR500T19 PO; +COLA100C5 PO; +DITR5TAB PO; +GABA-282 PO; +IBUP-1114 PO; +ONDA4TAB6 PO; +OXYB5TAB10 PO; +OXYC1TAB23 PO; +PHEN1SUP6 PR; +TYLE325T5 PO
--- NOTE | 2017-07-25 12:49 | REP ---
Abdomen single AP supine view: Comparisons 12/03/2016. There is a left ureteral stent, unchanged. The right ureteral stent has been removed. There are no calcifications projected over the kidneys, ureters or urinary bladder. No calcifications are seen along the course of the left ureteral stent. The bowel gas pattern is normal. Skeletal structures and soft tissues are unremarkable. Impression: No calculi are identified. There is a left ureteral stent. Signed by Gautam Clement MD 07/25/2017 12:40 P
== END ==
LOC: M SMT 10:41
PROVIDERS: ATTEND Urology
DX: N20.0 Calculus of kidney (principal); R30.0 Dysuria

== ENCOUNTER 2017-08-14 10:21 | Inpatient (IN) | payer OTHER ==
[~2017-08-14] VITALS: Ht 160 cm; Wt 71.1 kg
[~2017-08-14 10:21] MED LIST changes: -CIPR500T19 PO; -GABA-282 PO; -IBUP-1114 PO; -ONDA4TAB6 PO; -OXYB5TAB10 PO; -PHEN1SUP6 PR
[2017-08-14] MEDS ORDERED: IBUP-1114 PO (10:40)
[2017-08-14] MEDS ORDERED: ONDA4TAB6 PO (10:40)
[2017-08-14] MEDS ORDERED: NS 1,000 ML IV ONE (11:00)
[2017-08-14] MEDS ORDERED: PROMETHAZINE INJ 25 MG/ML VIAL (J2550) IV ONE (11:15)
[2017-08-14] MEDS ORDERED: MORPHINE 4 MG/ML 1ML SYRINGE IV ONE ×2 (11:15→13:15)
[2017-08-14 11:22] LABS: BASO # 0.1 10^3/uL (0.0-0.2); BASO % 0.3 % (0.0-1.0); EOS # 0.1 10^3/uL (0.0-0.50); EOS % 0.4 % (0.0-3.0); IMMATURE GRANULOCYTE % 0.3 % (0-0); LYMPH # 0.8 10^3/uL (1.5-4.5); LYMPH % 4.8 % (24.0-44.0); MEAN CORPUSCULAR HEMOGLOBIN 28.2 pg (27.0-33.0); MEAN CORPUSCULAR HGB CONC 32.6 g/dl (32.0-36.5); MEAN CORPUSCULAR VOLUME 86.6 fl (80.0-96.0); MONO # 0.7 10^3/uL (0.0-0.8); MONO % 4.2 % (0.0-5.0); NEUTROPHILS # 14.1 10^3/uL (1.8-7.7); PLATELET COUNT, AUTOMATED 389 10^3/uL (150-450); RED CELL DISTRIBUTION WIDTH 13.1 % (11.5-14.5); WHITE BLOOD COUNT 15.6 10^3/uL (4.0-10.0)
[2017-08-14 11:42] LABS: CONTROL LINE HCG INT CTR LINE PRESENT
[2017-08-14 11:46] LABS: ALBUMIN 3.4 GM/DL (3.2-5.2); ALBUMIN/GLOBULIN RATIO 0.71 (1.00-1.93); ALKALINE PHOSPHATASE 98 U/L (45-117); ALT/SGPT 14 U/L (12-78); ANION GAP 6 MEQ/L (8-16); AST/SGOT 12 U/L (15-37); BILIRUBIN,DIRECT 0.1 MG/DL (0.0-0.2); BILIRUBIN,TOTAL 0.5 MG/DL (0.2-1.0); BLOOD UREA NITROGEN 19 MG/DL (7-18); CALCIUM LEVEL 9.1 MG/DL (8.5-10.1); CARBON DIOXIDE LEVEL 29 MEQ/L (21-32); CHLORIDE LEVEL 104 MEQ/L (98-107); CREATININE FOR GFR 1.48 MG/DL (0.55-1.02); GLUCOSE, FASTING 106 MG/DL (70-105); POTASSIUM SERUM 3.6 MEQ/L (3.5-5.1); SODIUM LEVEL 139 MEQ/L (136-145); TOTAL PROTEIN 8.2 GM/DL (6.4-8.2)
--- NOTE | 2017-08-14 11:50 | REP ---
Renal ultrasound: Comparison is 06/04/2017. On the comparison study, the patient had a left ureteral stent. There was mild left hydronephrosis. On the study today the left ureteral stent has been recently removed. There is now severe left hydronephrosis on the study today. There are no renal calculi, masses or cysts on the right or left. The kidneys are normal size. Right kidney measures 13.0 x 5.0 x 4.9 cm. Left kidney measures 16.0 x 6.47 x 7.6 cm. Renal cortical echogenicity is normal bilaterally. Bladder ultrasound: The bladder is nondistended and cannot be evaluated. Impression: There is marked left hydronephrosis as discussed above. Signed by Gautam Clement MD 08/14/2017 11:40 A
--- NOTE | 2017-08-14 12:50 | REP ---
CT of the abdomen pelvis without IV and oral contrast: Comparison 05/16/2017. On the comparison study there was marked left hydronephrosis as a result of a 6 ml ureteral calculus in the proximal left ureter at its junction with the renal pelvis. On the study today there is marked hydronephrosis of the left kidney, somewhat worse than on the comparison study. However, the 6 mm calculus previously identified at the left UPJ is no longer present. Instead there is now a 3 mm calculus at the left UPJ. Additionally , there is a 4 mm calculus in the dilated left renal pelvis, not present previously and there is a 2 ml calcification in a lower pole dilated srinath of the left kidney, not present previously. In addition there is a focal fluid collection anterior to the proximal right ureter at the UPJ, not present previously, possibly a urinoma. This measures 3.5 cm in diameter. The left ureter distal to this is not distended. There are no calculi in the left ureter distal to this. The right kidney and ureter are unchanged unremarkable. There is no ascites. The bladder is unremarkable. The remainder of the study is unremarkable and unchanged from the prior study. Signed by Gautam Clement MD 08/14/2017 12:41 P
[2017-08-14] MEDS ORDERED: OXYB5TAB10 PO (14:20)
[2017-08-14] MEDS ORDERED: GABA-282 PO (14:20)
[2017-08-14] MEDS ORDERED: MIDAZOLAM INJ 2 MG/2 ML VIAL (J2250) As Ordered ONE (14:59)
[2017-08-14] MEDS ORDERED: fentaNYL 100 MCG/2 ML INJECTION (J3010) As Ordered ONE ×3 (15:00→16:16)
[2017-08-14] MEDS ORDERED: CONRAY-60 60% 50ML VIAL (Q9961) As Ordered ONE (15:38)
[2017-08-14] MEDS ORDERED: ceFAZolin 2 GM/D5W 50 ML IV BAG (J0690) As Ordered ONE (15:39)
[2017-08-14] MEDS ORDERED: ACETAMINOPHEN TAB 650MG DOSE (2X325MG) PO PRN (16:15)
[2017-08-14] MEDS ORDERED: oxyBUTYnin 5 MG TAB PO PRN (16:15)
[2017-08-14] MEDS ORDERED: MORPHINE 2 MG/ML 1ML SYRINGE IV PRN (16:15)
[2017-08-14] MEDS ORDERED: ONDANSETRON 4MG/2ML VIAL (J2405) IV PRN ×2 (16:15→16:30)
[2017-08-14] MEDS ORDERED: PERCOCET 5MG/325MG TAB PO PRN (16:15)
[2017-08-14] MEDS: fentaNYL 100 MCG/2 ML INJECTION (J3010) IV PRN ×4 (16:19→16:35)
--- NOTE | 2017-08-14 16:20 | REP ---
Retrograde pyelogram: Two views: History: Left flank pain. 19 seconds of fluoroscopy time is reported. Findings: A sequence of two last image hold fluoroscopic spot radiographs of the left abdomen document left ureteral cannulation, contrast injection, hydronephrosis, and double pigtail ureteral stent placement. Signed by Maurice Morris MD 08/14/2017 05:13 P
[2017-08-14] MEDS ORDERED: LR 1,000 ML IV SCH (16:30)
[2017-08-14 17:15] VITALS: BP 118/74
[2017-08-14 17:45] VITALS: BP 110/68
[2017-08-14] MEDS: CIPROFLOXACIN 400 MG in APPROPRIATE DILUENT 1 EA IV SCH (17:55)
[2017-08-14] MEDS: NS 1,000 ML IV SCH (17:55)
[2017-08-14 18:45] VITALS: BP 123/70
[2017-08-14] MEDS: DOCUSATE SODIUM 100 MG CAP PO SCH (21:00)
[2017-08-14] MEDS: zolPIDEM TARTRATE 5 MG TAB PO SCH (21:00)
[2017-08-14] MEDS: GABAPENTIN 300 MG CAP PO SCH (21:00)
[2017-08-14] MEDS: PERCOCET 5MG/325MG TAB PO PRN (21:05)
[2017-08-14 22:00] VITALS: BP 108/63
[2017-08-15 02:00] VITALS: BP 102/51
[2017-08-15] MEDS: NS 1,000 ML IV SCH (03:25)
[2017-08-15] MEDS: CIPROFLOXACIN 400 MG in APPROPRIATE DILUENT 1 EA IV SCH ×2 (04:38→16:27)
[2017-08-15 06:00] VITALS: BP 113/74
[2017-08-15 06:10] LABS: MEAN CORPUSCULAR HEMOGLOBIN 27.8 pg (27.0-33.0); MEAN CORPUSCULAR HGB CONC 31.6 g/dl (32.0-36.5); MEAN CORPUSCULAR VOLUME 87.8 fl (80.0-96.0); RED CELL DISTRIBUTION WIDTH 13.2 % (11.5-14.5); WHITE BLOOD COUNT 13.6 10^3/uL (4.0-10.0)
[2017-08-15 06:28] LABS: ANION GAP 5 MEQ/L (8-16); BLOOD UREA NITROGEN 17 MG/DL (7-18); CALCIUM LEVEL 8.4 MG/DL (8.5-10.1); CARBON DIOXIDE LEVEL 28 MEQ/L (21-32); CHLORIDE LEVEL 106 MEQ/L (98-107); CREATININE FOR GFR 1.07 MG/DL (0.55-1.02); GLOMERULAR FILTRATION RATE > 60.0 (>60); GLUCOSE, FASTING 155 MG/DL (70-105); POTASSIUM SERUM 3.8 MEQ/L (3.5-5.1); SODIUM LEVEL 139 MEQ/L (136-145)
--- NOTE | 2017-08-15 06:55 | RO ---
DATE OF PROCEDURE: 08/14/2017 PREPROCEDURE DIAGNOSIS: Left hydronephrosis. POSTPROCEDURE DIAGNOSIS: Left hydronephrosis. PROCEDURE: Cystoscopy, left retrograde pyelogram with intraoperative interpretation of images, left ureteral stent placement. SURGEON: Dr. Alexi Arriaga SIGNING AGENT: None. ANESTHESIA: General. OPERATIVE INDICATIONS: This is a 32-year-old female with a history of a left ureteral stricture. She was status post a left dismembered pyeloplasty approximately six weeks ago. Her stent was removed in the office two days ago and she subsequently started developing severe left flank pain, nausea and vomiting. In the emergency room today, CAT scan notable for severe left hydronephrosis as well as a small stone in the proximal ureter. She also of note appears to have a urinary tract infection. It was recommended she be brought to the operating room today for a left ureteral stent placement. DESCRIPTION OF PROCEDURE: The patient was brought to the operating room where general anesthesia was induced. Prophylactic antibiotics were infused. She was then placed in dorsal lithotomy position and prepped and draped in the usual sterile fashion. A rigid cystoscope was inserted into the urethral meatus and advanced to the bladder. An open ended ureteral catheter was advanced up the left collecting system. A retrograde pyelogram was notable for left severe hydronephrosis. Of note, when retrograde pyelogram was shot through the ureter no contrast went up into the kidney. I had to pass the level of obstruction to get contrast in the kidney. Once that was done, a wire was advanced up into the left kidney and the open ended ureteral catheter was removed. The wire was then utilized to advance a 7 Setswana x 22-32 cm JJ ureteral stent up the left collecting system. The wire was then removed and there were adequate curls of the stent in the left renal pelvis and in the bladder. The bladder was then emptied of all fluid and this marked the conclusion of the procedure. The patient was then taken out of the dorsal lithotomy position, awakened from anesthesia and transported to the recovery room in stable condition. Estimated blood loss: 0 mL. Complications: None. Specimen: None. Plan: The patient will be admitted to the hospital overnight and hydrated and kept on antibiotics. If her white blood cell count is down and her creatinine is improved, will discharge her home tomorrow. The plan will be to bring her back to the operating room in approximately one month for ureteroscopy to assess for stricture, recurrent, and to remove her stone. [facility]
--- NOTE | 2017-08-15 08:08 | IPNPDOC ---
Assessment/Plan Date Seen The patient was seen on 08/15/17. Patient Summary This is a 32 y/o F w/ a history of ureteral stricture who is s/p left robotic dismembered pyeloplasty on 07/04/17, who presented to the hospital yesterday w/ recurrent severe left hydronephrosis after her stent was removed this past Friday. She is now POD1 s/p left ureteral stent placement. Her pain is improved this am. WBC and Cr are both trending down. Plan/VTE VTE Prophylaxis Ordered?: No Plan - continue percocet prn pain - zofran prn nausea - ambulate - regular diet - plan d/c home today Subjective Review oF Systems Chief Complaint The patient is a 32-year-old female admitted with a reason for visit of L Hydronephrosis. Events since Last Encounter No acute events o/n. She still has left flank and abdominal pain, but it is improved. Nausea is also improved. No f/c/ns. Objective Physical Examination General Exam: Alert, Cooperative, No Acute Distress ABDOMEN EXAM: Soft, Tenderness (mild LLQ tenderness) Skin Exam: Nl turgor and temperature Psych Exam: Mental status NL, Mood NL Other physical findings mild left CVAT Vital Signs/I&O Vital Signs Date Time Temp Pulse Resp B/P (MAP) Pulse Ox O2 Delivery O2 Flow Rate FiO2 08/15/17 06:00 97.8 73 18 113/74 (87) 97 08/14/17 21:00 Room Air 08/14/17 16:07 3 Laboratory Data Labs 24H Laboratory Tests 2 08/14/17 11:07: Immature Granulocyte % (Auto) 0.3H, White Blood Count 15.6H, Red Blood Count 4.54, Hemoglobin 12.8, Hematocrit 39.3, Mean Corpuscular Volume 86.6, Mean Corpuscular Hemoglobin 28.2, Mean Corpuscular Hemoglobin Concent 32.6, Red Cell Distribution Width 13.1, Platelet Count 389, Neutrophils (%) (Auto) 90.0H, Lymphocytes (%) (Auto) 4.8L, Monocytes (%) (Auto) 4.2, Eosinophils (%) (Auto) 0.4, Basophils (%) (Auto) 0.3, Neutrophils # (Auto) 14.1H, Lymphocytes # (Auto) 0.8L, Monocytes # (Auto) 0.7, Eosinophils # (Auto) 0.1, Basophils # (Auto) 0.1, Immature Granulocyte # (Auto) 0.1H, Nucleated Red Blood Cells % (auto) 0.0, Urine Appearance TURBIDH, Urine Color YELLOW, Urine pH 5.0, Urine Specific [place] 1.015, Urine Protein 2+H, Urine Glucose (UA) NEGATIVE, Urine Ketones 1+H , Urine Urobilinogen 0.2, Urine Bilirubin NEGATIVE, Urine Leukocyte Esterase 3+H , Urine Blood 2+H, Urine Nitrite NEGATIVE, Urine WBC (Auto) TNTCH, Urine RBC ( Auto) 81H, Urine Hyaline Casts (Auto) 0, Urine Bacteria (Auto) 3+H, Urine Squamous Epithelial Cells 19, Urine Mucus (Auto) SMALL, Urine Sperm (Auto) , Anion Gap 6L, Glomerular Filtration Rate 43.0L, Calcium Level 9.1, Aspartate Amino Transf (AST/SGOT) 12L, Alanine Aminotransferase (ALT/SGPT) 14, Alkaline Phosphatase 98, Total Bilirubin 0.5, Direct Bilirubin 0.1, Total Protein 8.2, Albumin 3.4, Albumin/Globulin Ratio 0.71L, Lipase 63L, Human Chorionic Gonadotropin, Qual NEGATIVE 08/15/17 05:37: Nucleated Red Blood Cells % (auto) 0.0, Anion Gap 5L, Glomerular Filtration Rate > 60.0, Calcium Level 8.4L, Blood Urea Nitrogen 17, Creatinine 1.07H, Sodium Level 139, Potassium Level 3.8, Chloride Level 106, Carbon Dioxide Level 28 CBC/BMP Laboratory Tests 08/14/17 11:07 Red Blood Count 4.54, Mean Corpuscular Volume 86.6, Mean Corpuscular Hemoglobin 28.2, Mean Corpuscular Hemoglobin Concent 32.6, Red Cell Distribution Width 13.1 , Neutrophils (%) (Auto) 90.0 H, Lymphocytes (%) (Auto) 4.8 L, Monocytes (%) ( Auto) 4.2, Eosinophils (%) (Auto) 0.4, Basophils (%) (Auto) 0.3, Neutrophils # ( Auto) 14.1 H, Lymphocytes # (Auto) 0.8 L, Monocytes # (Auto) 0.7, Eosinophils # (Auto) 0.1, Basophils # (Auto) 0.1 10/13/17 05:37 Red Blood Count 3.78 L, Mean Corpuscular Volume 87.8, Mean Corpuscular Hemoglobin 27.8, Mean Corpuscular Hemoglobin Concent 31.6 L, Red Cell Distribution Width 13.2, Calcium Level 8.4 L Microbiology Microbiology 08/14/17 Urine Culture, Received Pending ROSELYN GUTIÉRREZ MD Aug 15, 2017 08:08
[2017-08-15] MEDS: PERCOCET 5MG/325MG TAB PO PRN ×2 (09:08→20:10)
[2017-08-15] MEDS: DOCUSATE SODIUM 100 MG CAP PO SCH ×2 (09:08→20:10)
[2017-08-15] MEDS: SERTRALINE 100 MG TAB PO SCH (09:08)
[2017-08-15] MEDS: GABAPENTIN 300 MG CAP PO SCH ×3 (09:09→20:10)
[2017-08-15] MEDS ORDERED: CIPR500T19 PO (11:25)
[2017-08-15] MEDS ORDERED: OXYC1TAB23 PO (11:25)
[2017-08-15 13:23] VITALS: BP 120/79
[2017-08-15 14:00] VITALS: BP 133/67
[2017-08-15] MEDS ORDERED: METOCLOPRAMIDE INJ 10MG/2ML VIAL (J2765) IV PRN (14:00)
[2017-08-15] MEDS ORDERED: KETOROLAC 30 MG/ML VIAL (J1885) IV ONE (14:00)
[2017-08-15] MEDS ORDERED: ALPRAZolam 0.5 MG TAB PO ONE (14:45)
[2017-08-15] MEDS: zolPIDEM TARTRATE 5 MG TAB PO SCH (20:11)
[2017-08-15 22:00] VITALS: BP 103/59
[2017-08-16 02:00] VITALS: BP 100/59
[2017-08-16] MEDS: CIPROFLOXACIN 400 MG in APPROPRIATE DILUENT 1 EA IV SCH (04:46)
[2017-08-16] MEDS: PERCOCET 5MG/325MG TAB PO PRN (05:26)
[2017-08-16 06:00] VITALS: BP 100/59
[2017-08-16 06:12] LABS: MEAN CORPUSCULAR HGB CONC 32.3 g/dl (32.0-36.5); MEAN CORPUSCULAR VOLUME 86.7 fl (80.0-96.0); RED CELL DISTRIBUTION WIDTH 13.2 % (11.5-14.5); WHITE BLOOD COUNT 8.7 10^3/uL (4.0-10.0)
[2017-08-16 06:24] LABS: ANION GAP 6 MEQ/L (8-16); BLOOD UREA NITROGEN 14 MG/DL (7-18); CALCIUM LEVEL 8.3 MG/DL (8.5-10.1); CARBON DIOXIDE LEVEL 28 MEQ/L (21-32); CHLORIDE LEVEL 107 MEQ/L (98-107); CREATININE FOR GFR 0.99 MG/DL (0.55-1.02); GLOMERULAR FILTRATION RATE > 60.0 (>60); GLUCOSE, FASTING 106 MG/DL (70-105); POTASSIUM SERUM 3.1 MEQ/L (3.5-5.1); SODIUM LEVEL 141 MEQ/L (136-145)
--- NOTE | 2017-08-16 08:52 | IPNPDOC ---
Assessment/Plan Date Seen The patient was seen on 08/16/17. Plan/VTE VTE Prophylaxis Ordered?: No Subjective Review oF Systems Chief Complaint The patient is a 32-year-old female admitted with a reason for visit of L Hydronephrosis s/p left dismembered pyeloplasty for left UPJO; recurrent left UPJO s/p cystoscopy, left RPG, JJ (08/14/17). po, flatus, ambulate, void well. Asymptomatic. Comfortable. 65, 18, 100/59, 98.0f Abdo: Benign. Urine culture (08/14/17) no growth. (08/16/17) Hg 10.3, wbc 8.7, Cr .99. A: Above. P: dc home. Cipro. f/u Bart 1 month left URS as arranged. Objective Physical Examination General Exam: Alert, Cooperative, No Acute Distress ABDOMEN EXAM: Soft, Tenderness (mild LLQ tenderness) Skin Exam: Nl turgor and temperature Psych Exam: Mental status NL, Mood NL Vital Signs/I&O Vital Signs Date Time Temp Pulse Resp B/P (MAP) Pulse Ox O2 Delivery O2 Flow Rate FiO2 08/16/17 06:00 98.0 65 18 100/59 (73) 96 Room Air 08/14/17 16:07 3 Laboratory Data Labs 24H Laboratory Tests 2 08/16/17 05:45: Nucleated Red Blood Cells % (auto) 0.0, Anion Gap 6L, Glomerular Filtration Rate > 60.0, Blood Urea Nitrogen 14, Creatinine 0.99, Sodium Level 141, Potassium Level 3.1L, Chloride Level 107, Carbon Dioxide Level 28, Calcium Level 8.3L CBC/BMP Laboratory Tests 08/16/17 05:45 Red Blood Count 3.68 L, Mean Corpuscular Volume 86.7, Mean Corpuscular Hemoglobin 28.0, Mean Corpuscular Hemoglobin Concent 32.3, Red Cell Distribution Width 13.2, Calcium Level 8.3 L Microbiology Microbiology 08/14/17 Urine Culture - Final, Complete LUPE VALENTIN MD Aug 16, 2017 08:52
[2017-08-16] MEDS: DOCUSATE SODIUM 100 MG CAP PO SCH (09:00)
[2017-08-16] MEDS: SERTRALINE 100 MG TAB PO SCH (10:26)
[2017-08-16] MEDS: GABAPENTIN 300 MG CAP PO SCH (10:27)
--- NOTE | 2017-08-18 11:16 | DSES ---
DATE OF ADMISSION: 08/14/2017 DATE OF DISCHARGE: 08/16/2017 ADMISSION DIAGNOSIS: Left hydronephrosis. DISCHARGE DIAGNOSIS: Left hydronephrosis. ADMITTING PHYSICIAN: Dr. Alexi Arriaga. DISCHARGE PHYSICIAN: Dr. Herberth Jasso. PROCEDURES PERFORMED: Cystoscopy, left ureteral stent placement on 08/14/2017. HISTORY OF PRESENT ILLNESS: This is a 32-year-old female who underwent a dismember pyeloplasty approximately 6 weeks ago. Her stent was removed in the office and then 2 days after, she started developing severe left flank pain. She was brought to the operating room on 08/14/2017 for a new stent placement. She was admitted to the hospital postoperatively. HOSPITAL COURSE: The patient's postoperative course was, for the most part, unremarkable. Her creatinine continued to improve during her hospitalization course. Her white count also improved and she was afebrile. By 08/16/2017, her pain was well controlled and she had no nausea and was therefore, discharged on 08/16/2017 in good condition. I will have her followup on the clinic in a week or two to discuss her next procedure.
[2017-09-05] MEDS ORDERED: GABA-283 PO ×2 (14:57)
[2017-09-09] MEDS ORDERED: PHEN1SUP6 PR (11:40)
[2017-09-09] MEDS ORDERED: CIPR-249 PO (11:40)
== END 2017-08-16 10:55 | disposition home or self-care (01) | DRG 465 ==
LOC: M ED 10:21 → M SDC 15:36 → M MSPAV 17:15
PROVIDERS: ADMIT Surgery; ATTEND Urology
PROC: 0T778DZ Dilation of Left Ureter with Intraluminal Device, Via Natural or Artificial Opening Endoscopic (ICD-10-PCS; principal; 2017-08-14 13:01)
DX: N13.30 Unspecified hydronephrosis (principal); N39.0 Urinary tract infection, site not specified; Z79.899 Other long term (current) drug therapy

== ENCOUNTER 2017-09-28 16:45 | Emergency (ER) | payer OTHER ==
[~2017-09-28] VITALS: Ht 160 cm; Wt 72.7 kg
[~2017-09-28 16:45] MED LIST changes: +CIPR500T19 PO; +GABA-282 PO; +IBUP-1114 PO; +ONDA4TAB6 PO; +OXYB5TAB10 PO; +PHEN1SUP6 PR
[2017-09-28] MEDS ORDERED: PROCHLORPERAZINE 5 MG TAB (S0183) PO ONE (17:30)
[2017-09-28] MEDS ORDERED: NS 1,000 ML IV ONE (17:30)
[2017-09-28 17:48] LABS: BASO # 0.1 10^3/uL (0.0-0.2); BASO % 0.6 % (0.0-1.0); EOS # 0.2 10^3/uL (0.0-0.50); EOS % 1.9 % (0.0-3.0); IMMATURE GRANULOCYTE % 0.3 % (0-0); LYMPH # 1.7 10^3/uL (1.5-4.5); LYMPH % 15.5 % (24.0-44.0); MEAN CORPUSCULAR HEMOGLOBIN 27.8 pg (27.0-33.0); MEAN CORPUSCULAR HGB CONC 32.9 g/dl (32.0-36.5); MEAN CORPUSCULAR VOLUME 84.3 fl (80.0-96.0); MONO # 0.6 10^3/uL (0.0-0.8); MONO % 5.7 % (0.0-5.0); NEUTROPHILS # 8.3 10^3/uL (1.8-7.7); PLATELET COUNT, AUTOMATED 473 10^3/uL (150-450); RED CELL DISTRIBUTION WIDTH 12.9 % (11.5-14.5); WHITE BLOOD COUNT 10.9 10^3/uL (4.0-10.0)
[2017-09-28 18:27] LABS: ALBUMIN 3.9 GM/DL (3.2-5.2); ALBUMIN/GLOBULIN RATIO 0.98 (1.00-1.93); ALKALINE PHOSPHATASE 100 U/L (45-117); ALT/SGPT 14 U/L (12-78); ANION GAP 9 MEQ/L (8-16); AST/SGOT 13 U/L (7-37); BILIRUBIN,TOTAL 0.5 MG/DL (0.2-1.0); BLOOD UREA NITROGEN 14 MG/DL (7-18); CALCIUM LEVEL 9.1 MG/DL (8.5-10.1); CARBON DIOXIDE LEVEL 28 MEQ/L (21-32); CHLORIDE LEVEL 101 MEQ/L (98-107); CREATININE FOR GFR 0.94 MG/DL (0.55-1.02); GLOMERULAR FILTRATION RATE > 60.0 (>60); GLUCOSE, FASTING 93 MG/DL (70-105); HCG, SERUM QUANTITATIVE 12238 MIU/ML; POTASSIUM SERUM 3.2 MEQ/L (3.5-5.1); SODIUM LEVEL 138 MEQ/L (136-145); TOTAL PROTEIN 7.9 GM/DL (6.4-8.2)
[2017-09-28] MEDS ORDERED: POTASSIUM CHLORIDE 10 MEQ SR TABLET PO ONE (18:45)
[2017-09-28] MEDS ORDERED: NITROFURANTOIN (MACROBID) 100 MG CAP PO ONE (18:45)
[2017-09-28] MEDS ORDERED: PROC5TA PO (18:47)
[2017-09-28] MEDS ORDERED: MACR100C43 PO (18:47)
[2017-09-28 19:04] VITALS: BP 139/95
[2017-09-29] MEDS ORDERED: PREN1TAB26 PO (19:35)
== END 2017-09-28 19:07 | disposition home or self-care (01) ==
LOC: M ED 16:45
DX: O23.41 Unspecified infection of urinary tract in pregnancy, first trimester (principal); O21.9 Vomiting of pregnancy, unspecified; O99.280 Endocrine, nutritional and metabolic diseases complicating pregnancy, unspecified trimester; E87.6 Hypokalemia; O99.341 Other mental disorders complicating pregnancy, first trimester; F31.9 Bipolar disorder, unspecified; F41.9 Anxiety disorder, unspecified; O99.351 Diseases of the nervous system complicating pregnancy, first trimester; G25.81 Restless legs syndrome; Z3A.00 Weeks of gestation of pregnancy not specified

== ENCOUNTER 2017-09-29 19:23 | Emergency (ER) | payer OTHER ==
[~2017-09-29] VITALS: Ht 160 cm; Wt 72.7 kg
[~2017-09-29 19:23] MED LIST changes: +MACR100C43 PO; +PROC5TA PO
[2017-09-29 19:24] VITALS: BP 137/77
[2017-09-29] MEDS ORDERED: PREN1TAB26 PO (19:35)
[2017-09-30] MEDS ORDERED: NORCOTAB PO (18:09)
== END 2017-09-29 23:02 | disposition left against medical advice (07) ==
LOC: M ED 19:23
DX: Z53.29 Procedure and treatment not carried out because of patient's decision for other reasons (principal)

== ENCOUNTER 2017-09-30 12:47 | Emergency (ER) | payer OTHER ==
[~2017-09-30] VITALS: Ht 160 cm; Wt 72.7 kg
[~2017-09-30 12:47] MED LIST changes: +PREN1TAB26 PO
[2017-09-30 16:25] LABS: BASO # 0.1 10^3/uL (0.0-0.2); BASO % 0.7 % (0.0-1.0); EOS # 0.1 10^3/uL (0.0-0.50); IMMATURE GRANULOCYTE % 0.2 % (0-0); LYMPH # 1.7 10^3/uL (1.5-4.5); LYMPH % 16.3 % (24.0-44.0); MEAN CORPUSCULAR HEMOGLOBIN 27.4 pg (27.0-33.0); MEAN CORPUSCULAR HGB CONC 32.7 g/dl (32.0-36.5); MEAN CORPUSCULAR VOLUME 83.8 fl (80.0-96.0); MONO # 0.6 10^3/uL (0.0-0.8); MONO % 5.8 % (0.0-5.0); NEUTROPHILS # 8.1 10^3/uL (1.8-7.7); PLATELET COUNT, AUTOMATED 509 10^3/uL (150-450); RED CELL DISTRIBUTION WIDTH 13.1 % (11.5-14.5); WHITE BLOOD COUNT 10.6 10^3/uL (4.0-10.0)
[2017-09-30] MEDS ORDERED: MORPHINE 4 MG/ML 1ML SYRINGE IV ONE (16:30)
--- NOTE | 2017-09-30 16:56 | REP ---
Clinical: Left flank pain status post stent placement Comparison: 09/09/2017. Findings: Left kidney demonstrates mild hydronephrosis and stent extending from the renal pelvis to the bladder in satisfactory position. The kidney is otherwise normal in reniform shape, echogenicity and size measuring 11.8 x 4.0 x 4.3 cm. The right kidney is normal in appearance and without hydronephrosis measuring 11.3 x 5.2 x 4.8 cm. No perinephric fluid collections are identified. Impression: Left ureteral stent in satisfactory position with mild left hydronephrosis. Signed by Jesus García MD 09/30/2017 04:48 P
--- NOTE | 2017-09-30 16:59 | REP ---
Clinical: Left flank pain. Dating and viability. Technique: Transabdominal first trimester obstetrical ultrasound with color Doppler evaluation. Findings: Ultrasound examination demonstrates a single live early intrauterine . Gestational sac with yolk sac and pole identified. CRL of 3 mm corresponds to 5 week 6 days gestational age with estimated date of delivery 05/27/2018. heart rate equals 107 beats per minute. A small subchorionic hemorrhage is identified adjacent to the sac measuring 2.6 cm in length and 0.8 x 1.0 cm in maximal diameter. Maternal ovaries appear normal. No significant pelvic fluid or adnexal mass lesion. Impression: Single live early intrauterine at 5 week 6 days gestational age. Small subchorionic hemorrhage. Signed by Jesus García MD 09/30/2017 04:50 P
[2017-09-30 17:02] LABS: ANION GAP 9 MEQ/L (8-16); BLOOD UREA NITROGEN 13 MG/DL (7-18); CALCIUM LEVEL 9.7 MG/DL (8.5-10.1); CARBON DIOXIDE LEVEL 26 MEQ/L (21-32); CHLORIDE LEVEL 103 MEQ/L (98-107); CREATININE FOR GFR 0.97 MG/DL (0.55-1.02); GLOMERULAR FILTRATION RATE > 60.0 (>60); GLUCOSE, FASTING 95 MG/DL (70-105); HCG, SERUM QUANTITATIVE 22789 MIU/ML; POTASSIUM SERUM 3.6 MEQ/L (3.5-5.1); SODIUM LEVEL 138 MEQ/L (136-145)
[2017-09-30] MEDS ORDERED: NORCOTAB PO (18:09)
[2017-09-30 18:30] VITALS: BP 127/88
== END 2017-09-30 18:31 | disposition home or self-care (01) ==
LOC: M ED 12:47
DX: O20.8 Other hemorrhage in early pregnancy (principal); Z87.891 Personal history of nicotine dependence; Z3A.01 Less than 8 weeks gestation of pregnancy

== ENCOUNTER 2017-10-05 16:18 | Emergency (ER) | payer OTHER, SELFPAY ==
[~2017-10-05] VITALS: Ht 160 cm; Wt 75.0 kg
[~2017-10-05 16:18] MED LIST changes: +NORCOTAB PO
[2017-10-05] MEDS ORDERED: [UNRECOGNIZED DRUG - CODE] VA (16:30)
[2017-10-05 17:08] LABS: BASO # 0.1 10^3/uL (0.0-0.2); BASO % 0.6 % (0.0-1.0); EOS # 0.3 10^3/uL (0.0-0.50); EOS % 2.9 % (0.0-3.0); IMMATURE GRANULOCYTE % 0.3 % (0-0); LYMPH # 1.9 10^3/uL (1.5-4.5); LYMPH % 18.5 % (24.0-44.0); MEAN CORPUSCULAR HEMOGLOBIN 28.2 pg (27.0-33.0); MEAN CORPUSCULAR HGB CONC 33.9 g/dl (32.0-36.5); MEAN CORPUSCULAR VOLUME 83.3 fl (80.0-96.0); MONO # 0.7 10^3/uL (0.0-0.8); MONO % 6.3 % (0.0-5.0); NEUTROPHILS # 7.4 10^3/uL (1.8-7.7); NEUTROPHILS % 71.4 % (36.0-66.0); PLATELET COUNT, AUTOMATED 465 10^3/uL (150-450); RED CELL DISTRIBUTION WIDTH 13.2 % (11.5-14.5); WHITE BLOOD COUNT 10.4 10^3/uL (4.0-10.0)
--- NOTE | 2017-10-05 18:30 | REPUSA ---
HISTORY: Abdominal pain. LMP: Unknown . Gestational age by first ultrasound: 6 weeks 4 days with NILSON of 05/27/18. TECHNIQUE: Transabdominal obstetrical ultrasound examination. FINDINGS: Uterus is of normal size and contains an intrauterine gestational sac with a viable intra uterine with heart rate of 119 bpm. [place]-rump length measures 0.59 cm corresponding to a gestational age of 6 weeks 3 days with NILSON of 05/28/18. This growth is in the 36th percen tile. There is a small focal subchorionic hemorrhage at the left margin of the gestational sac measuring 1. 1 x 0.8 x 0.8 cm. Left ovary measures 2.3 x 2.4 x 1.9 cm with normal Doppler vascularity and no mass seen. Right ovary measures 2.4 x 2.9 x 2.0 cm with normal Doppler vascularity with no mass seen. No extrauterine path ologic mass lesion or abnormal fluid collection is seen. IMPRESSION: 1. Single viable intrauterine with average ultrasound age of 6 weeks 3 days an d NILSON of 05/28/18. 2. Small subchorionic hemorrhage as discussed above. Follow-up imaging is suggested as indicated. 3. No other extrauterine pathologic mass or abnormal fluid abnormality seen.
[2017-10-05] MEDS ORDERED: MACR100C43 PO (18:39)
[2017-10-05 18:40] VITALS: BP 126/80
[2017-10-05] MEDS ORDERED: NITROFURANTOIN (MACROBID) 100 MG CAP PO ONE (18:45)
== END 2017-10-05 18:49 | disposition home or self-care (01) ==
LOC: M ED 16:18
DX: O20.8 Other hemorrhage in early pregnancy (principal); O23.41 Unspecified infection of urinary tract in pregnancy, first trimester; Z3A.01 Less than 8 weeks gestation of pregnancy

== ENCOUNTER 2017-10-18 11:43 | Inpatient (IN) | payer MEDICAID, OTHER ==
[~2017-10-18] VITALS: Ht 160 cm; Wt 72.7 kg
[~2017-10-18 11:43] MED LIST changes: +[UNRECOGNIZED DRUG - CODE] PV
[2017-10-18] MEDS ORDERED: TYLE325T5 PO (11:52)
[2017-10-18 12:22] LABS: BASO # 0.1 10^3/uL (0.0-0.2); BASO % 0.8 % (0.0-1.0); EOS # 0.1 10^3/uL (0.0-0.50); EOS % 1.6 % (0.0-3.0); IMMATURE GRANULOCYTE % 0.2 % (0-0); LYMPH # 1.9 10^3/uL (1.5-4.5); LYMPH % 22.4 % (24.0-44.0); MEAN CORPUSCULAR HGB CONC 33.5 g/dl (32.0-36.5); MEAN CORPUSCULAR VOLUME 83.7 fl (80.0-96.0); MONO # 0.6 10^3/uL (0.0-0.8); MONO % 7.2 % (0.0-5.0); NEUTROPHILS # 5.8 10^3/uL (1.8-7.7); NEUTROPHILS % 67.8 % (36.0-66.0); PLATELET COUNT, AUTOMATED 435 10^3/uL (150-450); RED CELL DISTRIBUTION WIDTH 13.2 % (11.5-14.5); WHITE BLOOD COUNT 8.5 10^3/uL (4.0-10.0)
[2017-10-18 12:39] LABS: MUCUS, URINE RFX SMALL (NEGATIVE); SPECIFIC GRAVITY UR AUTO RFX 1.021 (1.002-1.035); SQUAM EPITHELIAL CELL UR AURFX 14 /HPF (0-6); YEAST LIKE CELL URINE AUTO RFX SMALL
[2017-10-18 12:44] LABS: ANION GAP 5 MEQ/L (8-16); BLOOD UREA NITROGEN 13 MG/DL (7-18); CALCIUM LEVEL 9.5 MG/DL (8.5-10.1); CARBON DIOXIDE LEVEL 29 MEQ/L (21-32); CHLORIDE LEVEL 102 MEQ/L (98-107); CREATININE FOR GFR 0.86 MG/DL (0.55-1.02); GLOMERULAR FILTRATION RATE > 60.0 (>60); GLUCOSE, FASTING 94 MG/DL (70-105); POTASSIUM SERUM 3.3 MEQ/L (3.5-5.1); SODIUM LEVEL 136 MEQ/L (136-145)
[2017-10-18] MEDS ORDERED: ONDANSETRON 4MG/2ML VIAL (J2405) IV ONE (14:00)
[2017-10-18] MEDS ORDERED: MORPHINE 4 MG/ML 1ML SYRINGE IV ONE ×3 (14:00→17:30)
--- NOTE | 2017-10-18 14:51 | REP ---
Renal ultrasound: Comparison is the renal ultrasound dated 2016. The patient is approximate weeks gestational age. The patient had a left ureteral stent placed on 09/10/2017. This stent was reportedly removed on 10/05/2017. On the comparison renal ultrasound dated 09/30/2017. There is mild left hydronephrosis. On the study today there is left hydronephrosis that has increased from the comparison study. The right kidney measures 12.4 x 4.1 x 4 point centimeters. Left kidney measures 4.0 x 4.6 x 4.5 cm. There are no renal calculi. There are no solid or cystic masses. There is left hydronephrosis, increased from 09/30/2017. There is no right hydronephrosis. Bladder ultrasound: The bladder is nondistended and cannot be evaluated. Impression: Right hydronephrosis, increased from 09/30/2017. Signed by Gautam Clement MD 10/18/2017 02:43 P
--- NOTE | 2017-10-18 17:22 | HPEPDOC ---
General Date of Admission Date of admission is 10/18/2017 Attending Physician: ANA ALEXANDER MD Chief Complaint The patient is a 32-year-old female admitted with a reason for visit of Flank Pain. Source: Patient Exam Limitations: No limitations Timing/Duration: 1/2-1 hour, Day(s) Severity: Severe Associated Symptoms: Loss of appetite, Other History of Present Illness Patient is a 32-year-old female 8 weeks with a history of a UPJ obstruction on the left side, status post dismembered pyeloplasty who presents with severe left flank pain for several days. She has a complex history of urinary stricture disease and stone disease on the left side. She has had multiple stents in the past and has had a history of multiple kidney stones in the past for kidney stones have been unable to pass spontaneously. She has also had pain from the stents as well. She has had nausea and vomiting and has been unable to keep down anything orally. He denies fevers or chills Home Medications Scheduled ( Vitamin & Minera 28-0.8 mg) 1 Tab Tab, 1 TAB PO DAILY, (Reported) Progesterone (First-Progesterone Vgs 20) 200 Mg Sup, 200 MG VA DAILY, (Reported) Scheduled PRN Acetaminophen (Tylenol) 325 Mg Tab, 500 MG PO for PAIN OR FEVER, (Reported) Allergies Coded Allergies: Quetiapine (Unverified Adverse Reaction, Intermediate, bad anxiety attack , 09/30/17) Metoclopramide (Verified Adverse Reaction, Mild, ANXIETY, 09/30/17) Past Medical History Medical History Other than her urologic history the patient has no prior medical problems Surgical History Her surgical history is as previously discussed Family History Significant Family History: No pertinent family hx Social History * Smoker: Denies Alcohol: Denies Recent Travel/Sick Contacts: Denies: Recent travel, Recent sick contacts Psychosocial History: No pertinent psych hx Noncontributory Review of Systems Constitutional: Reports: Fatigue Eyes: Denies: Pain, Vision change ENT: Denies: Head Aches, Ear Pain, Dysphagia Skin: Denies: Rash, Lesions, Breakdown Gastrointestinal: Reports: Nausea Genitourinary: Denies: Dysuria, Frequency, Incontinence, Retention Physical Examination General Exam: Positive: Cooperative Eye Exam: Positive: PERRLA, Conjunctiva & lids normal, EOMI, Negative: Sclera icteric ENT Exam: Positive: Atraumatic, Mucous membr. moist/pink, Pharynx Normal Neck Exam: Positive: Supple, Negative: JVD, thyromegaly Abdomen Exam: Positive: Soft Extremity Exam: Positive: Normal pulses, Negative: Clubbing, Cyanosis, Edema Skin Exam: Positive: Nl turgor and temperature, Negative: Rash, Breakdown, Lesion, Pruritus, Other skin issue Psych Exam: Positive: Mental status NL, Mood NL, Oriented x 3 Vital Signs Vital Signs Date Time Temp Pulse Resp B/P (MAP) Pulse Ox O2 Delivery O2 Flow Rate FiO2 10/18/17 16:31 18 10/18/17 14:47 86 122/65 99 Room Air 10/18/17 11:43 97.7 Laboratory Data Labs 24H Laboratory Tests 2 10/18/17 12:02: Immature Granulocyte % (Auto) 0.2H, White Blood Count 8.5, Red Blood Count 4.85 , Hemoglobin 13.6, Hematocrit 40.6, Mean Corpuscular Volume 83.7, Mean Corpuscular Hemoglobin 28.0, Mean Corpuscular Hemoglobin Concent 33.5, Red Cell Distribution Width 13.2, Platelet Count 435, Neutrophils (%) (Auto) 67.8H, Lymphocytes (%) (Auto) 22.4L, Monocytes (%) (Auto) 7.2H, Eosinophils (%) (Auto) 1.6, Basophils (%) (Auto) 0.8, Neutrophils # (Auto) 5.8, Lymphocytes # (Auto) 1.9, Monocytes # (Auto) 0.6, Eosinophils # (Auto) 0.1, Basophils # (Auto) 0.1, Immature Granulocyte # (Auto) 0.0, Nucleated Red Blood Cells % (auto) 0.0, Urine Color YELLOW, Urine Appearance CLOUDYH, Urine pH 6.0, Urine Specific [place] 1.021, Urine Protein 1+H, Urine Glucose (UA) NEGATIVE, Urine Ketones TRACEH, Urine Blood NEGATIVE, Urine Nitrite NEGATIVE, Urine Bilirubin NEGATIVE, Urine Urobilinogen 0.2, Urine Leukocyte Esterase 1+H, Urine WBC (Auto) 11H, Urine RBC (Auto) 5H, Urine Hyaline Casts (Auto) 0, Urine Bacteria (Auto) 1+H, Urine Squamous Epithelial Cells 14, Urine Mucus (Auto) SMALL, Urine Yeast-Like Cells (Auto) SMALLH, Urine Sperm (Auto) , Anion Gap 5L, Glomerular Filtration Rate > 60.0, Blood Urea Nitrogen 13, Creatinine 0.86, Sodium Level 136, Potassium Level 3.3L, Chloride Level 102, Carbon Dioxide Level 29, Calcium Level 9.5 CBC/BMP Laboratory Tests 10/18/17 12:02 Red Blood Count 4.85, Mean Corpuscular Volume 83.7, Mean Corpuscular Hemoglobin 28.0, Mean Corpuscular Hemoglobin Concent 33.5, Red Cell Distribution Width 13.2 , Neutrophils (%) (Auto) 67.8 H, Lymphocytes (%) (Auto) 22.4 L, Monocytes (%) ( Auto) 7.2 H, Eosinophils (%) (Auto) 1.6, Basophils (%) (Auto) 0.8, Neutrophils # (Auto) 5.8, Lymphocytes # (Auto) 1.9, Monocytes # (Auto) 0.6, Eosinophils # ( Auto) 0.1, Basophils # (Auto) 0.1, Calcium Level 9.5 Microbiology Microbiology 10/18/17 Urine Culture, Received Pending 10/18/17 Urine Culture, Received Pending Assessment/Plan Hydronephrosis, history of hydronephrosis. History of UPJ obstruction, chronic hydronephrosis, flank pain, nausea, vomiting Problems (1) Flank pain Status: Chronic Response to Treatment: Worse, Controlled Discussed With: Patient Problem Specific Plan: Monitor Clinically (2) Nausea & vomiting Status: Acute Response to Treatment: Controlled Discussed With: Patient Problem Specific Plan: Monitor Clinically (3) Left flank pain Status: Chronic Response to Treatment: Worse Discussed With: Patient Problem Specific Plan: Monitor Clinically Plan / VTE VTE Prophylaxis Ordered?: No Plan / Urinary Catheter Urinary Catheter: Straight Cath Reason for insertion/continuin: Other-document below Plan Plan Plan is to admit for pain control, IV fluids, antibiotics. We'll reassess hydronephrosis. Next week. Dr. Arriaga upon his return to discuss the definitive care of this patient going forward will be for urgent intervention right now, such as urgency placement Disposition Stable to floor IVF: Continue Diet: Continue Current Activity: Continue Current Medications: Replete Electrolytes IV, Start Antibiotics Anticipated Discharge: Home ANA ALEXANDER MD Oct 18, 2017 17:22
--- NOTE | 2017-10-18 19:41 | ECGEPIP ---
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
[2017-10-18 20:00] VITALS: BP 108/68
[2017-10-18] MEDS: ONDANSETRON 4MG/2ML VIAL (J2405) IV PRN (20:34)
[2017-10-18] MEDS: MORPHINE 4 MG/ML 1ML SYRINGE IV PRN (20:36)
[2017-10-18] MEDS: PROGESTERONE 200 MG PV SCH (22:33)
[2017-10-19] VITALS: BP 116/60
[2017-10-19 04:00] VITALS: BP 114/56
[2017-10-19] MEDS: ONDANSETRON 4MG/2ML VIAL (J2405) IV PRN ×3 (04:57→16:07)
[2017-10-19] MEDS: MORPHINE 4 MG/ML 1ML SYRINGE IV PRN ×2 (04:58→09:11)
[2017-10-19] MEDS ORDERED: SLF 3 ML SYR IV PRN (07:45)
[2017-10-19 09:00] VITALS: BP 142/83
[2017-10-19] MEDS: PRENATAL VITAMINS CHEWABLE TABLET PO SCH (09:00)
--- NOTE | 2017-10-19 09:30 | IPNPDOC ---
Assessment/Plan Date Seen The patient was seen on 10/19/17. Problems (1) Flank pain Status: Chronic Response to Treatment: Stable Discussed With: Patient (2) Nausea & vomiting Status: Resolved Response to Treatment: Improving Discussed With: Nurse (3) Left flank pain Status: Chronic Response to Treatment: Improving, Controlled (4) Chronic pain disorder Status: Chronic (5) Narcotic dependence Status: Chronic Discussed With: Patient Plan/VTE VTE Prophylaxis Ordered?: No Plan/Urinary Catheter Urinary Catheter: Straight Cath Reason for insertion/continuin: Other-document below Plan IVF: Continue Diet: Continue Current Activity: Continue Current Medications: Replete Electrolytes IV, Start Antibiotics Anticipated Discharge: Home Subjective Review oF Systems Chief Complaint The patient is a 32-year-old female admitted with a reason for visit of Flank Pain,Hydronephrosis. Events since Last Encounter Pt is still requiring high doses of narcotics. Pt states that Dr Arriaga gives her percocet on a monthly basis. General: Denies: ROS Unobtainable, Chills, Night Sweats, Fatigue, Malaise, Normal Appetite, Other Symptoms Constitutional: Denies: Fever, Chills, Sweats, Weakness, Malaise, Other Eyes: Denies: Pain, Vision change, Conjunctivae inflammation, Eyelid inflammation, Redness, Other Genitourinary: Denies: Dysuria, Frequency, Incontinence, Hematuria, Retention, Other Symptoms Objective Physical Examination General Exam: Cooperative ABDOMEN EXAM: No: Normal bowel sounds, BS Hyperactive, BS Hypoactive, Soft, Tenderness, Hepatospenomegaly, Mass, Hernia, Other Psych Exam: No: Mental status NL, Mood NL, Anxiety, Memory Intact, Oriented x 3 , Other Vital Signs/I&O Vital Signs Date Time Temp Pulse Resp B/P (MAP) Pulse Ox O2 Delivery O2 Flow Rate FiO2 10/19/17 09:11 18 10/19/17 04:00 98.0 85 114/56 (75) 100 Room Air Laboratory Data Labs 24H Laboratory Tests 2 10/18/17 12:02: Immature Granulocyte % (Auto) 0.2H, White Blood Count 8.5, Red Blood Count 4.85 , Hemoglobin 13.6, Hematocrit 40.6, Mean Corpuscular Volume 83.7, Mean Corpuscular Hemoglobin 28.0, Mean Corpuscular Hemoglobin Concent 33.5, Red Cell Distribution Width 13.2, Platelet Count 435, Neutrophils (%) (Auto) 67.8H, Lymphocytes (%) (Auto) 22.4L, Monocytes (%) (Auto) 7.2H, Eosinophils (%) (Auto) 1.6, Basophils (%) (Auto) 0.8, Neutrophils # (Auto) 5.8, Lymphocytes # (Auto) 1.9, Monocytes # (Auto) 0.6, Eosinophils # (Auto) 0.1, Basophils # (Auto) 0.1, Immature Granulocyte # (Auto) 0.0, Nucleated Red Blood Cells % (auto) 0.0, Urine Color YELLOW, Urine Appearance CLOUDYH, Urine pH 6.0, Urine Specific [place] 1.021, Urine Protein 1+H, Urine Glucose (UA) NEGATIVE, Urine Ketones TRACEH, Urine Blood NEGATIVE, Urine Nitrite NEGATIVE, Urine Bilirubin NEGATIVE, Urine Urobilinogen 0.2, Urine Leukocyte Esterase 1+H, Urine WBC (Auto) 11H, Urine RBC (Auto) 5H, Urine Hyaline Casts (Auto) 0, Urine Bacteria (Auto) 1+H, Urine Squamous Epithelial Cells 14, Urine Mucus (Auto) SMALL, Urine Yeast-Like Cells (Auto) SMALLH, Urine Sperm (Auto) , Anion Gap 5L, Glomerular Filtration Rate > 60.0, Blood Urea Nitrogen 13, Creatinine 0.86, Sodium Level 136, Potassium Level 3.3L, Chloride Level 102, Carbon Dioxide Level 29, Calcium Level 9.5 CBC/BMP Laboratory Tests 10/18/17 12:02 Red Blood Count 4.85, Mean Corpuscular Volume 83.7, Mean Corpuscular Hemoglobin 28.0, Mean Corpuscular Hemoglobin Concent 33.5, Red Cell Distribution Width 13.2 , Neutrophils (%) (Auto) 67.8 H, Lymphocytes (%) (Auto) 22.4 L, Monocytes (%) ( Auto) 7.2 H, Eosinophils (%) (Auto) 1.6, Basophils (%) (Auto) 0.8, Neutrophils # (Auto) 5.8, Lymphocytes # (Auto) 1.9, Monocytes # (Auto) 0.6, Eosinophils # ( Auto) 0.1, Basophils # (Auto) 0.1, Calcium Level 9.5 Microbiology Microbiology 10/18/17 Urine Culture, Received Pending 10/18/17 Urine Culture - Final, Complete SCHOOR,ANA A. MD Oct 19, 2017 09:31
[2017-10-19] MEDS: D5W/0.45% SODIUM CHLORIDE 1,000 ML IV SCH ×2 (10:39→20:09)
[2017-10-19] MEDS: PERCOCET 5MG/325MG TAB PO PRN ×2 (10:39→17:14)
[2017-10-19] MEDS: SLF 3 ML SYR IV SCH ×2 (14:00→22:00)
[2017-10-19 16:00] VITALS: BP 117/69
[2017-10-19 20:00] VITALS: BP 124/78
--- NOTE | 2017-10-19 20:40 | CR ---
DATE OF CONSULTATION: 10/19/2017 REASON FOR ADMISSION: Hydronephrosis and flank pain, admitted by urology, Dr. Cole. HISTORY OF PRESENT ILLNESS: This patient is a 32-year-old 7, para 1, who presents at eight weeks gestational age by first trimester ultrasound with left flank pain and hydronephrosis. She has a complex history of urinary stricture and stones, and was admitted for pain control and further evaluation. Her thus far has been uncomplicated. Her dates by first trimester ultrasound. She has been seen twice during this . She denies any vaginal bleeding or cramping. PAST MEDICAL HISTORY: History of kidney stones. PAST SURGICAL HISTORY: She has had cystoscopy for stent placement for kidney stones and a pyeloplasty. PAST OBSTETRICAL HISTORY: She is 7, para 1. She has had one term uncomplicated vaginal delivery with five missed abortions. MEDICATIONS: Prometrium and vitamins. SOCIAL HISTORY: She denies any alcohol, tobacco or drug use in her . PHYSICAL EXAMINATION: Vital signs stable. She is afebrile. General appearance: Well appearing. No acute distress. Lungs: Clear to auscultation bilaterally. Cardiovascular: Heart regular rate and rhythm. Abdomen: Nontender. ASSESSMENT: Mrs. Corado is a 32-year-old 7 para 1 at eight weeks gestation, admitted for: 1. Left flank pain, hydronephrosis. 2. History of recurrent loss. RECOMMENDATIONS: 1. Daily vitamins. 2. Continue her home medication of Prometrium 200 mg suppository. 3. She should followup 10/23 for followup ultrasound. 4. Bleeding and pain precautions. [facility] MEDICAL CENTERSherie
[2017-10-19] MEDS ORDERED: PROMETHAZINE INJ 25 MG/ML VIAL (J2550) IV PRN (22:30)
[2017-10-19] MEDS: PROGESTERONE 200 MG PV SCH (22:33)
[2017-10-20] VITALS (8 sets, daily range): BP systolic 109–132; BP diastolic 57–82
[2017-10-20] MEDS: D5W/0.45% SODIUM CHLORIDE 1,000 ML IV SCH ×2 (05:59→14:35)
[2017-10-20] MEDS: SLF 3 ML SYR IV SCH ×3 (06:00→22:00)
[2017-10-20] MEDS: PERCOCET 5MG/325MG TAB PO PRN ×2 (08:47→19:19)
[2017-10-20] MEDS: PRENATAL VITAMINS CHEWABLE TABLET PO SCH (09:00)
[2017-10-20 11:43] LABS: INR 0.97
--- NOTE | 2017-10-20 13:07 | IPNPDOC ---
Assessment/Plan Date Seen The patient was seen on 10/20/17. Patient Summary This is a 32-year-old female with a history of a left ureteral stricture who underwent a left robotic pyeloplasty approximately 3 months ago and recent left ureteroscopy for ureteral stones, here admitted to the hospital for left flank pain and n/v since her stent was removed. US done here shows worsened left hydronephrosis. Given concern that the hydro will only worsen w/ her history of a ureteral stricture and concern I have recommended a left nephrostomy tube placement. The patient is agreeable. Problems (1) Flank pain Status: Chronic Response to Treatment: Stable Discussed With: Patient (2) Nausea & vomiting Status: Resolved Response to Treatment: Improving Discussed With: Nurse (3) Left flank pain Status: Chronic Response to Treatment: Improving, Controlled (4) Chronic pain disorder Status: Chronic (5) Narcotic dependence Status: Chronic Discussed With: Patient Plan/VTE VTE Prophylaxis Ordered?: No Plan/Urinary Catheter Reason for insertion/continuin: Other-document below Plan - cont percocet prn pain - phenergan prn nausea - will try to have perc nephrostomy tube placed today - NPO - plan for discharge home once pain is better controlled and nausea improved - presumably once obstruction relieved w/ nephrostomy tube placement Subjective Review oF Systems Chief Complaint The patient is a 32-year-old female admitted with a reason for visit of Flank Pain,Hydronephrosis. Events since Last Encounter No acute events o/n. Patient still having moderate left flank pain and n/v associated w/ the pain. She denies fevers or chills. Objective Physical Examination General Exam: Cooperative ABDOMEN EXAM: No: Normal bowel sounds, BS Hyperactive, BS Hypoactive, Soft, Tenderness, Hepatospenomegaly, Mass, Hernia, Other Neuro Exam: Normal Speech Psych Exam: Mental status NL, Mood NL Vital Signs/I&O Vital Signs Date Time Temp Pulse Resp B/P (MAP) Pulse Ox O2 Delivery O2 Flow Rate FiO2 10/20/17 09:45 18 10/20/17 08:45 97.9 87 119/70 (86) 100 Room Air I&O- Last 24 Hours up to 6 AM 10/21/17 06:00 Intake Total 180 ml Output Total 600 ml Balance -420 ml Laboratory Data Labs 24H Laboratory Tests 2 10/20/17 11:24: Prothrombin Time 13.0, Prothromb Time International Ratio 0.97, Activated Partial Thromboplast Time 29.0 Microbiology Microbiology 10/18/17 Urine Culture - Final, Complete 10/18/17 Urine Culture - Final, Complete ROSELYN GUTIÉRREZ MD Oct 20, 2017 13:07
[2017-10-20] MEDS ORDERED: cefTRIAXone SOD 1 GM VIAL (J0696) As Ordered ONE (15:04)
[2017-10-20] MEDS ORDERED: fentaNYL 100 MCG/2 ML INJECTION (J3010) As Ordered ONE (15:55)
[2017-10-20] MEDS ORDERED: MIDAZOLAM INJ 2 MG/2 ML VIAL (J2250) As Ordered ONE (15:56)
[2017-10-20] MEDS ORDERED: LIDOCAINE 2% MDV 20 ML VIAL As Ordered ONE (16:13)
[2017-10-20] MEDS ORDERED: ISOVUE-300 61% 50ML VIAL (Q9967) As Ordered ONE (16:13)
[2017-10-20] MEDS ORDERED: PERCOCET 5MG/325MG TAB PO PRN ×2 (17:30→18:30)
[2017-10-20 18:18] LABS: MICROSCOPIC INDICATED? MAN YES (NO)
[2017-10-20 18:22] LABS: BACTERIA, URINE NONE SEEN; HYALINE CAST, URINE NONE SEEN /lpf (0-1); MICROSCOPIC EXAM PERFORMED; RBC, URINE TNTC /hpf (0-3); SQUAMOUS EPITHELIAL CELL URINE NONE SEEN /hpf (SMALL AMT)
[2017-10-20] MEDS ORDERED: LR 1,000 ML IV SCH (18:30)
[2017-10-20] MEDS ORDERED: HYDROmorphone HCL 1 MG/ML SYRINGE (J1170) IV PRN (18:30)
[2017-10-20] MEDS ORDERED: fentaNYL 100 MCG/2 ML INJECTION (J3010) IV PRN (18:30)
[2017-10-20] MEDS ORDERED: ONDANSETRON 4MG/2ML VIAL (J2405) IV PRN (18:30)
--- NOTE | 2017-10-20 18:39 | REP ---
LEFT NEPHROSTOMY CATHETER INSERTION USING ULTRASOUND AND FLUOROSCOPIC GUIDANCE: The procedure was performed under the personal supervision of Dr. Ortiz. The patient has a history of left hydronephrosis seen on a previous ultrasound dated 10/18/2017. The risks and benefits of the procedure were explained to the patient and informed consent was obtained. The patient is 8 weeks and was made aware of the fact that fluoroscopy might have to be used to place the drain catheter. The patient states that she understood that fluoroscopy might have to be used. Anesthesia was present throughout the procedure for pain control and patient comfort. The left renal collecting system was localized using ultrasound guidance. The skin was prepped and draped in a sterile fashion. 1% Xylocaine was used as a local anesthetic. Using ultrasound guidance, a 21-gauge needle was inserted into the mid pole calyx. A 0.018 guidewire was inserted. The needle was removed and a #5-Czech dilator and sheath was inserted over the guidewire. The guidewire was removed and the 0.035 guidewire was inserted. The sheath and dilator were removed and an #8-[place]zech skater APDL catheter was inserted over the guidewire. 10 mL of red-tinged urine was withdrawn and sent to the lab for analysis. There was some drainage, however, under ultrasound. There seemed to be a fair amount of fluid within the renal pelvis. It was felt that the catheter might be lying within the calyx. A 50/50 solution of Isovue-300 and sterile saline was injected into the catheter. Fluoro images demonstrates the catheter to be coiled within the calyx. The guidewire was reinserted and advanced into the renal pelvis. The catheter was then repositioned into the renal pelvis. The patient's abdomen was wrapped in a lead apron. The fluoroscopic field was coned down to view only the renal pelvis. The catheter was affixed to the skin and a sterile dressing was applied. The catheter was connected to a gravity drainage bag. The patient tolerated the procedure well and there were no immediate complications. Reviewed by STACIA Ley 10/22/2017 02:26 PEdited and Signed by Gautam Ortiz MD 10/23/2017 08:21 P
[2017-10-20] MEDS: PROGESTERONE 200 MG PV SCH (20:50)
[2017-10-21] VITALS: BP 104/57
[2017-10-21] MEDS: D5W/0.45% SODIUM CHLORIDE 1,000 ML IV SCH (01:30)
[2017-10-21 04:00] VITALS: BP 120/78
[2017-10-21] MEDS: SLF 3 ML SYR IV SCH (06:00)
[2017-10-21 08:00] VITALS: BP 118/71
--- NOTE | 2017-10-21 08:29 | IPNPDOC ---
Assessment/Plan Date Seen The patient was seen on 10/21/17. Patient Summary This is a 32-year-old female with a history of a left ureteral stricture who underwent a left robotic pyeloplasty approximately 3 months ago and recent left ureteroscopy for ureteral stones, here admitted to the hospital for left flank pain and n/v since her stent was removed. US done here shows worsened left hydronephrosis. She underwent left perc NT placement yesterday and has better pain control and less nausea this morning. Problems (1) Flank pain Status: Chronic Response to Treatment: Stable Discussed With: Patient (2) Nausea & vomiting Status: Resolved Response to Treatment: Improving Discussed With: Nurse (3) Left flank pain Status: Chronic Response to Treatment: Improving, Controlled (4) Chronic pain disorder Status: Chronic (5) Narcotic dependence Status: Chronic Discussed With: Patient Plan/VTE VTE Prophylaxis Ordered?: No Plan/Urinary Catheter Reason for insertion/continuin: Other-document below Plan - continue percocet prn pain - d/c IVF - regular diet - plan for discharge home if pain continues to be well controlled and no more n/ v Subjective Review oF Systems Chief Complaint The patient is a 32-year-old female admitted with a reason for visit of Flank Pain,Hydronephrosis. Events since Last Encounter No acute events o/n. Patient has some flank pain, but notes it is improved since nephrostomy tube placement. She had some nausea last night, but feels ok this morning. No f/c/ns. Objective Physical Examination General Exam: Cooperative ABDOMEN EXAM: No: Normal bowel sounds, BS Hyperactive, BS Hypoactive, Soft, Tenderness, Hepatospenomegaly, Mass, Hernia, Other Neuro Exam: Normal Speech Psych Exam: Mental status NL, Mood NL Other physical findings left nephrostomy tube in place draining light pink urine w/ no clots Vital Signs/I&O Vital Signs Date Time Temp Pulse Resp B/P (MAP) Pulse Ox O2 Delivery O2 Flow Rate FiO2 10/21/17 04:00 97.9 85 20 120/78 (92) 99 Room Air I&O- Last 24 Hours up to 6 AM 10/22/17 05:59 Intake Total 0 ml Output Total 0 ml Balance 0 ml Laboratory Data Labs 24H Laboratory Tests 2 10/20/17 11:24: Prothrombin Time 13.0, Prothromb Time International Ratio 0.97, Activated Partial Thromboplast Time 29.0 10/20/17 17:00: Bedside Urine Color (LAB) REDH, Bedside Urine Appearance (LAB) TURBIDH, Bedside Urine pH (LAB) 8.5, Bedside Urine Specific [place] (LAB 1.012, Bedside Urine Protein (LAB) 3+H, Bedside Urine Glucose (UA) OBSCUREDH, Bedside Urine Ketones ( LAB) OBSCUREDH, Bedside Urine Blood POSITIVEH, Bedside Urine Nitrite (LAB) OBSCUREDH, Bedside Urine Bilirubin (LAB) OBSCUREDH, Bedside Urine Urobilinogen ( LAB) OBSCUREDH, Bedside Urine Leukocyte Esterase (L OBSCUREDH, Urine WBC 3-5H, Urine RBC TNTCH, Urine Squamous Epithelial Cells NONE SEEN, Urine Bacteria NONE SEEN, Urine Hyaline Casts NONE SEEN, Urine Mucus SMALL AMOUNTH, Urine Sediment Examination PERFORMED Microbiology Microbiology 10/20/17 Urine Culture, Received Pending 10/18/17 Urine Culture - Final, Complete 10/18/17 Urine Culture - Final, Complete ROSELYN GUTIÉRREZ MD Oct 21, 2017 08:29
[2017-10-21] MEDS: PERCOCET 5MG/325MG TAB PO PRN (08:51)
[2017-10-21] MEDS: PRENATAL VITAMINS CHEWABLE TABLET PO SCH (08:51)
[2017-10-21] MEDS ORDERED: OXYC1TAB23 PO (13:18)
--- NOTE | 2017-10-22 16:41 | DSES ---
DATE OF ADMISSION: 10/18/2017 DATE OF DISCHARGE: 10/21/2017 ADMISSION DIAGNOSIS: Left hydronephrosis. DISCHARGE DIAGNOSIS: Left hydronephrosis. ADMITTING PHYSICIAN: Dr. Cole DISCHARGING PHYSICIAN: Dr. Arriaga PROCEDURE PERFORMED: Left percutaneous nephrostomy tube placement on 10/20/2017. HISTORY OF PRESENT ILLNESS: This is a 32-year-old female with a history of left ureteral stricture disease which has been treated with a robotic-assisted pyeloplasty approximately three months ago. She was recently treated for a left-sided ureteral stone and had her stent removed. She subsequently started having severe left flank pain and persistent nausea and vomiting which prompted her to come to the hospital on 10/18/2017. She was admitted for pain control and for nausea control. HOSPITAL COURSE: The patient's hospital course was notable mainly for persistent left flank pain as well as nausea and vomiting. A renal ultrasound was performed on admission which was notable for increased left hydronephrosis after removal of the stent. Due to concern that her persistent flank pain, nausea and vomiting were related to the hydronephrosis, it was recommended that a left nephrostomy tube be placed. This was placed on 10/20/2017. Her left flank pain and her nausea subsequently improved. By 10/21/2017, she was in good condition and was discharged home with nephrostomy tube in place. She will have the nephrostomy tube changed every 2-3 months per radiology until the time she delivers. I will have her followup with me in about 2-3 weeks. SUSSY
== END 2017-10-21 13:40 | disposition home or self-care (01) | DRG 951 ==
LOC: M ED 11:43 → M ED INP 17:23 → M PED 19:45
PROVIDERS: ADMIT Urology; ATTEND Urology
PROC: 0T9180Z Drainage of Left Kidney with Drainage Device, Via Natural or Artificial Opening Endoscopic (ICD-10-PCS; principal; 2017-10-20)
DX: O21.8 Other vomiting complicating pregnancy (principal); F11.20 Opioid dependence, uncomplicated; N13.1 Hydronephrosis with ureteral stricture, not elsewhere classified; O99.351 Diseases of the nervous system complicating pregnancy, first trimester; O26.21 Pregnancy care for patient with recurrent pregnancy loss, first trimester; Z88.8 Allergy status to other drugs, medicaments and biological substances; G89.29 Other chronic pain; Z3A.08 8 weeks gestation of pregnancy; O99.89 Other specified diseases and conditions complicating pregnancy, childbirth and the puerperium

== ENCOUNTER 2017-10-30 20:51 | Emergency (ER) | payer MEDICAID ==
[2017-10-30 22:27] LABS: BASO # 0.1 10^3/uL (0.0-0.2); BASO % 0.6 % (0.0-1.0); EOS # 0.1 10^3/uL (0.0-0.50); IMMATURE GRANULOCYTE % 0.2 % (0-0); LYMPH # 0.7 10^3/uL (1.5-4.5); LYMPH % 7.6 % (24.0-44.0); MEAN CORPUSCULAR HEMOGLOBIN 28.3 pg (27.0-33.0); MEAN CORPUSCULAR HGB CONC 33.7 g/dl (32.0-36.5); MEAN CORPUSCULAR VOLUME 83.9 fl (80.0-96.0); MONO # 0.8 10^3/uL (0.0-0.8); MONO % 8.6 % (0.0-5.0); NEUTROPHILS # 7.2 10^3/uL (1.8-7.7); PLATELET COUNT, AUTOMATED 359 10^3/uL (150-450); RED CELL DISTRIBUTION WIDTH 13.2 % (11.5-14.5); WHITE BLOOD COUNT 8.7 10^3/uL (4.0-10.0)
[2017-10-30] MEDS ORDERED: PROMETHAZINE INJ 25 MG/ML VIAL (J2550) As Ordered (22:28)
[2017-10-30] MEDS ORDERED: PROMETHAZINE 25 MG TAB PO (22:30)
[2017-10-30] MEDS: NS 1,000 ML IV (22:30)
[2017-10-30] MEDS: PROMETHAZINE INJ 25 MG/ML VIAL (J2550) IV (22:36)
[2017-10-30 22:52] LABS: ALBUMIN 3.2 GM/DL (3.2-5.2); ALBUMIN/GLOBULIN RATIO 0.76 (1.00-1.93); ALKALINE PHOSPHATASE 94 U/L (45-117); ALT/SGPT 16 U/L (12-78); ANION GAP 9 MEQ/L (8-16); AST/SGOT 13 U/L (7-37); BILIRUBIN,TOTAL 0.4 MG/DL (0.2-1.0); BLOOD UREA NITROGEN 12 MG/DL (7-18); CALCIUM LEVEL 8.7 MG/DL (8.5-10.1); CARBON DIOXIDE LEVEL 29 MEQ/L (21-32); CHLORIDE LEVEL 102 MEQ/L (98-107); CREATININE FOR GFR 0.74 MG/DL (0.55-1.02); GLOMERULAR FILTRATION RATE > 60.0 (>60); GLUCOSE, FASTING 97 MG/DL (70-105); HCG, SERUM QUANTITATIVE 122209 MIU/ML; SODIUM LEVEL 140 MEQ/L (136-145); TOTAL PROTEIN 7.4 GM/DL (6.4-8.2)
[2017-10-30 23:31] LABS: KETONE, URINE AUTO RFX 1+ mg/dL (NEGATIVE); LEUKOCYTE ESTERASE UR AUTO RFX 3+ (NEGATIVE); MUCUS, URINE RFX LARGE (NEGATIVE); NITRITE, URINE AUTO RFX NEGATIVE (NEGATIVE); RBC, URINE AUTO RFX 122 /HPF (0-3); SPECIFIC GRAVITY UR AUTO RFX 1.014 (1.002-1.035); SQUAM EPITHELIAL CELL UR AURFX 0 /HPF (0-6); WBC, URINE AUTO RFX TNTC /HPF (0-3)
[2017-10-31] MEDS: NITROFURANTOIN (MACROBID) 100 MG CAP PO (00:33)
[2017-10-31] MEDS: PROMETHAZINE 25 MG TAB PO (00:33)
[2017-10-31] MEDS: POTASSIUM CHLORIDE 10 MEQ SR TABLET PO (00:34)
== END 2017-10-31 01:00 | disposition home or self-care (01) ==
LOC: M ED 10-31 01:00
DX: O23.41 Unspecified infection of urinary tract in pregnancy, first trimester (principal); Z3A.10 10 weeks gestation of pregnancy; O21.9 Vomiting of pregnancy, unspecified; O99.011 Anemia complicating pregnancy, first trimester; O99.341 Other mental disorders complicating pregnancy, first trimester; F41.9 Anxiety disorder, unspecified; Z88.8 Allergy status to other drugs, medicaments and biological substances; Z87.891 Personal history of nicotine dependence
CPT/HCPCS: 76801

== ENCOUNTER 2017-11-21 19:05 | Emergency (ER) | payer OTHER, MEDICAID ==
[2017-11-21] MEDS: NS 1,000 ML IV (20:00)
[2017-11-21 20:17] LABS: BASO # 0.1 10^3/uL (0.0-0.2); BASO % 0.4 % (0.0-1.0); EOS # 0.4 10^3/uL (0.0-0.50); HEMATOCRIT 31.3 % (36.0-47.0); HEMOGLOBIN 10.6 g/dl (12.0-16.0); IMMATURE GRANULOCYTE % 0.3 % (0-0); LYMPH # 2.5 10^3/uL (1.5-4.5); LYMPH % 20.7 % (24.0-44.0); MEAN CORPUSCULAR HEMOGLOBIN 28.5 pg (27.0-33.0); MEAN CORPUSCULAR HGB CONC 33.9 g/dl (32.0-36.5); MEAN CORPUSCULAR VOLUME 84.1 fl (80.0-96.0); MONO # 0.6 10^3/uL (0.0-0.8); MONO % 4.6 % (0.0-5.0); NEUTROPHILS # 8.7 10^3/uL (1.8-7.7); PLATELET COUNT, AUTOMATED 551 10^3/uL (150-450); RED BLOOD COUNT 3.72 10^6/uL (4.00-5.40); RED CELL DISTRIBUTION WIDTH 13.8 % (11.5-14.5); WHITE BLOOD COUNT 12.2 10^3/uL (4.0-10.0)
[2017-11-21 20:21] LABS: APPEARANCE, URINE HAZY (CLEAR); BACTERIA, URINE AUTO 1+ (NEGATIVE); BILIRUBIN, URINE AUTO NEGATIVE (NEGATIVE); BLOOD, URINE BLOOD NEGATIVE (NEGATIVE); COLOR, URINE YELLOW (YELLOW); GLUCOSE, URINE (UA) AUTO NEGATIVE (NEGATIVE); KETONE, URINE AUTO NEGATIVE (NEGATIVE); LEUKOCYTE ESTERASE, URINE AUTO 3+ (NEGATIVE); MUCUS, URINE SMALL (NEGATIVE); NITRITE, URINE AUTO NEGATIVE (NEGATIVE); PROTEIN, URINE AUTO 1+ mg/dL (NEGATIVE); RBC, URINE AUTO 4 /HPF (0-3); SQUAMOUS EPITHELIAL CELL UR AU 0 /HPF (0-6); UROBILINOGEN, URINE AUTO 0.2 mg/dL (0.0-2.0); WBC, URINE AUTO 22 /HPF (0-3)
[2017-11-21 20:42] LABS: ALBUMIN 2.7 GM/DL (3.2-5.2); ALBUMIN/GLOBULIN RATIO 0.52 (1.00-1.93); ALKALINE PHOSPHATASE 123 U/L (45-117); ALT/SGPT 12 U/L (12-78); ANION GAP 7 MEQ/L (8-16); AST/SGOT 10 U/L (7-37); BILIRUBIN,DIRECT < 0.1 MG/DL (0.0-0.2); BILIRUBIN,TOTAL 0.1 MG/DL (0.2-1.0); BLOOD UREA NITROGEN 11 MG/DL (7-18); CALCIUM LEVEL 9.2 MG/DL (8.5-10.1); CARBON DIOXIDE LEVEL 26 MEQ/L (21-32); CHLORIDE LEVEL 106 MEQ/L (98-107); CREATININE FOR GFR 0.72 MG/DL (0.55-1.02); GLOMERULAR FILTRATION RATE > 60.0 (>60); GLUCOSE, FASTING 98 MG/DL (70-105); POTASSIUM SERUM 3.5 MEQ/L (3.5-5.1); SODIUM LEVEL 139 MEQ/L (136-145); TOTAL PROTEIN 7.9 GM/DL (6.4-8.2)
[2017-11-21] MEDS: CEFTRIAXONE SOD 1 GM in APPROPRIATE DILUENT 1 EA IV (21:00)
[2017-11-21] MEDS: ACETAMINOPHEN TAB 650MG DOSE (2X325MG) PO (21:15)
== END 2017-11-21 23:53 | disposition home or self-care (01) ==
LOC: M ED 19:05
DX: O99.412 Diseases of the circulatory system complicating pregnancy, second trimester (principal); I95.1 Orthostatic hypotension; O23.42 Unspecified infection of urinary tract in pregnancy, second trimester; O99.342 Other mental disorders complicating pregnancy, second trimester; F41.1 Generalized anxiety disorder; Z87.442 Personal history of urinary calculi; Z93.6 Other artificial openings of urinary tract status; Z3A.14 14 weeks gestation of pregnancy; Z88.8 Allergy status to other drugs, medicaments and biological substances
CPT/HCPCS: 76775

== ENCOUNTER 2017-11-29 09:26 | Emergency (ER) | payer OTHER ==
[2017-11-29] MEDS: SODIUM CHLORIDE 0.9% 1000 ML IV (10:15)
[2017-11-29] MEDS: ONDANSETRON 4 MG ORAL DISINTEGRATING TAB (S0181) PO (10:15)
[2017-11-29 10:42] LABS: AMORPHOUS SEDIMENT MODERATE (NEGATIVE); APPEARANCE, URINE CLOUDY (CLEAR); BACTERIA, URINE AUTO 3+ (NEGATIVE); BILIRUBIN, URINE AUTO NEGATIVE (NEGATIVE); BLOOD, URINE BLOOD 3+ (NEGATIVE); COLOR, URINE YELLOW (YELLOW); GLUCOSE, URINE (UA) AUTO NEGATIVE (NEGATIVE); KETONE, URINE AUTO NEGATIVE (NEGATIVE); LEUKOCYTE ESTERASE, URINE AUTO 3+ (NEGATIVE); MUCUS, URINE MODERATE (NEGATIVE); NITRITE, URINE AUTO NEGATIVE (NEGATIVE); PROTEIN, URINE AUTO 2+ mg/dL (NEGATIVE); RBC, URINE AUTO TNTC /HPF (0-3); SPECIFIC GRAVITY URINE AUTO 1.014 (1.002-1.035); SQUAMOUS EPITHELIAL CELL UR AU 0 /HPF (0-6); TRIPLE PHOSPHATE CRYSTALS SMALL; UROBILINOGEN, URINE AUTO 0.2 mg/dL (0.0-2.0); WBC, URINE AUTO TNTC /HPF (0-3)
[2017-11-29] MEDS ORDERED: CEFTAZIDIME IV (11:00)
[2017-11-29] MEDS ORDERED: DILUENT IV (11:00)
[2017-11-29 11:04] LABS: BASO # 0.1 10^3/uL (0.0-0.2); BASO % 0.5 % (0.0-1.0); EOS # 0.1 10^3/uL (0.0-0.50); EOS % 1.3 % (0.0-3.0); HEMATOCRIT 35.4 % (36.0-47.0); IMMATURE GRANULOCYTE % 0.3 % (0-0); LYMPH # 1.5 10^3/uL (1.5-4.5); LYMPH % 16.2 % (24.0-44.0); MEAN CORPUSCULAR HEMOGLOBIN 28.5 pg (27.0-33.0); MEAN CORPUSCULAR HGB CONC 33.9 g/dl (32.0-36.5); MEAN CORPUSCULAR VOLUME 84.1 fl (80.0-96.0); MONO # 0.5 10^3/uL (0.0-0.8); MONO % 5.7 % (0.0-5.0); NEUTROPHILS # 7.2 10^3/uL (1.8-7.7); PLATELET COUNT, AUTOMATED 458 10^3/uL (150-450); RED BLOOD COUNT 4.21 10^6/uL (4.00-5.40); WHITE BLOOD COUNT 9.4 10^3/uL (4.0-10.0)
[2017-11-29 11:33] LABS: ANION GAP 6 MEQ/L (8-16); BLOOD UREA NITROGEN 15 MG/DL (7-18); CALCIUM LEVEL 8.6 MG/DL (8.5-10.1); CARBON DIOXIDE LEVEL 27 MEQ/L (21-32); CHLORIDE LEVEL 102 MEQ/L (98-107); CREATININE FOR GFR 0.66 MG/DL (0.55-1.02); GLOMERULAR FILTRATION RATE > 60.0 (>60); GLUCOSE, FASTING 91 MG/DL (70-100); POTASSIUM SERUM 3.6 MEQ/L (3.5-5.1); SODIUM LEVEL 135 MEQ/L (136-145)
[2017-11-29] MEDS: DILUENT IV (11:34)
[2017-11-29] MEDS: CEFTAZIDIME IV (11:34)
[2017-11-29] MEDS: CEFDINIR 300 MG CAP (OMNICEF) PO (13:59)
== END 2017-11-29 15:13 | disposition home or self-care (01) ==
LOC: M ED 09:26
DX: O21.9 Vomiting of pregnancy, unspecified (principal); O23.42 Unspecified infection of urinary tract in pregnancy, second trimester; Z3A.15 15 weeks gestation of pregnancy; Z87.442 Personal history of urinary calculi; Z93.6 Other artificial openings of urinary tract status; Z79.899 Other long term (current) drug therapy; Z88.8 Allergy status to other drugs, medicaments and biological substances
CPT/HCPCS: 80048

== ENCOUNTER → 2017-12-08 | Outpatient (CLI) | payer OTHER | LOC: M LAB 12:30 | DX: Z34.81 Encounter for supervision of other normal pregnancy, first trimester (principal); Z3A.12 12 weeks gestation of pregnancy ==

== ENCOUNTER → 2017-12-25 | Outpatient (CLI) | payer OTHER ==
[2017-12-25 09:43] LABS: BASO % 0.4 % (0.0-1.0); EOS # 0.1 10^3/uL (0.0-0.50); EOS % 1.5 % (0.0-3.0); HEMATOCRIT 35.8 % (36.0-47.0); IMMATURE GRANULOCYTE % 0.4 % (0-3.0); LYMPH # 1.8 10^3/uL (1.5-4.5); LYMPH % 18.9 % (24.0-44.0); MEAN CORPUSCULAR HEMOGLOBIN 28.8 pg (27.0-33.0); MEAN CORPUSCULAR HGB CONC 33.5 g/dl (32.0-36.5); MEAN CORPUSCULAR VOLUME 86.1 fl (80.0-96.0); MONO # 0.5 10^3/uL (0.0-0.8); MONO % 4.8 % (0.0-5.0); PLATELET COUNT, AUTOMATED 370 10^3/uL (150-450); RED BLOOD COUNT 4.16 10^6/uL (4.00-5.40); RED CELL DISTRIBUTION WIDTH 14.4 % (11.5-14.5); WHITE BLOOD COUNT 9.4 10^3/uL (4.0-10.0)
[2017-12-25 13:09] LABS: CHLAMYDIA DNA AMPLIFICATION NEGATIVE (NEGATIVE); GC DNA AMPLIFICATION NEGATIVE (NEGATIVE)
[2017-12-26 09:56] LABS: RUBELLA IgG QUALITATIVE IMMUNE (IMMUNE)
[2017-12-26 10:13] LABS: HBsAg Prenatal NEGATIVE (NEGATIVE)
[2017-12-26 10:25] LABS: HEPATITIS C VIRUS ABY INDEX 0.1 INDEX (<0.8)
[2017-12-26 10:26] LABS: HIV 1&2 SCREEN CENTAUR NEGATIVE (NEGATIVE)
== END ==
LOC: M LAB 09:12
DX: Z36.89 Encounter for other specified antenatal screening (principal); Z3A.18 18 weeks gestation of pregnancy
CPT/HCPCS: 76811

== ENCOUNTER → 2017-12-29 | Outpatient (CLI) | payer OTHER ==
[~2017-12-29] MED LIST changes: -/ESCI10TA OR; -/OXCA30TA OR; -AMBI5TAB PO; -AMOX500C PO; -ATIV0.5T OR; -ATIV1TAB2 OR; -BACT800T OR; -CELE20TA OR; -CIPR-249 PO; -CIPR500T19 PO; -COLA100C5 PO; -DITR5TAB PO; -FLOM5CAP PO; -FLUO20CA8 PO; -GABA-282 PO; -GABA-283 PO; -HYDR50TA70 PO; -IBUP-1114 PO; -IBUP1TAB6 PO; -IBUP200C10 PO; +ISOVUE-300 61% 50ML VIAL (Q9967) As Ordered; -KETO10TAB PO; -KLON0.5T OR; -KLOR25PO2 PO; -LEVA1TAB2 PO; -MACR100C43 PO; -MACROBID PO; -MELA5TAB17 PO; +NITROFURANTOIN (MACROBID) 100 MG CAP As Ordered; -NORCOTAB PO; -No Historical Meds; -ONDA4TAB6 PO; -OXYB5TAB10 PO; -OXYC1SOL3 PO; -OXYC1TAB23 PO; -PERC5TAB12 PO; -PERC5TAB8 OR; -PERCOCET PO; -PHEN1SUP6 PR; -PREN1TAB26 PO; -PREN200C PO; -PROC5TA PO; -SERT-138 PO; -TYLE325T5 PO; -UNIS25TA2 PO; -VICO5TAB OR; -VITA50TA43 PO; -ZOLO25TA PO; -ZOLP5TAB PO; -[UNRECOGNIZED DRUG - CODE] PV
== END ==
LOC: M RADPRO 09:17
DX: N13.30 Unspecified hydronephrosis (principal); Z33.1 Pregnant state, incidental; Z3A.18 18 weeks gestation of pregnancy; Z88.8 Allergy status to other drugs, medicaments and biological substances
CPT/HCPCS: 50435

== ENCOUNTER → 2018-01-05 | Outpatient (REF) | payer OTHER | LOC: M LAB REF 16:54 | DX: Z34.82 Encounter for supervision of other normal pregnancy, second trimester (principal) ==

== ENCOUNTER 2018-01-19 16:54 | Outpatient (CLI) | payer OTHER ==
[2018-01-19] MEDS ORDERED: LR 1,000 ML IV (18:30)
[2018-01-19] MEDS: LACTATED RINGER'S 1000 ML IV (18:44)
[2018-01-19] MEDS: ONDANSETRON 4MG/2ML VIAL (J2405) IV ×2 (18:57→22:20)
[2018-01-19 19:00] LABS: HEMOGLOBIN 10.5 g/dl (12.0-16.0); MEAN CORPUSCULAR HEMOGLOBIN 29.2 pg (27.0-33.0); MEAN CORPUSCULAR HGB CONC 33.9 g/dl (32.0-36.5); MEAN CORPUSCULAR VOLUME 86.4 fl (80.0-96.0); PLATELET COUNT, AUTOMATED 370 10^3/uL (150-450); RED BLOOD COUNT 3.59 10^6/uL (4.00-5.40); WHITE BLOOD COUNT 9.1 10^3/uL (4.0-10.0)
[2018-01-19 19:28] LABS: ALBUMIN 2.6 GM/DL (3.2-5.2); ALBUMIN/GLOBULIN RATIO 0.63 (1.00-1.93); ALKALINE PHOSPHATASE 104 U/L (45-117); ALT/SGPT 11 U/L (12-78); AMYLASE 58 U/L (25-115); ANION GAP 8 MEQ/L (8-16); AST/SGOT 11 U/L (7-37); BILIRUBIN,TOTAL 0.3 MG/DL (0.2-1.0); BLOOD UREA NITROGEN 12 MG/DL (7-18); CALCIUM LEVEL 8.6 MG/DL (8.5-10.1); CARBON DIOXIDE LEVEL 26 MEQ/L (21-32); CHLORIDE LEVEL 105 MEQ/L (98-107); CREATININE FOR GFR 0.69 MG/DL (0.55-1.30); GLOMERULAR FILTRATION RATE > 60.0 (>60); GLUCOSE, FASTING 95 MG/DL (70-100); LIPASE 117 U/L (73-393); POTASSIUM SERUM 3.4 MEQ/L (3.5-5.1); SODIUM LEVEL 139 MEQ/L (136-145); TOTAL PROTEIN 6.7 GM/DL (6.4-8.2)
[2018-01-19 20:38] LABS: APPEARANCE, URINE HAZY (CLEAR); BACTERIA, URINE AUTO 3+ (NEGATIVE); BILIRUBIN, URINE AUTO NEGATIVE (NEGATIVE); BLOOD, URINE BLOOD 1+ (NEGATIVE); COLOR, URINE YELLOW (YELLOW); GLUCOSE, URINE (UA) AUTO NEGATIVE (NEGATIVE); KETONE, URINE AUTO NEGATIVE (NEGATIVE); LEUKOCYTE ESTERASE, URINE AUTO 3+ (NEGATIVE); MUCUS, URINE SMALL (NEGATIVE); NITRITE, URINE AUTO NEGATIVE (NEGATIVE); PROTEIN, URINE AUTO 1+ mg/dL (NEGATIVE); RBC, URINE AUTO 11 /HPF (0-3); SPECIFIC GRAVITY URINE AUTO 1.013 (1.002-1.035); SQUAMOUS EPITHELIAL CELL UR AU 0 /HPF (0-6); UROBILINOGEN, URINE AUTO 0.2 mg/dL (0.0-2.0); WBC, URINE AUTO 76 /HPF (0-3)
[2018-01-19 20:50] LABS: APPEARANCE, URINE CLOUDY (CLEAR); BACTERIA, URINE AUTO 3+ (NEGATIVE); BILIRUBIN, URINE AUTO NEGATIVE (NEGATIVE); BLOOD, URINE BLOOD NEGATIVE (NEGATIVE); COLOR, URINE YELLOW (YELLOW); GLUCOSE, URINE (UA) AUTO NEGATIVE (NEGATIVE); KETONE, URINE AUTO NEGATIVE (NEGATIVE); LEUKOCYTE ESTERASE, URINE AUTO 1+ (NEGATIVE); MUCUS, URINE SMALL (NEGATIVE); NITRITE, URINE AUTO POSITIVE (NEGATIVE); PROTEIN, URINE AUTO NEGATIVE (NEGATIVE); RBC, URINE AUTO 0 /HPF (0-3); SPECIFIC GRAVITY URINE AUTO 1.018 (1.002-1.035); SQUAMOUS EPITHELIAL CELL UR AU 3 /HPF (0-6); UROBILINOGEN, URINE AUTO 0.2 mg/dL (0.0-2.0); WBC, URINE AUTO 74 /HPF (0-3)
[2018-01-19] MEDS: NITROFURANTOIN (MACROBID) 100 MG CAP PO (22:53)
== END 2018-01-19 23:11 | disposition home or self-care (01) ==
LOC: M LDO 16:54
DX: O99.89 Other specified diseases and conditions complicating pregnancy, childbirth and the puerperium (principal); Z3A.21 21 weeks gestation of pregnancy; R11.2 Nausea with vomiting, unspecified; R19.7 Diarrhea, unspecified; N20.0 Calculus of kidney; Z93.6 Other artificial openings of urinary tract status; A08.4 Viral intestinal infection, unspecified; O23.42 Unspecified infection of urinary tract in pregnancy, second trimester; O99.612 Diseases of the digestive system complicating pregnancy, second trimester
CPT/HCPCS: J2405

== ENCOUNTER → 2018-02-02 | Outpatient (REF) | payer OTHER | LOC: M LAB REF 17:03 | DX: Z34.82 Encounter for supervision of other normal pregnancy, second trimester (principal); Z3A.00 Weeks of gestation of pregnancy not specified ==

== ENCOUNTER 2018-02-05 18:46 | Outpatient (CLI) | payer OTHER ==
[2018-02-05] MEDS: CEFTRIAXONE SOD 1 GM in APPROPRIATE DILUENT 1 EA IV (20:10)
[2018-02-05] MEDS: ONDANSETRON 4 MG ORAL DISINTEGRATING TAB (S0181) SL (20:57)
== END 2018-02-05 21:00 | disposition home or self-care (01) ==
LOC: M LDO 18:46
DX: O99.89 Other specified diseases and conditions complicating pregnancy, childbirth and the puerperium (principal); Z3A.24 24 weeks gestation of pregnancy; O23.42 Unspecified infection of urinary tract in pregnancy, second trimester; Z88.8 Allergy status to other drugs, medicaments and biological substances
CPT/HCPCS: J0696

== ENCOUNTER 2018-02-06 21:00 | Inpatient (IN) | payer OTHER ==
[2018-02-06 22:20] LABS: BASO % 0.2 % (0.0-1.0); EOS % 0.3 % (0.0-3.0); HEMATOCRIT 29.6 % (36.0-47.0); HEMOGLOBIN 9.8 g/dl (12.0-15.5); IMMATURE GRANULOCYTE % 0.4 % (0-3.0); LYMPH # 1.2 10^3/uL (1.5-4.5); LYMPH % 8.8 % (24.0-44.0); MEAN CORPUSCULAR HEMOGLOBIN 28.2 pg (27.0-33.0); MEAN CORPUSCULAR HGB CONC 33.1 g/dl (32.0-36.5); MEAN CORPUSCULAR VOLUME 85.1 fl (80.0-96.0); MONO # 1.1 10^3/uL (0.0-0.8); MONO % 8.1 % (0.0-5.0); NEUTROPHILS # 11.3 10^3/uL (1.8-7.7); NEUTROPHILS % 82.2 % (36.0-66.0); PLATELET COUNT, AUTOMATED 395 10^3/uL (150-450); RED BLOOD COUNT 3.48 10^6/uL (4.00-5.40); RED CELL DISTRIBUTION WIDTH 12.8 % (11.5-14.5); WHITE BLOOD COUNT 13.8 10^3/uL (4.0-10.0)
[2018-02-06] MEDS: cefTRIAXone SOD 1 GM in D5W MINI-BAG PLUS 50 ML IV (22:33)
[2018-02-06] MEDS: ACETAMINOPHEN 500 MG TAB PO (22:38)
[2018-02-06 22:55] LABS: ALBUMIN 2.5 GM/DL (3.2-5.2); ALBUMIN/GLOBULIN RATIO 0.54 (1.00-1.93); ALKALINE PHOSPHATASE 116 U/L (45-117); ALT/SGPT 8 U/L (12-78); ANION GAP 6 MEQ/L (8-16); AST/SGOT 7 U/L (7-37); BILIRUBIN,TOTAL 0.4 MG/DL (0.2-1.0); BLOOD UREA NITROGEN 8 MG/DL (7-18); CALCIUM LEVEL 9.1 MG/DL (8.5-10.1); CARBON DIOXIDE LEVEL 28 MEQ/L (21-32); CHLORIDE LEVEL 102 MEQ/L (98-107); CREATININE FOR GFR 0.84 MG/DL (0.55-1.30); GLOMERULAR FILTRATION RATE > 60.0 (>60); GLUCOSE, FASTING 101 MG/DL (70-100); POTASSIUM SERUM 3.6 MEQ/L (3.5-5.1); SODIUM LEVEL 136 MEQ/L (136-145); TOTAL PROTEIN 7.1 GM/DL (6.4-8.2)
[2018-02-07] MEDS: ONDANSETRON 4MG/2ML VIAL (J2405) IV ×3 (08:02→19:28)
[2018-02-07] MEDS: PRENATAL VITAMINS CHEWABLE TABLET PO (09:14)
[2018-02-07] MEDS ORDERED: ONDANSETRON 4MG/2ML VIAL (J2405) IV ×2 (13:00)
[2018-02-07] MEDS: FAMOTIDINE 20 MG TAB PO ×2 (13:10→21:44)
[2018-02-07] MEDS: ACETAMINOPHEN 500 MG TAB PO (19:29)
[2018-02-07] MEDS: cefTRIAXone SOD 1 GM in D5W MINI-BAG PLUS 50 ML IV (21:44)
[2018-02-08] MEDS: PRENATAL VITAMINS CHEWABLE TABLET PO (09:00)
[2018-02-08] MEDS: ONDANSETRON 4MG/2ML VIAL (J2405) IV (09:43)
[2018-02-08] MEDS: FAMOTIDINE 20 MG TAB PO (09:43)
[2018-02-08] MEDS: INFLUENZA QUADRIVALENT PF VACCINE 0.5ML SYRINGE (90686) IM (09:45)
== END 2018-02-08 12:20 | disposition home or self-care (01) | DRG 566 ==
LOC: M LDO 21:00 → M OBS 02-07 08:33 → M LDI 21:42 → M OBS 02-07 08:45 → M LDI 21:51
DX: O23.02 Infections of kidney in pregnancy, second trimester (principal); N99.521 Infection of incontinent external stoma of urinary tract; Z3A.24 24 weeks gestation of pregnancy; Z88.1 Allergy status to other antibiotic agents; Z96.0 Presence of urogenital implants; Z79.899 Other long term (current) drug therapy; Z87.442 Personal history of urinary calculi; N13.6 Pyonephrosis; R82.71 Bacteriuria; N12 Tubulo-interstitial nephritis, not specified as acute or chronic

== ENCOUNTER → 2018-02-19 | Outpatient (CLI) | payer OTHER ==
[2018-02-19 13:46] LABS: HEMATOCRIT 31.5 % (36.0-47.0); HEMOGLOBIN 10.2 g/dl (12.0-15.5); MEAN CORPUSCULAR HEMOGLOBIN 27.5 pg (27.0-33.0); MEAN CORPUSCULAR HGB CONC 32.4 g/dl (32.0-36.5); MEAN CORPUSCULAR VOLUME 84.9 fl (80.0-96.0); PLATELET COUNT, AUTOMATED 509 10^3/uL (150-450); RED BLOOD COUNT 3.71 10^6/uL (4.00-5.40); RED CELL DISTRIBUTION WIDTH 12.6 % (11.5-14.5)
[2018-02-20 08:03] LABS: WHITE BLOOD COUNT 10.8 10^3/uL (4.0-10.0)
[2018-02-20 08:04] LABS: GLUCOSE CHALLENGE TEST 1 HOUR 142 MG/DL (LESS THAN 140)
[2018-02-20 08:45] LABS: TYPE AND SCREEN 1 1
== END ==
LOC: M LAB 11:57
DX: Z34.82 Encounter for supervision of other normal pregnancy, second trimester (principal); Z36.89 Encounter for other specified antenatal screening
CPT/HCPCS: 82950

== ENCOUNTER → 2018-02-19 | Outpatient (REF) | payer OTHER, MEDICARE | LOC: M SMT 17:18 | DX: N39.0 Urinary tract infection, site not specified (principal) | CPT/HCPCS: 87186 ==

== ENCOUNTER → 2018-02-24 | Outpatient (CLI) | payer OTHER ==
[~2018-02-24] MED LIST changes: -NITROFURANTOIN (MACROBID) 100 MG CAP As Ordered
== END ==
LOC: M RADPRO 13:51
DX: N13.30 Unspecified hydronephrosis (principal)
CPT/HCPCS: 50435

== ENCOUNTER → 2018-02-26 | Outpatient (CLI) | payer OTHER | LOC: M RAD 18:13 | DX: O23.02 Infections of kidney in pregnancy, second trimester (principal); Z3A.27 27 weeks gestation of pregnancy; N13.30 Unspecified hydronephrosis | CPT/HCPCS: 50435 ==

== ENCOUNTER → 2018-03-18 | Outpatient (REF) | payer OTHER ==
[2018-03-18 18:40] LABS: APPEARANCE, URINE CLOUDY (CLEAR); BACTERIA, URINE AUTO 2+ (NEGATIVE); BILIRUBIN, URINE AUTO NEGATIVE (NEGATIVE); BLOOD, URINE BLOOD 2+ (NEGATIVE); COLOR, URINE YELLOW (YELLOW); GLUCOSE, URINE (UA) AUTO NEGATIVE (NEGATIVE); KETONE, URINE AUTO NEGATIVE (NEGATIVE); LEUKOCYTE ESTERASE, URINE AUTO 3+ (NEGATIVE); MUCUS, URINE SMALL (NEGATIVE); NITRITE, URINE AUTO POSITIVE (NEGATIVE); PROTEIN, URINE AUTO 2+ mg/dL (NEGATIVE); RBC, URINE AUTO 150 /HPF (0-3); SPECIFIC GRAVITY URINE AUTO 1.013 (1.002-1.035); SQUAMOUS EPITHELIAL CELL UR AU 0 /HPF (0-6); UROBILINOGEN, URINE AUTO 0.2 mg/dL (0.0-2.0); WBC, URINE AUTO 50 /HPF (0-3)
== END ==
LOC: M LAB REF 17:02
DX: N10 Acute pyelonephritis (principal)

== ENCOUNTER → 2018-03-20 | Outpatient (CLI) | payer OTHER | LOC: M RAD 13:51 | DX: Z36.2 Encounter for other antenatal screening follow-up (principal); Z3A.30 30 weeks gestation of pregnancy | CPT/HCPCS: 76816 ==

== ENCOUNTER → 2018-04-10 | Outpatient (REF) | payer OTHER | LOC: M LAB REF 12:57 | DX: Z34.83 Encounter for supervision of other normal pregnancy, third trimester (principal); Z3A.00 Weeks of gestation of pregnancy not specified ==

== ENCOUNTER 2018-04-13 18:33 | Observation (INO) | payer OTHER ==
[2018-04-13] MEDS: ONDANSETRON 4MG/2ML VIAL (J2405) IV (20:56)
[2018-04-13] MEDS: MORPHINE 4 MG/ML 1ML VIAL/SYRINGE (J2270) IV ×2 (20:58→23:48)
[2018-04-13 21:06] LABS: BASO % 0.3 % (0.0-1.0); EOS # 0.2 10^3/uL (0.0-0.50); EOS % 1.7 % (0.0-3.0); HEMATOCRIT 29.5 % (36.0-47.0); HEMOGLOBIN 9.3 g/dl (12.0-15.5); IMMATURE GRANULOCYTE % 0.6 % (0-3.0); LYMPH # 1.4 10^3/uL (1.5-4.5); LYMPH % 13.7 % (24.0-44.0); MEAN CORPUSCULAR HEMOGLOBIN 24.7 pg (27.0-33.0); MEAN CORPUSCULAR HGB CONC 31.5 g/dl (32.0-36.5); MEAN CORPUSCULAR VOLUME 78.2 fl (80.0-96.0); MONO # 0.7 10^3/uL (0.0-0.8); MONO % 6.9 % (0.0-5.0); NEUTROPHILS # 8.1 10^3/uL (1.8-7.7); NEUTROPHILS % 76.8 % (36.0-66.0); PLATELET COUNT, AUTOMATED 378 10^3/uL (150-450); RED BLOOD COUNT 3.77 10^6/uL (4.00-5.40); RED CELL DISTRIBUTION WIDTH 14.2 % (11.5-14.5); WHITE BLOOD COUNT 10.5 10^3/uL (4.0-10.0)
[2018-04-13 21:11] LABS: KETONE, URINE AUTO RFX NEGATIVE (NEGATIVE); NITRITE, URINE AUTO RFX NEGATIVE (NEGATIVE); RBC, URINE AUTO RFX 98 /HPF (0-3); SPECIFIC GRAVITY UR AUTO RFX 1.012 (1.002-1.035); SQUAM EPITHELIAL CELL UR AURFX 0 /HPF (0-6)
[2018-04-13 21:12] LABS: LEUKOCYTE ESTERASE UR AUTO RFX 3+ (NEGATIVE); WBC, URINE AUTO RFX TNTC /HPF (0-3)
[2018-04-13 21:19] LABS: INR 0.97
[2018-04-13 21:20] LABS: PARTIAL THROMBOPLASTIN TIME 26.9 SECONDS (26.8-37.9)
[2018-04-13 21:29] LABS: ALBUMIN 2.5 GM/DL (3.2-5.2); ALKALINE PHOSPHATASE 162 U/L (45-117); ALT/SGPT 11 U/L (12-78); AMYLASE 69 U/L (25-115); ANION GAP 7 MEQ/L (8-16); AST/SGOT 15 U/L (7-37); BILIRUBIN,DIRECT 0.1 MG/DL (0.0-0.2); BILIRUBIN,TOTAL 0.5 MG/DL (0.2-1.0); BLOOD UREA NITROGEN 11 MG/DL (7-18); CALCIUM LEVEL 8.7 MG/DL (8.5-10.1); CARBON DIOXIDE LEVEL 29 MEQ/L (21-32); CHLORIDE LEVEL 103 MEQ/L (98-107); CREATININE FOR GFR 0.91 MG/DL (0.55-1.30); GLOMERULAR FILTRATION RATE > 60.0 (>60); GLUCOSE, FASTING 94 MG/DL (70-100); LIPASE 154 U/L (73-393); POTASSIUM SERUM 3.6 MEQ/L (3.5-5.1); SODIUM LEVEL 139 MEQ/L (136-145); TOTAL PROTEIN 6.7 GM/DL (6.4-8.2)
[2018-04-13] MEDS ORDERED: ACETAMINOPHEN 325 MG TAB PO (22:45)
[2018-04-13] MEDS ORDERED: ONDANSETRON 4MG/2ML VIAL (J2405) IV (22:45)
[2018-04-13] MEDS: LR 1,000 ML IV (23:44)
[2018-04-14] MEDS: LR 1,000 ML IV ×2 (03:45→07:34)
[2018-04-14] MEDS: MORPHINE 4 MG/ML 1ML VIAL/SYRINGE (J2270) IV (07:35)
[2018-04-14] MEDS: NITROFURANTOIN (MACROBID) 100 MG CAP PO (09:32)
[2018-04-14] MEDS ORDERED: LIDOCAINE 1% MDV 20ML VIAL As Ordered (10:57)
[2018-04-14] MEDS ORDERED: ISOVUE-300 61% 50ML VIAL (Q9967) As Ordered (10:57)
[2018-04-14] MEDS: cefTRIAXone SOD 1 GM in D5W MINI-BAG PLUS 50 ML IV (15:55)
[2018-04-15] MEDS: cefTRIAXone SOD 1 GM in D5W MINI-BAG PLUS 50 ML IV (15:40)
== END 2018-04-15 20:19 | disposition home or self-care (01) ==
LOC: M OBS 04-14 02:25 → M ED 18:33 → M ED INP 22:45
DX: O9A.23 Injury, poisoning and certain other consequences of external causes complicating the puerperium (principal); T83.092A Other mechanical complication of nephrostomy catheter, initial encounter; Y73.2 Prosthetic and other implants, materials and accessory gastroenterology and urology devices associated with adverse incidents; R10.9 Unspecified abdominal pain; Z3A.34 34 weeks gestation of pregnancy; Z88.8 Allergy status to other drugs, medicaments and biological substances; Z79.899 Other long term (current) drug therapy; Z79.2 Long term (current) use of antibiotics; Z87.442 Personal history of urinary calculi; Z87.440 Personal history of urinary (tract) infections
CPT/HCPCS: 50435

== ENCOUNTER → 2018-04-29 | Outpatient (CLI) | payer OTHER | LOC: M RAD 13:32 | DX: Z34.82 Encounter for supervision of other normal pregnancy, second trimester (principal) | CPT/HCPCS: 76816 ==

== ENCOUNTER → 2018-05-05 | Outpatient (REF) | payer OTHER | LOC: M LAB REF 12:57 | DX: Z34.83 Encounter for supervision of other normal pregnancy, third trimester (principal); Z36.89 Encounter for other specified antenatal screening | CPT/HCPCS: 87081 ==

== ENCOUNTER → 2018-05-05 | Outpatient (CLI) | payer OTHER ==
[2018-05-05 13:39] LABS: HEMATOCRIT 29.4 % (36.0-47.0); MEAN CORPUSCULAR HEMOGLOBIN 23.7 pg (27.0-33.0); MEAN CORPUSCULAR HGB CONC 30.6 g/dl (32.0-36.5); MEAN CORPUSCULAR VOLUME 77.4 fl (80.0-96.0); PLATELET COUNT, AUTOMATED 416 10^3/uL (150-450); RED CELL DISTRIBUTION WIDTH 14.8 % (11.5-14.5); WHITE BLOOD COUNT 9.5 10^3/uL (4.0-10.0)
== END ==
LOC: M SMT 10:11
DX: D64.9 Anemia, unspecified (principal)
CPT/HCPCS: 85027

== ENCOUNTER → 2018-05-26 | Outpatient (REF) | payer OTHER | LOC: M SMT 16:55 | DX: N39.0 Urinary tract infection, site not specified (principal) ==

== ENCOUNTER → 2018-07-07 | Outpatient (CLI) | payer OTHER ==
[~2018-07-07] MED LIST changes: +LIDOCAINE 1% MDV 20ML VIAL As Ordered; +NITROFURANTOIN (MACROBID) 100 MG CAP As Ordered
== END ==
LOC: M RADPRO 12:08
DX: N13.30 Unspecified hydronephrosis (principal); Z79.899 Other long term (current) drug therapy; Z88.8 Allergy status to other drugs, medicaments and biological substances
CPT/HCPCS: 50435

== ENCOUNTER 2018-07-25 19:34 | Emergency (ER) | payer OTHER ==
[2018-07-25] MEDS: NS 500 ML IV (21:00)
[2018-07-25 21:30] LABS: BASO # 0.1 10^3/uL (0.0-0.2); BASO % 0.8 % (0.0-1.0); EOS # 0.3 10^3/uL (0.0-0.50); EOS % 4.4 % (0.0-3.0); HEMATOCRIT 35.6 % (36.0-47.0); HEMOGLOBIN 10.4 g/dl (12.0-15.5); IMMATURE GRANULOCYTE % 0.2 % (0-3.0); LYMPH # 1.5 10^3/uL (1.5-4.5); LYMPH % 25.1 % (24.0-44.0); MEAN CORPUSCULAR HEMOGLOBIN 21.4 pg (27.0-33.0); MEAN CORPUSCULAR HGB CONC 29.2 g/dl (32.0-36.5); MEAN CORPUSCULAR VOLUME 73.4 fl (80.0-96.0); MONO # 0.4 10^3/uL (0.0-0.8); MONO % 6.8 % (0.0-5.0); NEUTROPHILS # 3.7 10^3/uL (1.8-7.7); NEUTROPHILS % 62.7 % (36.0-66.0); PLATELET COUNT, AUTOMATED 513 10^3/uL (150-450); RED BLOOD COUNT 4.85 10^6/uL (4.00-5.40); RED CELL DISTRIBUTION WIDTH 16.8 % (11.5-14.5); WHITE BLOOD COUNT 5.9 10^3/uL (4.0-10.0)
[2018-07-25 21:32] LABS: CONTROL LINE UCG INT CTR LINE PRESENT; URINE PREG TEST NEGATIVE (NEGATIVE)
[2018-07-25 21:39] LABS: AMORPHOUS SEDIMENT RFX SMALL (NEGATIVE); KETONE, URINE AUTO RFX TRACE mg/dL (NEGATIVE); LEUKOCYTE ESTERASE UR AUTO RFX 3+ (NEGATIVE); MUCUS, URINE RFX SMALL (NEGATIVE); NITRITE, URINE AUTO RFX POSITIVE (NEGATIVE); RBC, URINE AUTO RFX 33 /HPF (0-3); SPECIFIC GRAVITY UR AUTO RFX 1.014 (1.002-1.035); SQUAM EPITHELIAL CELL UR AURFX 0 /HPF (0-6); WBC, URINE AUTO RFX 127 /HPF (0-3)
[2018-07-25 21:48] LABS: ANION GAP 8 MEQ/L (8-16); BLOOD UREA NITROGEN 17 MG/DL (7-18); C REACTIVE PROTEIN QUANTITATIV 0.38 MG/DL (0.00-0.30); CALCIUM LEVEL 9.2 MG/DL (8.5-10.1); CARBON DIOXIDE LEVEL 31 MEQ/L (21-32); CHLORIDE LEVEL 102 MEQ/L (98-107); CREATININE FOR GFR 0.94 MG/DL (0.55-1.30); GLOMERULAR FILTRATION RATE > 60.0 (>60); GLUCOSE, FASTING 89 MG/DL (70-100); POTASSIUM SERUM 3.4 MEQ/L (3.5-5.1); SODIUM LEVEL 141 MEQ/L (136-145)
[2018-07-25] MEDS: KETOROLAC 30 MG/ML VIAL (J1885) IV (21:56)
[2018-07-25] MEDS: ONDANSETRON 4MG/2ML VIAL (J2405) IV (21:56)
[2018-07-25] MEDS: MORPHINE 4 MG/ML 1ML VIAL/SYRINGE (J2270) IV (21:56)
[2018-07-25] MEDS: cefTRIAXone SOD 1 GM in D5W MINI-BAG PLUS 50 ML IV (21:56)
== END 2018-07-26 00:36 | disposition home or self-care (01) ==
LOC: M ED 07-26 00:36
DX: N39.0 Urinary tract infection, site not specified (principal); N13.30 Unspecified hydronephrosis; F31.9 Bipolar disorder, unspecified; D64.9 Anemia, unspecified; G25.81 Restless legs syndrome; Z87.442 Personal history of urinary calculi; Z79.899 Other long term (current) drug therapy; Z88.8 Allergy status to other drugs, medicaments and biological substances
CPT/HCPCS: J2270

== ENCOUNTER 2018-09-07 10:45 | Emergency (ER) | payer OTHER ==
[2018-09-07] MEDS ORDERED: KETOROLAC 30 MG/ML VIAL (J1885) IV (12:00)
[2018-09-07] MEDS ORDERED: ONDANSETRON 4MG/2ML VIAL (J2405) IV (12:00)
[2018-09-07 12:13] LABS: KETONE, URINE AUTO RFX NEGATIVE (NEGATIVE); MUCUS, URINE RFX SMALL (NEGATIVE); NITRITE, URINE AUTO RFX NEGATIVE (NEGATIVE); RBC, URINE AUTO RFX 0 /HPF (0-3); SQUAM EPITHELIAL CELL UR AURFX 0 /HPF (0-6)
[2018-09-07 12:16] LABS: LEUKOCYTE ESTERASE UR AUTO RFX 3+ (NEGATIVE); WBC, URINE AUTO RFX TNTC /HPF (0-3)
[2018-09-07] MEDS: NS 1,000 ML IV (12:36)
[2018-09-07 12:44] LABS: BASO # 0.1 10^3/uL (0.0-0.2); BASO % 0.9 % (0.0-1.0); EOS # 0.3 10^3/uL (0.0-0.50); EOS % 3.5 % (0.0-3.0); HEMOGLOBIN 10.4 g/dl (12.0-15.5); IMMATURE GRANULOCYTE % 0.3 % (0-3.0); LYMPH # 2.2 10^3/uL (1.5-4.5); LYMPH % 29.2 % (24.0-44.0); MEAN CORPUSCULAR HGB CONC 29.7 g/dl (32.0-36.5); MEAN CORPUSCULAR VOLUME 74.2 fl (80.0-96.0); MONO # 0.5 10^3/uL (0.0-0.8); MONO % 7.3 % (0.0-5.0); NEUTROPHILS # 4.4 10^3/uL (1.8-7.7); NEUTROPHILS % 58.8 % (36.0-66.0); PLATELET COUNT, AUTOMATED 466 10^3/uL (150-450); RED BLOOD COUNT 4.72 10^6/uL (4.00-5.40); RED CELL DISTRIBUTION WIDTH 18.1 % (11.5-14.5); WHITE BLOOD COUNT 7.4 10^3/uL (4.0-10.0)
[2018-09-07] MEDS: ACETAMINOPHEN TAB 650MG DOSE (2X325MG) PO (12:56)
[2018-09-07 13:35] LABS: ANION GAP 7 MEQ/L (8-16); BLOOD UREA NITROGEN 15 MG/DL (7-18); CALCIUM LEVEL 8.6 MG/DL (8.5-10.1); CARBON DIOXIDE LEVEL 26 MEQ/L (21-32); CHLORIDE LEVEL 107 MEQ/L (98-107); CREATININE FOR GFR 0.83 MG/DL (0.55-1.30); GLOMERULAR FILTRATION RATE > 60.0 (>60); GLUCOSE, FASTING 86 MG/DL (70-100); HCG, SERUM QUANTITATIVE 776 MIU/ML; POTASSIUM SERUM 4.6 MEQ/L (3.5-5.1); SODIUM LEVEL 140 MEQ/L (136-145)
== END 2018-09-07 13:58 | disposition home or self-care (01) ==
LOC: M ED 10:45
DX: Z32.00 Encounter for pregnancy test, result unknown (principal); N30.90 Cystitis, unspecified without hematuria; F31.9 Bipolar disorder, unspecified; G25.81 Restless legs syndrome; Z93.6 Other artificial openings of urinary tract status; Z79.899 Other long term (current) drug therapy; Z88.8 Allergy status to other drugs, medicaments and biological substances; Z3A.00 Weeks of gestation of pregnancy not specified
CPT/HCPCS: 84702

== ENCOUNTER 2018-09-27 14:39 | Emergency (ER) | payer OTHER ==
[~2018-09-27] VITALS: Ht 160 cm; Wt 70.5 kg
[~2018-09-27 14:39] MED LIST changes: +/ESCI10TA OR; +/OXCA30TA OR; +AMBI5TAB PO; +AMOX500C PO; +ATIV0.5T OR; +ATIV1TAB2 OR; +BACT800T OR; +CEFD1CAP8 PO; +CELE20TA OR; +CIPR-249 PO; +CIPR500T19 PO; +COLA100C5 PO; +DITR5TAB PO; +FLOM0.4C39 PO; +FLUO20CA8 PO; +GABA-843 PO; +GABA-845; +GABA-845 PO; +HYDR50TA70 PO; +IBUP-1114 PO; +IBUP1TAB6 PO; +IBUP200C25 PO; -ISOVUE-300 61% 50ML VIAL (Q9967) As Ordered; +KEFL500C17 PO; +KETO10TAB PO; +KLON0.5T OR; +KLOR25PO2 PO; +LEVA1TAB2 PO; -LIDOCAINE 1% MDV 20ML VIAL As Ordered; +MACR100C43 PO; +MACROBID PO; +MAPA500T17 PO; +MELA5TAB17 PO; -NITROFURANTOIN (MACROBID) 100 MG CAP As Ordered; +NORCOTAB PO; +No Historical Meds; +ONDA4TAB6 PO; +OXYB5TAB10 PO; +OXYC1SOL3 PO; +OXYC1TAB23 PO; +PERC5TAB12 PO; +PERC5TAB8 OR; +PERCOCET PO; +PHEN1SUP6 PR; +PREN1TAB26 PO; +PREN200C PO; +PRENTAB9 PO; +PROC5TA PO; +PROM25TA PO; +RANI150T PO; +SERT-138; +SERT-138 PO; +TYLE325T5 PO; +TYLE500T78 PO; +UNIS25TA3 PO; +VICO5TAB OR; +VITA50TA43 PO; +ZANTTAB PO; +ZOFR4TAB14 PO; +ZOFR8TAB22 PO; +ZOLO25TA PO; +ZOLP5TAB PO; +[UNRECOGNIZED DRUG - CODE] PV
[2018-09-27] MEDS ORDERED: ZOFR4TAB14 SL (14:46)
[2018-09-27 15:14] LABS: BASO # 0.1 10^3/uL (0.0-0.2); BASO % 0.5 % (0.0-1.0); EOS # 0.1 10^3/uL (0.0-0.50); EOS % 0.6 % (0.0-3.0); HEMATOCRIT 37.6 % (36.0-47.0); HEMOGLOBIN 11.7 g/dl (12.0-15.5); LYMPH # 1.3 10^3/uL (1.5-4.5); LYMPH % 13.6 % (24.0-44.0); MEAN CORPUSCULAR HEMOGLOBIN 22.7 pg (27.0-33.0); MEAN CORPUSCULAR HGB CONC 31.1 g/dl (32.0-36.5); MONO # 0.7 10^3/uL (0.0-0.8); MONO % 7.2 % (0.0-5.0); NEUTROPHILS # 7.6 10^3/uL (1.8-7.7); NEUTROPHILS % 77.8 % (36.0-66.0); PLATELET COUNT, AUTOMATED 400 10^3/uL (150-450); RED BLOOD COUNT 5.15 10^6/uL (4.00-5.40); WHITE BLOOD COUNT 9.7 10^3/uL (4.0-10.0)
[2018-09-27 15:30] LABS: ALBUMIN 3.7 GM/DL (3.2-5.2); ALT/SGPT 20 U/L (12-78); BILIRUBIN,DIRECT < 0.1 MG/DL (0.0-0.2); BILIRUBIN,TOTAL 0.3 MG/DL (0.2-1.0); BLOOD UREA NITROGEN 16 MG/DL (7-18); CALCIUM LEVEL 9.2 MG/DL (8.5-10.1); CARBON DIOXIDE LEVEL 28 MEQ/L (21-32); CHLORIDE LEVEL 99 MEQ/L (98-107); CREATININE FOR GFR 0.91 MG/DL (0.55-1.30); GLOMERULAR FILTRATION RATE > 60.0 (>60); GLUCOSE, FASTING 118 MG/DL (70-100); LIPASE 77 U/L (73-393); POTASSIUM SERUM 3.5 MEQ/L (3.5-5.1); SODIUM LEVEL 134 MEQ/L (136-145); TOTAL PROTEIN 7.6 GM/DL (6.4-8.2)
[2018-09-27] MEDS ORDERED: MORPHINE 2 MG/ML 1ML SYRINGE (J2270) IV PRN (16:00)
[2018-09-27] MEDS ORDERED: NS 1,000 ML IV ONE (16:00)
[2018-09-27] MEDS ORDERED: AMPICILLIN SOD/SULBACTAM SOD 3 GM in D5W MINI-BAG PLUS 100 ML IV ONE (16:00)
[2018-09-27] MEDS ORDERED: ONDANSETRON 4MG/2ML VIAL (J2405) IV ONE (16:00)
[2018-09-27] MEDS ORDERED: PROMETHAZINE INJ 25 MG/ML VIAL (J2550) IV ONE (18:15)
[2018-09-27] MEDS ORDERED: PROC25SU24 PR (18:19)
[2018-09-27] MEDS ORDERED: AUGM875T28 PO (18:19)
[2018-09-27 18:40] VITALS: BP 126/79
[2018-10-18] MEDS ORDERED: ZOLO100T PO (11:49)
[2018-10-18] MEDS ORDERED: MACR100C42 PO (14:05)
== END 2018-09-27 18:55 | disposition home or self-care (01) ==
LOC: M ED 14:39
DX: O23.41 Unspecified infection of urinary tract in pregnancy, first trimester (principal); O26.831 Pregnancy related renal disease, first trimester; Z87.59 Personal history of other complications of pregnancy, childbirth and the puerperium; O09.521 Supervision of elderly multigravida, first trimester; G25.81 Restless legs syndrome; O99.341 Other mental disorders complicating pregnancy, first trimester; Z79.899 Other long term (current) drug therapy; Z88.8 Allergy status to other drugs, medicaments and biological substances
CPT/HCPCS: 80048; 80076; 81001; 83690; 85025; 87088; 87186; 96365; 96375; 99284; J2270; J2405

== ENCOUNTER → 2018-10-12 | Outpatient (CLI) | payer OTHER | LOC: M RADPRO 11:49 | DX: O99.89 Other specified diseases and conditions complicating pregnancy, childbirth and the puerperium (principal); N13.30 Unspecified hydronephrosis; Z3A.10 10 weeks gestation of pregnancy; Z88.8 Allergy status to other drugs, medicaments and biological substances | CPT/HCPCS: 50435 ==

== ENCOUNTER 2018-10-18 11:39 | Emergency (ER) | payer OTHER ==
[2018-10-18] MEDS: NS 500 ML IV (12:15)
[2018-10-18] MEDS: MORPHINE 2 MG/ML 1ML SYRINGE (J2270) IV ×2 (13:09→13:45)
[2018-10-18 13:26] LABS: BASO % 0.5 % (0.0-1.0); EOS # 0.2 10^3/uL (0.0-0.50); EOS % 2.8 % (0.0-3.0); HEMATOCRIT 33.7 % (36.0-47.0); HEMOGLOBIN 10.5 g/dl (12.0-15.5); IMMATURE GRANULOCYTE % 0.4 % (0-3.0); LYMPH # 1.7 10^3/uL (1.5-4.5); LYMPH % 20.9 % (24.0-44.0); MEAN CORPUSCULAR HEMOGLOBIN 23.2 pg (27.0-33.0); MEAN CORPUSCULAR HGB CONC 31.2 g/dl (32.0-36.5); MEAN CORPUSCULAR VOLUME 74.6 fl (80.0-96.0); MONO # 0.5 10^3/uL (0.0-0.8); MONO % 6.1 % (0.0-5.0); NEUTROPHILS # 5.5 10^3/uL (1.8-7.7); NEUTROPHILS % 69.3 % (36.0-66.0); PLATELET COUNT, AUTOMATED 464 10^3/uL (150-450); RED BLOOD COUNT 4.52 10^6/uL (4.00-5.40); RED CELL DISTRIBUTION WIDTH 18.5 % (11.5-14.5)
[2018-10-18 13:40] LABS: ANION GAP 6 MEQ/L (8-16); BLOOD UREA NITROGEN 12 MG/DL (7-18); CALCIUM LEVEL 8.4 MG/DL (8.5-10.1); CARBON DIOXIDE LEVEL 28 MEQ/L (21-32); CHLORIDE LEVEL 104 MEQ/L (98-107); CREATININE FOR GFR 0.82 MG/DL (0.55-1.30); GLOMERULAR FILTRATION RATE > 60.0 (>60); GLUCOSE, FASTING 85 MG/DL (70-100); POTASSIUM SERUM 3.9 MEQ/L (3.5-5.1); SODIUM LEVEL 138 MEQ/L (136-145)
[2018-10-18 13:43] LABS: LACTIC ACID SEPSIS PROTOCOL 0.5 MMOL/L (0.4-2.0)
[2018-10-18] MEDS: ONDANSETRON 4MG/2ML VIAL (J2405) IV (13:44)
[2018-10-18 13:55] LABS: AMORPHOUS SEDIMENT RFX SMALL (NEGATIVE); KETONE, URINE AUTO RFX TRACE mg/dL (NEGATIVE); LEUKOCYTE ESTERASE UR AUTO RFX 3+ (NEGATIVE); MUCUS, URINE RFX SMALL (NEGATIVE); NITRITE, URINE AUTO RFX POSITIVE (NEGATIVE); RBC, URINE AUTO RFX 25 /HPF (0-3); SPECIFIC GRAVITY UR AUTO RFX 1.012 (1.002-1.035); SQUAM EPITHELIAL CELL UR AURFX 0 /HPF (0-6); WBC, URINE AUTO RFX TNTC /HPF (0-3)
== END 2018-10-18 14:08 | disposition home or self-care (01) ==
LOC: M ED 11:39
DX: N30.00 Acute cystitis without hematuria (principal); G25.81 Restless legs syndrome; F41.9 Anxiety disorder, unspecified; F31.9 Bipolar disorder, unspecified; Z79.899 Other long term (current) drug therapy; Z98.890 Other specified postprocedural states; Z93.6 Other artificial openings of urinary tract status; Z87.42 Personal history of other diseases of the female genital tract
CPT/HCPCS: J2405

== ENCOUNTER → 2018-10-19 | Outpatient (CLI) | payer OTHER ==
[~2018-10-19] MED LIST changes: +AUGM875T28 PO; +MACR100C42 PO; +PROC25SU24 PR; +ZOFR4TAB14 SL; +ZOLO100T PO
[2018-10-19 13:22] LABS: BASO # 0.1 10^3/uL (0.0-0.2); BASO % 0.6 % (0.0-1.0); EOS # 0.2 10^3/uL (0.0-0.50); EOS % 2.1 % (0.0-3.0); HEMATOCRIT 34.9 % (36.0-47.0); HEMOGLOBIN 10.5 g/dl (12.0-15.5); LYMPH # 1.8 10^3/uL (1.5-4.5); LYMPH % 19.8 % (24.0-44.0); MEAN CORPUSCULAR HEMOGLOBIN 22.8 pg (27.0-33.0); MEAN CORPUSCULAR HGB CONC 30.1 g/dl (32.0-36.5); MEAN CORPUSCULAR VOLUME 75.7 fl (80.0-96.0); MONO # 0.4 10^3/uL (0.0-0.8); MONO % 4.4 % (0.0-5.0); NEUTROPHILS # 6.5 10^3/uL (1.8-7.7); NEUTROPHILS % 72.9 % (36.0-66.0); PLATELET COUNT, AUTOMATED 516 10^3/uL (150-450); RED BLOOD COUNT 4.61 10^6/uL (4.00-5.40); WHITE BLOOD COUNT 8.9 10^3/uL (4.0-10.0)
[2018-10-19 14:18] LABS: HEPATITIS C VIRUS ABY INDEX 0.1 INDEX (<0.8); HIV 1&2 SCREEN CENTAUR NEGATIVE (NEGATIVE); RUBELLA IgG QUALITATIVE IMMUNE (IMMUNE)
[2018-10-19 14:42] LABS: CHLAMYDIA DNA AMPLIFICATION POSITIVE (NEGATIVE); GC DNA AMPLIFICATION NEGATIVE (NEGATIVE)
== END ==
LOC: M SMT 09:41
PROVIDERS: ATTEND Advanced Practice Midwife
DX: Z36.89 Encounter for other specified antenatal screening (principal)

== ENCOUNTER 2018-10-24 12:59 | Emergency (ER) | payer OTHER ==
[~2018-10-24] VITALS: Ht 160 cm; Wt 75.0 kg
[2018-10-24] MEDS ORDERED: NS 1,000 ML IV ONE ×2 (13:30→16:00)
[2018-10-24] MEDS ORDERED: PROMETHAZINE INJ 25 MG/ML VIAL (J2550) IV ONE (13:30)
[2018-10-24 14:07] LABS: BASO % 0.6 % (0.0-1.0); EOS # 0.2 10^3/uL (0.0-0.50); EOS % 3.4 % (0.0-3.0); HEMATOCRIT 33.2 % (36.0-47.0); HEMOGLOBIN 10.5 g/dl (12.0-15.5); LYMPH # 1.7 10^3/uL (1.5-4.5); LYMPH % 24.2 % (24.0-44.0); MEAN CORPUSCULAR HEMOGLOBIN 23.8 pg (27.0-33.0); MEAN CORPUSCULAR HGB CONC 31.6 g/dl (32.0-36.5); MEAN CORPUSCULAR VOLUME 75.1 fl (80.0-96.0); MONO # 0.6 10^3/uL (0.0-0.8); MONO % 7.8 % (0.0-5.0); NEUTROPHILS # 4.6 10^3/uL (1.8-7.7); NEUTROPHILS % 63.7 % (36.0-66.0); PLATELET COUNT, AUTOMATED 392 10^3/uL (150-450); RED BLOOD COUNT 4.42 10^6/uL (4.00-5.40); WHITE BLOOD COUNT 7.2 10^3/uL (4.0-10.0)
[2018-10-24 14:36] LABS: ALBUMIN 2.9 GM/DL (3.2-5.2); ALT/SGPT 13 U/L (12-78); BILIRUBIN,DIRECT 0.1 MG/DL (0.0-0.2); BILIRUBIN,TOTAL 0.3 MG/DL (0.2-1.0); BLOOD UREA NITROGEN 12 MG/DL (7-18); CALCIUM LEVEL 8.8 MG/DL (8.5-10.1); CARBON DIOXIDE LEVEL 28 MEQ/L (21-32); CHLORIDE LEVEL 100 MEQ/L (98-107); CREATININE FOR GFR 0.96 MG/DL (0.55-1.30); GLOMERULAR FILTRATION RATE > 60.0 (>60); GLUCOSE, FASTING 88 MG/DL (70-100); POTASSIUM SERUM 3.5 MEQ/L (3.5-5.1); SODIUM LEVEL 138 MEQ/L (136-145)
[2018-10-24 14:37] LABS: LIPASE 60 U/L (73-393)
[2018-10-24 16:30] VITALS: BP 99/60
== END 2018-10-24 16:37 | disposition home or self-care (01) ==
LOC: M ED 12:59
DX: O21.0 Mild hyperemesis gravidarum (principal); O99.341 Other mental disorders complicating pregnancy, first trimester; O99.011 Anemia complicating pregnancy, first trimester; O09.521 Supervision of elderly multigravida, first trimester; G25.81 Restless legs syndrome; Z3A.12 12 weeks gestation of pregnancy; Z79.899 Other long term (current) drug therapy; Z88.8 Allergy status to other drugs, medicaments and biological substances

== ENCOUNTER → 2018-11-10 | Outpatient (CLI) | payer OTHER ==
[~2018-11-10] MED LIST changes: -MAPA500T17 PO; +MAPA500T2 PO; +PROM12.54 PR; -PROM25TA PO; +PROM25TA12 PO; +SUBO8MIS SL
[2018-11-10 13:07] LABS: HEMATOCRIT 33.6 % (36.0-47.0); HEMOGLOBIN 10.5 g/dl (12.0-15.5); MEAN CORPUSCULAR HEMOGLOBIN 23.3 pg (27.0-33.0); MEAN CORPUSCULAR HGB CONC 31.3 g/dl (32.0-36.5); MEAN CORPUSCULAR VOLUME 74.7 fl (80.0-96.0); PLATELET COUNT, AUTOMATED 527 10^3/uL (150-450); WHITE BLOOD COUNT 8.3 10^3/uL (4.0-10.0)
[2018-11-10 13:22] LABS: ALT/SGPT 11 U/L (12-78); BILIRUBIN,DIRECT 0.1 MG/DL (0.0-0.2); BILIRUBIN,TOTAL 0.3 MG/DL (0.2-1.0); BLOOD UREA NITROGEN 15 MG/DL (7-18); CALCIUM LEVEL 9.3 MG/DL (8.5-10.1); CARBON DIOXIDE LEVEL 25 MEQ/L (21-32); CHLORIDE LEVEL 100 MEQ/L (98-107); CREATININE FOR GFR 0.82 MG/DL (0.55-1.30); GLOMERULAR FILTRATION RATE > 60.0 (>60); GLUCOSE, FASTING 103 MG/DL (70-100); POTASSIUM SERUM 3.9 MEQ/L (3.5-5.1); SODIUM LEVEL 134 MEQ/L (136-145); TOTAL PROTEIN 7.3 GM/DL (6.4-8.2)
== END ==
LOC: M LAB 12:19
PROVIDERS: ATTEND Nurse Practitioner Family
DX: F11.20 Opioid dependence, uncomplicated (principal)

== ENCOUNTER 2018-11-12 08:08 | Emergency (ER) | payer OTHER ==
[~2018-11-12] VITALS: Ht 160 cm; Wt 74.6 kg
[~2018-11-12 08:08] MED LIST changes: -PROM12.54 PR; -SUBO8MIS SL
[2018-11-12] MEDS ORDERED: SUBO8MIS SL (08:13)
[2018-11-12] MEDS ORDERED: NS 1,000 ML IV ONE (08:30)
[2018-11-12] MEDS ORDERED: PROMETHAZINE INJ 25 MG/ML VIAL (J2550) IM ONE (08:30)
[2018-11-12 08:50] LABS: BASO # 0.1 10^3/uL (0.0-0.2); BASO % 0.6 % (0.0-1.0); EOS # 0.3 10^3/uL (0.0-0.50); EOS % 2.6 % (0.0-3.0); HEMATOCRIT 35.8 % (36.0-47.0); HEMOGLOBIN 11.2 g/dl (12.0-15.5); LYMPH # 1.3 10^3/uL (1.5-4.5); LYMPH % 13.3 % (24.0-44.0); MEAN CORPUSCULAR HEMOGLOBIN 23.5 pg (27.0-33.0); MEAN CORPUSCULAR HGB CONC 31.3 g/dl (32.0-36.5); MEAN CORPUSCULAR VOLUME 75.1 fl (80.0-96.0); MONO # 0.5 10^3/uL (0.0-0.8); MONO % 5.6 % (0.0-5.0); NEUTROPHILS # 7.5 10^3/uL (1.8-7.7); NEUTROPHILS % 77.5 % (36.0-66.0); PLATELET COUNT, AUTOMATED 501 10^3/uL (150-450); RED BLOOD COUNT 4.77 10^6/uL (4.00-5.40); WHITE BLOOD COUNT 9.7 10^3/uL (4.0-10.0)
[2018-11-12 09:18] LABS: ALBUMIN 3.2 GM/DL (3.2-5.2); ALT/SGPT 12 U/L (12-78); BILIRUBIN,DIRECT 0.1 MG/DL (0.0-0.2); BILIRUBIN,TOTAL 0.4 MG/DL (0.2-1.0); BLOOD UREA NITROGEN 20 MG/DL (7-18); CALCIUM LEVEL 9.2 MG/DL (8.5-10.1); CARBON DIOXIDE LEVEL 24 MEQ/L (21-32); CHLORIDE LEVEL 101 MEQ/L (98-107); CREATININE FOR GFR 0.88 MG/DL (0.55-1.30); GLOMERULAR FILTRATION RATE > 60.0 (>60); GLUCOSE, FASTING 110 MG/DL (70-100); LIPASE 78 U/L (73-393); POTASSIUM SERUM 3.7 MEQ/L (3.5-5.1); SODIUM LEVEL 135 MEQ/L (136-145)
[2018-11-12] MEDS ORDERED: PROM12.54 PR (09:47)
[2018-11-12 09:52] VITALS: BP 115/71
== END 2018-11-12 09:57 | disposition home or self-care (01) ==
LOC: M ED 08:08
DX: O23.41 Unspecified infection of urinary tract in pregnancy, first trimester (principal); O09.511 Supervision of elderly primigravida, first trimester; O99.341 Other mental disorders complicating pregnancy, first trimester; O99.011 Anemia complicating pregnancy, first trimester; O99.89 Other specified diseases and conditions complicating pregnancy, childbirth and the puerperium; G25.81 Restless legs syndrome; Z87.448 Personal history of other diseases of urinary system; Z93.6 Other artificial openings of urinary tract status; Z96.0 Presence of urogenital implants; Z79.899 Other long term (current) drug therapy; Z88.8 Allergy status to other drugs, medicaments and biological substances

== ENCOUNTER → 2018-11-25 | Outpatient (REF) | payer OTHER ==
[~2018-11-25] MED LIST changes: +PROM12.54 PR; +SUBO8MIS SL
[2018-11-26 15:19] LABS: CHLAMYDIA DNA AMPLIFICATION NEGATIVE (NEGATIVE); GC DNA AMPLIFICATION NEGATIVE (NEGATIVE)
[2018-11-28 15:32] LABS: HPV HYBRID CAPTURE II Negative (Negative)
== END ==
LOC: M LAB REF 12:32
PROVIDERS: ATTEND Advanced Practice Midwife
DX: Z11.3 Encounter for screening for infections with a predominantly sexual mode of transmission (principal)

== ENCOUNTER → 2018-12-16 | Outpatient (CLI) | payer OTHER ==
[~2018-12-16] MED LIST changes: +ISOVUE-300 61% 50ML VIAL (Q9967) As Ordered ONE; +LIDOCAINE 1% MDV 20ML VIAL As Ordered ONE
--- NOTE | 2018-12-18 15:22 | REP ---
The procedure was performed under the direct supervision of Dr. Ortiz CLINICAL HISTORY: Left hydronephrosis PROCEDURE: Left nephrostomy drainage catheter exchange Medications: 0 EBL: 0 FLUORO TIME: 1.8 minutesCONTRAST: 10 ml of Isovue 300DEVICE USED: 8 F Nephrostomy (Skater) catheter The risks and benefits of the procedure were explained to the patient and informed consent was obtained. The patient was brought into the interventional radiology suite. A time out procedure was performed. The patient was placed in the prone oblique position . The existing indwelling catheter and the area surrounding the insertion site were prepped and draped in a sterile fashion. Contrast was injected through the existing left Nephrostomy catheter. Images demonstrate the catheter to have been pulled out of the kidney. The existing catheter was removed. A 0.035 guidewire was inserted through the mature tract and into the left ureter. A new 8-[place] Skater catheter was advanced over the guide wire. The guidewire was removed and the distal loop of the nephrostomy drainage catheter was formed and locked in the renal pelvis. Contrast was injected, confirming satisfactory drainage catheter position. The drainage catheter exit site was covered with sterile dressing. The nephrostomy drainage catheter was flushed and connected to gravity drainage bag. The patient tolerated the procedure well and there were no immediate complications. This procedure was performed using fluoroscopy. Impression: Successful exchange of nephrostomy urinary diversion tube on the left As discussed above. Plan: Routine catheter exchange in approximately 10-12 weeks or earlier if signs of tube dysfunction were to occur. Reviewed by STACIA Ley 12/17/2018 05:20 P Electronically Signed by Gautam Ortiz MD 12/18/2018 03:13 P
== END ==
LOC: M RADPRO 14:50
PROVIDERS: ATTEND Radiology Diagnostic Radiology
DX: N13.30 Unspecified hydronephrosis (principal); Z79.899 Other long term (current) drug therapy; Z88.8 Allergy status to other drugs, medicaments and biological substances
CPT/HCPCS: 50435; 75984; C1729; C1769; Q9967

== ENCOUNTER → 2018-12-18 | Outpatient (CLI) | payer OTHER ==
[~2018-12-18] MED LIST changes: -ISOVUE-300 61% 50ML VIAL (Q9967) As Ordered ONE; -LIDOCAINE 1% MDV 20ML VIAL As Ordered ONE
--- NOTE | 2018-12-18 11:30 | REP ---
Obstetric ultrasound for anatomy: There is a single intrauterine gestation in a transverse lie with the head to the maternal right. There is motion and cardiac activity. The heart rate is 134 beats per minute. The placenta is anterior without previa or abruptio. The placenta is grade 1 maturity. Subjectively the amniotic fluid volume is normal. The cervix measures 3.3 cm length. Gestational age by the ultrasound today is 19 weeks 3 days/NILSON 05/11/2019. There is no gestational age determination by the first ultrasound or LMP. weight is 304 grams presence 0 pounds, 10 ounces). This is the 51st percentile for 19 weeks 3 days. The following anatomic structures are identified and are unremarkable: Intracranial lateral ventricles, cerebellum, upper lip, lungs, diaphragm, stomach, cord insertion, three-vessel cord, bladder, spine and upper lower extremities. The right renal pelvis measures 6 mm AP diameter. The left renal pelvis measures 6 mm AP diameter.. There is bilateral renal pelviectasis. Follow-up is recommended to determine if this is persistent or transient. The following anatomic structures are suboptimally demonstrated because of position: Facial profile, four-chamber view of the heart, cardiac right and left ventricular outflow tracts. A followup study dedicated to these structures might be considered. Electronically Signed by Gautam Clement MD 12/18/2018 11:22 A
== END ==
LOC: M RAD 09:58
PROVIDERS: ATTEND Advanced Practice Midwife
DX: O09.522 Supervision of elderly multigravida, second trimester (principal); Z3A.19 19 weeks gestation of pregnancy

== ENCOUNTER → 2018-12-22 | Outpatient (REF) | payer OTHER | LOC: M LAB REF 13:18 | PROVIDERS: ATTEND Advanced Practice Midwife | DX: O09.512 Supervision of elderly primigravida, second trimester (principal); Z3A.00 Weeks of gestation of pregnancy not specified ==

== ENCOUNTER → 2019-01-14 | Outpatient (CLI) | payer OTHER ==
--- NOTE | 2019-01-14 17:55 | REP ---
Clinical: Anatomical evaluation. Comparison: 12/18/2018 . Findings: Examination demonstrates a single live intrauterine in cephalic presentation. motion is identified by technologist. Placenta is noted anterior and grade grade zero without evidence for placenta previa or abruption. Amniotic fluid volume is normal. Cervix measures 4.4 cm in length and appears closed. No evidence for nuchal cord. Gestational age by LMP 23 weeks 2 days with NILSON 05/11/2019 . Gestational age by current measurements 23 weeks 3 days with NILSON 05/10/1990 the . FHR equals 150 beats per minute. Estimated weight 628 grams ( 58th percentile). Anatomical assessment demonstrates normal structures including cranium, choroid plexus, cavum, cerebellum/posterior fossa, facial features, lungs, four-chamber heart/ventricular outflow tracts, diaphragm, stomach, cord insertion/three-vessel cord, kidneys/bladder, spine, and extremities. Impression: Single live intrauterine in cephalic presentation demonstrating appropriate interval growth. Anatomical assessment is complete and normal. No gross abnormalities are identified. Bilateral renal pelviectasis within normal range. Electronically Signed by Jesus García MD 01/14/2019 05:47 P
== END ==
LOC: M RAD 11:19
PROVIDERS: ATTEND Advanced Practice Midwife
DX: O09.512 Supervision of elderly primigravida, second trimester (principal); Z3A.23 23 weeks gestation of pregnancy

== ENCOUNTER → 2019-02-10 | Outpatient (CLI) | payer OTHER ==
[~2019-02-10] MED LIST changes: -/ESCI10TA OR; -/OXCA30TA OR; +HYDR-3715 PO; -KLOR25PO2 PO; +LEXA1TAB OR; -NORCOTAB PO; +TRIL1TAB OR; +[UNRECOGNIZED DRUG - CODE] PO
--- NOTE | 2019-02-10 13:06 | REP ---
Right lower extremity deep vein duplex ultrasound: The deep veins demonstrate normal compression, normal Doppler color flow and normal Doppler waveforms with respiration and augmentation from the popliteal vein to the common femoral vein. Impression: There is no right lower extremity deep vein thrombus. Electronically Signed by Gautam Clement MD 02/10/2019 12:57 P
== END ==
LOC: M RAD 12:08
PROVIDERS: ATTEND Advanced Practice Midwife
DX: O09.512 Supervision of elderly primigravida, second trimester (principal); M79.604 Pain in right leg

== ENCOUNTER → 2019-03-04 | Outpatient (CLI) | payer OTHER ==
[~2019-03-04] MED LIST changes: +FERR325T3 PO
== END ==
LOC: M LAB 14:31
PROVIDERS: ATTEND Advanced Practice Midwife
DX: Z53.9 Procedure and treatment not carried out, unspecified reason (principal); O09.512 Supervision of elderly primigravida, second trimester; Z3A.00 Weeks of gestation of pregnancy not specified

== ENCOUNTER 2019-03-11 12:40 | Inpatient (IN) | payer OTHER ==
[~2019-03-11] VITALS: Ht 160 cm; Wt 81.4 kg
[2019-03-11 12:58] VITALS: BP 106/67
[2019-03-11] MEDS ORDERED: LACTATED RINGER'S 1000 ML IV STA (13:43)
[2019-03-11] MEDS ORDERED: LR 1,000 ML IV SCH (13:43)
[2019-03-11 13:48] VITALS: BP 102/67
[2019-03-11] MEDS ORDERED: ONDANSETRON 4MG/2ML VIAL (J2405) IV SCH (14:00)
[2019-03-11 14:02] LABS: BASO % 0.2 % (0.0-1.0); EOS % 0.5 % (0.0-3.0); HEMOGLOBIN 9.1 g/dl (12.0-15.5); LYMPH # 0.7 10^3/uL (1.5-4.5); LYMPH % 13.2 % (24.0-44.0); MEAN CORPUSCULAR HEMOGLOBIN 22.1 pg (27.0-33.0); MEAN CORPUSCULAR HGB CONC 30.3 g/dl (32.0-36.5); MONO # 0.5 10^3/uL (0.0-0.8); MONO % 8.2 % (0.0-5.0); NEUTROPHILS # 4.3 10^3/uL (1.8-7.7); NEUTROPHILS % 77.4 % (36.0-66.0); PLATELET COUNT, AUTOMATED 346 10^3/uL (150-450); RED BLOOD COUNT 4.11 10^6/uL (4.00-5.40); WHITE BLOOD COUNT 5.6 10^3/uL (4.0-10.0)
[2019-03-11 14:14] LABS: ALBUMIN 2.5 GM/DL (3.2-5.2); ALT/SGPT 15 U/L (12-78); BILIRUBIN,TOTAL 0.5 MG/DL (0.2-1.0); BLOOD UREA NITROGEN 7 MG/DL (7-18); CALCIUM LEVEL 8.2 MG/DL (8.5-10.1); CARBON DIOXIDE LEVEL 25 MEQ/L (21-32); CHLORIDE LEVEL 104 MEQ/L (98-107); CREATININE FOR GFR 0.71 MG/DL (0.55-1.30); GLOMERULAR FILTRATION RATE > 60.0 (>60); GLUCOSE, FASTING 103 MG/DL (70-100); SODIUM LEVEL 137 MEQ/L (136-145); TOTAL PROTEIN 6.2 GM/DL (6.4-8.2)
[2019-03-11 14:18] VITALS: BP 110/71
[2019-03-11] MEDS ORDERED: PERCOCET 5MG/325MG TAB PO PRN (14:30)
[2019-03-11] MEDS: PROMETHAZINE INJ 25 MG/ML VIAL (J2550) IV PRN ×2 (14:31→22:20)
[2019-03-11 14:48] VITALS: BP 100/67
[2019-03-11] MEDS: cefTRIAXone SOD 2 GM in D5W MINI-BAG PLUS 50 ML IV SCH (14:59)
[2019-03-11 15:00] VITALS: BP 95/59
--- NOTE | 2019-03-11 16:48 | HPE ---
DATE OF ADMISSION: 03/11/2019 A 34-year-old G8, P2-0-5-2 female at 30-3/7 weeks gestation by 6-week ultrasound, estimated date of confinement (EDC) of 05/17/2019, presents with increased cramping as well as nausea and vomiting since Friday, which was 3 days prior to admission. She was given antibiotics through the emergency room on 03/19/2019 for a probable urinary tract infection (UTI) but was unable to keep the medication down. She had increased flank pain in her left side. She felt feverish but did not measure a temperature. She has a history of a left-sided nephrostomy tube, which is chronic due to ureteral stricture at the ureteropelvic junction (UPJ) on that side. She is on Macrobid prophylactically for UTI. COURSE: The patient initiated care at 8 weeks gestation, 09/24/2018. Her first trimester blood pressure was 122/76, weight 164. Patient has been treated for UTIs during . Patient had a positive urine culture for klebsiella on 03/09/2019. Patient has a chronic left-sided nephrostomy tube, which is not to be removed during the . Plan after is for probable left-sided nephrectomy by Dr. Arriaga. OBSTETRICAL HISTORY: 1. August 2006, a 41-week vaginal delivery, 9 pound 11 ounce male infant. 2. May 2018, A 38-week vaginal delivery, 7 pound 2 ounce female infant. She has had five miscarriages. MEDICAL HISTORY: 1. History of kidney stones, both left and right-sided. 2. History of left ureteral stricture. 3. History of bipolar disorder. 4. History of drug use. SURGICAL HISTORY: 1. April 2016, left ureteral stent placed for a left renal stone. 2. January 31, 2017, she had a left ureteral stricture noted at the UPJ after removal of ureteral stone during cystoscopy. She had a ureteral stent placed at that time. 3. July 2017, left ureteral pyeloplasty performed robotically. 4. August 2017, left ureteral stent placement. 5. September 2017, removal of left-sided kidney stone as well as stent. After the stent was removed, she had recurrence of severe hydronephrosis on the left due to recurrent stricture. 6. October 2017, left nephrostomy tube placement. ALLERGIES: None. SOCIAL HISTORY: Patient is . She lives in [place]. She denies current alcohol or drug use. She does report a history of drug use and has previously been on Subutex. VITAL SIGNS: Blood pressure 100/58, pulse 108, temperature 99.3. She feels moderately uncomfortable. HEAD AND NECK: Normal. LUNGS: Clear. Positive costovertebral angle (CVA) tenderness on the left. ABDOMEN: Nontender, gravid. EXTREMITIES: Nontender. LABORATORY DATA: Blood type O negative, rubella immune, RPR nonreactive. Hepatitis B and C negative. ASSESSMENT: A 34-year-old G8, P2-0-5-2 female at 30-3/7 weeks gestation with left-sided nephrostomy tube and concurrent probable left-sided pyelonephritis. PLAN: Admit for intravenous (IV) fluids as well as antibiotics. Will obtain metabolic profile as well as blood cultures. Patient will be here until she has clinical improvement. It has been understood that it would be impossible to completely eradicate bacteria from her upper urinary tract on the left due to a complicated renal history. Plan is to treat the acute infection.
[2019-03-11] MEDS ORDERED: KCL 20MEQ IN D5/0.45NS 1000ML 1,000 ML IV SCH (21:00)
[2019-03-12] VITALS (8 sets, daily range): BP systolic 87–130; BP diastolic 49–59
[2019-03-12 06:44] LABS: BASO % 0.2 % (0.0-1.0); EOS # 0.1 10^3/uL (0.0-0.50); EOS % 1.8 % (0.0-3.0); HEMATOCRIT 25.4 % (36.0-47.0); HEMOGLOBIN 7.6 g/dl (12.0-15.5); LYMPH # 1.3 10^3/uL (1.5-4.5); LYMPH % 24.5 % (24.0-44.0); MEAN CORPUSCULAR HEMOGLOBIN 21.8 pg (27.0-33.0); MEAN CORPUSCULAR HGB CONC 29.9 g/dl (32.0-36.5); MEAN CORPUSCULAR VOLUME 72.8 fl (80.0-96.0); MONO # 0.7 10^3/uL (0.0-0.8); NEUTROPHILS # 3.1 10^3/uL (1.8-7.7); NEUTROPHILS % 59.9 % (36.0-66.0); PLATELET COUNT, AUTOMATED 303 10^3/uL (150-450); RED BLOOD COUNT 3.49 10^6/uL (4.00-5.40); WHITE BLOOD COUNT 5.1 10^3/uL (4.0-10.0)
[2019-03-12 07:13] LABS: ALT/SGPT 11 U/L (12-78); BILIRUBIN,TOTAL 0.3 MG/DL (0.2-1.0); BLOOD UREA NITROGEN 6 MG/DL (7-18); CALCIUM LEVEL 7.6 MG/DL (8.5-10.1); CARBON DIOXIDE LEVEL 24 MEQ/L (21-32); CHLORIDE LEVEL 110 MEQ/L (98-107); GLOMERULAR FILTRATION RATE > 60.0 (>60); GLUCOSE, FASTING 80 MG/DL (70-100); POTASSIUM SERUM 3.5 MEQ/L (3.5-5.1); SODIUM LEVEL 141 MEQ/L (136-145); TOTAL PROTEIN 5.3 GM/DL (6.4-8.2)
[2019-03-12] MEDS: PROMETHAZINE INJ 25 MG/ML VIAL (J2550) IV PRN (12:18)
[2019-03-12] MEDS: cefTRIAXone SOD 2 GM in D5W MINI-BAG PLUS 50 ML IV SCH (14:52)
[2019-03-12] MEDS ORDERED: PROM25TA12 PO (16:12)
[2019-03-12] MEDS ORDERED: KEFL500C17 PO (16:12)
--- NOTE | 2019-03-12 16:21 | DS.PDOC ---
Discharge Summary General Date of Admission March 11, 2019 at 13:15 Date of Discharge 03/12/19 Discharge Summary PROCEDURES PERFORMED DURING STAY: None. ADMITTING DIAGNOSES: 1. Pyelonephritis with left nephrostomy tube 2. Nausea and vomiting DISCHARGE DIAGNOSES: 1. IUP @ 30+ gestation 2. L nephrostomy tube, status improved COMPLICATIONS/CHIEF COMPLAINT: Nausea/ Vomitting. HISTORY OF PRESENT ILLNESS: 34yo G [id number] NILSON 05/17/19. Presented @ 30w2d with complaints of nausea and vomiting. Pt has a complicated renal history with left nephrostomy tube in place. She was unable to tolerate oral antibiotics and was admitted for IV hydration and antibiotic administration. HOSPITAL COURSE: Tolerating food, fluids and medications. Using antiemetics prn. DISCHARGE MEDICATIONS: Please see below. ALLERGIES: Please see below. PHYSICAL EXAMINATION ON DISCHARGE: VITAL SIGNS: Please see below. GENERAL: NAD HEENT: WNL NECK: Supple CARDIOVASCULAR EXAMINATION: Normotensive, HRR RESPIRATORY EXAMINATION: Clear and unlabored ABDOMINAL EXAMINATION: Gravid, Cat I tracing, no UC. Nephrostomy tube patent and draining EXTREMITIES: Equal strength and motion SKIN: Intact NEUROLOGICAL EXAMINATION: Intact PSYCHIATRIC EXAMINATION: Intact PROGNOSIS: Good ACTIVITY: As tolerated. DIET: As tolerated. Push fluids DISCHARGE PLAN: Home, routine precautions. DISPOSITION: Home. DISCHARGE INSTRUCTIONS: 1. Keep appt next week 2. Keflex TID x 10 days 3. Call with any concerns. DISCHARGE CONDITION: Stable. Vital Signs/I&Os Vital Signs Date Time Temp Pulse Resp B/P (MAP) Pulse Ox O2 Delivery O2 Flow Rate FiO2 03/12/19 14:46 97.8 95 18 87/54 (65) I&O- Last 24 Hours up to 6 AM 03/12/19 05:59 Intake Total 1550.5 ml Output Total 150 ml Balance 1400.5 ml Laboratory Data Labs 24H Laboratory Tests 2 03/12/19 06:18: Immature Granulocyte % (Auto) 0.6, White Blood Count 5.1, Red Blood Count 3.49L, Hemoglobin 7.6L, Hematocrit 25.4L, Mean Corpuscular Volume 72.8L, Mean C orpuscular Hemoglobin 21.8L, Mean Corpuscular Hemoglobin Concent 29.9L, Red Cell Distribution Width 16.0H, Platelet Count 303, Neutrophils (%) (Auto) 59.9, Lymphocytes (%) (Auto) 24.5, Monocytes (%) (Auto) 13.0H, Eosinophils (%) (Auto) 1.8, Basophils (%) (Auto) 0.2, Neutrophils # (Auto) 3.1, Lymphocytes # (Auto) 1.3L, Monocytes # (Auto) 0.7, Eosinophils # (Auto) 0.1, Basophils # (Auto) 0.0, Nucleated Red Blood Cells % (auto) 0.0, Anion Gap 7L, Glomerular Filtration Rate > 60.0, Blood Urea Nitrogen 6L, Creatinine 0.70, Sodium Level 141, Potassium Level 3.5, Chloride Level 110H, Carbon Dioxide Level 24, Calcium Level 7.6L, Aspartate Amino Transf (AST/SGOT) 21, Alanine Aminotransferase (ALT/SGPT) 11L, Alkaline Phosphatase 107, Total Bilirubin 0.3, Total Protein 5.3L, Albumin 2.0L, Albumin/Globulin Ratio 0.61L CBC/BMP Laboratory Tests 03/12/19 06:18 Red Blood Count 3.49 L, Mean Corpuscular Volume 72.8 L, Mean Corpuscular Hemoglobin 21.8 L, Mean Corpuscular Hemoglobin Concent 29.9 L, Red Cell Distribution Width 16.0 H, Neutrophils (%) (Auto) 59.9, Lymphocytes (%) (Auto) 24.5, Monocytes (%) (Auto) 13.0 H, Eosinophils (%) (Auto) 1.8, Basophils (%) (Auto) 0.2, Neutrophils # (Auto) 3.1, Lymphocytes # (Auto) 1.3 L, Monocytes # (Auto) 0.7, Eosinophils # (Auto) 0.1, Basophils # (Auto) 0.0, Calcium Level 7.6 L, Aspartate Amino Transf (AST/SGOT) 21, Alanine Aminotransferase (ALT/SGPT) 11 L, Alkaline Phosphatase 107, Total Bilirubin 0.3, Total Protein 5.3 L, Albumin 2.0 L Microbiology Microbiology 03/11/19 Blood Culture - Preliminary, Resulted No growth after 24 hours . All specim... 03/11/19 Blood Culture - Preliminary, Resulted No growth after 24 hours . All specim... 03/11/19 Urine Culture, Received Pending Discharge Medications Scheduled Cephalexin (Keflex) 500 Mg Capsule, 500 MG PO TID No.137/Iron/Folic Acd ( Vitamin Tablet) 1 Each Tablet, 1 TAB PO DAILY, (Reported) Scheduled PRN Promethazine HCl (Promethazine HCl) 25 Mg Tablet, 25 MG PO Q6HP PRN for nausea/vomiting Miscellaneous Medications Acetaminophen (Mapap) 500 Mg Tablet, 1,000 MG PO, (Reported) Ferrous Sulfate (Ferrous Sulfate) 325 Mg Tablet.dr, 325 MG PO, (Reported) Allergies Coded Allergies: metoclopramide (Verified Adverse Reaction, Intermediate, anxiety, 03/09/19) quetiapine (Verified Adverse Reaction, Intermediate, bad anxiety attacks, 03/09/19) Isaura Chung CNM March 12, 2019 16:20
== END 2019-03-12 16:26 | disposition home or self-care (01) | DRG 566 ==
LOC: M LDO 12:40 → M LDI 13:15
PROVIDERS: ADMIT Specialist; ATTEND Specialist
DX: O23.03 Infections of kidney in pregnancy, third trimester (principal); Z93.6 Other artificial openings of urinary tract status; Z3A.30 30 weeks gestation of pregnancy; N10 Acute pyelonephritis

== ENCOUNTER 2019-03-14 16:54 | Inpatient (IN) | payer OTHER ==
[~2019-03-14] VITALS: Ht 160 cm; Wt 84.2 kg
[2019-03-14 17:14] VITALS: BP 102/56
[2019-03-14] MEDS ORDERED: LR 1,000 ML IV ONE (17:45)
[2019-03-14] MEDS ORDERED: TERBUTALINE SULFATE 1 MG/ML VIAL (J3105) SC ONE (17:45)
[2019-03-14] MEDS ORDERED: TERBUTALINE SULFATE 1 MG/ML VIAL (J3105) As Ordered ONE (17:52)
[2019-03-14] MEDS ORDERED: ceFAZolin 2 GM/D5W 50 ML IV BAG (J0690 PER 500MG) As Ordered ONE (17:57)
[2019-03-14] MEDS ORDERED: fentaNYL 100 MCG/2 ML INJECTION (J3010) As Ordered ONE (18:07)
[2019-03-14] MEDS ORDERED: dexameTHASONE 4 MG/ML 1ML VIAL (J1100) As Ordered ONE (18:12)
[2019-03-14] MEDS ORDERED: OXYTOCIN INJ 10 UNITS/ML VIAL (J2590) As Ordered ONE ×2 (18:13→18:20)
[2019-03-14 18:20] LABS: CORD GAS ABE A -1.8; CORD GAS HCO3 A 25.1 MEQ/L; CORD GAS O2 SAT A 60.2 %; CORD GAS PCO2 A 50.5 mmHg; CORD GAS PH A 7.315 UNITS; CORD GAS PO2 A 24.8 mmHg; CORD GAS TCO2 A 26.7 MEQ/L
[2019-03-14 18:24] LABS: CORD GAS ABE V -0.5; CORD GAS HCO3 V 26.3 MEQ/L; CORD GAS O2 SAT V 69.1 %; CORD GAS PCO2 V 50.8 mmHg; CORD GAS PH V 7.332 UNITS; CORD GAS PO2 V 27.7 mmHg; CORD GAS SBC V 23.2 MEQ/L; CORD GAS TCO2 V 27.9 MEQ/L
[2019-03-14] MEDS ORDERED: SUCCINYLCHOLINE 100 MG/5 ML SYRINGE (J0330) As Ordered ONE (18:24)
[2019-03-14] MEDS ORDERED: PROPOFOL 200 MG/20 ML VIAL As Ordered ONE (18:24)
[2019-03-14] MEDS ORDERED: MORPHINE PRES-FREE INJ 10 MG/10 ML VIAL (J2274) As Ordered ONE (18:25)
[2019-03-14] MEDS ORDERED: KETOROLAC 60 MG/2 ML VIAL (J1885) As Ordered ONE (18:35)
[2019-03-14] MEDS ORDERED: ONDANSETRON 4MG/2ML VIAL (J2405) As Ordered ONE (18:38)
[2019-03-14] MEDS ORDERED: SUGAMMADEX SODIUM 500 MG/5 ML VIAL (BRIDION) As Ordered ONE (18:49)
[2019-03-14 18:50] LABS: HEMOGLOBIN 8.5 g/dl (12.0-15.5); MEAN CORPUSCULAR HEMOGLOBIN 22.3 pg (27.0-33.0); MEAN CORPUSCULAR HGB CONC 30.4 g/dl (32.0-36.5); MEAN CORPUSCULAR VOLUME 73.3 fl (80.0-96.0); PLATELET COUNT, AUTOMATED 330 10^3/uL (150-450); RED BLOOD COUNT 3.82 10^6/uL (4.00-5.40); WHITE BLOOD COUNT 11.2 10^3/uL (4.0-10.0)
[2019-03-14] MEDS ORDERED: BUPIVACAINE HCL 0.25% 30 ML VIAL As Ordered ONE (19:01)
--- NOTE | 2019-03-14 19:03 | REP ---
KUB: Single view. History: Stat no count. Findings: A single view of the pelvis and mid abdomen shows no evidence of opaque foreign body. Impression: No opaque foreign body seen. The upper abdomen is not included in the field of view. Electronically Signed by Maurice Morris MD 03/14/2019 06:55 P
[2019-03-14] MEDS ORDERED: OXYTOCIN DRIP 30 UNITS in APPROPRIATE DILUENT 1 EA IV SCH (19:28)
[2019-03-14] MEDS ORDERED: PROMETHAZINE 25 MG TAB PO PRN (19:30)
[2019-03-14] MEDS ORDERED: RHOGAM 300 MCG (1500 IU) INJ (J2790) IM SCH (19:30)
[2019-03-14] MEDS ORDERED: MORPHINE 1MG/ML IN 0.9% NACL 100ML IV BAG IV PRN (19:30)
[2019-03-14] MEDS ORDERED: ONDANSETRON 4MG/2ML VIAL (J2405) IV PRN ×2 (19:30)
[2019-03-14] MEDS ORDERED: HYDROMORPHONE HCL 0.5 MG/ 0.5 ML SYRINGE (J1170 PER 1) IV PRN (19:30)
[2019-03-14] MEDS ORDERED: fentaNYL 100 MCG/2 ML INJECTION (J3010) IV PRN (19:30)
[2019-03-14] MEDS ORDERED: MEASLES,MUMPS,RUBELLA VACCINE INJ (MMR-II) (90707) SC SCH (19:30)
[2019-03-14] MEDS ORDERED: MORPHINE 1MG/ML IN 0.9% NACL 100ML IV BAG As Ordered ONE (19:31)
--- NOTE | 2019-03-14 20:10 | NUR ---
L&D H&P HPI: 34 year old at 30+6 weeks estimated gestation. Expected date of confinement: 05/17/2019. dated by a first TM US. Presented today after experiencing 3-4 hours of frequent, painful contractions. When I arrived into the triage room, she was stating she had an overwhelming urge to push. Denies vaginal bleeding, loss of fluid. Reports regular movement. course c/b: 1. Close interval (previous 05/2018) 2. AMA; declined genetic screening 3. Past opioid drug abuse; last Subutex dose approximately 6 months ago. 4. Depression/anxiety; Zoloft 100mg daily 5. Positive CT 10/19/19, Test of cure neg for CT on 11/25/18. 6. Left ureteral stricture/nephrolithiasis. Left nephrostomy tube. labs: Blood type O negative, did not receive Rhogam at 28 weeks, antibody screen negative, rubella immune, VDRL nonreactive , hepatitis B surface antigen negative, HIV negative, hepatitis C antibody negative, GC/CT negative, aneuploidy/maternal serum screening: none, 1 hour glucose challenge test: not done, GBS unknown. Radiology/OB US: no anomalies or placental abnormalities detected. 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 No gHSV. No dysplasia OB history: SAB x 5. Term x 2 (last delivery in May 2018) Social history: previous opioid use (formerly on Subutex; last dose 6 months ago) Family history: heart disease, Hep C, seizure disorders Objective Vitals: Normotensive, normal heart rate, afebrile Heart: Regular rate and rhythm. No murmurs, rubs or gallops. Lungs: Clear to auscultation bilaterally. No wheezes, crackles, rales or rhonchi. Abdomen: Uterine fundal height consistent with dates. No guarding or rebound tenderness. Extremities: No clubbing, cyanosis or edema. Normal deep tendon reflexes. Sterile vaginal exam: 10 cm, 100 %effacement, -2 station, intact. Footling breech / funic presentation. (US,jurado: footling breech confirmed) External monitoring: heart rate category 1 Tocodynamometer: contractions occurring every 2-3 min. Assessment/Plan 34 year old at 30+6 weeks gestation. Diagnosis: Active labor/second stage, footling breech with funic presentation, intact membranes. -Patient urgently counseled on need for an emergent delivery -NICU and Anesthesia notified. -Preparations for the OR made immediately upon diagnosis. Dr. Chaz Ahumada, DO, FACOG
[2019-03-14] MEDS ORDERED: AZITHROMYCIN INJ 500 MG, VIAL MATE ADAPTER 1 EACH in D5W 250 ML IV ONE (20:30)
--- NOTE | 2019-03-14 20:46 | NUR ---
Operative Note Date of procedure: 03/14/19 Procedure: Primary low-transverse section (emergent) Anesthesia: General Endotracheal Preoperative diagnosis: 1. 30+6 weeks gestation 2. Active labor/second stage 3. Footling breech with funic presentation 4. Advanced maternal age 5. Close interval 6. Nephrolithiasis w/ left nephrostomy tube Postoperative diagnosis: same Placental abruption noted intraoperatively Indication: Active labor, footling breech/funic presentation Primary surgeon: Chaz Ahumada D.O., F. A.C.O.G. Perfume Compounder: Renetta Jackson MD FACOG (essential role in surgical site exposure and assistance with delivery) Estimated blood loss: 700 ml IV fluids administered: 500 ml crystalloid Drains: López catheter. Urine output:100 ml data: Apgars 5 and 8. Cord gases: arterial pH 7.315/-1.8, venous pH 7.332/-0.5. Birthweight 1964g, 4lbs 5oz. Male named Meliton. Preoperative/prophylactic antibiotics: Ancef 2 g IV (given within 30 minutes prior to surgical start time). Intraoperative findings: Placental abruption (200-300ml of blood mixed with clot upon entry into intrauterine cavity). Footling breech presentation. Normal uterus and bilateral adnexa/ovaries. Right paratubal cyst. Specimen(s): Placenta. Right paratubal cyst. Procedure: The patient was urgently counseled and consented on the risks, benefits, indications and alternatives of the procedure. Verbal consent was obtained given the emergent nature of the situation. She was taken to the operating room with an IV running. She was placed on the operating table. She was placed in the dorsal supine position with a leftward tilt. Sequential compression devices were placed on the lower extremities. A López catheter was placed under sterile conditions. She was sterilely prepped and draped. General anesthesia was administered and the airway was secured. Using the 10 blade a Pfannenstiel incision was performed. The 10 blade was used to dissect down to the level of the rectus sheath fascia. The rectus sheath fascia was incised at the midline, and the fascial incision was extended with manual stretch. The midline was identified and the rectus muscle bellies were m anually . The peritoneum was identified and entered digitally. Entry into the intraperitoneal cavity was achieved. The peritoneal opening was extended with manual stretch . There was good visualization of both the bladder and the lower uterine segment. The bladder retractor was positioned. A low transverse uterine incision was made with a new 10 blade. The hysterotomy was extended with manual stretch. The amniotic sac was protruding and then artificially ruptured. Bloody amniotic fluid was noted. Breech maneuvers were performed and the baby delivered through the hysterotomy with ease. The cord was doubly clamped and cut and the baby was handed off to awaiting care. See data above. The placenta was manually removed. The uterus was exteriorized. The intrauterine cavity was cleared of all clot and debris with a laparotomy sponge. The hysterotomy was closed with 0 Vicryl in running, locked fashion. A second imbricating closure was performed over the initial layer closure using 0 Vicryl. The hysterotomy was noted to be hemostatic. The posterior cul-de-sac wa s irrigated and cleared of all clot and debris. The right paratubal cyst was excised with Bovie cautery. The uterus was replaced back into the abdomen. The paracolic gutters were cleared of all clot and debris with damp laparotomy s ponges. The hysterotomy is reinspected and noted to be hemostatic. Sponge, needle and instrument counts were correct. The peritoneum was closed with 3-0 Vicryl in running fashion. The rectus muscle bellies were reapproximated with 3-0 Vicryl with a series of interrupted sutures. The rectus muscle bellies were noted to be hemostatic. The fascia was closed with 0 Vicryl in running fashion. Sponge, needle and instrument counts were again correct. The subcutaneous layer was irrigated. Small subcutaneous bleeders were cauterized with Bovie. The subcutaneous layer was reapproximated with 3-0 Vicryl in running fashion. The skin was closed with 3-0 Monocryl in subcuticular fashion. A bandage was placed over the closed incision. The final sponge, instrument and needle count was correct. She tolerated the entire procedure very well. She was transferred to the PACU in good and stable condition. Dr. Chaz Ahumada D.O., F.A.C.O.G
[2019-03-14 20:55] VITALS: BP 119/74
[2019-03-14 21:25] VITALS: BP 121/67
[2019-03-14] MEDS: DOCUSATE SODIUM 100 MG CAP PO SCH (22:04)
[2019-03-14 22:20] VITALS: BP 111/70
[2019-03-14 23:47] VITALS: BP 101/59
[2019-03-15 00:38] LABS: CHLAMYDIA DNA AMPLIFICATION NEGATIVE (NEGATIVE); GC DNA AMPLIFICATION NEGATIVE (NEGATIVE)
[2019-03-15] MEDS: KETOROLAC 30 MG/ML VIAL (J1885) IV SCH ×3 (01:38→13:03)
[2019-03-15 02:04] VITALS: BP 105/67
[2019-03-15 06:04] VITALS: BP 108/55
[2019-03-15 06:33] LABS: HEMATOCRIT 23.3 % (36.0-47.0); HEMOGLOBIN 7.1 g/dl (12.0-15.5); MEAN CORPUSCULAR HEMOGLOBIN 21.8 pg (27.0-33.0); MEAN CORPUSCULAR HGB CONC 30.5 g/dl (32.0-36.5); MEAN CORPUSCULAR VOLUME 71.7 fl (80.0-96.0); PLATELET COUNT, AUTOMATED 311 10^3/uL (150-450); RED BLOOD COUNT 3.25 10^6/uL (4.00-5.40); WHITE BLOOD COUNT 16.8 10^3/uL (4.0-10.0)
--- NOTE | 2019-03-15 06:50 | NUR ---
POD#1 s/p PLTCS, emergent under general anesthesia Pain well controlled, López still in place, tolerating a regular diet, ambulating without difficulty, lochia decreasing and minimal. Normotensive, normal HR, afebrile H: RRR no m/g/r L: CTA b/l no w/c/r/r Abd: soft,nt,nd Ext: no c/c/e Incision c/d/i with bandage on A/P: POD#1. Recovering appropriately. Hemodynamically stable, afebrile, good pain control. -Routine postoperative care/advancement; remove López this AM -Continue IV abx x 24 hours -Anticipate d/c tomorrow. Hali Ahumada, DO
[2019-03-15] MEDS ORDERED: IBUP80TA PO (08:55)
[2019-03-15] MEDS ORDERED: COLA100C5 PO (08:55)
[2019-03-15] MEDS ORDERED: PERCOCET 5MG/325MG TAB PO PRN (09:00)
[2019-03-15] MEDS ORDERED: PRENATAL VITAMINS CHEWABLE TABLET PO SCH (09:00)
[2019-03-15] MEDS: DOCUSATE SODIUM 100 MG CAP PO SCH ×2 (09:23→20:24)
[2019-03-15] MEDS ORDERED: PERCOCET PO (09:42)
[2019-03-15 10:00] VITALS: BP 99/59
[2019-03-15 14:00] VITALS: BP 106/64
[2019-03-15] MEDS: PERCOCET 5MG/325MG TAB PO PRN ×2 (14:08→21:55)
[2019-03-15 17:24] VITALS: BP 87/49
[2019-03-15] MEDS: IBUPROFEN 800 MG TAB PO SCH (20:25)
[2019-03-15 22:03] VITALS: BP 97/58
[2019-03-16 02:07] VITALS: BP 100/58
[2019-03-16] MEDS: IBUPROFEN 800 MG TAB PO SCH (04:33)
[2019-03-16 06:06] VITALS: BP 98/57
[2019-03-16] MEDS: PERCOCET 5MG/325MG TAB PO PRN (06:41)
--- NOTE | 2019-03-16 06:53 | DS.PDOC ---
Discharge Summary General Date of Admission March 14, 2019 at 17:52 Date of Discharge 03/16/2019 Attending Physician: DEANDRE MATUTE DO Discharge Summary PROCEDURES PERFORMED DURING STAY: Primary section. ADMITTING DIAGNOSES: 1. IUP at 30.6 weeks gestation 2. active labor 3. footling breech DISCHARGE DIAGNOSES: 1. Day 2 postoperative. COMPLICATIONS/CHIEF COMPLAINT: labor. HISTORY OF PRESENT ILLNESS: Patient is a 34-year-old female who is a at 30.6 weeks gestation who presented to L&D in active labor-fully dilated in footling breech presentation. Her has been complicated by: 1. Close interval (previous 05/2018) 2. AMA; declined genetic screening 3. Past opioid drug abuse; last Subutex dose approximately 6 months ago. 4. Depression/anxiety; Zoloft 100mg daily 5. Positive CT 10/19/19, Test of cure neg for CT on 11/25/18. 6. Left ureteral stricture/nephrolithiasis. Left nephrostomy tube. The decision was made with the patient to proceed to a primary due to presentation and advanced dilation. Baby was sent to [facility] due to gestation. HOSPITAL COURSE: uncomplicated. DISCHARGE MEDICATIONS: Please see below. ALLERGIES: Please see below. PHYSICAL EXAMINATION ON DISCHARGE: VITAL SIGNS: Please see below. GENERAL: A+Ox3 CARDIOVASCULAR EXAMINATION: regular rate and rhythm RESPIRATORY EXAMINATION: regular rate with no use of accessory muscles. ABDOMINAL EXAMINATION: dressing is intact EXTREMITIES: generalized edema SKIN: warm, dry, with no unusual rashes PSYCHIATRIC EXAMINATION: mood and affect are normal LABORATORY DATA: Please see below. ACTIVITY: As tolerated. No heavy lifting. DIET: regular DISCHARGE INSTRUCTIONS: 1. Discharge to home. Follow-up in 1-2 weeks for incision check and 6-8 weeks . 2. Education done on signs and symptoms of mastitis, hemorrhage, endometritis, infection, DVT, pulmonary embolism, depression, and psychosis. 3. Reviewed with patient pain management and how to clean incision site after removal of dressing on day 5 . DISCHARGE CONDITION: Stable. Vital Signs/I&Os Vital Signs Date Time Temp Pulse Resp B/P (MAP) Pulse Ox O2 Delivery O2 Flow Rate FiO2 03/16/19 06:06 97.4 87 18 98/57 (71) 98 03/14/19 20:00 2 I&O- Last 24 Hours up to 6 AM 03/16/19 06:00 Intake Total 800 ml Output Total 1050 ml Balance -250 ml Laboratory Data CBC/BMP Item Value Date Time White Blood Count 11.2 10^3/uL H 03/14/191819 Red Blood Count 3.82 10^6/uL L 03/14/191819 Hemoglobin 8.5 g/dl L 03/14/191819 Hematocrit 28.0 % L 03/14/191819 Mean Corpuscular Volume 73.3 fl L 03/14/191819 Mean Corpuscular Hemoglobin 22.3 pg L 03/14/191819 Mean Corpuscular Hemoglobin Concent 30.4 g/dl L 03/14/191819 Red Cell Distribution Width 16.1 % H 03/14/191819 Platelet Count 330 10^3/uL 03/14/191819 Item Value Date Time White Blood Count 16.8 10^3/uL H 03/15/1918 Red Blood Count 3.25 10^6/uL L 03/15/1918 Hemoglobin 7.1 g/dl L 03/15/1918 Hematocrit 23.3 % L 03/15/1918 Mean Corpuscular Volume 71.7 fl L 03/15/19617 Mean Corpuscular Hemoglobin Concent 30.5 g/dl L 03/15/19617 Mean Corpuscular Hemoglobin 21.8 pg L 03/15/1918 Red Cell Distribution Width 15.9 % H 03/15/19617 Platelet Count 311 10^3/uL 03/15/1918 Discharge Medications Scheduled Cephalexin (Keflex) 500 Mg Capsule, 500 MG PO TID Docusate Sodium (Colace) 100 Mg Capsule, 100 MG PO BID Ibuprofen (Ibuprofen) 800 Mg Tablet, 800 MG PO Q8H No.137/Iron/Folic Acd ( Vitamin Tablet) 1 Each Tablet, 1 TAB PO DAILY, (Reported) Scheduled PRN Oxycodone/Acetaminophen (Oxycodone-Acetaminophen 5-325) 1 Each Tablet, 1 TAB PO Q4HP PRN for MILD PAIN (PS 1-4) Promethazine HCl (Promethazine HCl) 25 Mg Tablet, 25 MG PO Q6HP PRN for nausea/vomiting Miscellaneous Medications Acetaminophen (Mapap) 500 Mg Tablet, 1,000 MG PO, (Reported) Ferrous Sulfate (Ferrous Sulfate) 325 Mg Tablet.dr, 325 MG PO, (Reported) Allergies Coded Allergies: metoclopramide (Verified Adverse Reaction, Intermediate, anxiety, 03/09/19) quetiapine (Verified Adverse Reaction, Intermediate, bad anxiety attacks, 03/09/19) JEREMÍAS HARDING CNM March 16, 2019 06:53
== END 2019-03-16 10:05 | disposition home or self-care (01) | DRG 540 ==
LOC: M LDO 16:54 → M LDI 17:52 → M OBS 20:24
PROVIDERS: ADMIT Obstetrics & Gynecology; ATTEND Obstetrics & Gynecology
PROC: 10D00Z1 Extraction of Products of Conception, Low, Open Approach (ICD-10-PCS; principal; 2019-03-14 18:37)
DX: O32.1XX0 Maternal care for breech presentation, not applicable or unspecified (principal); O45.93 Premature separation of placenta, unspecified, third trimester; O60.14X0 Preterm labor third trimester with preterm delivery third trimester, not applicable or unspecified; Z37.0 Single live birth; Z3A.30 30 weeks gestation of pregnancy; O09.523 Supervision of elderly multigravida, third trimester; N20.0 Calculus of kidney; Z88.8 Allergy status to other drugs, medicaments and biological substances

== ENCOUNTER → 2019-07-02 | Outpatient (CLI) | payer OTHER ==
[~2019-07-02] MED LIST changes: +CIPR500T3; +DEPO150I IM; +DOCU100C16 PO; +FLUO20CA20 PO; -FLUO20CA8 PO; +IBUP80TA PO; +ISOVUE-300 61% 50ML VIAL (Q9967) As Ordered ONE; +LIDOCAINE 1% MDV 20ML VIAL As Ordered ONE; -MELA5TAB17 PO; +MELA5TAB31 PO; +MIDAZOLAM INJ 2 MG/2 ML VIAL (J2250) As Ordered ONE; +ZANT150T40 PO; -ZANTTAB PO; +ZOFR4TAB16 PO; +ZOLO50TA PO; +ceFAZolin 1GM INJ (J0690 PER 500MG) As Ordered ONE; +diphenhydrAMINE INJ 50MG/ML VIAL (J1200) As Ordered ONE; +fentaNYL 100 MCG/2 ML INJECTION (J3010) As Ordered ONE
--- NOTE | 2019-07-02 08:18 | IRHP ---
[facility] IR Pre-Procedure H & P General Date of Service: Jul 02, 2019 Procedure: Same Day Surgery Interval History and Physical 34 female with chronic left hydronephrosis, stones and known proximal ureteral stricture. Presents for neph exchange. last exchange 6 months ago. missed last appointment. neph not draining. ROS feeling under the weather. Diarrhea. PMH: prior ureteroplasty and cystoscopy. ureteral stricture. stone disease History of Present Illness Chief Complaint The patient is a 34-year-old female admitted with a reason for visit of Hydronephrosis. PRE-PROCEDURE DIAGNOSIS: hydronephrosis HEART: normal rate. LUNGS: normal breathing at rest Neuro:alert and oriented abdomen:non distended extremities: moving al 4 extremities. HEENT: no scleral icterus ASA Classification ASA Classification: I-Healthy Mallampati Score: I NPO: Yes Problems with prior sedation: No Obstructive Sleep Apnea: No Plan moderate sedation Allergies Coded Allergies: metoclopramide (Verified Adverse Reaction, Intermediate, anxiety, 03/09/19) quetiapine (Verified Adverse Reaction, Intermediate, bad anxiety attacks, 03/09/19) Home Medications Scheduled Sertraline Hcl (Zoloft), 1 TAB PO DAILY, (Reported) Discontinued Medications Acetaminophen (Mapap), 1,000 MG PO, (Reported) Discontinued Reason: Pt states not taking Cephalexin (Keflex), 500 MG PO TID Discontinued Reason: Pt states not taking Docusate Sodium (Colace), 100 MG PO BID Discontinued Reason: Pt states not taking Ferrous Sulfate (Ferrous Sulfate), 325 MG PO, (Reported) Discontinued Reason: Pt states not taking Ibuprofen (Ibuprofen), 800 MG PO Q8H Discontinued Reason: Pt states not taking Oxycodone/Acetaminophen (Oxycodone-Acetaminophen 5-325), 1 TAB PO Q4HP PRN for MILD PAIN (PS 1-4) Discontinued Reason: Pt states not taking No.137/Iron/Folic Acd ( Vitamin Tablet), 1 TAB PO DAILY, (Reported) Discontinued Reason: Pt states not taking Promethazine HCl (Promethazine HCl), 25 MG PO Q6HP PRN for nausea/vomiting Discontinued Reason: Pt states not taking GELY PRUETT MD Jul 02, 2019 08:18
--- NOTE | 2019-07-02 09:43 | POST-OPPD ---
Postoperative Procedure Note Date Of Procedure: Jul 02, 2019 Time Of Procedure: 09:41 PREOPERATIVE DIAGNOSIS: encrusted right neph tube. ureteral stricture POSTOPERATIVE DIAGNOSIS: encrusted right neph tube. ureteral stricture FINDINGS: encrusted right neph tube. ureteral stricture. hydronephrosis PROCEDURE: encrusted neph tube removed under fluoro guidance with cut down. right ureter canalized and 8 F nephroureteral stent catheter placed. patient to return in one week to IR for internal stenting. SURGEON: nighat ANESTHESIA: moderate sedation ESTIMATED BLOOD LOSS: < 5 ml COMPLICATIONS: none POSTOPERATIVE CONDITION: stable GELY PRUETT MD Jul 02, 2019 09:43
[2019-07-02 12:00] VITALS: BP 110/66
--- NOTE | 2019-07-02 15:26 | REP ---
IR Nephrostomy Catheter cut down and removal. IR Nephrostogram and ureterogram. IR Nephroureteral catheter placement. IR moderate sedation.Clinical Information: Patient with indwelling left sided nephrostomy catheter which has not been changed over 6 months. It is not draining. Patient had a baby in March. History of chronic proximal and distal ureteral strictures, prior stones and stone removals. History of prior ureteroplasty and ureteral stenting.Physician: Dr. Hammond.Procedure: The patient was advised of the benefits, risks, and alternatives of the procedure and informed consent was obtained. Patient stated she recently had a test at the office and this was negative. Patient did not desire to have a repeat urine test.A time out was performed with verification of the patient's name, MRN, site of procedure, and type of procedure to be performed. The patient was positioned in the prone position on the angiographic table. The site was prepped and draped in the usual sterile fashion.Moderate sedation was performed by the physician including the presence of an independent trained observer that assisted in monitoring the patient's level of consciousness and physiological status. Following the administration of fentanyl and Versed, the physician spent 60 minutes of continuous [id number] time with the patient.A store lead radiograph reveals a left nephrostomy catheter in expected location.Lidocaine was used for local anesthesia. Contrast injected through the existing nephrostomy catheter confirms catheter blockage. A Glidewire was advanced through the existing nephrostomy catheter however, could not be passed through as the catheter is internally encrusted. A kumpe catheter was advanced through the skin alongside the nephrostomy catheter into the renal pelvis. Injection of contrast confirmed access into the renal pelvis. A Glidewire was then used in conjunction with the kumpe catheter to catheterize the ureteropelvic junction. Under fluoroscopy guidance, the Glidewire in conjunction with the kumpe catheter was used to catheterize the ureter all the way down to the bladder. The wire was removed and injection of contrast confirmed access into the bladder. A stiff wire was advanced through the catheter into the bladder. The left nephrostomy catheter then had to be removed under fluoroscopy guidance which involved a cut down. The prior catheter was removed in its entirety under fluoroscopy guidance. A 24 cm 8.5 Estonian nephro ureteral catheter was then advanced over the wire, into the renal pelvis, down the ureter and into the bladder. The distal and proximal pigtail was formed. Repeat injection of contrast confirms appropriate location of the distal and proximal pigtail and no urinary extravasation. The catheter was secured to the skin using 2-0 Prolene sutures. A sterile dressing was applied to the site. The patient tolerated the procedure well and was returned to the PRU in stable condition.EBL: < 5 ml.Complications: None.Conclusion: 1. Patient with left nephrostomy catheter encrusted and embedded in the body. 2. Successful fluoroscopy-guided removal of prior left nephrostomy catheter in its entirety. 3. Successful recanalization of the ureteral strictures and access to the bladder. 4. Successful left nephro ureteral catheter placement. Patient to follow-up in IR next week for catheter check and internal stenting. Thank you for this referral. Electronically Signed by Cleo Hammond MD 07/02/2019 03:24 P
== END ==
LOC: M IRPRO 07:58
PROVIDERS: ATTEND Radiology Diagnostic Radiology
DX: N13.1 Hydronephrosis with ureteral stricture, not elsewhere classified (principal)
CPT/HCPCS: 50389; 50433; 99152; 99153; C1769; C1887; J0690; J1200; J2250; J3010; Q9967

== ENCOUNTER → 2019-07-14 | Outpatient (CLI) | payer OTHER ==
[~2019-07-14] MED LIST changes: -CIPR500T3; -DEPO150I IM; -DOCU100C16 PO; -FLUO20CA20 PO; +FLUO20CA8 PO; -MIDAZOLAM INJ 2 MG/2 ML VIAL (J2250) As Ordered ONE; -ZOFR4TAB16 PO; -ceFAZolin 1GM INJ (J0690 PER 500MG) As Ordered ONE; -diphenhydrAMINE INJ 50MG/ML VIAL (J1200) As Ordered ONE; -fentaNYL 100 MCG/2 ML INJECTION (J3010) As Ordered ONE
[2019-07-14 15:42] VITALS: BP 117/79
--- NOTE | 2019-07-14 15:43 | REP ---
IR Nephroureteral catheter check. Indication: Pain and pressure in the left flank with urination. low grade fevers. Catheter flushing well. Draining internally. Technique: Contrast injected through the existing left nephroureteral catheter demonstrates well-positioned nephroureteral catheter which is patent down the ureter to the bladder. No extravasation of contrast. No communication with any collection. No leakage at the skin with injection. Impression: Nephroureteral catheter in good position and working well. Will prescribe Keflex for a week for urinary symptoms for possible UTI. Patient to reattach nephroureteral catheter to bag drainage. If symptoms worsen with chills or rigors, patient advised to go to ER. Electronically Signed by Cleo Hammond MD 07/14/2019 03:42 P
== END ==
LOC: EDSTATUS 14:09 → M IRPRO 14:10
PROVIDERS: ATTEND Radiology Diagnostic Radiology
DX: Z46.6 Encounter for fitting and adjustment of urinary device (principal); R10.9 Unspecified abdominal pain; R50.9 Fever, unspecified
CPT/HCPCS: 76000; Q9967

== ENCOUNTER → 2019-07-19 | Outpatient (CLI) | payer OTHER ==
[~2019-07-19] MED LIST changes: +CIPR500T3; +DEPO150I IM; +DOCU100C16 PO; +FLUO20CA20 PO; -FLUO20CA8 PO; -ISOVUE-300 61% 50ML VIAL (Q9967) As Ordered ONE; -LIDOCAINE 1% MDV 20ML VIAL As Ordered ONE; +ZOFR4TAB16 PO
--- NOTE | 2019-07-19 11:27 | REP ---
RENAL NUCLEAR SCAN WITH FLOW FUNCTION: Following the intravenous administration of 8.8 millicuries technetium 99, MAG3, immediate flow images are obtained in the posterior projections showing a greater degree of perfusion of the right kidney compared to the left. Delayed renal function images are performed every minute for a period of 30 minutes in the posterior projection. There is somewhat delayed excretion on the left. There is bilateral cortical washout. There is moderate left hydronephrosis. There is mild right hydronephrosis. Split function is 33.4% on the left and 66.6% on the right. Domg-gg-[id number] is 3 minutes on the left and 2 minutes on the right. T-1/2 on the left could not be calculated as it is in excess of 30 minutes. T-1/2 on the right is 12.8 minutes ,which is slightly elevated. Renal function curve demonstrates minimal shallow downward slope for the right kidney. There is significantly shallow slope for the curve of the left kidney. After voiding, a moderate left hydronephrosis persists while the mild right hydronephrosis significantly diminishes. There is mild postvoid residual in the urinary bladder after voiding. IMPRESSION: Delayed left renal excretion with moderate left hydronephrosis, with associated diminished left renal function as above. There is slightly compromised right renal function. The initial mild right hydronephrosis significantly improves after voiding. Electronically Signed by Gautam Ortiz MD 07/19/2019 04:11 P
== END ==
LOC: M RAD 09:37
PROVIDERS: ATTEND Urology
DX: N13.30 Unspecified hydronephrosis (principal)
CPT/HCPCS: 78707; A9562

== ENCOUNTER → 2019-08-20 | Outpatient (CLI) | payer OTHER ==
[~2019-08-20] MED LIST changes: -CIPR500T3; -DEPO150I IM; -DOCU100C16 PO; -FLUO20CA20 PO; +FLUO20CA8 PO; -ZOFR4TAB16 PO
[2019-08-20 14:42] LABS: HEMATOCRIT 34.9 % (36.0-47.0); HEMOGLOBIN 10.2 g/dl (12.0-15.5); MEAN CORPUSCULAR HEMOGLOBIN 21.5 pg (27.0-33.0); MEAN CORPUSCULAR HGB CONC 29.2 g/dl (32.0-36.5); MEAN CORPUSCULAR VOLUME 73.5 fl (80.0-96.0); PLATELET COUNT, AUTOMATED 488 10^3/uL (150-450); RED BLOOD COUNT 4.75 10^6/uL (4.00-5.40); WHITE BLOOD COUNT 7.6 10^3/uL (4.0-10.0)
[2019-08-20 14:54] LABS: INR 1.02; PROTHROMBIN TIME 13.1 SECONDS (11.8-14.0)
[2019-08-20 14:55] LABS: PARTIAL THROMBOPLASTIN TIME 32.4 SECONDS (25.0-38.4)
[2019-08-20 15:05] LABS: CREATININE FOR GFR 1.16 MG/DL (0.55-1.30); GLOMERULAR FILTRATION RATE 56.3 (>60); POTASSIUM SERUM 4.2 MEQ/L (3.5-5.1)
== END ==
LOC: M LAB 13:47
PROVIDERS: ATTEND Urology
DX: Z01.818 Encounter for other preprocedural examination (principal); N11.9 Chronic tubulo-interstitial nephritis, unspecified; N13.5 Crossing vessel and stricture of ureter without hydronephrosis

== ENCOUNTER → 2019-09-03 | Outpatient (CLI) | payer OTHER ==
[~2019-09-03] MED LIST changes: +CIPR500T3; +DEPO150I IM; +DOCU100C16 PO; +ISOVUE-370 76% 100ML VIAL (Q9967) As Ordered ONE; +ZOFR4TAB16 PO
--- NOTE | 2019-09-03 09:24 | REP ---
Clinical: Chronic pyelonephritis. Technique: Axial contrast enhanced images of the abdomen using 100 ml Isovue 370 intravenous contrast material with delayed images of the abdomen. Comparison: 07/25/2018. Findings: Right kidney demonstrates a normal extrarenal pelvis without hydronephrosis as well as 10 mm and 11 mm simple cysts. The left kidney demonstrates mild cortical thinning which may represent elements of scarring as well as chronic-appearing grade 4 hydronephrosis including dilated extrarenal pelvis which demonstrates subtle and possibly chronic surrounding inflammatory stranding. A left sided percutaneous urostomy catheter loops within the dilated extrarenal pelvis before extending down the ureter and pigtailed in the bladder. No intrarenal calculi are appreciated. Of note, there is element of hydronephrosis and dilated renal pelvis represents a relatively new finding as compared to 07/25/2018. Liver, spleen, pancreas, gallbladder, and bilateral adrenal glands are normal. Visualized portions of the enteric system are unremarkable. No ascites. No free air. No significant adenopathy. Abdominal aorta without aneurysm or dissection. Surrounding musculoskeletal structures are intact. Lung bases are clear. Impression: Grade 4 left hydronephrosis without hydroureter and accompanying findings as described above. No obvious significant acute process. Electronically Signed by Jesus García MD 09/03/2019 09:15 A
== END ==
LOC: M RAD 08:32
PROVIDERS: ATTEND Urology
DX: N10 Acute pyelonephritis (principal)
CPT/HCPCS: 74160; 87088; 87186; Q9967

== ENCOUNTER 2019-09-08 11:02 | Inpatient (IN) | payer OTHER ==
[~2019-09-08] VITALS: Ht 160 cm; Wt 74.4 kg
[~2019-09-08 11:02] MED LIST changes: -CIPR500T3; -DEPO150I IM; -DOCU100C16 PO; +HYDROmorphone HCL 2 MG/ML 1ML VIAL (J1170) As Ordered ONE; -ISOVUE-370 76% 100ML VIAL (Q9967) As Ordered ONE; +KETAMINE HCL 200 MG/20 ML VIAL As Ordered ONE; +LIDOCAINE 2% INJ 100 MG/5 ML SDV (FOR ANES.) As Ordered ONE; +LR 1,000 ML IV ONE; +MIDAZOLAM INJ 2 MG/2 ML VIAL (J2250) As Ordered ONE; +ONDANSETRON 4MG/2ML VIAL (J2405) As Ordered ONE; +PROPOFOL 200 MG/20 ML VIAL As Ordered ONE; +PROPOFOL 500 MG/50 ML VIAL As Ordered ONE; +ROCURONIUM BROMIDE 50 MG/5 ML VIAL As Ordered ONE; +SUGAMMADEX SODIUM 500 MG/5 ML VIAL (BRIDION) As Ordered ONE; -ZOFR4TAB16 PO; +ceFAZolin SOD 2 GM in IV 1 EA IV ONE; +dexameTHASONE 4 MG/ML 1ML VIAL (J1100) As Ordered ONE; +fentaNYL 250 MCG/5 ML INJECTION (J3010) As Ordered ONE
[2019-09-08] MEDS ORDERED: LIDOCAINE 1% SDV INJ 30 ML VIAL As Ordered ONE (11:39)
[2019-09-08] MEDS ORDERED: BUPIVACAINE HCL 0.25% 30 ML VIAL As Ordered ONE (11:39)
[2019-09-08] MEDS ORDERED: CIPR500T3 (11:44)
[2019-09-08] MEDS ORDERED: DEPO150I IM (11:45)
[2019-09-08] MEDS ORDERED: METHOCARBAMOL 1,000 MG/10 ML VIAL (J2800) As Ordered ONE (14:44)
[2019-09-08] MEDS ORDERED: ACETAMINOPHEN 1000MG 100ML IV BTL (OFIRMEV) (J0131 PER 10MG) As Ordered ONE (14:44)
[2019-09-08] MEDS ORDERED: LIDOCAINE 2% INJ 100 MG/5 ML SDV (FOR ANES.) As Ordered ONE (16:56)
[2019-09-08] MEDS ORDERED: HYDROmorphone HCL 2 MG/ML 1ML VIAL (J1170) As Ordered ONE (18:11)
[2019-09-08] MEDS: NS 1,000 ML IV SCH (18:38)
[2019-09-08] MEDS ORDERED: MORPHINE 2 MG/ML 1ML VIAL (J2270) IV PRN (18:45)
[2019-09-08] MEDS ORDERED: PERCOCET 5MG/325MG TAB PO PRN (18:45)
[2019-09-08] MEDS: oxyCODONE 5MG TAB PO PRN ×2 (18:45→19:20)
[2019-09-08] MEDS ORDERED: ACETAMINOPHEN TAB 650MG DOSE (2X325MG) PO PRN (18:45)
[2019-09-08] MEDS: fentaNYL 100 MCG/2 ML INJECTION (J3010) IV PRN ×4 (18:45→19:00)
[2019-09-08] MEDS ORDERED: ONDANSETRON 4MG/2ML VIAL (J2405) IV PRN (18:45)
[2019-09-08] MEDS ORDERED: LR 1,000 ML IV SCH (18:45)
[2019-09-08] MEDS ORDERED: PROMETHAZINE INJ 25 MG/ML VIAL (J2550) IV PRN (18:45)
[2019-09-08] MEDS: HYDROMORPHONE HCL 0.5 MG/ 0.5 ML SYRINGE (J1170 PER 1) IV PRN ×2 (19:05→19:08)
[2019-09-08 19:11] LABS: HEMATOCRIT 36.5 % (36.0-47.0); HEMOGLOBIN 10.5 g/dl (12.0-15.5); MEAN CORPUSCULAR HEMOGLOBIN 21.8 pg (27.0-33.0); MEAN CORPUSCULAR HGB CONC 28.8 g/dl (32.0-36.5); MEAN CORPUSCULAR VOLUME 75.7 fl (80.0-96.0); PLATELET COUNT, AUTOMATED 419 10^3/uL (150-450); RED BLOOD COUNT 4.82 10^6/uL (4.00-5.40); WHITE BLOOD COUNT 13.4 10^3/uL (4.0-10.0)
[2019-09-08 19:40] LABS: CALCIUM LEVEL 8.6 MG/DL (8.5-10.1); CREATININE FOR GFR 1.25 MG/DL (0.55-1.30); GLOMERULAR FILTRATION RATE 51.6 (>60); POTASSIUM SERUM 3.9 MEQ/L (3.5-5.1)
[2019-09-08 20:04] VITALS: BP 113/71
[2019-09-08] MEDS: PERCOCET 5MG/325MG TAB PO PRN (20:16)
[2019-09-08] MEDS: LevoFLOXacin IV 500 MG in IV 1 EA IV SCH (20:16)
[2019-09-08] MEDS: DOCUSATE SODIUM 100 MG CAP PO SCH (20:16)
--- NOTE | 2019-09-08 20:41 | ROOPDOC ---
[facility] Report Of Operation Report of Operation DATE OF PROCEDURE: 09/08/19 PREPROCEDURE DIAGNOSIS: Left upper tract urothelial carcinoma. POSTPROCEDURE DIAGNOSIS: Left upper tract urothelial carcinoma. PROCEDURE: Left robotic-assisted laparoscopic simple nephrectomy. SURGEON: Roselyn Gutiérrez MD DATA SOFTWARE ENGINEER: Emily Corley ANESTHESIA: General OPERATIVE INDICATIONS: This is a 34-year-old female with who has had chronic pain and chronic pyelonephritis in a poorly functioning left kidney. She was brought to the operating room today for simple nephrectomy. DESCRIPTION OF PROCEDURE: The patient was brought to the operating room where general anesthesia was induced. Prophylactic antibiotics were infused. A López catheter was placed under sterile conditions. She was then placed in the right lateral decubitus position. All pressure points were appropriately padded and an axillary roll was placed. We then secured the patient to the table with tape. Her abdomen and previously placed left nephrostomy tube were then prepped and draped in the usual sterile fashion. Next, an 8mm incision was made in line with the 11th rib along the lateral border of the rectus. Pneumoperitoneum was achieved with a Veress needle. Next, an 8mm port was placed for the camera. At this point, the left robotic port was placed off the costal margin. Two right hand robotic ports were then placed with one between the anterior superior iliac spine and the hip and the other one just caudal to the camera port. The one just caudal to the camera port was a 12mm robotic port. Last the 15 mm executive administrative assistant port was placed inferior and medial to the camera port. The robot was then docked. Attachments between the spleen and the Gerota's fascia were then released. The left colon was then mobilized medially. At this point, after mobilizing the left colon completely, we then developed a plane onto the psoas muscle off the lower pole of the kidney. The left gonadal vein was identified and was carried cephalad until the left renal vein was encountered. Just posterior to the vein, the renal artery was identified. Due to difficulty dissecting the artery as it was directly behind the vein, the decision was made to ligated and transect the vein first. The vein was carefully dissected. The adrenal vein was ligated and transected at its insertion into the renal vein. The left renal vein was ligated and transected using a robotic 45mm endovascular stapler. After that was done, the left renal artery was dissected. It was then ligated with Weck clips and transected in between, leaving 2 Weck clips on the stay side. Once this was done, We then began mobilizing the kidney on all sides. The left adrenal gland was identified and was dissected away and spared. Just prior to mobilizing the kidney posteriorly I decided to remove her previously placed left nephroureteral stent. The stitch holding it to the skin was cut and the string was released. I then had a lot of difficulty removing it as it was encrusted. After removing the majority of it, it suddenly popped. I was not able to determine if the entire nephroureteral stent was removed. I then completed mobilization of the kidney until it was only attached by the ureter. The ureter was transected and of note, there no portion of the nephroureteral stent was seen inside proximal portion of the ureter after it was transected. Once the kidney was completely free, it was placed in a large Endocatch bag for future retrieval. We then undocked the robot and a Nilesh fascial closure device was utilized to place a 0-vicryl suture through the fascia of the 15mm port site. We then connected the 2 right hand robotic port sites to extract the specimen. We then dissected down through the musculofascial layers and extended the fascia. The muscle was bluntly spread, and we then extracted the specimen through this incision. Once that was done, we checked for hemostasis through the extraction incision and it appeared excellent. The fascia of this incision was then closed with a running #0 Vicryl suture. At this point, the abdomen was then reinsufflated. We looked at the extraction incision, and there was no active bleeding and no abdominal contents were caught within the suture. Once this was done, all the remaining ports were removed and there was no bleeding. We then tied down the #0 Vicryl suture in the 15mm port site. Once this was done, all wounds were thoroughly irrigated. The subcutaneous fat of the extraction incision was then closed with interrupted #3-0 Vicryl sutures. We then closed the skin of all incisions using subcuticular #4-0 Monocryl suture. Local anesthetic was then applied and then Dermabond was applied and marked the conclusion of the procedure. The patient was then taken out of the right lateral decubitus position, awakened from anesthesia and transported to the recovery room in stable condition. ESTIMATED BLOOD LOSS: 25mL. COMPLICATIONS: None. SPECIMENS: Left kidney. PLAN: The patient will be admitted to the hospital postoperatively for monitoring. It appears that the entire left nephroureteral stent was removed, but just to be certain, I will obtain a CT scan of the abdomen and pelvis tomorrow. ROSELYN GUTIÉRREZ MD Sep 08, 2019 18:54
[2019-09-08 20:46] VITALS: BP 112/72
[2019-09-08 22:02] VITALS: BP 111/73
[2019-09-08] MEDS: ONDANSETRON 4MG/2ML VIAL (J2405) IV PRN (22:42)
[2019-09-08 22:46] VITALS: BP 112/74
[2019-09-09] VITALS (10 sets, daily range): BP systolic 103–127; BP diastolic 70–80
[2019-09-09] MEDS: PERCOCET 5MG/325MG TAB PO PRN ×2 (05:08→17:52)
[2019-09-09] MEDS: ONDANSETRON 4MG/2ML VIAL (J2405) IV PRN (05:08)
[2019-09-09] MEDS: NS 1,000 ML IV SCH ×2 (05:08→14:51)
[2019-09-09 07:23] LABS: HEMATOCRIT 33.4 % (36.0-47.0); HEMOGLOBIN 9.6 g/dl (12.0-15.5); MEAN CORPUSCULAR HEMOGLOBIN 21.9 pg (27.0-33.0); MEAN CORPUSCULAR HGB CONC 28.7 g/dl (32.0-36.5); MEAN CORPUSCULAR VOLUME 76.3 fl (80.0-96.0); PLATELET COUNT, AUTOMATED 348 10^3/uL (150-450); RED BLOOD COUNT 4.38 10^6/uL (4.00-5.40); WHITE BLOOD COUNT 11.8 10^3/uL (4.0-10.0)
[2019-09-09 07:54] LABS: CALCIUM LEVEL 8.3 MG/DL (8.5-10.1); CREATININE FOR GFR 1.31 MG/DL (0.55-1.30); GLOMERULAR FILTRATION RATE 48.9 (>60); POTASSIUM SERUM 4.3 MEQ/L (3.5-5.1)
[2019-09-09] MEDS: SERTRALINE HCL 50 MG TAB PO SCH (08:36)
[2019-09-09] MEDS: DOCUSATE SODIUM 100 MG CAP PO SCH ×2 (08:37→20:31)
[2019-09-09] MEDS ORDERED: INFLUENZA QUADRIVALENT PF VACCINE 0.5ML SYRINGE (90686) IM ONE (09:00)
--- NOTE | 2019-09-09 09:50 | IPNPDOC ---
Subjective Review oF Systems Chief Complaint The patient is a 34-year-old female admitted with a reason for visit of Chronic Pyelonephritis, Ureteral Stricture. Events since Last Encounter No acute events o/n. Patient had moderate amounts of incisional pain o/n. Also had mild nausea w/ no vomiting. No f/c/ns. Objective Physical Examination General Exam: Alert, Cooperative, No Acute Distress Chest Exam: Clear to auscultation Heart Exam: Positive: Rate Normal, Regular Rhythm ABDOMEN EXAM: Soft, Tenderness (mild), Other (incisions clean/dry/intact) Skin Exam: Nl turgor and temperature Psych Exam: Mental status NL, Mood NL Other physical findings catheter draining clear urine Vital Signs/I&O Vital Signs Date Time Temp Pulse Resp B/P (MAP) Pulse Ox O2 Delivery O2 Flow Rate FiO2 09/09/19 08:37 18 09/09/19 05:59 97.2 108 127/76 (93) 100 Nasal Cannula 2.0 I&O- Last 24 Hours up to 6 AM 09/09/19 06:00 Intake Total 3500 ml Output Total 1275 ml Balance 2225 ml Laboratory Data Labs 24H Laboratory Tests 2 09/08/19 18:47: Nucleated Red Blood Cells % (auto) 0.0, Anion Gap 4L, Glomerular Filtration Rate 51.6L, Calcium Level 8.6 09/09/19 07:01: Nucleated Red Blood Cells % (auto) 0.0, Anion Gap 5L, Glomerular Filtration Rate 48.9L, Calcium Level 8.3L CBC/BMP Laboratory Tests 09/08/19 18:47 09/09/19 07:01 Assessment/Plan Date Seen The patient was seen on 09/09/19. Patient Summary This is a 34 y/o F POD1 s/p left robotic simple nephrectomy. Her Hb is stable at 9.6. Her Cr is 1.36. At the end of her case yesterday I had difficulty removing her left nephroureteral stent due to encrustations along the length of it. To confirm that the entire stent was removed, a CT A/P was obtained this morning. It was notable for the distal end of the stent still in the distal left ureter and in the bladder w/ what appears to be calcifications on the curl of the stent. I have recommended that we take her to the OR today for cystoscopy and removal of the remainder of the stent. Plan/VTE VTE Prophylaxis Ordered?: Yes VTE Exclusion Mechanical Proph: N/A:VTE Prophy Ordered Plan - decrease IVF - keep catheter in for now - percocet, morphine prn pain - zofran prn nausea - strict I/Os - SCDs when in bed - ambulate - NPO - OR this afternoon ROSELYN GUTIÉRREZ MD Sep 09, 2019 09:50
--- NOTE | 2019-09-09 10:32 | REP ---
CT ABDOMEN AND PELVIS WITHOUT IV OR ORAL CONTRAST: HISTORY: Possible retained portion of left nephrostomy tube. COMPARISON CT STUDY: September 03, 2019 FINDINGS: Preliminary digital bilingual office assistant radiograph demonstrates a normal bowel gas pattern. A distal length of a left-sided ureteral stent is seen in the left true pelvis on the bilingual office assistant image. There is a tiny amount of pleural fluid. Bilateral subsegmental discoid atelectasis is seen in the lungs. There is a moderate pneumoperitoneum. There is extra abdominal soft tissue gas in the abdominal wall on the left and in the left posterior retroperitoneum. There is some extra abdominal subcutaneous emphysema in the proximal thigh abductor muscular and fascial planes of the left lower extremity as well. There are postoperative changes. The patient is status post left nephrectomy. These are all changes consistent with recent postoperative change. No abnormalities noted in the gallbladder or pancreas. The right kidney contains one or two small calcifications. There is mild fullness of the intrarenal collecting system. No linda hydronephrosis. There is a small quantity of fluid in the cul-de-sac. No other evidence of ascites is seen. Normal appendix is noted. No uterine or ovarian abnormality is seen. There is a López catheter in the urinary bladder. Adjacent to this, the bladder contains the distal pigtail loop of retained fragment of left ureteral stent. The fragment occupies the distal ureteral segment, and the distal loop appears to be within the bladder lumen. IMPRESSION: Status post recent left nephrectomy with postoperative intraperitoneal and extraperitoneal air. Retained distal half of the left ureteral pigtail stent catheter. The distal pigtail appears to be within the lumen of the urinary bladder. Electronically Signed by Maurice Morris MD 09/09/2019 12:56 P
[2019-09-09] MEDS ORDERED: ONDANSETRON 4MG/2ML VIAL (J2405) As Ordered ONE (13:49)
[2019-09-09] MEDS ORDERED: dexameTHASONE 4 MG/ML 1ML VIAL (J1100) As Ordered ONE (13:49)
[2019-09-09] MEDS ORDERED: PROPOFOL 200 MG/20 ML VIAL As Ordered ONE (13:49)
[2019-09-09] MEDS ORDERED: LIDOCAINE PRES-FREE 2% 10ML AMP As Ordered ONE (13:49)
[2019-09-09] MEDS ORDERED: fentaNYL 100 MCG/2 ML INJECTION (J3010) As Ordered ONE ×2 (13:50→15:19)
[2019-09-09] MEDS ORDERED: MIDAZOLAM INJ 2 MG/2 ML VIAL (J2250) As Ordered ONE (13:50)
[2019-09-09] MEDS ORDERED: LIDOCAINE 2% 5ML JELLY UROJET As Ordered ONE (14:24)
[2019-09-09] MEDS ORDERED: LevoFLOXacin(LEVAQUIN)500 MG/100 ML BAG (J1956) As Ordered ONE (14:39)
[2019-09-09] MEDS: LevoFLOXacin IV 500 MG in IV 1 EA IV SCH (15:19)
[2019-09-09] MEDS: fentaNYL 100 MCG/2 ML INJECTION (J3010) IV PRN ×4 (15:21→15:36)
[2019-09-09] MEDS ORDERED: LR 1,000 ML IV SCH (15:45)
[2019-09-09] MEDS ORDERED: PERCOCET 5MG/325MG TAB PO PRN (15:45)
[2019-09-09] MEDS ORDERED: ONDANSETRON 4MG/2ML VIAL (J2405) IV PRN (15:45)
--- NOTE | 2019-09-09 16:08 | RO ---
DATE OF PROCEDURE: 09/09/2019 PREPROCEDURE DIAGNOSIS: Retained ureteral stent. POSTPROCEDURE DIAGNOSIS: Retained ureteral stent. PROCEDURE: Cystoscopy, removal of left ureteral stent. SURGEON: Alexi Arriaga MD MATERIALS PLANNER: None. ANESTHESIA: Monitored anesthesia care (MAC). OPERATIVE INDICATIONS: This is a 34-year-old female who underwent a left simple nephrectomy yesterday. Prior to surgery, she had a left nephroureteral stent in, and this was believed to have been removed completely during surgery yesterday but there was some concern that the distal end might have broken off. Therefore, a CAT scan was obtained today to check to see if there was any remaining portion of the stent. And, indeed, the distal end of the stent was seen inside the bladder and appeared to be calcified. She was brought to the operating room today to remove the remaining portion of the left nephroureteral stent. DESCRIPTION OF PROCEDURE: The patient was brought to the operating room and MAC anesthesia was administered. Prophylactic antibiotics were infused. She was then placed in the dorsal lithotomy position and prepped and draped in the usual sterile fashion. A rigid cystoscope was inserted into the urethral meatus and advanced into the bladder. Once inside the bladder, the calcified distal end of the stent was seen. The calcifications were broken off of the stent using a stent grasper. Once the calcifications were broken off, the distal end of the stent was completely removed. All of the calcifications were then drained out of the bladder, and the bladder was emptied of all fluids, and this marked the conclusion of the procedure. The patient was then taken out of the dorsal lithotomy position, awakened from anesthesia, and transported to the recovery room in stable condition. Estimated blood loss: 5 mL. Complications: None. Specimens: None. Plan: The patient will be sent back to regular nursing floor and then will ultimately be discharged home once her pain is controlled and her kidney function is stable. SUSSY
[2019-09-10 02:00] VITALS: BP 115/76
[2019-09-10 06:00] VITALS: BP_SYST 121; BP_SYST 140; BP_DIAS 78; BP_DIAS 80
[2019-09-10 06:09] LABS: HEMATOCRIT 31.9 % (36.0-47.0); HEMOGLOBIN 9.1 g/dl (12.0-15.5); MEAN CORPUSCULAR HEMOGLOBIN 21.7 pg (27.0-33.0); MEAN CORPUSCULAR HGB CONC 28.5 g/dl (32.0-36.5); MEAN CORPUSCULAR VOLUME 76.1 fl (80.0-96.0); PLATELET COUNT, AUTOMATED 340 10^3/uL (150-450); RED BLOOD COUNT 4.19 10^6/uL (4.00-5.40); WHITE BLOOD COUNT 10.6 10^3/uL (4.0-10.0)
[2019-09-10 06:27] LABS: CALCIUM LEVEL 8.8 MG/DL (8.5-10.1); CREATININE FOR GFR 1.33 MG/DL (0.55-1.30); GLOMERULAR FILTRATION RATE 48.1 (>60); POTASSIUM SERUM 3.7 MEQ/L (3.5-5.1)
--- NOTE | 2019-09-10 07:25 | IPNPDOC ---
Subjective Review oF Systems Chief Complaint The patient is a 34-year-old female admitted with a reason for visit of Chronic Pyelonephritis, Ureteral Stricture. Events since Last Encounter No acute events o/n. Pain and nausea better controlled now. Tolerating regular diet. No f/c/ns. Objective Physical Examination General Exam: Alert, Cooperative, No Acute Distress Chest Exam: Clear to auscultation Heart Exam: Positive: Rate Normal, Regular Rhythm ABDOMEN EXAM: Soft, Tenderness (mild), Other (incisions clean/dry/intact) Skin Exam: Nl turgor and temperature Psych Exam: Mental status NL, Mood NL Vital Signs/I&O Vital Signs Date Time Temp Pulse Resp B/P (MAP) Pulse Ox O2 Delivery O2 Flow Rate FiO2 09/10/19 06:00 97.5 102 20 121/78 (92) 96 Room Air 09/09/19 05:59 2.0 I&O- Last 24 Hours up to 6 AM 09/10/19 06:00 Intake Total 2230 ml Output Total 2305 ml Balance -75 ml Laboratory Data Labs 24H Laboratory Tests 2 09/10/19 05:34: Nucleated Red Blood Cells % (auto) 0.0, Anion Gap 4L, Glomerular Filtration Rate 48.1L, Calcium Level 8.8 CBC/BMP Laboratory Tests 09/10/19 05:34 Assessment/Plan Date Seen The patient was seen on 09/10/19. Patient Summary This is a 34 y/o F POD2 s/p left robotic simple nephrectomy, POD1 s/p cysto w/ removal of retained left ureteral stent. She feels better this am. Hb stable at 9.1. Cr stable at 1.3. Good UOP. Plan/VTE VTE Prophylaxis Ordered?: Yes VTE Exclusion Mechanical Proph: N/A:VTE Prophy Ordered Plan - percocet prn pain - zofran prn nausea - strict I/Os - SCDs when in bed - ambulate - regular diet - likely discharge home later today if pain controlled w/ambulation ROSELYN GUTIÉRREZ MD Sep 10, 2019 07:25
[2019-09-10] MEDS: SERTRALINE HCL 50 MG TAB PO SCH (08:03)
[2019-09-10] MEDS: DOCUSATE SODIUM 100 MG CAP PO SCH (08:04)
[2019-09-10] MEDS: ONDANSETRON 4MG/2ML VIAL (J2405) IV PRN (08:12)
[2019-09-10] MEDS ORDERED: PERCOCET PO (10:15)
[2019-09-10] MEDS ORDERED: DOCU100C16 PO (10:15)
[2019-09-10] MEDS ORDERED: ZOFR4TAB16 PO (10:15)
--- NOTE | 2019-09-10 15:43 | DSES ---
DATE OF ADMISSION: 09/08/2019 DATE OF DISCHARGE: 09/10/2019 ADMITTING DIAGNOSES: Chronic pyelonephritis, atrophic kidney. DISCHARGE DIAGNOSES: Chronic pyelonephritis, atrophic kidney. ADMITTING PHYSICIAN: Dr. Alexi Arriaga DISCHARGING PHYSICIAN: Dr. Alexi Arriaga PROCEDURE PERFORMED: Left robotic assisted laparoscopic simple nephrectomy on 09/08/2019, cystoscopy with removal of retained left ureteral stent on 09/09/2019. HISTORY OF PRESENT ILLNESS: This is a 34-year-old female with a history of a left ureteral stricture, which has been managed more recently with chronic left nephrostomy tube placement. She has had multiple episodes of pyelonephritis and has had chronic pain in her left kidney. Recent renal scan showed decreased function of the left kidney. Given the repeat episodes of pyelonephritis and chronic pain in the left kidney, decision was made to remove her left kidney. She was admitted to the hospital after the above listed procedure. HOSPITALIZATION COURSE: The patient was admitted after undergoing a left simple nephrectomy on 09/08/2019. On postoperative day one, she did have a moderate amount of incisional pain and nausea. Also, a CAT scan was obtained on postoperative day one to assess if her left ureteral stent had been completely removed. There did appear to be the distal end of the stent still inside the bladder and it was markedly calcified. She was therefore taken to the operating room on postoperative day one for cystoscopy and remove the calcification from the distal end of the stent and then completely removal of the stent. After that was done, her pain was improved. On postoperative day two, she was tolerating a regular diet with much better pain control. She was ambulating well. Her laboratories were notable for a stable hemoglobin at around 9. Her serum creatinine was stable at 1.3 and she had excellent urine output. As she was doing well on postoperative day two, she was deemed ready for discharge home. She was discharged home with the plan for her to followup in the clinic in approximately 1 to 2 weeks to discuss results of her pathology and for postoperative check. SUSSY
== END 2019-09-10 12:00 | disposition home or self-care (01) | DRG 443 ==
LOC: M OR 11:02 → M MS5PR 20:08
PROVIDERS: ADMIT Urology; ATTEND Urology
PROC: 8E0W4CZ Robotic Assisted Procedure of Trunk Region, Percutaneous Endoscopic Approach (ICD-10-PCS; 2019-09-08)
PROC: 0TT14ZZ Resection of Left Kidney, Percutaneous Endoscopic Approach (ICD-10-PCS; principal; 2019-09-08 12:45)
PROC: 0TP98DZ Removal of Intraluminal Device from Ureter, Via Natural or Artificial Opening Endoscopic (ICD-10-PCS; 2019-09-09)
DX: N11.9 Chronic tubulo-interstitial nephritis, unspecified (principal); F32.9 Major depressive disorder, single episode, unspecified; N13.5 Crossing vessel and stricture of ureter without hydronephrosis; Z79.899 Other long term (current) drug therapy; F41.9 Anxiety disorder, unspecified; G25.81 Restless legs syndrome; G47.00 Insomnia, unspecified; N99.89 Other postprocedural complications and disorders of genitourinary system

== ENCOUNTER 2019-12-13 20:04 | Emergency (ER) | payer OTHER ==
[~2019-12-13] VITALS: Ht 160 cm; Wt 76.7 kg
[~2019-12-13 20:04] MED LIST changes: +CIPR500T3; +DEPO150I IM; +DOCU100C16 PO; +FLUO20CA20 PO; -FLUO20CA8 PO; -HYDROmorphone HCL 2 MG/ML 1ML VIAL (J1170) As Ordered ONE; -KETAMINE HCL 200 MG/20 ML VIAL As Ordered ONE; -LIDOCAINE 2% INJ 100 MG/5 ML SDV (FOR ANES.) As Ordered ONE; -LR 1,000 ML IV ONE; -MIDAZOLAM INJ 2 MG/2 ML VIAL (J2250) As Ordered ONE; -ONDANSETRON 4MG/2ML VIAL (J2405) As Ordered ONE; -PROPOFOL 200 MG/20 ML VIAL As Ordered ONE; -PROPOFOL 500 MG/50 ML VIAL As Ordered ONE; -ROCURONIUM BROMIDE 50 MG/5 ML VIAL As Ordered ONE; -SUGAMMADEX SODIUM 500 MG/5 ML VIAL (BRIDION) As Ordered ONE; +ZOFR4TAB16 PO; -ceFAZolin SOD 2 GM in IV 1 EA IV ONE; -dexameTHASONE 4 MG/ML 1ML VIAL (J1100) As Ordered ONE; -fentaNYL 250 MCG/5 ML INJECTION (J3010) As Ordered ONE
[2019-12-13] MEDS ORDERED: NORC1TAB7 PO (22:52)
[2019-12-13] MEDS ORDERED: NORCO 5/325MG TABLET (BULK FOR ED) PO ONE (23:00)
[2019-12-13] MEDS ORDERED: NORCO, ANEXSIA 5/325MG TABLET (HYDROcodone/ACETAMINOPHEN) PO ONE (23:00)
[2019-12-13 23:03] VITALS: BP 131/75
--- NOTE | 2019-12-14 08:13 | REP ---
Clinical: Trauma. Technique: AP, lateral, bilateral oblique views left foot Findings: There is a comminuted nondisplaced fracture involving the first toe proximal phalanx. Remainder examination is normal. Impression: Comminuted nondisplaced fracture of the first proximal phalanx. Electronically Signed by Jesus García MD 12/14/2019 08:04 A
== END 2019-12-13 23:04 | disposition home or self-care (01) ==
LOC: M ED 20:04
DX: S92.415A Nondisplaced fracture of proximal phalanx of left great toe, initial encounter for closed fracture (principal); Z88.8 Allergy status to other drugs, medicaments and biological substances; W22.03XA Walked into furniture, initial encounter; Y92.008 Other place in unspecified non-institutional (private) residence as the place of occurrence of the external cause; Y99.8 Other external cause status; Y93.89 Activity, other specified; G25.81 Restless legs syndrome; F41.9 Anxiety disorder, unspecified; Z79.899 Other long term (current) drug therapy

== ENCOUNTER → 2020-01-17 | Outpatient (CLI) | payer OTHER ==
[~2020-01-17] MED LIST changes: +NORC1TAB7 PO
[2020-01-17 10:15] LABS: BASO # 0.1 10^3/uL (0.0-0.2); BASO % 1.2 % (0.0-1.0); EOS # 0.4 10^3/uL (0.0-0.5); EOS % 6.3 % (0.0-3.0); HEMOGLOBIN 11.8 g/dl (12.0-15.5); LYMPH # 1.7 10^3/uL (1.5-5.0); LYMPH % 25.3 % (24.0-44.0); MEAN CORPUSCULAR HEMOGLOBIN 25.2 pg (27.0-33.0); MEAN CORPUSCULAR HGB CONC 31.1 g/dl (32.0-36.5); MONO # 0.6 10^3/uL (0.0-0.8); MONO % 8.8 % (0.0-5.0); NEUTROPHILS % 58.1 % (36.0-66.0); PLATELET COUNT, AUTOMATED 344 10^3/uL (150-450); RED BLOOD COUNT 4.69 10^6/uL (4.00-5.40); WHITE BLOOD COUNT 6.9 10^3/uL (4.0-10.0)
[2020-01-17 10:43] LABS: ALBUMIN 3.4 GM/DL (3.2-5.2); ALT/SGPT 23 U/L (12-78); BILIRUBIN,TOTAL 0.3 MG/DL (0.2-1.0); BLOOD UREA NITROGEN 19 MG/DL (7-18); CARBON DIOXIDE LEVEL 28 MEQ/L (21-32); CHLORIDE LEVEL 107 MEQ/L (98-107); CHOLESTEROL LEVEL 207 MG/DL (<200); CREATININE FOR GFR 1.22 MG/DL (0.55-1.30); GLOMERULAR FILTRATION RATE 53.1 (>60); GLUCOSE, FASTING 92 MG/DL (70-100); HDL CHOLESTEROL 52 MG/DL (>40); LDL CHOLESTEROL 130 MG/DL (<100); NON-HDL-C 155 MG/DL; POTASSIUM SERUM 4.3 MEQ/L (3.5-5.1); RHEUMATOID FACTOR QUANT < 10.0 IU/ML (<15.0); SODIUM LEVEL 138 MEQ/L (136-145); TOTAL 25(OH) VITAMIN D 15.5 NG/ML (30.0-100.0); TOTAL PROTEIN 7.4 GM/DL (6.4-8.2); TRIGLYCERIDES LEVEL 125 MG/DL (<150)
[2020-01-17 10:49] LABS: HEMOGLOBIN A1c 5.9 %
[2020-01-17 10:53] LABS: ERYTHROCYTE SEDIMENTATION RATE 23 mm/hr (0-20)
[2020-01-18 14:07] LABS: ANTI DOUBLE STRAND-DNA AB 1 IU/mL (0-9); ANTINUCLEAR ANTIBODIES DIRECT Positive (Negative); RNP ANTIBODIES >8.0 AI (0.0-0.9); SJOGREN'S ANTI SS-A 4.6 AI (0.0-0.9); SJOGREN'S ANTI SS-B <0.2 AI (0.0-0.9); SMITH ANTIBODIES 2.2 AI (0.0-0.9)
== END ==
LOC: M LAB 08:59
PROVIDERS: ATTEND Family Medicine
DX: R03.0 Elevated blood-pressure reading, without diagnosis of hypertension (principal); Z82.61 Family history of arthritis

== ENCOUNTER 2020-09-18 08:42 | Emergency (ER) | payer OTHER ==
[~2020-09-18] VITALS: Ht 160 cm; Wt 7.3 kg
[~2020-09-18 08:42] MED LIST changes: -MELA5TAB31 PO; +MELA5TAB36 PO; -PROC5TA PO; +PROC5TAB57 PO
[2020-09-18] MEDS ORDERED: LORazepam 2 MG/ML VIAL IV STA ×4 (08:57→10:19)
[2020-09-18] MEDS ORDERED: TIZA4TAB4 PO (09:00)
[2020-09-18] MEDS ORDERED: PARO40TA2 PO (09:00)
[2020-09-18] MEDS ORDERED: NS 1,000 ML IV ONE ×3 (09:00→15:15)
[2020-09-18 09:12] LABS: VENOUS HCO3 27.8 MEQ/L (23.0-27.0); VENOUS O2 SATURATION 87.2 % (60.0-80.0); VENOUS PARTIAL PRESSURE CO2 47.7 mmHg (38.0-50.0); VENOUS PARTIAL PRESSURE O2 49.7 mmHg (30.0-50.0); VENOUS PH 7.383 UNITS (7.330-7.430); VENOUS TOTAL CO2 29.2 MEQ/L (24.0-28.0)
[2020-09-18 09:26] LABS: BASO # 0.1 10^3/uL (0.0-0.2); BASO % 1.2 % (0.0-1.0); EOS # 0.4 10^3/uL (0.0-0.5); EOS % 6.4 % (0.0-3.0); HEMATOCRIT 41.3 % (36.0-47.0); HEMOGLOBIN 13.2 g/dl (12.0-15.5); LYMPH # 1.9 10^3/uL (1.5-5.0); LYMPH % 27.9 % (24.0-44.0); MEAN CORPUSCULAR HEMOGLOBIN 27.6 pg (27.0-33.0); MEAN CORPUSCULAR VOLUME 86.2 fl (80.0-96.0); MONO # 0.7 10^3/uL (0.0-0.8); MONO % 9.4 % (0.0-5.0); NEUTROPHILS # 3.8 10^3/uL (1.5-8.5); PLATELET COUNT, AUTOMATED 384 10^3/uL (150-450); RED BLOOD COUNT 4.79 10^6/uL (4.00-5.40); WHITE BLOOD COUNT 6.9 10^3/uL (4.0-10.0)
[2020-09-18] MEDS ORDERED: diphenhydrAMINE 50MG/ML VIAL (J1200) IV STA (09:31)
[2020-09-18] MEDS ORDERED: HALOPERIDOL 5MG/ML VIAL (J1630 PER 1) IV ONE (09:45)
[2020-09-18 09:58] LABS: OSMOLALITY SERUM 291 MOSM/KG (275-295)
[2020-09-18 10:00] LABS: ACETAMINOPHEN LEVEL 13.7 UG/ML (10.0-30.0); ALBUMIN 3.8 GM/DL (3.2-5.2); ALT/SGPT 139 U/L (12-78); BILIRUBIN,DIRECT 0.1 MG/DL (0.0-0.2); BILIRUBIN,TOTAL 0.6 MG/DL (0.2-1.0); BLOOD UREA NITROGEN 21 MG/DL (7-18); CALCIUM LEVEL 8.9 MG/DL (8.5-10.1); CARBON DIOXIDE LEVEL 27 MEQ/L (21-32); CHLORIDE LEVEL 105 MEQ/L (98-107); CPK CREATINE PHOSPHOKINASE 98 U/L (26-192); CREATININE FOR GFR 1.36 MG/DL (0.55-1.30); ETHYL ALCOHOL (ETHANOL) < 0.003 % (0.000-0.010); GLOMERULAR FILTRATION RATE 46.6 (>60); GLUCOSE, FASTING 127 MG/DL (70-100); POTASSIUM SERUM 3.6 MEQ/L (3.5-5.1); SALICYLATE LEVEL < 1.7 MG/DL (5.0-30.0); SODIUM LEVEL 138 MEQ/L (136-145); TOTAL PROTEIN 7.8 GM/DL (6.4-8.2)
[2020-09-18 10:01] LABS: BILIRUBIN, URINE MANUAL NEGATIVE (NEGATIVE); GLUCOSE, URINE (UA) MANUAL NEGATIVE (NEGATIVE); KETONE, URINE MANUAL NEGATIVE (NEGATIVE); UROBILINOGEN, URINE MANUAL NORMAL (NORMAL)
[2020-09-18] MEDS ORDERED: LORazepam 2 MG/ML VIAL As Ordered ONE (10:05)
[2020-09-18 10:08] LABS: BACTERIA, URINE LARGE AMOUNT; HYALINE CAST, URINE NONE SEEN /lpf (0-1); SQUAMOUS EPITHELIAL CELL URINE LARGE AMOUNT /hpf (SMALL AMT)
[2020-09-18 10:10] LABS: HCG, SERUM QUALITATIVE NEGATIVE (NEGATIVE)
[2020-09-18 10:24] LABS: AMPHETAMINES LEVEL URINE NEGATIVE (NEGATIVE); BARBITURATES URINE NEGATIVE (NEGATIVE); BENZODIAZEPINES URINE NEGATIVE (NEGATIVE); CANNABINOIDS URINE NEGATIVE (NEGATIVE); COCAINE METABOLITE URINE NEGATIVE (NEGATIVE); METHADONE URINE POSITIVE (NEGATIVE); OPIATES URINE NEGATIVE (NEGATIVE); PHENCYCLIDINE URINE NEGATIVE (NEGATIVE)
--- NOTE | 2020-09-18 11:06 | REP ---
INDICATION: Drug Overdose. COMPARISON: 06/27/2017. TECHNIQUE: SINGLE PORTABLE AP VIEW OF THE CHEST WAS PERFORMED. FINDINGS: There is mild elevation of the right hemidiaphragm. Cardiac silhouette appears mildly magnified. No infiltrate or pulmonary edema is seen. Mediastinal silhouette is unremarkable. The IMPRESSION: NO ACUTE PULMONARY DISEASE. <Electronically signed by Gautam Ortiz > 09/18/20 110
[2020-09-18 18:30] VITALS: BP 128/79
--- NOTE | 2020-09-18 23:58 | ECGEPIP ---
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
== END 2020-09-18 18:49 | disposition home or self-care (01) ==
LOC: M ED 08:42
DX: R45.1 Restlessness and agitation (principal); R20.1 Hypoesthesia of skin; T40.3X5A Adverse effect of methadone, initial encounter; T40.2X5A Adverse effect of other opioids, initial encounter; R00.0 Tachycardia, unspecified; M32.9 Systemic lupus erythematosus, unspecified; F17.200 Nicotine dependence, unspecified, uncomplicated; Z88.8 Allergy status to other drugs, medicaments and biological substances
CPT/HCPCS: 71045; 80048; 80076; 80307; 81000; 82550; 82803; 83605; 83930; 84443; 84703; 85025; 93005; 93041; 96361; 96374; 96375; 96376; 99285; G0480; J1200; J1630; J2060

== ENCOUNTER 2021-10-25 11:43 | Inpatient (IN) | payer OTHER ==
[~2021-10-25] VITALS: Ht 160 cm; Wt 75.3 kg
[~2021-10-25 11:43] MED LIST changes: +GABA-282 PO; +GABA-283; +GABA-283 PO; -GABA-843 PO; -GABA-845; -GABA-845 PO; +PARO40TA2 PO; +TIZA4TAB4 PO
[2021-10-25 13:41] LABS: BASO # 0.1 10^3/uL (0.0-0.2); BASO % 0.6 % (0.0-1.0); EOS # 0.1 10^3/uL (0.0-0.5); EOS % 1.1 % (0.0-3.0); HEMATOCRIT 43.3 % (36.0-47.0); HEMOGLOBIN 14.4 g/dl (12.0-15.5); LYMPH # 0.9 10^3/uL (1.5-5.0); LYMPH % 9.8 % (24.0-44.0); MEAN CORPUSCULAR HGB CONC 33.3 g/dl (32.0-36.5); MEAN CORPUSCULAR VOLUME 87.3 fl (80.0-96.0); MONO # 0.4 10^3/uL (0.0-0.8); MONO % 4.2 % (2.0-8.0); PLATELET COUNT, AUTOMATED 343 10^3/uL (150-450); RED BLOOD COUNT 4.96 10^6/uL (4.00-5.40); WHITE BLOOD COUNT 9.6 10^3/uL (4.0-10.0)
[2021-10-25 14:17] LABS: ALBUMIN 3.9 GM/DL (3.2-5.2); ALT/SGPT 30 U/L (12-78); BILIRUBIN,DIRECT 0.1 MG/DL (0.0-0.2); BILIRUBIN,TOTAL 0.6 MG/DL (0.2-1.0); BLOOD UREA NITROGEN 16 MG/DL (7-18); CALCIUM LEVEL 9.9 MG/DL (8.5-10.1); CARBON DIOXIDE LEVEL 29 MEQ/L (21-32); CHLORIDE LEVEL 104 MEQ/L (98-107); CREATININE FOR GFR 1.22 MG/DL (0.55-1.30); GLOMERULAR FILTRATION RATE 52.5 (>60); GLUCOSE, FASTING 135 MG/DL (70-100); LIPASE 75 U/L (73-393); POTASSIUM SERUM 4.1 MEQ/L (3.5-5.1); SODIUM LEVEL 138 MEQ/L (136-145); TOTAL PROTEIN 7.8 GM/DL (6.4-8.2)
[2021-10-25 14:20] LABS: HCG, SERUM QUALITATIVE NEGATIVE (NEGATIVE)
[2021-10-25] MEDS ORDERED: NS 500 ML IV ONE (14:55)
[2021-10-25] MEDS ORDERED: ONDANSETRON 4MG/2ML VIAL IV ONE (14:55)
[2021-10-25] MEDS ORDERED: MORPHINE 4 MG/ML 1ML VIAL/SYRINGE (J2270) IV ONE (14:55)
--- NOTE | 2021-10-25 15:25 | REP ---
INDICATION: right flank pain, r/o stone. COMPARISON: 10/18/2018 TECHNIQUE: Real-time sonographic evaluation of the kidneys with Doppler FINDINGS: Multiple ultrasonographic images of the right kidney show the right kidney to measure 13.4 x 4.5 x 5.7 cm. The renal cortical echotexture is unremarkable. There are no masses. There is good corticomedullary differentiation. There is moderate hydronephrosis. There are no perinephric fluid collections. The patient is status post left nephrectomy 2019 IMPRESSION: Hydronephrosis <Electronically signed by Jimy Roberts > 10/25/21 [id number]
--- NOTE | 2021-10-25 16:14 | REP ---
INDICATION: right renal colic COMPARISON: None. TECHNIQUE: Supine view of the abdomen and pelvis. FINDINGS: There is no evidence for intrarenal calculus. However, a small calcification in between the right 3rd and 4th lumbar pedicles overlying the psoas muscle is nonspecific and may represent ureteral stone. Correlation with physical examination and urinalysis may be warranted. Bowel gas pattern is nonspecific. No organomegaly. Skeletal structures intact. IMPRESSION: Cannot exclude right ureteral calculus. <Electronically signed by Jesus García > 10/25/21 [id number]
[2021-10-25] MEDS ORDERED: MORPHINE 2 MG/ML 1ML VIAL (J2270) IV ONE (16:40)
--- NOTE | 2021-10-25 17:06 | REP ---
INDICATION: POSSIBLE KIDNEY STONE COMPARISON: 09/09/2019 TECHNIQUE: Axial noncontrast images from the lung bases to the pubic symphysis with coronal and sagittal reformations. This CT examination was performed using the following dose reduction techniques: Automated exposure control, adjustment of mA and/or kv according to the patient's size, and use of iterative reconstruction technique. FINDINGS: Acute right-sided obstructive uropathy with hydroureteronephrosis and perinephric/periureteral stranding secondary to a 4.5 mm calculus in the proximal ureter (series 201; images 77-78). 2 mm nonobstructing right nephrolith is also identified. The bladder is normal. Left kidney is absent. Liver, spleen, pancreas, gallbladder, and bilateral adrenal glands are normal for noncontrast evaluation. The enteric system is without obstruction or acute inflammatory process. Normal terminal ileum and appendix are identified in the right lower quadrant. Colonic diverticula noted without acute diverticulitis. Pelvis demonstrates normal bladder and age-appropriate uterus/adnexa. No ascites. No free air. No adenopathy. Abdominal aorta without aneurysm. Musculoskeletal structures intact and without acute osseous abnormality. Lung bases are clear. IMPRESSION: Acute right-sided obstructive uropathy with a 4.5 mm obstructing calculus in the proximal ureter along with 2 mm nonobstructing right nephrolith. Absent left kidney. <Electronically signed by Jesus García > 10/25/21 [id number]
[2021-10-25] MEDS ORDERED: ACETAMINOPHEN TAB 650MG DOSE (2X325MG) PO PRN (18:30)
[2021-10-25] MEDS ORDERED: NS 1,000 ML IV ONE (18:30)
[2021-10-25] MEDS ORDERED: NALOXONE INJ 0.4MG/1ML VIAL (J2310 PER 1MG) IV PRN (18:30)
[2021-10-25] MEDS ORDERED: MORPHINE 30 MG TAB **MSIR PO PRN ×2 (18:30→18:35)
[2021-10-25] MEDS ORDERED: MORPHINE 2 MG/ML 1ML VIAL (J2270) IV PRN (18:30)
[2021-10-25] MEDS ORDERED: MORPHINE 30 MG TAB **MSIR PO ONE (18:35)
[2021-10-25] MEDS ORDERED: TIZA4TAB4 PO (18:41)
[2021-10-25] MEDS ORDERED: HOME MED LIST COMPLETE! XX SCH (18:45)
[2021-10-25] MEDS ORDERED: GLUCOSE 4GM CHEW TABLET PO PRN (18:50)
[2021-10-25] MEDS ORDERED: GLUCAGON INJ 1MG VIAL SC PRN (18:50)
[2021-10-25] MEDS ORDERED: DEXTROSE 50% 50 ML SYRINGE IV PRN (18:50)
[2021-10-25] MEDS ORDERED: CIPROFLOXACIN 500MG TABLET PO ONE (19:00)
--- NOTE | 2021-10-25 19:22 | HPEPDOC ---
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 Patient states that she initially felt the pain in her right flank, but initially did not believe it was another stone until she began to develop associated dizziness, nausea and vomiting. Patient tells me that she often has fevers and chills with her kidney stones, however denies these symptoms at this time. Patient tells me she is still making urine. Patient, at the time of my exam, denies any associated chest pain, shortness of breath, wheezing, gross hematuria, inability to void, diarrhea, constipation, pedal edema.] PAST MEDICAL HISTORY: 1. [See HPI PAST SURGICAL HISTORY: 1. [Many cystoscopies with stone basket removal procedures]. 2. [Ureteral stents x6]. 3. [Left nephrectomy 4. Nephrostomy tubes x1 5. Pyeloplasty 6. Left nephrectomy]. SOCIAL HISTORY: Tobacco use:[Denies] ETOH: [Denies] Illicit drug use: [Denies] FAMILY HISTORY: Reviewed - none pertinent ALLERGIES: Please see below. REVIEW OF SYSTEMS: CONSTITUTIONAL: [Denies fevers, chills]. HEENT: [Denies uri sx]. CARDIOVASCULAR: [Denies chest pain, palpitations]. RESPIRATORY: [Denies sob, wheezing]. GASTROINTESTINAL: [See HPI]. GENITOURINARY: [See HPI]. SKIN: [Denies rash]. MUSCULOSKELETAL: [C/o flank/back pain. Denies acute joint pain]. NEUROLOGICAL: [Denies syncope, paresthesias]. ENDOCRINE: [Denies hx of DM]. HEMATOLOGIC/LYMPHATIC: [Denies hx of vte]. HOME MEDICATIONS: Please see below. PHYSICAL EXAMINATION: VITAL SIGNS: Please see below. GENERAL APPEARANCE: [This is a tearful 36 y/o female who is seated on ED stretcher. She is upset that she has to be admitted to the hospital while her kids are at home. She is alert and oriented to all questioning. She does not appear to be in any respiratory distress]. HEENT: [No mass or lesion. EOMI. No scleral icterus. Nares patent. Oral mucosa moist]. CARDIOVASCULAR: [Tachy rate, regular rhythm. No murmurs, rubs, gallops]. LUNGS: [Good air flow b/l. No wheezing, rales, rhonchi]. ABDOMEN: [Soft, nondistended]. MUSCULOSKELETAL: [No joint deformity noted]. EXTREMITIES: [No pedal edema appreciated. Pulses intact. No overlying skin changes]. NEUROLOGICAL: [Speech clear. A+Ox3. No focal deficit]. PSYCHIATRIC: [Mood and affect appear appropriate]. LABORATORY DATA: See below. IMAGING: [Renal US: FINDINGS: Multiple ultrasonographic images of the right kidney show the right kidney to measure 13.4 x 4.5 x 5.7 cm. The renal cortical echotexture is unremarkable. There are no masses. There is good corticomedullary differentiation. There is moderate hydronephrosis. There are no perinephric fluid collections. The patient is status post left nephrectomy 2019 IMPRESSION: Hydronephrosis KUB: FINDINGS: There is no evidence for intrarenal calculus. However, a small calcification in between the right 3rd and 4th lumbar pedicles overlying the psoas muscle is nonspecific and may represent ureteral stone. Correlation with physical examination and urinalysis may be warranted. Bowel gas pattern is nonspecific. No organomegaly. Skeletal structures intact. IMPRESSION: Cannot exclude right ureteral calculus. CT Abd/pelvis: FINDINGS: Acute right-sided obstructive uropathy with hydroureteronephrosis and perinephric/periureteral stranding secondary to a 4.5 mm calculus in the proximal ureter (series 201; images 77-78). 2 mm nonobstructing right nephrolith is also identified. The bladder is normal. Left kidney is absent. Liver, spleen, pancreas, gallbladder, and bilateral adrenal glands are normal for noncontrast evaluation. The enteric system is without obstruction or acute inflammatory process. Normal terminal ileum and appendix are identified in the right lower quadrant. Colonic diverticula noted without acute diverticulitis. Pelvis demonstrates normal bladder and age-appropriate uterus/adnexa. No ascites. No free air. No adenopathy. Abdominal aorta without aneurysm. Musculoskeletal structures intact and without acute osseous abnormality. Lung bases are clear. IMPRESSION: Acute right-sided obstructive uropathy with a 4.5 mm obstructing calculus in the proximal ureter along with 2 mm nonobstructing right nephrolith. Absent left kidney.] MICROBIOLOGY: Please see below. 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 Upon workup in the ED, patient found to have right side obstructing stone, hydroureter, and perinephric stranding concerning for pyelonephritis. Patient does not meet sirs criteria. Patients cr is currently 1.2, which is close to her baseline renal function]. . PLAN: 1. [Nephrolithiasis - I have called and personally spoke with Dr. Subramanian, urology, who plans to take patient to the OR in the am for stone removal. Dr. Subramanian recommends patient begin cipro 500mg po bid and requests patient be NPO at midnight. Re commendations and assistance greatly appreciated. Consult order placed. - Pain control with morphine, will avoid nsaids d/t fragile kidney function - Nausea control with morphine - Regular diet follow by NPO at midnight - Will give ivf - Admit to med surg for tx 2. Pyelonephritis - CT imaging indicative of acute pyelo - Will begin cipro 500 po bid - urine culture sent - patient currently does not meet any sirs criteria 3. Recurrent stones - patient regularly follows up with dr. mcmahon, urology DVT prophylaxis - mechanical preop]. Vital Signs Vital Signs Date Time Temp Pulse Resp B/P (MAP) Pulse Ox O2 Delivery O2 Flow Rate FiO2 10/25/21 17:14 18 10/25/21 11:43 97.9 103 143/98 (113) 99 Room Air Laboratory Data Labs 24H Laboratory Tests 2 10/25/21 13:31: Immature Granulocyte % (Auto) 0.3, Neutrophils (%) (Auto) 84.0H, Lymphocytes (%) (Auto) 9.8L, Monocytes (%) (Auto) 4.2, Eosinophils (%) (Auto) 1.1, Basophils (%) (Auto) 0.6, Neutrophils # (Auto) 8.0, Lymphocytes # (Auto) 0.9L, Monocytes # (Auto) 0.4, Eosinophils # (Auto) 0.1, Basophils # (Auto) 0.1, Nucleated Red Blood Cells % (auto) 0.0, Urine Color YELLOW, Urine Appearance CLOUDYH, Urine pH 5.0, Urine Specific [place] 1.019, Urine Protein 1+H, Urine Glucose (UA) NEGATIVE, Urine Ketones NEGATIVE, Urine Blood 2+H, Urine Nitrite NEGATIVE, Urine Bilirubin NEGATIVE, Urine Urobilinogen 0.2, Urine Leukocyte Esterase 2+H, Urine WBC (Auto) 10H, Urine RBC (Auto) 118H, Urine Hyaline Casts (Auto) 0, Urine Bacteria (Auto) NEGATIVE, Urine Squamous Epithelial Cells 21, Urine Mucus (Auto) SMALL, Urine Sperm (Auto) , Anion Gap 5L, Glomerular Filtration Rate 52.5L, Calcium Level 9.9, Total Bilirubin 0.6, Direct Bilirubin 0.1, Aspartate Amino Transf (AST/SGOT) 22, Alanine Aminotransferase (ALT/SGPT) 30, Alkaline Ph osphatase 101, Total Protein 7.8, Albumin 3.9, Albumin/Globulin Ratio 1.0L, Lipase 75, Human Chorionic Gonadotropin, Qual NEGATIVE 10/25/21 18:38: CBC/BMP Laboratory Tests 10/25/21 13:31 Microbiology Microbiology 10/25/21 Urine Culture, Received Pending Home Medications Scheduled Tizanidine HCl (Tizanidine HCl) 4 Mg Tablet, 4 MG PO BID Allergies Coded Allergies: NSAIDS (Non-Steroidal Anti-Inflamma (Verified Adverse Reaction, Severe, SOLITARY KIDNEY- PLS AVOID ALL NSAIDS, 10/25/21) metoclopramide (Verified Adverse Reaction, Intermediate, anxiety, 12/13/19) quetiapine (Verified Adverse Reaction, Intermediate, bad anxiety attacks, 12/13/19) A-FIB/CHADSVASC A-FIB History Current/History of A-Fib/PAF?: No Current PO Anticoag Therapy: No PRIETO VALENCIA Oct 25, 2021 19:22
[2021-10-25] MEDS ORDERED: tiZANidine 4 MG TAB PO PRN (20:15)
[2021-10-25] MEDS ORDERED: cefTRIAXone SOD 1 GM in D5W MINI-BAG PLUS 50 ML IV SCH (21:00)
[2021-10-25 22:49] VITALS: BP 136/89
[2021-10-25] MEDS: ONDANSETRON 4MG/2ML VIAL IV PRN (23:01)
[2021-10-25] MEDS: NS 1,000 ML IV SCH ×2 (23:07→23:35)
[2021-10-26] MEDS: NS 1,000 ML IV SCH (04:47)
[2021-10-26 05:59] VITALS: BP 111/71
[2021-10-26] MEDS ORDERED: CIPROFLOXACIN 500MG TABLET PO SCH (06:00)
[2021-10-26 08:00] VITALS: BP 136/89
[2021-10-26] MEDS: ONDANSETRON 4MG/2ML VIAL IV PRN ×2 (08:12→10:35)
[2021-10-26] MEDS ORDERED: CONRAY-60 60% 50ML VIAL (Q9961) As Ordered ONE (08:24)
[2021-10-26] MEDS ORDERED: LIDOCAINE 2% 5ML JELLY UROJET As Ordered ONE (08:24)
[2021-10-26] MEDS ORDERED: propofoL 200 MG/20 ML VIAL As Ordered ONE (09:11)
[2021-10-26] MEDS ORDERED: MIDAZOLAM INJ 2MG/2ML VIAL (J2250 PER 1MG) As Ordered ONE (09:11)
[2021-10-26] MEDS ORDERED: ONDANSETRON 4MG/2ML VIAL As Ordered ONE (09:11)
[2021-10-26] MEDS ORDERED: DESFLURANE 240 ML INHALANT As Ordered ONE (09:11)
[2021-10-26] MEDS ORDERED: dexameTHASONE 4 MG/ML 1ML VIAL (J1100 PER 1MG) As Ordered ONE (09:11)
[2021-10-26] MEDS ORDERED: ACETAMINOPHEN 1000MG 100ML IV BTL (OFIRMEV) (J0131 PER 10MG) As Ordered ONE (09:11)
[2021-10-26] MEDS ORDERED: LIDOCAINE 2% 100MG/5ML SDV (FOR ANES.) As Ordered ONE (09:11)
[2021-10-26] MEDS ORDERED: fentaNYL 100 MCG/2 ML INJECTION (J3010) As Ordered ONE ×2 (09:11→10:04)
--- NOTE | 2021-10-26 09:48 | REP ---
INDICATION: CYSTO STENT PLACEMENT. COMPARISON: None. TECHNIQUE: Intraoperative fluoroscopic imaging using portable C-arm technique. FINDINGS: Contrast opacifies the right renal collecting system and there appears to be mild hydronephrosis. Total fluoroscopic time 9 seconds. IMPRESSION: Mild right hydronephrosis <Electronically signed by Jesus García > 10/26/21 0941
[2021-10-26] MEDS ORDERED: SUCCINYLCHOLINE 100 MG/5 ML SYRINGE (J0330) As Ordered ONE (09:54)
[2021-10-26] MEDS: fentaNYL 100 MCG/2 ML INJECTION (J3010) IV PRN ×2 (10:05→10:10)
[2021-10-26] MEDS ORDERED: LR 1,000 ML IV SCH (10:15)
[2021-10-26] MEDS ORDERED: oxyCODONE 5MG TAB PO PRN (10:15)
[2021-10-26] MEDS ORDERED: ONDANSETRON 4MG/2ML VIAL IV PRN (10:15)
[2021-10-26] MEDS ORDERED: PROMETHAZINE INJ 25 MG/ML VIAL (J2550) IV PRN (10:20)
--- NOTE | 2021-10-26 10:24 | RO ---
OPERATIVE NOTE DATE OF OPERATION: 10/26/2021 PREOPERATIVE DIAGNOSIS: Right proximal ureteral stone. POSTOPERATIVE DIAGNOSIS: Right proximal ureteral stone. PROCEDURE: 1. Cystoscopy. 2. Right retrograde pyelogram. 3. Right ureteroscopy with stone extraction. SURGEON: Mazin Urena M.D. GLUCOSE AND SYRUP WEIGHER: ANESTHESIA: General anesthesia. ESTIMATED BLOOD LOSS: Minimal. INDICATIONS: Miss Rosita Corado is a 36-year-old woman with a long history of recurrent nephrolithiasis and who previously underwent a left nephrectomy for complications after a kidney stone who presented to the emergency room with right flank pain, nausea and vomiting. She was found by CT scan to have a 4 mm stone at her right ureteropelvic junction with moderate hydronephrosis. She now presents for definitive surgical management of this problem. PROCEDURE IN DETAIL: The patient was brought into the operating room, placed in supine position. After administration of general anesthesia, she was placed in dorsal lithotomy position and prepped and draped in the usual sterile fashion. Cystourethroscopy was performed using a 22-Pashto cystoscope. The anterior and posterior urethra were noted to be normal. The bladder was entered without difficulty. Upon entrance into the bladder, the ureteral orifices were in their normal anatomical position. There was clear efflux seen coming out of the right ureteral orifice, no efflux obviously coming out of the left. There were no mucosal lesions identified. Using a 5-Pashto Pollack catheter, a right retrograde pyelogram was performed. This revealed a stone approximately 4 to 4-1/2 mm in diameter at the proximal ureter just below the right ureteropelvic junction. There was moderate hydronephrosis noted behind this. There were no other filling defects seen in the kidney. Under fluoroscopic guidance, a wire was placed across the right ureteral orifice up into the right renal pelvis. A short ureteral access sheath was then placed and flexible ureteroscopy was performed. The previously described stone was found in the renal pelvis. It was grasped with a basket and removed atraumatically. Repeat ureteroscopy revealed no other sizable stones or calcifications. The ureteral access sheath was then removed and ureteroscopy was performed. Again, there were no other mucosal lesions identified anywhere in the ureter. As per the patient's request, no stent was left. Her bladder was drained in its entirety. She was returned to a supine position and anesthesia was reversed. She was transferred to a bed and taken to the postanesthesia care unit in good condition. Of note, the needle and instrument count were correct at the conclusion of the case.
[2021-10-26 11:20] VITALS: BP 136/94
[2021-10-26] MEDS ORDERED: ACETAMINOPH W/CODEINE #3 TAB UD PO SCH (12:00)
[2021-10-26 12:20] VITALS: BP 126/87
[2021-10-26] MEDS ORDERED: ACET-716 PO (12:54)
[2021-10-26] MEDS ORDERED: CIPR-249 PO (12:54)
--- NOTE | 2021-10-26 14:31 | DS.PDOC ---
Discharge Summary General Date of Admission Oct 25, 2021 at 18:27 Date of Discharge Oct 26, 2021 Attending Physician: KANNAN HORNER DO Specialist/Consultants Involve: MERLYN LAWSON MD Discharge Summary PROCEDURES PERFORMED DURING STAY: Cystoscopy, right retrograde pyelogram, right ureteroscopy with stone extraction. ADMITTING DIAGNOSES: 1. Nephrolithiasis. 2. Pyelonephritis 3. Recurrent stones DISCHARGE DIAGNOSES: 1. Nephrolithiasis with moderate right hydronephrosis (right proximal ureteral stone)-status post cystoscopy 2. Pyelonephritis 3. Recurrent stones. COMPLICATIONS/CHIEF COMPLAINT: Worsening right-sided flank pain. HISTORY OF PRESENT ILLNESS: Patient is a 36-year-old female with a past medical history of acquired loss of left kidney secondary to multiple stones, stenting procedures, history of recurrent kidney stones that presented to the ED on 1223 for right-sided flank pain that began 6 days ago and has worsened since. Patient denies developing fevers or chills (symptoms which she associates with previous kidney stones (, but does endorse dizziness, nausea, and vomiting. HOSPITAL COURSE: 10/25/2021: 36-year-old female who presented to the ED after 6 days of worsening right flank pain. Has an extensive history of kidney stones. While in the ED patient was started on IV fluids, and morphine for pain control. She was also placed on antibiotic prophylaxis for pyelonephritis. 10/26/2021: Dr. Lawson performed a cystoscopy, right retrograde pyelogram, and a ureteroscopy with stone extraction. No stent was placed per patient's request. Patient examined at bedside status post procedure was noted to be up and walking around room at the time, and about to eat lunch. Patient reports continued right flank pain likely related to the procedure as well. She also states she is experiencing a pressure-like sensation, describes like she needs to use the bathroom. Also endorses experiencing continued dysuria and hematuria. She denied nausea (post procedure), vomiting, diarrhea, chest pain, shortness of breath, dizziness, constipation. She will be discharged on Tylenol 3 and ciprofloxacin for prophylaxis. DISCHARGE MEDICATIONS: Please see below. ALLERGIES: Please see below. PHYSICAL EXAMINATION ON DISCHARGE: VITAL SIGNS: Please see below. GENERAL: 36-year-old, female, initially seen walking around room, no acute distress CARDIOVASCULAR EXAMINATION: Regular rate and rhythm RESPIRATORY EXAMINATION: CTA bilateral ABDOMINAL EXAMINATION: Normoactive bowel sounds, tender to palpation in the right upper and lower quadrants, positive Yovani sign on the right side EXTREMITIES: 2+ dorsalis pedis pulses NEUROLOGICAL EXAMINATION: No focal deficits appreciated PSYCHIATRIC EXAMINATION: Alert and oriented x4 LABORATORY DATA: Please see below. IMAGING: Retrograde pyelogram 10/26/2021: Contrast opacifies the right renal collecting system and there appears to be mild hydronephrosis. Total fluoroscopic time [address] 10/25/2021 Acute right-sided obstructive uropathy with a 4.5 mm obstructing calculus in the proximal ureter along with 2 mm nonobstructing right nephrolith. Absent left kidney Abdomen x-ray 10/25/2021 There is no evidence for intrarenal calculus. However, a small calcification in between the right 3rd and 4th lumbar pedicles overlying the psoas muscle is nonspecific and may represent ureteral stone. Correlation with physical examination and urinalysis may be warranted. Renal ultrasound 10/25/2021: Multiple ultrasonographic images of the right kidney show the right kidney to measure 13.4 x 4.5 x 5.7 cm. The renal cortical echotexture is unremarkable. There are no masses. There is good corticomedullary differentiation. There is moderate hydronephrosis. There are no perinephric fluid collections. PROGNOSIS: Stable ACTIVITY: As tolerated. DIET: Low-sodium diet DISPOSITION: Home DISCHARGE INSTRUCTIONS AND ITEMS TO FOLLOW-UP ON OUTPATIENT : -Follow-up with PCP in the next 7 days; contact nephrology for follow-up -Complete course of ciprofloxacin prescribed to you -Take acetaminophen/codeine as needed for severe pain -Continue home medications as directed -If symptoms return/worsen, return to ED -Please follow the plan stated above -Thank you for allowing us to be part of your care DISCHARGE CONDITION: Stable. TIME SPENT ON DISCHARGE: 35 minutes. Vital Signs/I&Os Vital Signs Date Time Temp Pulse Resp B/P (MAP) Pulse Ox O2 Delivery O2 Flow Rate FiO2 10/26/21 12:54 18 10/26/21 12:20 98.3 90 126/87 (100) 93 Room Air 10/26/21 10:38 2.0 I&O- Last 24 Hours up to 6 AM 10/26/21 06:00 Intake Total 1400 ml Balance 1400 ml Laboratory Data Labs 24H Laboratory Tests 2 10/25/21 18:38: Coronavirus (COVID-19)(PCR) NEGATIVE Microbiology Microbiology 10/25/21 Respiratory Virus Panel (PCR) ([facility]) - Final, Complete Adenovirus Human Rhinovirus/Enterovirus 10/25/21 Urine Culture - Final, Complete Discharge Medications Scheduled Ciprofloxacin HCl (Cipro) 500 Mg Tablet, 500 MG PO BID@06,18 Take one tab evening of 10/26; beginning 10/27, take 1 tab in morning, and again at night till finish medication. Tizanidine HCl (Tizanidine HCl) 4 Mg Tablet, 4 MG PO BID, (Reported) Scheduled PRN Acetaminophen with Codeine (Acetaminophen-Cod #3 Tablet) 1 Each Tablet, 2 EA PO Q8HP PRN for PAINFUL PROCEDURES Do not drive or operate heavy machinery after taking Allergies Coded Allergies: NSAIDS (Non-Steroidal Anti-Inflamma (Verified Adverse Reaction, Severe, SOLITARY KIDNEY- PLS AVOID ALL NSAIDS, 10/25/21) metoclopramide (Verified Adverse Reaction, Intermediate, anxiety, 12/13/19) quetiapine (Verified Adverse Reaction, Intermediate, bad anxiety attacks, 12/13/19) GME ATTESTATION GME ATTESTATION My faculty preceptor for this patient encounter was physically present during the encounter and was fully available. All aspects of the patient interview, examination, medical decision making process, and medical care plan development were reviewed and approved by the faculty preceptor. The faculty preceptor is aware and concurs with the plan as stated in the body of this note and will attest to such by his/her cosignature. ATTENDING NOTE I, Kannan Horner DO, have independently examined this patient and performed my own physical exam, as well as reviewed the documentation and edited where necessary. I have discussed in detail with the resident the findings and plan of treatment as documented by the resident and edited their note. I agree with their findings and treatment plan and have edited their documentation. I will continue to follow the patient during this hospital stay. Jorge Farrell DO Oct 26, 2021 14:31 KANNAN HORNER DO Oct 26, 2021 16:25
== END 2021-10-26 13:45 | disposition home or self-care (01) | DRG 446 ==
LOC: M ED 11:43 → M ED INP 18:27 → ENRESERV 20:06 → M MSPAV 22:34
PROVIDERS: ADMIT Internal Medicine; ATTEND Family Medicine
PROC: 0TC68ZZ Extirpation of Matter from Right Ureter, Via Natural or Artificial Opening Endoscopic (ICD-10-PCS; principal; 2021-10-26 08:30)
DX: N20.1 Calculus of ureter (principal); Z90.5 Acquired absence of kidney; Z79.899 Other long term (current) drug therapy; Z88.6 Allergy status to analgesic agent; Z88.8 Allergy status to other drugs, medicaments and biological substances; Z20.822 Contact with and (suspected) exposure to COVID-19

== ENCOUNTER → 2022-04-23 | Outpatient (CLI) | payer OTHER ==
[~2022-04-23] MED LIST changes: +ACET-716 PO; -CEFD1CAP8 PO; +CEFD300C41 PO; +FLUO-96 PO; -FLUO20CA20 PO; +TIZA10TA PO; -TIZA4TAB4 PO
[2022-04-23 13:06] LABS: HEMATOCRIT 42.5 % (36.0-47.0); MEAN CORPUSCULAR HEMOGLOBIN 29.1 pg (27.0-33.0); MEAN CORPUSCULAR HGB CONC 32.9 g/dl (32.0-36.5); MEAN CORPUSCULAR VOLUME 88.4 fl (80.0-96.0); PLATELET COUNT, AUTOMATED 342 10^3/uL (150-450); RED BLOOD COUNT 4.81 10^6/uL (4.00-5.40); WHITE BLOOD COUNT 7.9 10^3/uL (4.0-10.0)
[2022-04-23 13:32] LABS: HCG, SERUM QUALITATIVE NEGATIVE (NEGATIVE)
[2022-04-23 13:56] LABS: ALBUMIN 3.6 GM/DL (3.2-5.2); ALT/SGPT 31 U/L (12-78); BILIRUBIN,TOTAL 0.3 MG/DL (0.2-1.0); BLOOD UREA NITROGEN 11 MG/DL (7-18); CALCIUM LEVEL 8.9 MG/DL (8.5-10.1); CARBON DIOXIDE LEVEL 33 MEQ/L (21-32); CHLORIDE LEVEL 100 MEQ/L (98-107); CREATININE FOR GFR 1.23 MG/DL (0.55-1.30); GLOMERULAR FILTRATION RATE 51.7 (>60); GLUCOSE, FASTING 88 MG/DL (70-100); HEPATITIS B SURFACE ANTIGEN NEGATIVE (NEGATIVE); POTASSIUM SERUM 3.4 MEQ/L (3.5-5.1); SODIUM LEVEL 140 MEQ/L (136-145); TOTAL PROTEIN 7.7 GM/DL (6.4-8.2)
[2022-04-23 14:21] LABS: HEPATITIS C VIRUS ABY INDEX 0.1 INDEX (<0.8); HIV 1&2 SCREEN CENTAUR NEGATIVE (NEGATIVE)
[2022-04-23 14:37] LABS: GC DNA AMPLIFICATION NEGATIVE (NEGATIVE)
== END ==
LOC: M LAB 12:04
PROVIDERS: ATTEND Family Medicine
DX: F11.20 Opioid dependence, uncomplicated (principal)

== ENCOUNTER → 2024-05-18 | Outpatient (CLI) | payer OTHER ==
[~2024-05-18] MED LIST changes: +CEFD1CAP9 PO; -CEFD300C41 PO; +CLON0.2T PO; -GABA-283; -GABA-283 PO; +GABA-284; +GABA-284 PO; +GABA800T4 PO; +LAMO200T3 PO; +LAMO50TA PO; +LUMA42CA PO; +ONDA-282 PO; -ONDA4TAB6 PO; -OXYB5TAB10 PO; +OXYB5TAB14 PO; -PROC25SU24 PR; +PROC25SU27 PR
[2024-05-18 12:55] LABS: HCG, SERUM QUALITATIVE NEGATIVE (NEGATIVE)
== END ==
LOC: M LAB 11:36
PROVIDERS: ATTEND Family Medicine
DX: F11.20 Opioid dependence, uncomplicated (principal)
CPT/HCPCS: 36415; 84703; G0480

== ENCOUNTER 2024-09-06 06:15 | Day surgery (SDC) | payer OTHER ==
[~2024-09-06] VITALS: Ht 160 cm; Wt 97.6 kg
[~2024-09-06 06:15] MED LIST changes: +GABA-1172 PO; +GABA-1635 PO; -GABA-282 PO; -GABA800T4 PO
[2024-09-06] MEDS ORDERED: NS 1,000 ML IV SCH ×2 (06:35→08:15)
[2024-09-06] MEDS ORDERED: MIDAZOLAM INJ 2MG/2ML VIAL As Ordered ONE (07:02)
[2024-09-06] MEDS ORDERED: fentaNYL 250 MCG/5 ML INJECTION As Ordered ONE (07:02)
[2024-09-06] MEDS ORDERED: ONDANSETRON 4MG 2ML VIAL As Ordered ONE (07:03)
[2024-09-06] MEDS ORDERED: ACETAMINOPHEN 1000MG 100ML IV BAG As Ordered ONE (07:03)
[2024-09-06] MEDS ORDERED: SUGAMMADEX SODIUM 500 MG/5 ML VIAL (BRIDION) As Ordered ONE (07:03)
[2024-09-06] MEDS ORDERED: propofoL 200 MG/20 ML VIAL As Ordered ONE (07:03)
[2024-09-06] MEDS ORDERED: ROCURONIUM BROMIDE 50MG/5ML VIAL As Ordered ONE (07:03)
[2024-09-06] MEDS ORDERED: LIDOCAINE 2% JELLY 6ML SYRINGE As Ordered ONE (07:03)
[2024-09-06] MEDS ORDERED: LIDOCAINE 2% 100MG/5ML SDV (FOR ANES.) As Ordered ONE (07:03)
[2024-09-06] MEDS: CHLORHEXIDINE GLUCONATE 0.12 % 15ML UDC (PERIDEX ORAL RINSE) As Ordered ONE (07:16)
[2024-09-06] MEDS: MEPIVACAINE HCL 3 % 1.7 ML DENTAL CARTRIDGE (CARBOCAINE) As Ordered ONE (07:16)
[2024-09-06] MEDS: LIDOCAINE 2% W/ EPINEPHRINE 1.7 ML DENTAL INJ As Ordered ONE (07:17)
[2024-09-06] MEDS: AMPICILLIN SOD/SULBACTAM SOD 3 GM in SODIUM CHLORIDE 0.9% 100ML ADD 100 ML IV ONE (07:34)
[2024-09-06] MEDS: OXYMETAZOLINE 0.05% NASAL SPRAY (AFRIN) As Ordered ONE (08:01)
[2024-09-06] MEDS ORDERED: HYDROMORPHONE HCL 0.5 MG/ 0.5 ML SYRINGE IV PRN (08:15)
[2024-09-06] MEDS ORDERED: ONDANSETRON 4MG 2ML VIAL IV PRN (08:15)
[2024-09-06] MEDS ORDERED: fentaNYL 100 MCG/2 ML INJECTION IV PRN (08:15)
[2024-09-06] MEDS: oxyCODONE 5MG TAB PO PRN (09:05)
[2024-09-06 11:05] VITALS: BP 139/79; TEMP 97.2; O2SAT 97
== END 2024-09-06 11:20 | disposition home or self-care (01) ==
LOC: M SDC 06:15
PROVIDERS: ATTEND Dentist
DX: K02.9 Dental caries, unspecified (principal); G25.81 Restless legs syndrome; F41.9 Anxiety disorder, unspecified; F32.A Depression, unspecified; Z79.899 Other long term (current) drug therapy; Z88.8 Allergy status to other drugs, medicaments and biological substances
CPT/HCPCS: 81025; 88300; C9290; D7140; D7210; D9223; J0131; J0295; J0670; J1100; J2250; J2405; J3010

== ENCOUNTER 2024-12-15 17:14 | Emergency (ER) | payer OTHER ==
[~2024-12-15] VITALS: Ht 160 cm; Wt 93.5 kg
[2024-12-15] MEDS ORDERED: LAMO25TA4 (17:35)
[2024-12-15] MEDS ORDERED: METH10CO PO (17:35)
[2024-12-15] MEDS: ONDANSETRON 4MG 2ML VIAL IV ONE (19:26)
[2024-12-15] MEDS: NS (Normal Saline) 0.9% 1,000 ML IV ONE (19:26)
[2024-12-15] MEDS: ACETAMINOPHEN *IV* 1,000 MG in IV 1 EA IV ONE (19:27)
[2024-12-15 19:30] LABS: HEMATOCRIT 48.4 % (36.0-47.0); HEMOGLOBIN 16.1 g/dl (12.0-15.5); MEAN CORPUSCULAR HEMOGLOBIN 29.3 pg (27.0-33.0); MEAN CORPUSCULAR HGB CONC 33.3 g/dl (32.0-36.5); MEAN CORPUSCULAR VOLUME 88.2 fl (80.0-96.0); PLATELET COUNT, AUTOMATED 410 10^3/uL (150-450); RED BLOOD COUNT 5.49 10^6/uL (4.00-5.40); WHITE BLOOD COUNT 9.4 10^3/uL (4.0-10.0)
[2024-12-15 20:05] LABS: ATYPICAL LYMPH 6 % (0-5); BASOPHILS 3 % (0-1); EOSINOPHILS 1 % (0-3); LYMPHOCYTES 24 % (16-44); MONOCYTES 5 % (0-5); NEUTROPHILS 61 % (28-66); PLATELET ESTIMATE NORMAL (NORMAL)
[2024-12-15 20:07] LABS: LIPASE 35 U/L (12-53)
[2024-12-15 20:08] LABS: HCG, SERUM QUALITATIVE NEGATIVE (NEGATIVE)
[2024-12-15 20:09] LABS: ALBUMIN 3.7 G/DL (3.2-5.2); ALKALINE PHOSPHATASE 105 U/L (35-104); ALT/SGPT 81 U/L (7.0-40); AST/SGOT 56 U/L (<34); BILIRUBIN,DIRECT 0.2 MG/DL (<0.4); BILIRUBIN,TOTAL 0.6 MG/DL (0.3-1.2); BLOOD UREA NITROGEN 20 MG/DL (9-23); CALCIUM LEVEL 9.7 MG/DL (8.5-10.1); CARBON DIOXIDE LEVEL 32 MMOL/L (20-31); CHLORIDE LEVEL 98 MMOL/L (98-107); CREATININE FOR GFR 1.17 MG/DL (0.55-1.30); GLOMERULAR FILTRATION RATE 54.3 (>58); GLUCOSE, FASTING 93 MG/DL (60-100); POTASSIUM SERUM 4.2 MMOL/L (3.5-5.1); SODIUM LEVEL 140 MMOL/L (136-145); TOTAL PROTEIN 8.4 G/DL (5.7-8.2)
[2024-12-15] MEDS ORDERED: ONDA-282 PO (23:18)
[2024-12-15] MEDS ORDERED: CARA1TAB6 PO (23:18)
[2024-12-15] MEDS ORDERED: PROT1TAB2 PO (23:18)
[2024-12-15 23:35] VITALS: BP 119/71; TEMP 96.9; O2SAT 95
[2024-12-15] MEDS: SUCRALFATE SUSP 1GM/10ML UD PO ONE (23:38)
[2024-12-15] MEDS: PANTOPRAZOLE 40MG VIAL IV ONE (23:38)
== END 2024-12-15 23:40 | disposition home or self-care (01) ==
LOC: M ED 17:14
DX: K29.00 Acute gastritis without bleeding (principal); K76.0 Fatty (change of) liver, not elsewhere classified; F41.9 Anxiety disorder, unspecified; F32.A Depression, unspecified; Z88.6 Allergy status to analgesic agent; Z88.8 Allergy status to other drugs, medicaments and biological substances; Z79.899 Other long term (current) drug therapy
CPT/HCPCS: 76705; 80048; 80076; 83690; 84703; 85025; 87486; 87581; 87633; 87798; 96361; 96374; 96375; 99284; J0131; J2405; J2470

== ENCOUNTER → 2025-05-24 | Outpatient (CLI) | payer OTHER ==
[~2025-05-24] MED LIST changes: -AMBI5TAB PO; +CARA1TAB6 PO; -FLOM0.4C39 PO; +LAMO-18; +METH10CO PO; +PROT1TAB2 PO; +TAMS-18 PO; +ZOLP-532 PO
[2025-05-24 15:22] LABS: PLATELET COUNT, AUTOMATED 295 10^3/uL (150-450)
[2025-05-24 15:37] LABS: ESTIMATED AVERAGE GLUCOSE 117.0 MG/DL (60-110)
[2025-05-24 15:51] LABS: ALT/SGPT 64.0 U/L (7.0-40); AST/SGOT 45.0 U/L (<34); CALCIUM LEVEL 9.4 MG/DL (8.5-10.1); CARBON DIOXIDE LEVEL 29.0 MMOL/L (20-31); CHLORIDE LEVEL 98.0 MMOL/L (98-107); CHOLESTEROL LEVEL 249.0 MG/DL (<200); CHOLESTEROL RISK RATIO 5.44 (<5); CREATININE FOR GFR 1.29 MG/DL (0.55-1.30); GLOMERULAR FILTRATION RATE 53.1 (>58); LDL CHOLESTEROL 145.3 MG/DL (<100); NON-HDL-C 203.3 MG/DL; POTASSIUM SERUM 4.4 MMOL/L (3.5-5.1); SODIUM LEVEL 138.0 MMOL/L (136-145); TRIGLYCERIDES LEVEL 290.0 MG/DL (<150)
[2025-05-24 15:52] LABS: IRON (FE) 61.0 UG/DL (50-170); PERCENT SATURATION 19.0 % (13.2-45.0); TOTAL 25(OH) VITAMIN D 28.4 NG/ML (20.0-100.0)
== END ==
LOC: M LAB 14:55
PROVIDERS: ATTEND Registered Nurse Psychiatric/Mental Health
DX: Z79.899 Other long term (current) drug therapy (principal)